=== PATIENT | male | born 1955 | race Caucasian/White ===

== ENCOUNTER 2022-02-08 14:58 | Inpatient (IN) | payer OTHER, SELFPAY ==
--- NOTE | ~2022-02-08 | CT_ITS ---
EXAMINATION: CTA CHEST WITHOUT AND WITH CONTRAST, CT ABDOMEN AND PELVIS WITH CONTRAST CLINICAL INFORMATION: Vomiting, hypoxia COMPARISON: No pertinent prior studies are available for comparison. TECHNIQUE: Multidetector volumetric imaging was performed from the thoracic inlet through the pubic symphysis following administration of oral and 100 mL of Omnipaque 300 intravenous contrast. Sagittal and coronal reformatted images were obtained on the technologist workstation. This CT examination was performed using dose optimization techniques as appropriate, variously including the following: *Automated exposure control *Adjustment of mA and/or kV according to patient size (this includes techniques or standardized protocols for targeted exams where dose is matched to indication/reason for exam; i.e. extremities or head) *Use of iterative reconstruction technique DLP: 1507 mGy-cm FINDINGS: CHEST: LUNGS: There are small multifocal areas of parenchymal abnormality which are irregular but nonmasslike predominantly upper lung zones bilaterally. Minor focal airspace disease left base. Appearance favors postinflammatory scarring on this baseline exam. For example a left apical lesion when analyzed in the sagittal plane is more platelike in the subpleural space favoring scarring. There are discrete tiny nodules within the right lung superior segment right lower lobe measuring up to 4 mm. This is nonspecific but warrants close follow-up. There is evidence of underlying scattered groundglass opacities which may related to small vessel airway disease. There is a mosaic perfusion is also evident. PULMONARY ARTERIES: Relatively small burden acute pulmonary emboli are noted within the right lower lobe pulmonary artery nonocclusive. Minimal involvement of the right upper lobe pulmonary artery. No evidence for any increased right ventricular pressures. MEDIASTINUM: The mediastinum is normal. Central vascular structures are unremarkable. No hilar or mediastinal lymphadenopathy. PERICARDIUM/PLEURA: There is no significant effusion. No pleural mass or thickening. CHEST WALL/AXILLA: Unremarkable. ABDOMEN/PELVIS: LIVER, GALLBLADDER, BILIARY TREE: The liver is normal in size, shape, and attenuation. No focal hepatic lesion or biliary ductal dilatation is present. The gallbladder is unremarkable with no evidence of radiopaque gallstones, gallbladder wall thickening, or pericholecystic inflammatory changes. PANCREAS: Unremarkable. SPLEEN: Unremarkable. ADRENAL GLANDS: Unremarkable. KIDNEYS AND URETERS: Horseshoe kidney without evidence of any mass or hydronephrosis. No stones. BLADDER: Decompressed with Sheldon catheter in place. Relative thick wall noted limiting assessment. No stones. Air noted presumably iatrogenic within the lumen. GASTROINTESTINAL TRACT: Moderately severe diverticulosis throughout the sigmoid colon in particular. No definite acute inflammatory changes or fluid collection. No small bowel obstruction or abnormality. Normal appendix. ABDOMINAL WALL: No hernia is demonstrated. LYMPH NODES: Normal. VASCULAR: Unremarkable. PELVIC VISCERA: Unremarkable. OSSEOUS STRUCTURES: Unremarkable. CT/CT angio chest PE protocol IMPRESSION: 1. Acute pulmonary embolism as above. 2. Pulmonary lesions which are nonspecific. According to the UPDATED 2017 Fleischner Society recommendations, the advised follow-up imaging for solid nodules < 6 mm is: LOW RISK PATIENT: No routine follow-up. HIGH RISK PATIENT: Optional CT at 12 months. Based on overall appearance, consider follow-up in 6-12 months. 3. Diverticulosis only. No obstruction. 4. Incidental horseshoe kidney. This critical result was discussed with Sanchez PA at 5:50 PM on a 3022 and it was ascertained that the content and urgency of the report was understood at the time of direct communication.
--- NOTE | ~2022-02-08 | CT_ITS ---
EXAMINATION: CT HEAD WITHOUT CONTRAST CLINICAL INFORMATION: Confusion COMPARISON: 02/08/2022 TECHNIQUE: Contiguous axial imaging was performed from the skull base to vertex without intravenous administration of contrast. This CT examination was performed using dose optimization techniques as appropriate, variously including the following: *Automated exposure control *Adjustment of mA and/or kV according to patient size (this includes techniques or standardized protocols for targeted exams where dose is matched to indication/reason for exam; i.e. extremities or head) *Use of iterative reconstruction technique DLP: 784 mGy-cm FINDINGS: No acute intracranial abnormality. Symmetrical white matter changes most consistent with terminal supply white matter chronic lacunar ischemic/infarct involving the hollis radiata and centrum semiovale. No acute infarct or hemorrhage. No extra-axial abnormality. Brainstem and cerebellum intact. No calvarial abnormality. Paranasal sinuses and mastoid air cells clear. CT/CT head/brain wo IV con IMPRESSION: No acute intracranial pathology.
--- NOTE | ~2022-02-08 | CT_ITS ---
EXAMINATION: CT HEAD WITHOUT CONTRAST CLINICAL INFORMATION: Confusion COMPARISON: None TECHNIQUE: Contiguous axial imaging was performed from the skull base to vertex without intravenous administration of contrast. This CT examination was performed using dose optimization techniques as appropriate, variously including the following: *Automated exposure control *Adjustment of mA and/or kV according to patient size (this includes techniques or standardized protocols for targeted exams where dose is matched to indication/reason for exam; i.e. extremities or head) *Use of iterative reconstruction technique DLP: 99 mGy-cm FINDINGS: Symmetrical white matter changes most consistent with terminal supply white matter chronic lacunar ischemic/infarct involving the hollis radiata and centrum semiovale. The ventricles and cisterns are normal in size, shape and configuration. There are no extra-axial surface collections or evidence of hemorrhage. Midline structures are central. The thomas/white differentiation is maintained. The orbits appear normal bilaterally. The paranasal sinuses are clear. No fractures are seen. CT/CT head/brain wo IV con IMPRESSION: No acute intracranial pathology.
--- NOTE | ~2022-02-08 | US_ITS ---
EXAMINATION: US VENOUS ULTRASOUND WITH DOPPLER LOWER EXTREMITY, BILATERAL CLINICAL INFORMATION: Positive PE COMPARISON: None TECHNIQUE: Ultrasound of the deep veins is performed from the hip to the calf with compression sonography and color and pulse Doppler assessment. Spectral analysis with color-flow imaging is performed. FINDINGS: RIGHT: There is normal venous compression and respiratory variation and augmented flow. The visualized common femoral vein, superficial femoral vein, profunda femoral vein, popliteal vein, and the trifurcation region shows no evidence of deep venous thrombosis. There is no significant popliteal fossa cyst. LEFT: Post left above-knee amputation. There is occlusive thrombus in the left superficial femoral vein. The left common femoral and profunda femoral veins are patent. US/US venous duplex LE BI IMPRESSION: Left superficial femoral DVT. No right leg DVT. Findings were communicated to IVAN Prescott by telephone on 02/09/2022 at 2:15 PM.
[2022-02-08 15:03] VITALS: BP 104/63; BP 95/55; PULSE 78; RESP 18; TEMP 35.8; O2SAT 94; BMI 27.4
--- NOTE | 2022-02-08 15:03 | ECG_ITS ---
Test Reason : WEAKNESS Blood Pressure : / mmHG Vent. Rate : 079 BPM Atrial Rate : 079 BPM P-R Int : 290 ms QRS Dur : 156 ms QT Int : 440 ms P-R-T Axes : 028 -05 036 degrees QTc Int : 504 ms Sinus rhythm with 1st degree A-V block Right bundle branch block Inferior infarct , age undetermined Abnormal ECG No previous ECGs available Referred By: Lula Acevedo Electronically Signed By:REGLA SEVILLA
--- NOTE | 2022-02-08 15:13 | ED_ITS ---
HPI - General Adult General Chief complaint: Weakness Stated complaint: SOB, 90% 4LPM,H/O DIALYSIS Time Seen by Provider: 02/08/22 15:01 Source: patient and EMS Mode of arrival: EMS History of Present Illness HPI narrative: 67-year-old male with a past medical history of ETOH abuse, HTN, PVD, diabetes s/p L BKA, urinary retention indwelling Sheldon catheter, CKD stage 3 on HD (M/W/F), s/p recent admission to [facility] for possible acute encephalopathy, NAEEM with hyperkalemia and dialysis requirement, found to be hypoxic 82% on RA with nausea and vomiting at [facility]. Patient with poor appetite/decreased p.o. intake. Denies CP, SOB, abdominal pain, diarrhea, cough, fever Onset (ago): hour(s) Related Data Home Medications Medication Instructions Recorded Confirmed acetaminophen 325 mg tablet 650 mg PO Q4H PRN Fever 02/08/22 02/08/22 (Tylenol) amlodipine 10 mg tablet 1 tab PO DAILY 02/08/22 02/08/22 aspirin 81 mg chewable tablet 81 mg PO DAILY 02/08/22 02/08/22 atorvastatin 20 mg tablet 20 mg PO DAILY 02/08/22 02/08/22 carvedilol 25 mg tablet 25 mg PO BID 02/08/22 02/08/22 fluticasone propionate 220 1 puff inhalation BID 02/08/22 02/08/22 mcg/actuation HFA aerosol inhaler glipizide 10 mg tablet 10 mg PO DAILY 02/08/22 02/08/22 hydralazine 25 mg tablet 25 mg PO TID 02/08/22 02/08/22 sennosides 8.6 mg tablet (senna) 17.2 mg PO BEDTIME 02/08/22 02/08/22 sitagliptin 100 mg tablet 100 mg PO DAILY 02/08/22 02/08/22 tamsulosin 0.4 mg capsule 0.8 mg PO DAILY 02/08/22 02/08/22 trazodone 50 mg tablet 50 mg PO BEDTIME 02/08/22 02/08/22 Allergies Allergy/AdvReac Type Severity Reaction Status Date / Time No Known Allergies Allergy Verified 02/08/22 15:03 Review of Systems Review of Systems: Constitutional: No Fever, No Chills, + Fatigue, + Malaise, +decreased PO intake ENT/Mouth: No Ear Pain, No Nasal Congestion, No sore throat, No Rhinorrhea, No Swallowing Difficulty Eyes: No Eye Pain, No Swelling, No Redness, No Vision Changes Cardiovascular: No Chest Pain, No SOB, No Dyspnea on Exertion, No Orthopnea, No Edema, No Palpitations Respiratory: No Cough, No Sputum, No Dyspnea Gastrointestinal: + Nausea, + Vomiting, No Diarrhea, No Constipation, No Abdominal pain Genitourinary: No irregular bleeding, No Dysuria, No Urinary Frequency, No Hematuria, No Urinary Incontinence/retention, No Flank Pain Musculoskeletal: No joint pain, No Myalgias, No Joint Swelling Skin: No Skin Lesions, No rash Neuro: No Weakness, No Numbness, No Dizziness, No Headache Yes all other systems are reviewed and are negative Constitutional: Constitutional: Reports as per [facility] Past Medical History Attestation statement: The following information was validated with the patient. Social History Social History Advance Directives: No Advance Directives Information Provided: Yes Physical Exam ED Vital Signs: Vital Signs - 24 hr 02/08/22 15:03 02/08/22 17:53 Temperature 96.5 F L Pulse Rate 78 78 Respiratory Rate 18 21 H Blood Pressure 95/55 L 137/75 Pulse Oximetry 94 94 Oxygen Delivery Method Nasal Cannula Nasal Cannula Oxygen Flow Rate 3 BMI result Body Mass Index 27.4 Const Other: Diaphoretic General: cooperative and no acute distress Orientation/consciousness: patient oriented x3 Limitations: no limitations HENMT Head: Yes normal to inspection and Yes atraumatic Ears: hearing grossly normal bilaterally General nose exam: Normal external nose present Face and sinus: Yes normal facial exam Mouth: Normal oral and palatal mucosa present Throat: Yes posterior oropharynx normal Eyes General: appearance normal, both eyes and all related structures EOM: EOMs intact bilaterally Neck Neck: Yes normal visual inspection and Yes no meningeal signs Resp Effort & Inspection: normal respiratory effort and no respiratory distress Auscultation: rhonchi lower bilaterally Cardio Rate: regular rate Heart sounds: S1 normal heart sound present and S2 normal heart sound present GI Inspection: Yes normal to inspection Palpation (GI): Soft to palpation, nontender, no guarding and not rigid General: Yes no CVA tenderness Back/Spine/Pelvis Back: no CVA tenderness Skin Rashes: no rashes Wounds: no wounds Neuro General: patient oriented x3, tone normal and no meningeal signs Gait exam (Neuro): Normal gait present Extrem General: Yes normal to inspection Course Course Course Narrative: -1405--noted leukocytosis of 32.6 previously with left shift (12.5 yesterday) > IV vancomycin added. D-dimer 3246 -pH 7.45, lactic acid negative. Troponin 14.6 > will obtain 3 hour repeat. Ammonia WNL -1619--BUN noted to be 48, creatinine of 10.51. Anion gap 25. CRP elevated to 11.68 - + UA infected -1755--CT head/brain wo IV con IMPRESSION: No acute intracranial pathology. CT angio chest PE protocol /CT abdomen pelvis w IV con IMPRESSION: 1. Acute pulmonary embolism as above. 2. Pulmonary lesions which are nonspecific. According to the UPDATED 2017 Fleischner Society recommendations, the advised follow-up imaging for solid nodules < 6 mm is: ?? LOW RISK PATIENT: No routine follow-up. ?? HIGH RISK PATIENT: Optional CT at 12 months. ? Based on overall appearance, consider follow-up in 6-12 months. ? 3. Diverticulosis only. No obstruction. 4. Incidental horseshoe kidney. ? This critical result was discussed with Sanchez PA at 5:50 PM on a 3022 and it was ascertained that the content and urgency of the report was understood at the time of direct communication. >> no evidence of right heart strain initiated IV heparin. Patient admitted to hospitalist for further management -spoke with renal Dr Montero aware patient needs dialysis tomorrow. Recommended blood cultures if positive pull out PermCath Medical Decision Making [facility] Narrative Medical decision making narrative: 67-year-old male with a past medical history of ETOH abuse, HTN, PVD, diabetes s/p L BKA, urinary retention indwelling Sheldon catheter, CKD stage 3 on HD (M/W/F), s/p recent admission to [facility] for possible acute encephalopathy, NAEEM with hyperkalemia and dialysis requirement, found to be hypoxic 82% on RA with nausea and vomiting at [facility]. Patient with poor appetite/decreased p.o. intake. On exam satting 90-93% on RA, bibasilar rhonchi, diaphoretic, abdomen soft/nont sagrario. Active dark green emesis during evaluation. Concern for aspiration pneumonia/pneumonitis vs PE vs viral syndrome/COVID-19 vs HCAP vs SBO vs Permacath infection. -Pre dialysis yesterday patient's BUN of 64, creatinine 11.5. Per [facility] records BUN 32/ creatinine 6.7 on 02/03/22 Plan: EKG, labs, UA, head CT, CTA to rule out PE, CT abdomen/pelvis, empiric IV Zosyn, admission Medical Records Medical records reviewed: Yes I reviewed the patient's medical records. Lab Data Lab results reviewed: Yes I reviewed the patient's lab results. Result diagrams: 02/08/22 15:24 02/08/22 15:24 Labs: Lab Results 02/08/22 02/08/22 02/08/22 Range/Units 15:24 15:24 15:24 WBC 32.6 H* (4.8-10.8) X10*3/uL RBC 4.40 L (4.60-5.80) X10*6/uL Hgb 13.2 L (14.0-18.0) g/dl Hct 39.2 L (42.0-52.0) % MCV 89.1 (80.0-98.0) fL MCH 30.0 (27.0-33.0) pg MCHC 33.7 (31.0-36.0) g/dl RDW 11.8 (11.0-16.0) % Plt Count 330 (160-400) X10*3/uL MPV 11.5 (9.4-12.4) fL Immature Gran % (Auto) 0.9 H (0.0-0.4) % Neut % (Auto) 89.0 H (45-73) % Lymph % (Auto) 3.6 L (20-40) % [place] % (Auto) 6.1 (2-11) % Eos % (Auto) 0.0 (0-4) % Baso % (Auto) 0.4 (0-2) % Lymph # (Auto) 1.2 (1.2-4.9) X10*3/uL [place] # (Auto) 2.0 H (0.1-1.2) X10*3/uL Eos # (Auto) 0.0 (0.0-0.4) X10*3/uL Baso # (Auto) 0.1 (0.0-0.2) X10*3/uL Abs Immat Gran (auto) 0.30 H (0.00-0.03) X10*3/uL Absolute Neuts (auto) 29.0 H (2.0-8.3) x10*3/uL Absolute Nucleated RBC 0.000 (0.0-0.012) X10*3/uL Nucleated RBC % (auto) 0.0 (0.0-0.2) /100WBC Smear Tech's Comments VERIFIED PT (10.0-13.1) SEC INR (0.9-1.1) APTT (26.0-36.4) SEC D-Dimer High Sensitivty NG/ML VBG pH (7.32-7.43) VBG pCO2 mmHg VBG pO2 mmHg VBG HCO3 (22-26) mmol/L VBG O2 Saturation % VBG Base Excess mmol/L Sodium 134 L (135-145) mmol/L Potassium 4.9 (3.3-5.1) mmol/L Chloride 93 L (96-108) mmol/L Carbon Dioxide 21 L (22-29) mmol/L Anion Gap 25 H (12-20) BUN 48 H (9-16) mg/dL Creatinine 10.51 H* (0.5-1.4) mg/dL Estim Creat Clear Calc 8.7 Estimated GFR 5 Random Glucose 272 H (60-115) mg/dL Lactic Acid 1.2 (0.5-2.0) mmol/L Calcium 9.2 (8.4-10.2) mg/dL Magnesium 2.3 (1.6-2.6) mg/dL Ferritin 725 H (20-250) ng/mL Total Bilirubin 0.5 (0.0-1.0) mg/dL Direct Bilirubin 0.3 (0.0-0.5) mg/dL AST 30 (5-37) U/L ALT 18 (0-40) U/L Alkaline Phosphatase 127 H (39-117) U/L Ammonia (13-55) umol/L Troponin I High Sens (<3.5-35.0) ng/L C-Reactive Protein 11.68 H (< or = 0.50) mg/dL B-Natriuretic Peptide (<100) pg/mL Total Protein 7.1 (6.5-8.0) g/dL Albumin 3.2 L (3.5-5.0) g/dL Lipase 32 (8-78) U/L Procalcitonin ng/mL Urine Color Urine Appearance Urine pH (5.0-9.0) Ur Specific [place] (1.005-1.025) Urine Protein (Neg-Trace) mg/dL Urine Glucose (UA) (Negative) mg/dL Urine Ketones (Negative) mg/dL Urine Blood (Negative) Urine Nitrite (Negative) Ur Leukocyte Esterase (Negative) Urine RBC (0-2) /HPF Urine WBC (0-5) /HPF Ur Squamous Epith Cells (0-2) /HPF Urine Bacteria (None Seen) Hyaline Casts (0-2) /LPF COVID-19 (AGUSTIN) (Negative) COVID-19 Clin Com Blood Type Antibody Screen 02/08/22 02/08/22 02/08/22 Range/Units 15:24 15:24 15:24 WBC (4.8-10.8) X10*3/uL RBC (4.60-5.80) X10*6/uL Hgb (14.0-18.0) g/dl Hct (42.0-52.0) % MCV (80.0-98.0) fL MCH (27.0-33.0) pg MCHC (31.0-36.0) g/dl RDW (11.0-16.0) % Plt Count (160-400) X10*3/uL MPV (9.4-12.4) fL Immature Gran % (Auto) (0.0-0.4) % Neut % (Auto) (45-73) % Lymph % (Auto) (20-40) % [place] % (Auto) (2-11) % Eos % (Auto) (0-4) % Baso % (Auto) (0-2) % Lymph # (Auto) (1.2-4.9) X10*3/uL [place] # (Auto) (0.1-1.2) X10*3/uL Eos # (Auto) (0.0-0.4) X10*3/uL Baso # (Auto) (0.0-0.2) X10*3/uL Abs Immat Gran (auto) (0.00-0.03) X10*3/uL Absolute Neuts (auto) (2.0-8.3) x10*3/uL Absolute Nucleated RBC (0.0-0.012) X10*3/uL Nucleated RBC % (auto) (0.0-0.2) /100WBC Smear Tech's Comments PT (10.0-13.1) SEC INR (0.9-1.1) APTT (26.0-36.4) SEC D-Dimer High Sensitivty NG/ML VBG pH (7.32-7.43) VBG pCO2 mmHg VBG pO2 mmHg VBG HCO3 (22-26) mmol/L VBG O2 Saturation % VBG Base Excess mmol/L Sodium (135-145) mmol/L Potassium (3.3-5.1) mmol/L Chloride (96-108) mmol/L Carbon Dioxide (22-29) mmol/L Anion Gap (12-20) BUN (9-16) mg/dL Creatinine (0.5-1.4) mg/dL Estim Creat Clear Calc Estimated GFR Random Glucose (60-115) mg/dL Lactic Acid (0.5-2.0) mmol/L Calcium (8.4-10.2) mg/dL Magnesium (1.6-2.6) mg/dL Ferritin (20-250) ng/mL Total Bilirubin (0.0-1.0) mg/dL Direct Bilirubin (0.0-0.5) mg/dL AST (5-37) U/L ALT (0-40) U/L Alkaline Phosphatase (39-117) U/L Ammonia 17 (13-55) umol/L Troponin I High Sens 14.6 (<3.5-35.0) ng/L C-Reactive Protein (< or = 0.50) mg/dL B-Natriuretic Peptide 76 (<100) pg/mL Total Protein (6.5-8.0) g/dL Albumin (3.5-5.0) g/dL Lipase (8-78) U/L Procalcitonin 0.81 ng/mL Urine Color Urine Appearance Urine pH (5.0-9.0) Ur Specific [place] (1.005-1.025) Urine Protein (Neg-Trace) mg/dL Urine Glucose (UA) (Negative) mg/dL Urine Ketones (Negative) mg/dL Urine Blood (Negative) Urine Nitrite (Negative) Ur Leukocyte Esterase (Negative) Urine RBC (0-2) /HPF Urine WBC (0-5) /HPF Ur Squamous Epith Cells (0-2) /HPF Urine Bacteria (None Seen) Hyaline Casts (0-2) /LPF COVID-19 (AGUSTIN) (Negative) COVID-19 Clin Com Blood Type Antibody Screen 02/08/22 02/08/22 02/08/22 Range/Units 15:24 15:24 15:31 WBC (4.8-10.8) X10*3/uL RBC (4.60-5.80) X10*6/uL Hgb (14.0-18.0) g/dl Hct (42.0-52.0) % MCV (80.0-98.0) fL MCH (27.0-33.0) pg MCHC (31.0-36.0) g/dl RDW (11.0-16.0) % Plt Count (160-400) X10*3/uL MPV (9.4-12.4) fL Immature Gran % (Auto) (0.0-0.4) % Neut % (Auto) (45-73) % Lymph % (Auto) (20-40) % [place] % (Auto) (2-11) % Eos % (Auto) (0-4) % Baso % (Auto) (0-2) % Lymph # (Auto) (1.2-4.9) X10*3/uL [place] # (Auto) (0.1-1.2) X10*3/uL Eos # (Auto) (0.0-0.4) X10*3/uL Baso # (Auto) (0.0-0.2) X10*3/uL Abs Immat Gran (auto) (0.00-0.03) X10*3/uL Absolute Neuts (auto) (2.0-8.3) x10*3/uL Absolute Nucleated RBC (0.0-0.012) X10*3/uL Nucleated RBC % (auto) (0.0-0.2) /100WBC Smear Tech's Comments PT 13.1 (10.0-13.1) SEC INR 1.1 (0.9-1.1) APTT 34.4 (26.0-36.4) SEC D-Dimer High Sensitivty 3246 NG/ML VBG pH 7.45 H (7.32-7.43) VBG pCO2 32 mmHg VBG pO2 122 mmHg VBG HCO3 22 (22-26) mmol/L VBG O2 Saturation 99.0 % VBG Base Excess -0.1 mmol/L Sodium (135-145) mmol/L Potassium (3.3-5.1) mmol/L Chloride (96-108) mmol/L Carbon Dioxide (22-29) mmol/L Anion Gap (12-20) BUN (9-16) mg/dL Creatinine (0.5-1.4) mg/dL Estim Creat Clear Calc Estimated GFR Random Glucose (60-115) mg/dL Lactic Acid (0.5-2.0) mmol/L Calcium (8.4-10.2) mg/dL Magnesium (1.6-2.6) mg/dL Ferritin (20-250) ng/mL Total Bilirubin (0.0-1.0) mg/dL Direct Bilirubin (0.0-0.5) mg/dL AST (5-37) U/L ALT (0-40) U/L Alkaline Phosphatase (39-117) U/L Ammonia (13-55) umol/L Troponin I High Sens (<3.5-35.0) ng/L C-Reactive Protein (< or = 0.50) mg/dL B-Natriuretic Peptide (<100) pg/mL Total Protein (6.5-8.0) g/dL Albumin (3.5-5.0) g/dL Lipase (8-78) U/L Procalcitonin ng/mL Urine Color Urine Appearance Urine pH (5.0-9.0) Ur Specific [place] (1.005-1.025) Urine Protein (Neg-Trace) mg/dL Urine Glucose (UA) (Negative) mg/dL Urine Ketones (Negative) mg/dL Urine Blood (Negative) Urine Nitrite (Negative) Ur Leukocyte Esterase (Negative) Urine RBC (0-2) /HPF Urine WBC (0-5) /HPF Ur Squamous Epith Cells (0-2) /HPF Urine Bacteria (None Seen) Hyaline Casts (0-2) /LPF COVID-19 (AGUSTIN) Negative (Negative) COVID-19 Clin Com See Note Blood Type Antibody Screen 02/08/22 02/08/22 Range/Units 15:40 16:53 WBC (4.8-10.8) X10*3/uL RBC (4.60-5.80) X10*6/uL Hgb (14.0-18.0) g/dl Hct (42.0-52.0) % MCV (80.0-98.0) fL MCH (27.0-33.0) pg MCHC (31.0-36.0) g/dl RDW (11.0-16.0) % Plt Count (160-400) X10*3/uL MPV (9.4-12.4) fL Immature Gran % (Auto) (0.0-0.4) % Neut % (Auto) (45-73) % Lymph % (Auto) (20-40) % [place] % (Auto) (2-11) % Eos % (Auto) (0-4) % Baso % (Auto) (0-2) % Lymph # (Auto) (1.2-4.9) X10*3/uL [place] # (Auto) (0.1-1.2) X10*3/uL Eos # (Auto) (0.0-0.4) X10*3/uL Baso # (Auto) (0.0-0.2) X10*3/uL Abs Immat Gran (auto) (0.00-0.03) X10*3/uL Absolute Neuts (auto) (2.0-8.3) x10*3/uL Absolute Nucleated RBC (0.0-0.012) X10*3/uL Nucleated RBC % (auto) (0.0-0.2) /100WBC Smear Tech's Comments PT (10.0-13.1) SEC INR (0.9-1.1) APTT (26.0-36.4) SEC D-Dimer High Sensitivty NG/ML VBG pH (7.32-7.43) VBG pCO2 mmHg VBG pO2 mmHg VBG HCO3 (22-26) mmol/L VBG O2 Saturation % VBG Base Excess mmol/L Sodium (135-145) mmol/L Potassium (3.3-5.1) mmol/L Chloride (96-108) mmol/L Carbon Dioxide (22-29) mmol/L Anion Gap (12-20) BUN (9-16) mg/dL Creatinine (0.5-1.4) mg/dL Estim Creat Clear Calc Estimated GFR Random Glucose (60-115) mg/dL Lactic Acid (0.5-2.0) mmol/L Calcium (8.4-10.2) mg/dL Magnesium (1.6-2.6) mg/dL Ferritin (20-250) ng/mL Total Bilirubin (0.0-1.0) mg/dL Direct Bilirubin (0.0-0.5) mg/dL AST (5-37) U/L ALT (0-40) U/L Alkaline Phosphatase (39-117) U/L Ammonia (13-55) umol/L Troponin I High Sens (<3.5-35.0) ng/L C-Reactive Protein (< or = 0.50) mg/dL B-Natriuretic Peptide (<100) pg/mL Total Protein (6.5-8.0) g/dL Albumin (3.5-5.0) g/dL Lipase (8-78) U/L Procalcitonin ng/mL Urine Color Dark Yellow Urine Appearance Turbid Urine pH 6.0 (5.0-9.0) Ur Specific [place] 1.025 (1.005-1.025) Urine Protein >=1000 (4+) H (Neg-Trace) mg/dL Urine Glucose (UA) 250 H (Negative) mg/dL Urine Ketones Trace (Negative) mg/dL Urine Blood Moderate (2+) H (Negative) Urine Nitrite Negative (Negative) Ur Leukocyte Esterase Large (3+) H (Negative) Urine RBC 3-5 H (0-2) /HPF Urine WBC >50 H (0-5) /HPF Ur Squamous Epith Cells 3-5 (0-2) /HPF Urine Bacteria 4+ (None Seen) Hyaline Casts 0-2 (0-2) /LPF COVID-19 (AGUSTIN) (Negative) COVID-19 Clin Com Blood Type O Positive Antibody Screen NEGATIVE ECG Data Attestation: I personally reviewed and interpreted this ECG as follows: Prior ECG tracings: not available for review Interpretation: EKG sinus rhythm with first-degree AV block at a rate of 79. Right bundle b ranch block. No STEMI. No previous EKGs to compare Critical Care Time Critical Care Time Critical Care Time: Yes Total Critical Care Time: 45 Attestation: I have personally provided critical care time exclusive of time spent on separately billable procedures. Time includes review of lab data, radiology results, discussion with consultants, and monitoring for potential decompensation. Intervention performed as documented. Discharge Plan Discharge Clinical Impression: Pulmonary embolism, Bacteremia, Acute UTI Patient Disposition: Admitted As Inpatient
[2022-02-08] MEDS: ondansetron HCL 4 MG/2 ML VIAL IVPUSH (15:29)
[2022-02-08] MEDS: 0.9 % Sodium Chloride 500 ML 999 ML IV (15:29)
[2022-02-08 15:39] LABS: Venous Blood Gas Refer to POC result
[2022-02-08 15:39] LABS: VBG Base Excess -0.1 mmol/L; VBG HCO3 22 mmol/L (22-26); VBG pCO2 32 mmHg; VBG pH 7.45 (7.32-7.43); VBG pO2 122 mmHg
[2022-02-08] MEDS: Piperacillin Sodium/Tazobactam 3.375 GM in 0.9 % Sodium Chloride 50 ML IV (15:39)
[2022-02-08 15:41] LABS: D Dimer High Sensitivity 3246 NG/ML
[2022-02-08 15:43] LABS: Basophils Absolute Auto 0.1 X10*3/uL (0.0-0.2); Basophils Percent Auto 0.4 % (0-2); Hematocrit 39.2 % (42.0-52.0); Hemoglobin 13.2 g/dl (14.0-18.0); Imm Gran Pct Auto 0.9 % (0.0-0.4); Lymphocytes Absolute Auto 1.2 X10*3/uL (1.2-4.9); Lymphocytes Percent Auto 3.6 % (20-40); MANUAL DIFF FLAG SCAN; Mean Corpuscular HGB Conc 33.7 g/dl (31.0-36.0); Mean Corpuscular Volume 89.1 fL (80.0-98.0); Mean Platelet Volume 11.5 fL (9.4-12.4); Monocytes Percent Auto 6.1 % (2-11); Platelet Count 330 X10*3/uL (160-400); Red Cell Distribution Width 11.8 % (11.0-16.0); SCAN SMEAR FLAG 1
[2022-02-08 15:46] LABS: INTERNATIONAL NORM RATIO 1.1 (0.9-1.1); Prothrombin Time 13.1 SEC (10.0-13.1)
[2022-02-08 15:46] LABS: Appearance Urine Turbid; Color Urine Dark Yellow; Glucose Urine UA 250 mg/dL (Negative); Leukocyte Esterase Urine Large (3+) (Negative); Nitrite Urine Negative (Negative); Specific Gravity - Urine 1.025 (1.005-1.025); Urine Blood Moderate (2+) (Negative); Urine Ketones Trace mg/dL (Negative); Urine Protein >=1000 (4+) mg/dL (Neg-Trace)
[2022-02-08 15:47] LABS: Lactic Acid 1.2 mmol/L (0.5-2.0)
[2022-02-08 15:48] LABS: Partial Thromboplastin Time 34.4 SEC (26.0-36.4)
[2022-02-08 15:50] LABS: Ammonia 17 umol/L (13-55)
[2022-02-08 15:59] LABS: B Type Natriuretic Peptide 76 pg/mL (<100); Troponin-I High Sensitivity 14.6 ng/L (<3.5-35.0)
[2022-02-08 16:04] LABS: COVID-19 Test Negative (Negative); White Blood Count 32.6 X10*3/uL (4.8-10.8)
[2022-02-08 16:05] LABS: SLIDE REVIEW VERIFIED
[2022-02-08 16:12] LABS: Bacteria Urine 4+ (None Seen); Hyaline Casts Urine 0-2 /LPF (0-2); UACC Culture Trigger YES; WBC Urine >50 /HPF (0-5)
[2022-02-08 16:16] LABS: Alanine Aminotransferase 18 U/L (0-40); Albumin Level 3.2 g/dL (3.5-5.0); Alkaline Phosphatase 127 U/L (39-117); Anion Gap 25 (12-20); Aspartate Amino Transferase 30 U/L (5-37); Bilirubin Direct 0.3 mg/dL (0.0-0.5); Bilirubin Total 0.5 mg/dL (0.0-1.0); Blood Urea Nitrogen 48 mg/dL (9-16); C Reactive Protein 11.68 mg/dL (< or = 0.50); Calcium 9.2 mg/dL (8.4-10.2); Carbon Dioxide 21 mmol/L (22-29); Chloride 93 mmol/L (96-108); Creatinine Clr Calc Pharmacy 8.7; Estimated Glomerular Filt Rate 5; Glucose Random 272 mg/dL (60-115); Lipase 32 U/L (8-78); Magnesium 2.3 mg/dL (1.6-2.6); Potassium 4.9 mmol/L (3.3-5.1); Sodium 134 mmol/L (135-145); Total Protein 7.1 g/dL (6.5-8.0)
[2022-02-08 16:24] LABS: Procalcitonin 0.81 ng/mL
[2022-02-08 16:30] LABS: Ferritin 725 ng/mL (20-250)
[2022-02-08] MEDS: iohexoL 350 MG/ML 100 ML INFUS..BTL IV (16:43)
--- NOTE | 2022-02-08 17:52 | PHA.MEDREC ---
Pharmacy Consult ? Medication Reconciliation Pharmacy has completed the medication reconciliation. Pt had list in chart from SNF
[2022-02-08 17:53] VITALS: BP 137/75; PULSE 78; RESP 21; O2SAT 94
[2022-02-08] MEDS: Heparin Sodium,Porcine/1/2NS 25,000 UNIT/250 ML IV.SOLN 14.71 UNIT IVCONT (18:11)
[2022-02-08] MEDS: Heparin Sodium,Porcine 5,000 UNIT/ML VIAL 8400 UNIT IVPUSH (18:14)
[2022-02-08] MEDS: Famotidine/PF 20 MG/2 ML VIAL IVPUSH (18:33)
--- NOTE | 2022-02-08 18:42 | PM.IMHP ---
History of Present Illness Date of Service: 02/08/22 Attending physician on admission: Daljit Farris Chief Complaint: acute respiratory failure with hypoxia, PE, AG met acidosis, UTI 67 year old male with history of uncontrolled non-insulin dependent diabetes, htn, ESRD on dialysis MWF, BPH, and urinary retention with chronic indwelling zeng catheter with recent admission to [facility] for acute encephalopathy, NAEEM with hyperkalemia requiring HD. Currently patient is residing at SNF and found to be hypoxic at 82% on RA with nausea, vomiting, with poor appetite/decreased PO intake and confused. In ED, significant leukocytosis of 32.6 with left shift. Lactic acid normal 1.2. Anion gap elevated at 25 with bicarb 21 with VBG reflecting overall stable pH of 7.45. Creat elevated 10.51 with BUN 48. CRP elevated 11.68. D-dimer 3246 and subsequent CTA chest showing small burden of acute pulmonary emboli in RLL pulmonary artery non-occlusive with minimal involvement right upper pulmonary artery. There were also several nonspecific pulmonary nodules with recommended follow up in 6-12 months. There are also several areas of underlying airspace disease questionable for pneumonia. Head CT negative. UA significant for 3+ leuks, 2+ blood, 4+ bacteria, 4+ protein, neg nitrites. Urine culture and blood cultures pending. IV vancomycin initiated. Initially Temperature low 96.5, bp 95/55, mildly tachypneic 21, oximetry 94% on 2L supplemental O2. History of heavy etoh use, but none in recent days. Review of Systems Review of Systems: Patient not the best historian due to ams General: No fevers, malaise, unintentional weight loss Cardiovascular: No chest pain, palpitations, or leg edema Respiratory: No shortness of breath, wheezing, cough GI: +nausea/vomiting. No abdominal pain, diarrhea, constipation, melena, hematochezia Neuro: No headaches, weakness, paresthesias Skin: No rashes or lesions [facility] Medical History (Updated 02/08/22 @ 19:17 by IVAN Prescott) Acute respiratory failure with hypoxia Acute UTI ESRD (end stage renal disease) on dialysis Metabolic encephalopathy Pulmonary embolism Family History Mother No problems noted. Father No problems noted. Pertinent family history: Patient poor historian due to mental status Social History Advance Directives: No Advance Directives Information Provided: Yes Meds Allergies Allergy/AdvReac Type Severity Reaction Status Date / Time No Known Allergies Allergy Verified 02/08/22 15:03 Active Medications: Current Medications Heparin Sodium (Porcine) (Heparin Sodium,Porcine 5,000 Unit/Ml Vial) 4,200 unit 40 unit/kg (4200 unit) IVPUSH PROTOCOL BOLUS PRN; Protocol PRN Reason: 40 unit/kg - Heparin Protocol Heparin Sodium (Porcine) (Heparin Sodium,Porcine 5,000 Unit/Ml Vial) 8,400 unit 80 unit/kg (8400 unit) IVPUSH PROTOCOL BOLUS PRN; Protocol PRN Reason: 80 unit/kg - Heparin Protocol Heparin Sodium/Sodium Chloride (Heparin Sodium,Porcine/1/2ns) 25,000 unit in 250 mls @ 0 mls/hr IVCONT .Q0M PANKAJ; Protocol Last Admin: 02/08/22 18:11 Dose: 14 units/kg/hr, 14.71 mls/hr Pharmacy Consult (Consult Rx Perform Med Rec) 1 each MISCELLANE ONCE PRN PRN Reason: Consult order Home Medications Medication Instructions Recorded Confirmed Last Taken Type acetaminophen 325 mg tablet 650 mg PO Q4H PRN Fever 02/08/22 02/08/22 Unknown History (Tylenol) amlodipine 10 mg tablet 1 tab PO DAILY 02/08/22 02/08/22 Unknown History aspirin 81 mg chewable tablet 81 mg PO DAILY 02/08/22 02/08/22 Unknown History atorvastatin 20 mg tablet 20 mg PO DAILY 02/08/22 02/08/22 Unknown History carvedilol 25 mg tablet 25 mg PO BID 02/08/22 02/08/22 Unknown History fluticasone propionate 220 1 puff inhalation BID 02/08/22 02/08/22 Unknown History mcg/actuation HFA aerosol inhaler glipizide 10 mg tablet 10 mg PO DAILY 02/08/22 02/08/22 Unknown History hydralazine 25 mg tablet 25 mg PO TID 02/08/22 02/08/22 Unknown History sennosides 8.6 mg tablet (senna) 17.2 mg PO BEDTIME 02/08/22 02/08/22 Unknown History sitagliptin 100 mg tablet 100 mg PO DAILY 02/08/22 02/08/22 Unknown History tamsulosin 0.4 mg capsule 0.8 mg PO DAILY 02/08/22 02/08/22 Unknown History trazodone 50 mg tablet 50 mg PO BEDTIME 02/08/22 02/08/22 Unknown History Physical Exam Vital Signs and Narrative: Vital Signs: Last Vital Signs Temp 96.5 F L 02/08/22 15:03 Pulse 78 02/08/22 17:53 Resp 21 H 02/08/22 17:53 BP 137/75 02/08/22 17:53 Pulse Ox 94 02/08/22 17:53 O2 Del Method 02/08/22 17:53 O2 Flow Rate 3 02/08/22 17:53 Oxygen Flow Rate 2 02/08/22 15:03 BMI result Body Mass Index 27.4 Constitutional - Awake and Alert, No apparent distress Eyes - PERRLA, EOMI Cardiovascular - S1S2, RRR, No edema Respiratory - Normal lung expansion, Normal respiratory effort, No respiratory distress, CTA bilaterally Gastrointestinal - NT / ND; +BS; No rebound or guarding - Zeng cath in place draining clear yellow urine Extremities - no calf tenderness RLE, s/p left AKA Skin - Warm/Dry Neurological - Alert & oriented to self, able to answer most simple questions, No focal deficit. Psychological - Appropriate affect Results Labs CBC and Chem 7: 02/08/22 15:24 02/08/22 15:24 Labs: Laboratory Results - last 24 hr 02/08/22 02/08/22 02/08/22 15:24 15:24 15:24 MCV 89.1 MCH 30.0 MCHC 33.7 RDW 11.8 Plt Count 330 MPV 11.5 Immature Gran % (Auto) 0.9 H Neut % (Auto) 89.0 H Lymph % (Auto) 3.6 L [place] % (Auto) 6.1 Eos % (Auto) 0.0 Baso % (Auto) 0.4 Lymph # (Auto) 1.2 [place] # (Auto) 2.0 H Eos # (Auto) 0.0 Baso # (Auto) 0.1 Abs Immat Gran (auto) 0.30 H Absolute Neuts (auto) 29.0 H Absolute Nucleated RBC 0.000 Nucleated RBC % (auto) 0.0 Smear Tech's Comments VERIFIED PT INR APTT D-Dimer High Sensitivty VBG pH VBG pCO2 VBG pO2 VBG HCO3 VBG O2 Saturation VBG Base Excess Anion Gap 25 H Estim Creat Clear Calc 8.7 Estimated GFR 5 Random Glucose 272 H Lactic Acid 1.2 Calcium 9.2 Magnesium 2.3 Ferritin 725 H Total Bilirubin 0.5 Direct Bilirubin 0.3 AST 30 ALT 18 Alkaline Phosphatase 127 H Ammonia C-Reactive Protein 11.68 H B-Natriuretic Peptide Total Protein 7.1 Albumin 3.2 L Lipase 32 Procalcitonin Urine Color Urine Appearance Urine pH Ur Specific [place] Urine Protein Urine Glucose (UA) Urine Ketones Urine Blood Urine Nitrite Ur Leukocyte Esterase Urine RBC Urine WBC Ur Squamous Epith Cells Urine Bacteria Hyaline Casts COVID-19 (AGUSTIN) COVID-19 Lipocalyx Com Blood Type Antibody Screen 02/08/22 02/08/22 02/08/22 15:24 15:24 15:24 MCV MCH MCHC RDW Plt Count MPV Immature Gran % (Auto) Neut % (Auto) Lymph % (Auto) [place] % (Auto) Eos % (Auto) Baso % (Auto) Lymph # (Auto) [place] # (Auto) Eos # (Auto) Baso # (Auto) Abs Immat Gran (auto) Absolute Neuts (auto) Absolute Nucleated RBC Nucleated RBC % (auto) Smear Tech's Comments PT INR APTT D-Dimer High Sensitivty VBG pH VBG pCO2 VBG pO2 VBG HCO3 VBG O2 Saturation VBG Base Excess Anion Gap Estim Creat Clear Calc Estimated GFR Random Glucose Lactic Acid Calcium Magnesium Ferritin Total Bilirubin Direct Bilirubin AST ALT Alkaline Phosphatase Ammonia 17 C-Reactive Protein B-Natriuretic Peptide 76 Total Protein Albumin Lipase Procalcitonin 0.81 Urine Color Urine Appearance Urine pH Ur Specific [place] Urine Protein Urine Glucose (UA) Urine Ketones Urine Blood Urine Nitrite Ur Leukocyte Esterase Urine RBC Urine WBC Ur Squamous Epith Cells Urine Bacteria Hyaline Casts COVID-19 (AGUSTIN) COVID-19 Lipocalyx Com Blood Type Antibody Screen 02/08/22 02/08/22 02/08/22 15:24 15:24 15:31 MCV MCH MCHC RDW Plt Count MPV Immature Gran % (Auto) Neut % (Auto) Lymph % (Auto) [place] % (Auto) Eos % (Auto) Baso % (Auto) Lymph # (Auto) [place] # (Auto) Eos # (Auto) Baso # (Auto) Abs Immat Gran (auto) Absolute Neuts (auto) Absolute Nucleated RBC Nucleated RBC % (auto) Smear Tech's Comments PT 13.1 INR 1.1 APTT 34.4 D-Dimer High Sensitivty 3246 VBG pH 7.45 H VBG pCO2 32 VBG pO2 122 VBG HCO3 22 VBG O2 Saturation 99.0 VBG Base Excess -0.1 Anion Gap Estim Creat Clear Calc Estimated GFR Random Glucose Lactic Acid Calcium Magnesium Ferritin Total Bilirubin Direct Bilirubin AST ALT Alkaline Phosphatase Ammonia C-Reactive Protein B-Natriuretic Peptide Total Protein Albumin Lipase Procalcitonin Urine Color Urine Appearance Urine pH Ur Specific [place] Urine Protein Urine Glucose (UA) Urine Ketones Urine Blood Urine Nitrite Ur Leukocyte Esterase Urine RBC Urine WBC Ur Squamous Epith Cells Urine Bacteria Hyaline Casts COVID-19 (AGUSTIN) Negative COVID-19 Clin Com See Note Blood Type Antibody Screen 02/08/22 02/08/22 15:40 16:53 MCV MCH MCHC RDW Plt Count MPV Immature Gran % (Auto) Neut % (Auto) Lymph % (Auto) [place] % (Auto) Eos % (Auto) Baso % (Auto) Lymph # (Auto) [place] # (Auto) Eos # (Auto) Baso # (Auto) Abs Immat Gran (auto) Absolute Neuts (auto) Absolute Nucleated RBC Nucleated RBC % (auto) Smear Tech's Comments PT INR APTT D-Dimer High Sensitivty VBG pH VBG pCO2 VBG pO2 VBG HCO3 VBG O2 Saturation VBG Base Excess Anion Gap Estim Creat Clear Calc Estimated GFR Random Glucose Lactic Acid Calcium Magnesium Ferritin Total Bilirubin Direct Bilirubin AST ALT Alkaline Phosphatase Ammonia C-Reactive Protein B-Natriuretic Peptide Total Protein Albumin Lipase Procalcitonin Urine Color Dark Yellow Urine Appearance Turbid Urine pH 6.0 Ur Specific [place] 1.025 Urine Protein >=1000 (4+) H Urine Glucose (UA) 250 H Urine Ketones Trace Urine Blood Moderate (2+) H Urine Nitrite Negative Ur Leukocyte Esterase Large (3+) H Urine RBC 3-5 H Urine WBC >50 H Ur Squamous Epith Cells 3-5 Urine Bacteria 4+ Hyaline Casts 0-2 COVID-19 (AGUSTIN) COVID-19 Clin Com Blood Type O Positive Antibody Screen NEGATIVE Imaging Radiologist's Impressions: Impressions Abdomen/Pelvis CT 02/08/22 16:40 IMPRESSION: 1. Acute pulmonary embolism as above. 2. Pulmonary lesions which are nonspecific. According to the UPDATED 2017 Fleischner Society recommendations, the advised follow-up imaging for solid nodules < 6 mm is: LOW RISK PATIENT: No routine follow-up. HIGH RISK PATIENT: Optional CT at 12 months. Based on overall appearance, consider follow-up in 6-12 months. 3. Diverticulosis only. No obstruction. 4. Incidental horseshoe kidney. This critical result was discussed with Sanchez PA at 5:50 PM on a 3022 and it was ascertained that the content and urgency of the report was understood at the time of direct communication. Chest CTA 02/08/22 16:40 IMPRESSION: 1. Acute pulmonary embolism as above. 2. Pulmonary lesions which are nonspecific. According to the UPDATED 2017 Fleischner Society recommendations, the advised follow-up imaging for solid nodules < 6 mm is: LOW RISK PATIENT: No routine follow-up. HIGH RISK PATIENT: Optional CT at 12 months. Based on overall appearance, consider follow-up in 6-12 months. 3. Diverticulosis only. No obstruction. 4. Incidental horseshoe kidney. This critical result was discussed with Sanchez PA at 5:50 PM on a 3022 and it was ascertained that the content and urgency of the report was understood at the time of direct communication. Head CT 02/08/22 16:40 IMPRESSION: No acute intracranial pathology. Assessment and Plan (1) Acute respiratory failure with hypoxia: Status: Acute (2) Pulmonary embolism: Status: Acute (3) Acute UTI: Status: Acute (4) Pneumonia: Status: Acute (5) High anion gap metabolic acidosis: Status: Acute (6) ESRD (end stage renal disease) on dialysis: Status: Acute Plan 67 year old male with history of uncontrolled non-insulin dependent diabetes, htn, ESRD on dialysis MWF, BPH, and urinary retention with chronic indwelling zeng catheter with recent admission to [facility] for acute encephalopathy, NAEEM with hyperkalemia requiring HD being admitted to the hospital for acute respiratory failure with hypoxia secondary to PE, sepsis related to UTI, and AG metabolic acidosis with metabolic encephalopathy and ESRD. 1- Acute respiratory failure with hypoxia- secondary to acute PE -found to be hypoxic at 82% at SNF, stable on 2L supplemental O2 via NC, Continue O2 to maintain oximetry >93% 2- Acute pulmonary embolism -D-Dimer >3200 -CTA chest with relatively small burden acute pulmonary emboli within right lower lobe artery non-occulssive. Minimal involvement right upper lobe pulmonary artery. -Heparin drip initiated. No bleeding, melena, hematochezia. Continue heparin drip per protocol. -Venous duplex b/l ordered -Continue O2 as above for hypoxia 3-Sepsis secondary to acute UTI and possible pneumonia -No hypotension. Normal lactic acid 1.2. No severe sepsis. Received IV fluid bolus in ED -Received IV vancomycin and zosyn in ED. Continue IV zosyn, renally dosed, and vanco at risk for MRSA (due to suspected pneunomia as well) -Continue IV fluids -Trend CBC 4-Metabolic encephalopathy- secondary to sepsis -Conitnue plan as above 5-High anion gap metabolic acidosis- AG 25, CO2 21 with stable pH 7.45 on VBG -secondary to sepsis and ESRD -Continue plan as above 6-ESRD- ongoing since at least most recent [facility] hospitalization. Chronicity unclear at this time. -Possibly secondary to sepsis vs uncontrolled type 2 diabetes vs hypoxia -Renal consulted, will need HD- permacath in place -Follow BMP 5-Tbw-Txqfyso dependent type 2 diabetes- uncontrolled -A1c ordered -Humalog on sliding scale -Diabetic diet 8- HTN- borderline low blood pressure improved following IV fluids - Hold home meds at this time 9-HLD -Continue atorvastatin 10-BPH with urinary retention -Continue chronic zeng catheter -Continue tamsulosin DVT prophylaxis- on heparin drip DNR/DNI per [facility]OLST form 02/04/22 Patient requires inpatient stay of at least 2 midnights for management of sepsis secondary to UTI and PE with acute respiratory failure with hypoxia requiring supplemental O2. Quality Stroke Does the patient have a stroke diagnosis?: No VTE Prior VTE?: No VTE Risk Level:: Medical - moderate - high VTE Device Contraindication: Treatment Not Indicated VTE Drug Contraindication: N/A - Med Ordered
[2022-02-08 20:35] LABS: Troponin-I High Sensitivity 14.7 ng/L (<3.5-35.0)
[2022-02-08 20:44] VITALS: BP 150/81; PULSE 80; RESP 19; O2SAT 95
[2022-02-08] MEDS: Sennosides 8.6 MG TABLET 17.2 MG PO (21:46)
[2022-02-08 21:47] LABS: Glucose, Whole Blood 246 mg/dL (60-115)
[2022-02-08] MEDS: Insulin Lispro 100 UNIT/ML 3 ML VIAL SUBCUT (21:47)
[2022-02-08] MEDS: Piperacillin Sodium/Tazobactam 2.25 GM in 0.9 % Sodium Chloride 50 ML IV (21:47)
[2022-02-08] MEDS: 0.9 % Sodium Chloride 1,000 ML 100 ML IVCONT (21:52)
[2022-02-08 21:56] VITALS: BP 146/66; PULSE 82; RESP 20; TEMP 36.7; O2SAT 95
--- NOTE | 2022-02-08 22:34 | PC.NURSE ---
Patient arrived via EMS from [facility]. Patient has right chest permacath for dialysis on [id number]-[id number]. Patient did have dialysis yesterday. Patient has chronic zeng. Patient has left BKA. Patient c/o just doesn't feel good. Patient has 2 iv's one in right forearm 18g, 20g right antecubital. Patient on hospital bed for comfort. Patient denies chest pain, and dizziness. Patient c/o sob on 4l when arrived with EMS. Will continue with plan of care. Heparin drip and iv antibiotics started.
[2022-02-09] VITALS (7 sets, daily range): BP systolic 103–148; BP diastolic 47–83; PULSE 68–83; RESP 14–20; TEMP 36.2–37.2; O2SAT 91–95
--- NOTE | 2022-02-09 04:10 | PC.NURSE ---
RN to bedside for antibiotic administration. Pt sleeping but easily arousable, denies needs/wants at this time. RN observed pt to be slanted in the bed and looking uncomfortable position garcia. RN offered to assist the pt with repositioning needs and/or adjustment of pillows but he declined.
[2022-02-09] MEDS: Piperacillin Sodium/Tazobactam 2.25 GM in 0.9 % Sodium Chloride 50 ML IV ×4 (04:11→21:54)
[2022-02-09 04:52] LABS: Basophils Absolute Auto 0.1 X10*3/uL (0.0-0.2); Basophils Percent Auto 0.4 % (0-2); Eosinophils Absolute Auto 0.2 X10*3/uL (0.0-0.4); Eosinophils Percent Auto 0.6 % (0-4); Hematocrit 35.5 % (42.0-52.0); Imm Gran Pct Auto 0.8 % (0.0-0.4); Lymphocytes Absolute Auto 0.6 X10*3/uL (1.2-4.9); Lymphocytes Percent Auto 2.3 % (20-40); Mean Corpuscular HGB Conc 33.8 g/dl (31.0-36.0); Mean Corpuscular Volume 88.8 fL (80.0-98.0); Mean Platelet Volume 10.9 fL (9.4-12.4); Monocytes Absolute Auto 0.8 X10*3/uL (0.1-1.2); Monocytes Percent Auto 3.1 % (2-11); Neutrophils Absolute Auto 23.8 x10*3/uL (2.0-8.3); Neutrophils Percent Auto 92.8 % (45-73); Platelet Count 277 X10*3/uL (160-400); Red Cell Distribution Width 11.8 % (11.0-16.0); SCAN SMEAR FLAG 1; White Blood Count 25.6 X10*3/uL (4.8-10.8)
[2022-02-09 04:57] LABS: INTERNATIONAL NORM RATIO 1.3 (0.9-1.1); Prothrombin Time 14.5 SEC (10.0-13.1)
[2022-02-09 04:58] LABS: MANUAL DIFF FLAG SCAN
--- NOTE | 2022-02-09 05:00 | PC.NURSE ---
Phleb to bedside for blood draw also observed to identify how uncomfortable the pt's positioning in the bed looked. Phleb offered to assist with positioning and/or get assistance from staff to assist with positioning but the pt declined adding that he was fine.
[2022-02-09 05:11] LABS: SLIDE REVIEW VERIFIED
[2022-02-09 05:25] LABS: Anion Gap 20 (12-20); Blood Urea Nitrogen 54 mg/dL (9-16); Carbon Dioxide 19 mmol/L (22-29); Chloride 100 mmol/L (96-108); Creatinine Clr Calc Pharmacy 8.7; Estimated Glomerular Filt Rate 5; Glucose Random 151 mg/dL (60-115); Potassium 4.3 mmol/L (3.3-5.1); Sodium 135 mmol/L (135-145)
[2022-02-09 05:39] LABS: Estimated Average Glucose 140 mg/dL; Hemoglobin A1c % 6.5 %
--- NOTE | 2022-02-09 06:33 | PC.NURSE ---
This RN received a call from pharmacy reporting that the pt is due for his next PTT now at 0630. This RN was the 2nd signature/cosigner for the Heparin dose adjustment earlier this evening however repeat PTT was never entered. This RN entered the stat PTT Heparin per protocol and EDT will draw as phlebotomy says it will be a while .
[2022-02-09 07:00] LABS: PTT Heparin Drip 51.4 SEC (53-77.9)
[2022-02-09 07:11] LABS: Glucose, Whole Blood 124 mg/dL (60-115)
[2022-02-09] MEDS: Heparin Sodium,Porcine/1/2NS 25,000 UNIT/250 ML IV.SOLN 14.71 UNIT IVCONT (07:59)
[2022-02-09] MEDS: 0.9 % Sodium Chloride 1,000 ML 100 ML IVCONT ×2 (08:05→22:03)
[2022-02-09] MEDS: Tamsulosin HCL 0.4 MG CAPSULE 0.8 MG PO (08:25)
[2022-02-09] MEDS: Atorvastatin Calcium 20 MG TABLET PO (08:26)
[2022-02-09] MEDS: 0.9 % Sodium Chloride Flush 3 ML SYRINGE IVFLUSH ×2 (08:26→15:32)
--- NOTE | 2022-02-09 08:45 | PC.NURSE ---
pt sleeping, but easily arousable, pt denies pain, respirations even and unlabored, ls clear, but sating anywhere from 92-89% on 3l, pt bumped up to 4l and sating at 94%. 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
--- NOTE | 2022-02-09 08:58 | MHC.CM.PN ---
Patient is documented to be oriented to self only; CM spoke with /HCP/Kaylah @ [phone] and addressed IMM with her (original to be mailed certified letter to Kaylah and a copy to be placed on the chart). Patient typically lives in a house with his and uses a w/c but he comes to [facility] from STR @ [facility] (where he gets new HD/M/W/F) and the goal is for him to return there to complete STR. CM has initiated and will follow for dc planning. Patient has received Moderna vax X3.
[2022-02-09] MEDS: Apixaban 5 MG TABLET 10 MG PO ×2 (10:00→21:01)
[2022-02-09] MEDS: Fluticasone Propionate 250 MCG BLST.W.DEV 1 PUFF INHALE (10:08)
--- NOTE | 2022-02-09 11:31 | PM.CNNEP ---
History of Present Illness Reason for Consult Consult date: 02/09/22 Chief Complaint Chief complaint: Sepsis with UTI,acute resp failure with PE History of Present Illness Narrative: 67 year old male who has been initiated on dialysis on MW recently for NAEEM who has been residing at [facility] was found to be hypoxic at 82% on RA with nausea, vomiting, with poor appetite/decreased PO intake and altered mental status. In ED, he had leukocytosis of 32.6 with Creat 10.51 with BUN 48. He underwent CTA chest which showed small burden of acute pulmonary emboli in RLL pulmonary artery non-occlusive with minimal involvement right upper pulmonary artery. There are also several areas of underlying airspace disease questionable for pneumonia. IV vancomycin was initiated and admitted for further management. Nephrology has been consulted to assist in his clinical care during his current hospital stay Review of Systems Review of Systems Yes all other systems are reviewed and are negative PMF Past Medical History Medical History (Updated 02/09/22 @ 11:48 by Gioavny Tesfaye MD) Acute respiratory failure with hypoxia Acute UTI ESRD (end stage renal disease) on dialysis Metabolic encephalopathy Pulmonary embolism Family History Family History (Updated 02/08/22 @ 20:55 by IVAN Prescott) Mother No problems noted. Father No problems noted. Social History Social History Alcohol intake: former Patient Tobacco Use Status: Former Tobacco user Use of substances other than those prescribed or required for medical reasons: No Advance Directives: No Advance Directives Information Provided: Yes service: No Current occupational status: disabled Meds Allergies Allergy/AdvReac Type Severity Reaction Status Date / Time No Known Allergies Allergy Verified 02/08/22 15:03 Active Medications: Current Medications Apixaban (Apixaban 5 Mg Tablet) 10 mg PO BID [facility] Stop: 02/15/22 21:01 Last Admin: 02/09/22 10:00 Dose: 10 mg Atorvastatin Calcium (Atorvastatin Calcium 20 Mg Tablet) 20 mg PO DAILY [facility] Last Admin: 02/09/22 08:26 Dose: 20 mg Fluticasone Propionate (Fluticasone Propionate 250 Mcg Blst.W.Dev) 1 puff INHALE RBID [facility] Last Admin: 02/09/22 10:08 Dose: 1 puff Heparin Sodium (Porcine) (Heparin Sodium,Porcine 5,000 Unit/Ml Vial) 5,000 unit INTRACATH MOWEFR@1645 [facility] Sodium Chloride (Ns) 1,000 mls @ 100 mls/hr IVCONT .Q10H [facility] Last Admin: 02/09/22 08:05 Dose: 100 mls/hr Piperacillin Sod/Tazobactam (Sod 2.25 gm/ Sodium Chloride) 50 mls @ 100 mls/hr IV Q6H [facility] Last Infusion: 02/09/22 09:25 Dose: Infused Vancomycin HCl 500 mg/ Sodium (Chloride) 110 mls @ 110 mls/hr IV MOWEFR@1800 [facility] Insulin Human Lispro (Insulin Lispro 100 Unit/Ml 3 Ml Vial) 0 unit SUBCUT QIDACHS [facility]; Protocol Last Admin: 02/09/22 07:14 Dose: Not Given Pharmacy Consult (Consult Rx Perform Med Rec) 1 each MISCELLANE ONCE PRN PRN Reason: Consult order Pharmacy Consult (Consult Rx Vancomycin Dosing) 1 each MISCELLANE DAILY PRN PRN Reason: Consult order Senna (Sennosides 8.6 Mg Tablet) 17.2 mg PO BEDTIME [facility] Last Admin: 02/08/22 21:46 Dose: 17.2 mg Sodium Chloride (0.9 % Sodium Chloride Flush 3 Ml Syringe) 3 ml IVFLUSH QSHIFT [facility] Last Admin: 02/09/22 08:26 Dose: 3 ml Tamsulosin HCl (Tamsulosin Hcl 0.4 Mg Capsule) 0.8 mg PO DAILY [facility] Last Admin: 02/09/22 08:25 Dose: 0.8 mg Home Medications Medication Instructions Recorded Confirmed Last Taken Type acetaminophen 325 mg tablet 650 mg PO Q4H PRN Fever 02/08/22 02/08/22 Unknown History (Tylenol) amlodipine 10 mg tablet 1 tab PO DAILY 02/08/22 02/08/22 Unknown History aspirin 81 mg chewable tablet 81 mg PO DAILY 02/08/22 02/08/22 Unknown History atorvastatin 20 mg tablet 20 mg PO DAILY 02/08/22 02/08/22 Unknown History carvedilol 25 mg tablet 25 mg PO BID 02/08/22 02/08/22 Unknown History fluticasone propionate 220 1 puff inhalation BID 02/08/22 02/08/22 Unknown History mcg/actuation HFA aerosol inhaler glipizide 10 mg tablet 10 mg PO DAILY 02/08/22 02/08/22 Unknown History hydralazine 25 mg tablet 25 mg PO TID 02/08/22 02/08/22 Unknown History sennosides 8.6 mg tablet (senna) 17.2 mg PO BEDTIME 02/08/22 02/08/22 Unknown History sitagliptin 100 mg tablet 100 mg PO DAILY 02/08/22 02/08/22 Unknown History tamsulosin 0.4 mg capsule 0.8 mg PO DAILY 02/08/22 02/08/22 Unknown History trazodone 50 mg tablet 50 mg PO BEDTIME 02/08/22 02/08/22 Unknown History Physical Exam Vital Signs: Last Vital Signs Temp 98.2 F 02/09/22 00:08 Pulse 77 02/09/22 10:09 Resp 19 02/09/22 10:09 BP 148/61 H 02/09/22 08:34 Pulse Ox 93 02/09/22 08:34 O2 Del Method 02/09/22 08:34 O2 Flow Rate 4 02/09/22 08:34 Oxygen Flow Rate 2 02/08/22 15:03 BMI result Body Mass Index 27.4 Const General: no acute distress Orientation/consciousness: patient oriented x3 Eyes EOM: EOMs intact bilaterally Resp Auscultation: diminished lung sounds Cardio Rate: regular rate GI Palpation (GI): Soft to palpation Neuro General: patient oriented x3 Extrem Other: L AKA Results Lab Results Result Diagrams: 02/09/22 04:47 02/09/22 04:47 Lab results: Chemistry 02/08/22 02/09/22 15:24 04:47 Sodium 134 L 135 Potassium 4.9 4.3 Carbon Dioxide 21 L 19 L BUN 48 H 54 H Creatinine 10.51 H* 10.42 H* Calcium 9.2 8.0 L D Hematology 02/08/22 02/09/22 15:24 04:47 WBC 32.6 H* 25.6 H Hgb 13.2 L 12.0 L Plt Count 330 277 Urinalysis 02/08/22 15:40 Urine Color Dark Yellow Urine Appearance Turbid Urine pH 6.0 Ur Specific [place] 1.025 Urine Protein >=1000 (4+) H Urine Glucose (UA) 250 H Urine Ketones Trace Urine Blood Moderate (2+) H Urine Nitrite Negative Ur Leukocyte Esterase Large (3+) H Urine RBC 3-5 H Urine WBC >50 H Ur Squamous Epith Cells 3-5 Hyaline Casts 0-2 Assessment and Plan (1) NAEEM (acute kidney injury): Status: Acute Plan Recently started on HD for NAEEM- In [facility] Had been getting HD on MWF( Due today-ordered) Has a functioning HD catheter; Renal Diet Volume optimization on HD; Vancomycin after HD Shall continue to closely follow up Procedures Date of Service Date of Service: 02/09/22
--- NOTE | 2022-02-09 13:12 | P.PNIM_ITS ---
Subjective Subjective Date of Service: 02/09/22 Interval History: the patient was seen and evaluated this morning Laying in bed, feels better but he still confused Denies any fever, chills or chest pain Statin oxygen supplement No reported other overnight events. Systemic review: No fever, chills but reports generalized weakness No chest pain, palpitation No shortness of breath or coughing No abdominal pain, nausea or vomiting No urinary symptoms No any rash or wounds Physical Exam Vital Signs: Vital Signs: Last Vital Signs Temp 98.2 F 02/09/22 00:08 Pulse 68 02/09/22 12:15 Resp 14 02/09/22 12:15 BP 112/57 L 02/09/22 12:15 Pulse Ox 95 02/09/22 12:15 O2 Del Method 02/09/22 12:15 O2 Flow Rate 2 02/09/22 12:15 Oxygen Flow Rate 2 02/08/22 15:03 BMI result Body Mass Index 27.4 Const: Other: Constitutional : Alert, oriented, not in distress Neck : Normal inspection, Supple Cardiovascular : RRR, no JVP, no lower extremity edema Respiratory : fair bilateral air entry, no crackles, wheezes or rhonchi Gastrointestinal: soft, lax, Normal bowel sounds, Non tender Skin : Warm, Dry Musculoskeletal, left above-knee amputation Urology: Zeng catheter in place, clear urine Neurological : Alert & oriented to place, No focal deficit Objective Data Active Medications Apixaban (Apixaban 5 Mg Tablet) 10 mg PO BID [facility] Stop: 02/15/22 21:01 Last Admin: 02/09/22 10:00 Dose: 10 mg Documented By: BARRY Atorvastatin Calcium (Atorvastatin Calcium 20 Mg Tablet) 20 mg PO DAILY [facility] Last Admin: 02/09/22 08:26 Dose: 20 mg Documented By: BARRY Fluticasone Propionate (Fluticasone Propionate 250 Mcg Blst.W.Dev) 1 puff INHALE RBID [facility] Last Admin: 02/09/22 10:08 Dose: 1 puff Documented By: RODRIGO Heparin Sodium (Porcine) (Heparin Sodium,Porcine 5,000 Unit/Ml Vial) 5,000 unit INTRACATH MOWEFR@1645 [facility] Sodium Chloride (Ns) 1,000 mls @ 100 mls/hr IVCONT .Q10H [facility] Last Admin: 02/09/22 08:05 Dose: 100 mls/hr Documented By: BARRY Piperacillin Sod/Tazobactam (Sod 2.25 gm/ Sodium Chloride) 50 mls @ 100 mls/hr IV Q6H [facility] Last Infusion: 02/09/22 09:25 Dose: 0 mls/hr Documented By: BARRY Vancomycin HCl 500 mg/ Sodium (Chloride) 110 mls @ 110 mls/hr IV MOWEFR@1800 [facility] Insulin Human Lispro (Insulin Lispro 100 Unit/Ml 3 Ml Vial) 0 unit SUBCUT QIDACHS [facility]; Protocol Last Admin: 02/09/22 07:14 Dose: Not Given Documented By: BARRY Non-Admin Reason: poc 125 Pharmacy Consult (Consult Rx Perform Med Rec) 1 each MISCELLANE ONCE PRN PRN Reason: Consult order Pharmacy Consult (Consult Rx Vancomycin Dosing) 1 each MISCELLANE DAILY PRN PRN Reason: Consult order Senna (Sennosides 8.6 Mg Tablet) 17.2 mg PO BEDTIME [facility] Last Admin: 02/08/22 21:46 Dose: 17.2 mg Documented By: UNA Sodium Chloride (0.9 % Sodium Chloride Flush 3 Ml Syringe) 3 ml IVFLUSH QSHIFT [facility] Last Admin: 02/09/22 08:26 Dose: 3 ml Documented By: BARRY Tamsulosin HCl (Tamsulosin Hcl 0.4 Mg Capsule) 0.8 mg PO DAILY [facility] Last Admin: 02/09/22 08:25 Dose: 0.8 mg Documented By: BARRY Labs CBC & Chem 7: 02/09/22 04:47 02/09/22 04:47 Labs: Laboratory Results - last 24 hr 02/08/22 02/08/22 02/08/22 15:24 15:24 15:24 MCV 89.1 MCH 30.0 MCHC 33.7 RDW 11.8 Plt Count 330 MPV 11.5 Immature Gran % (Auto) 0.9 H Neut % (Auto) 89.0 H Lymph % (Auto) 3.6 L [place] % (Auto) 6.1 Eos % (Auto) 0.0 Baso % (Auto) 0.4 Lymph # (Auto) 1.2 [place] # (Auto) 2.0 H Eos # (Auto) 0.0 Baso # (Auto) 0.1 Abs Immat Gran (auto) 0.30 H Absolute Neuts (auto) 29.0 H Absolute Nucleated RBC 0.000 Nucleated RBC % (auto) 0.0 Smear Tech's Comments VERIFIED PT INR APTT aPTT Heparin Protocol D-Dimer High Sensitivty VBG pH VBG pCO2 VBG pO2 VBG HCO3 VBG O2 Saturation VBG Base Excess Anion Gap 25 H Estim Creat Clear Calc 8.7 Estimated GFR 5 POC Glucose Random Glucose 272 H Estimat Average Glucose Hemoglobin A1c % Lactic Acid 1.2 Calcium 9.2 Magnesium 2.3 Ferritin 725 H Total Bilirubin 0.5 Direct Bilirubin 0.3 AST 30 ALT 18 Alkaline Phosphatase 127 H Ammonia C-Reactive Protein 11.68 H B-Natriuretic Peptide Total Protein 7.1 Albumin 3.2 L Lipase 32 Procalcitonin Urine Color Urine Appearance Urine pH Ur Specific [place] Urine Protein Urine Glucose (UA) Urine Ketones Urine Blood Urine Nitrite Ur Leukocyte Esterase Urine RBC Urine WBC Ur Squamous Epith Cells Urine Bacteria Hyaline Casts COVID-19 (AGUSTIN) COVID-19 Transfercar Blood Type Antibody Screen 02/08/22 02/08/22 02/08/22 15:24 15:24 15:24 MCV MCH MCHC RDW Plt Count MPV Immature Gran % (Auto) Neut % (Auto) Lymph % (Auto) [place] % (Auto) Eos % (Auto) Baso % (Auto) Lymph # (Auto) [place] # (Auto) Eos # (Auto) Baso # (Auto) Abs Immat Gran (auto) Absolute Neuts (auto) Absolute Nucleated RBC Nucleated RBC % (auto) Smear Tech's Comments PT INR APTT aPTT Heparin Protocol D-Dimer High Sensitivty VBG pH VBG pCO2 VBG pO2 VBG HCO3 VBG O2 Saturation VBG Base Excess Anion Gap Estim Creat Clear Calc Estimated GFR POC Glucose Random Glucose Estimat Average Glucose Hemoglobin A1c % Lactic Acid Calcium Magnesium Ferritin Total Bilirubin Direct Bilirubin AST ALT Alkaline Phosphatase Ammonia 17 C-Reactive Protein B-Natriuretic Peptide 76 Total Protein Albumin Lipase Procalcitonin 0.81 Urine Color Urine Appearance Urine pH Ur Specific [place] Urine Protein Urine Glucose (UA) Urine Ketones Urine Blood Urine Nitrite Ur Leukocyte Esterase Urine RBC Urine WBC Ur Squamous Epith Cells Urine Bacteria Hyaline Casts COVID-19 (AGUSTIN) COVID-19 Transfercar Blood Type Antibody Screen 02/08/22 02/08/22 02/08/22 15:24 15:24 15:31 MCV MCH MCHC RDW Plt Count MPV Immature Gran % (Auto) Neut % (Auto) Lymph % (Auto) [place] % (Auto) Eos % (Auto) Baso % (Auto) Lymph # (Auto) [place] # (Auto) Eos # (Auto) Baso # (Auto) Abs Immat Gran (auto) Absolute Neuts (auto) Absolute Nucleated RBC Nucleated RBC % (auto) Smear Tech's Comments PT 13.1 INR 1.1 APTT 34.4 aPTT Heparin Protocol D-Dimer High Sensitivty 3246 VBG pH 7.45 H VBG pCO2 32 VBG pO2 122 VBG HCO3 22 VBG O2 Saturation 99.0 VBG Base Excess -0.1 Anion Gap Estim Creat Clear Calc Estimated GFR POC Glucose Random Glucose Estimat Average Glucose Hemoglobin A1c % Lactic Acid Calcium Magnesium Ferritin Total Bilirubin Direct Bilirubin AST ALT Alkaline Phosphatase Ammonia C-Reactive Protein B-Natriuretic Peptide Total Protein Albumin Lipase Procalcitonin Urine Color Urine Appearance Urine pH Ur Specific [place] Urine Protein Urine Glucose (UA) Urine Ketones Urine Blood Urine Nitrite Ur Leukocyte Esterase Urine RBC Urine WBC Ur Squamous Epith Cells Urine Bacteria Hyaline Casts COVID-19 (AGUSTIN) Negative COVID-19 Clin Com See Note Blood Type Antibody Screen 02/08/22 02/08/22 02/08/22 15:40 16:53 20:13 MCV MCH MCHC RDW Plt Count MPV Immature Gran % (Auto) Neut % (Auto) Lymph % (Auto) [place] % (Auto) Eos % (Auto) Baso % (Auto) Lymph # (Auto) [place] # (Auto) Eos # (Auto) Baso # (Auto) Abs Immat Gran (auto) Absolute Neuts (auto) Absolute Nucleated RBC Nucleated RBC % (auto) Smear Tech's Comments PT INR APTT aPTT Heparin Protocol D-Dimer High Sensitivty VBG pH VBG pCO2 VBG pO2 VBG HCO3 VBG O2 Saturation VBG Base Excess Anion Gap Estim Creat Clear Calc Estimated GFR POC Glucose Random Glucose Estimat Average Glucose 140 Hemoglobin A1c % 6.5 Lactic Acid Calcium Magnesium Ferritin Total Bilirubin Direct Bilirubin AST ALT Alkaline Phosphatase Ammonia C-Reactive Protein B-Natriuretic Peptide Total Protein Albumin Lipase Procalcitonin Urine Color Dark Yellow Urine Appearance Turbid Urine pH 6.0 Ur Specific [place] 1.025 Urine Protein >=1000 (4+) H Urine Glucose (UA) 250 H Urine Ketones Trace Urine Blood Moderate (2+) H Urine Nitrite Negative Ur Leukocyte Esterase Large (3+) H Urine RBC 3-5 H Urine WBC >50 H Ur Squamous Epith Cells 3-5 Urine Bacteria 4+ Hyaline Casts 0-2 COVID-19 (AGUSTIN) COVID-19 Clin Com Blood Type O Positive Antibody Screen NEGATIVE 02/08/22 02/09/22 02/09/22 21:43 00:30 04:47 MCV 88.8 MCH 30.0 MCHC 33.8 RDW 11.8 Plt Count 277 MPV 10.9 Immature Gran % (Auto) 0.8 H Neut % (Auto) 92.8 H Lymph % (Auto) 2.3 L [place] % (Auto) 3.1 Eos % (Auto) 0.6 Baso % (Auto) 0.4 Lymph # (Auto) 0.6 L [place] # (Auto) 0.8 Eos # (Auto) 0.2 Baso # (Auto) 0.1 Abs Immat Gran (auto) 0.20 H Absolute Neuts (auto) 23.8 H Absolute Nucleated RBC 0.000 Nucleated RBC % (auto) 0.0 Smear Tech's Comments VERIFIED PT INR APTT aPTT Heparin Protocol 86.0 H D-Dimer High Sensitivty VBG pH VBG pCO2 VBG pO2 VBG HCO3 VBG O2 Saturation VBG Base Excess Anion Gap Estim Creat Clear Calc Estimated GFR POC Glucose 246 H Random Glucose Estimat Average Glucose Hemoglobin A1c % Lactic Acid Calcium Magnesium Ferritin Total Bilirubin Direct Bilirubin AST ALT Alkaline Phosphatase Ammonia C-Reactive Protein B-Natriuretic Peptide Total Protein Albumin Lipase Procalcitonin Urine Color Urine Appearance Urine pH Ur Specific [place] Urine Protein Urine Glucose (UA) Urine Ketones Urine Blood Urine Nitrite Ur Leukocyte Esterase Urine RBC Urine WBC Ur Squamous Epith Cells Urine Bacteria Hyaline Casts COVID-19 (AGUSTIN) COVID-19 Clin Com Blood Type Antibody Screen 02/09/22 02/09/22 02/09/22 04:47 04:47 06:45 MCV MCH MCHC RDW Plt Count MPV Immature Gran % (Auto) Neut % (Auto) Lymph % (Auto) [place] % (Auto) Eos % (Auto) Baso % (Auto) Lymph # (Auto) [place] # (Auto) Eos # (Auto) Baso # (Auto) Abs Immat Gran (auto) Absolute Neuts (auto) Absolute Nucleated RBC Nucleated RBC % (auto) Smear Tech's Comments PT 14.5 H INR 1.3 H APTT aPTT Heparin Protocol 51.4 L D D-Dimer High Sensitivty VBG pH VBG pCO2 VBG pO2 VBG HCO3 VBG O2 Saturation VBG Base Excess Anion Gap 20 Estim Creat Clear Calc 8.7 Estimated GFR 5 POC Glucose Random Glucose 151 H D Estimat Average Glucose Hemoglobin A1c % Lactic Acid Calcium 8.0 L D Magnesium Ferritin Total Bilirubin Direct Bilirubin AST ALT Alkaline Phosphatase Ammonia C-Reactive Protein B-Natriuretic Peptide Total Protein Albumin Lipase Procalcitonin Urine Color Urine Appearance Urine pH Ur Specific [place] Urine Protein Urine Glucose (UA) Urine Ketones Urine Blood Urine Nitrite Ur Leukocyte Esterase Urine RBC Urine WBC Ur Squamous Epith Cells Urine Bacteria Hyaline Casts COVID-19 (AGUSTIN) COVID-19 Transfercar Blood Type Antibody Screen 02/09/22 07:07 MCV MCH MCHC RDW Plt Count MPV Immature Gran % (Auto) Neut % (Auto) Lymph % (Auto) [place] % (Auto) Eos % (Auto) Baso % (Auto) Lymph # (Auto) [place] # (Auto) Eos # (Auto) Baso # (Auto) Abs Immat Gran (auto) Absolute Neuts (auto) Absolute Nucleated RBC Nucleated RBC % (auto) Smear Tech's Comments PT INR APTT aPTT Heparin Protocol D-Dimer High Sensitivty VBG pH VBG pCO2 VBG pO2 VBG HCO3 VBG O2 Saturation VBG Base Excess Anion Gap Estim Creat Clear Calc Estimated GFR POC Glucose 124 H Random Glucose Estimat Average Glucose Hemoglobin A1c % Lactic Acid Calcium Magnesium Ferritin Total Bilirubin Direct Bilirubin AST ALT Alkaline Phosphatase Ammonia C-Reactive Protein B-Natriuretic Peptide Total Protein Albumin Lipase Procalcitonin Urine Color Urine Appearance Urine pH Ur Specific [place] Urine Protein Urine Glucose (UA) Urine Ketones Urine Blood Urine Nitrite Ur Leukocyte Esterase Urine RBC Urine WBC Ur Squamous Epith Cells Urine Bacteria Hyaline Casts COVID-19 (AGUSTIN) COVID-19 Stackops Com Blood Type Antibody Screen Microbiology Microbiology Results: Microbiology 02/08/22 16:12 Urine Culture - Preliminary Urine clean catch - Urine thomas top Gram negative carin Assessment and Plan (1) ESRD (end stage renal disease) on dialysis: Status: Acute (2) Acute UTI: Status: Acute (3) Pulmonary embolism: Status: Acute (4) Acute respiratory failure with hypoxia: Status: Acute Plan 67 year old male with history of uncontrolled non-insulin dependent diabetes, htn, ESRD on dialysis MWF, BPH, and urinary retention with chronic indwelling zeng catheter with recent admission to [facility] for acute encephalopathy, NAEEM with hyperkalemia requiring HD being admitted to the hospital for acute res piratory failure with hypoxia secondary to PE, sepsis related to UTI, and AG metabolic acidosis with metabolic encephalopathy and ESRD. 1- Acute respiratory failure with hypoxia secondary to acute PE, possible pneumonia stable on 2L supplemental O2 via NC Wean oxygen as tolerated 2- Acute pulmonary embolism CTA chest with relatively small burden acute pulmonary emboli within right lower lobe artery non-occulssive. Minimal involvement right upper lobe pulmonary artery. DC Heparin drip Pending venous Doppler lower extremities Start Eliquis full does 3-Sepsis, resolved secondary to acute UTI and pneumonia Continue IV vancomycin and zosyn Urine culture growing GNR Pending final blood cultures to deescalate antibiotics DC IV fluids 4-toxic Metabolic encephalopathy secondary to sepsis , PE Recurrent reorientation and treat underlying causes 5-High anion gap metabolic acidosis Resolved secondary to sepsis and ESRD Plan to do dialysis 6-ESRD Started recently in [facility] for acute kidney injury with schedule MWF using [facility] Nephrology input appreciated, to do dialysis today Follow BMP 5-Efa-Rhsazfp dependent type 2 diabetes- uncontrolled HbA1c of 6.5 Humalog on sliding scale Diabetic diet 8- HTN Restart carvedilol Continue to hold hydralazine and amlodipine for hypertension admission 9-HLD Continue atorvastatin 10-BPH with urinary retention Continue chronic zeng catheter Continue tamsulosin DVT prophylaxis Eliquis DNR/DNI per [facility] form 02/04/22 Patient requires inpatient stay overnight for management of sepsis secondary to UTI and PE with acute respiratory failure with hypoxia requiring supplemental O2 to prevent possible decompensation to severe sepsis Quality Stroke Does the patient have a stroke diagnosis?: No VTE Prior VTE?: No VTE Risk Level:: Medical - moderate - high VTE Device Contraindication: Treatment Not Indicated VTE Drug Contraindication: N/A - Med Ordered
[2022-02-09 13:22] LABS: Glucose, Whole Blood 120 mg/dL (60-115)
--- NOTE | 2022-02-09 14:39 | PC.NURSE ---
report given to imc rn
[2022-02-09 15:56] LABS: Glucose, Whole Blood 106 mg/dL (60-115)
[2022-02-09 20:42] LABS: Glucose, Whole Blood 101 mg/dL (60-115)
[2022-02-09] MEDS: carvediloL 25 MG TABLET PO (21:01)
[2022-02-09] MEDS: Sennosides 8.6 MG TABLET 17.2 MG PO (21:02)
[2022-02-09 21:40] LABS: Vancomycin Random 33.8 mcg/mL (15-20)
--- NOTE | 2022-02-09 21:46 | HE.PHANOTE ---
Vancomycin Dosing Patient received vancomycin 2000 mg (19 mg/kg) loading dose in the emergency department on 02/08 @ 1600. Patient scheduled for dialysis MWF. Contacted Gillian in dialysis to confirm time of todays session. She reported patient was scheduled for a 3 hour dialysis session around 1600. Random level was scheduled for 2100 (~ 2 hours post dialysis). Random level was 33.8. Will re-evaluate next dose after dialysis scheduled for Monday02/11/2022 as vancomycin will not be cleared until patient receives diaylsis again. Random level scheduled for 02/11/2022 @ 1999. Pharmacy will follow daily if patient gets extra diaylsis. Raegan Clay, KennethD
--- NOTE | 2022-02-09 22:54 | PC.NURSE ---
patient is back from dialysis to his room 487, stated that he feels better at this time. He refused dinner tonight before dialysis. After dialysis he is is a good mood , ate 1/2 of the sandwich and drank 1 cup of gingeralle.This Rn spke with his on the phone tonight ,his has concern that pt became depressed recently. Pt's would like to talk to the medical doctor tomorrow morning regarding her mental state
[2022-02-10] VITALS (7 sets, daily range): BP systolic 109–143; BP diastolic 64–83; PULSE 73–98; RESP 16–22; TEMP 36.4–37.1; O2SAT 93–97; BMI 27.4
[2022-02-10] MEDS: Piperacillin Sodium/Tazobactam 2.25 GM in 0.9 % Sodium Chloride 50 ML IV ×4 (01:58→20:49)
[2022-02-10] MEDS: 0.9 % Sodium Chloride Flush 3 ML SYRINGE IVFLUSH ×2 (01:59→20:48)
[2022-02-10 07:04] LABS: Hematocrit 36.1 % (42.0-52.0); Hemoglobin 11.8 g/dl (14.0-18.0); Mean Corpuscular HGB Conc 32.7 g/dl (31.0-36.0); Mean Corpuscular Hemoglobin 29.5 pg (27.0-33.0); Mean Corpuscular Volume 90.3 fL (80.0-98.0); Mean Platelet Volume 11.7 fL (9.4-12.4); Platelet Count 299 X10*3/uL (160-400); Red Cell Distribution Width 11.9 % (11.0-16.0); White Blood Count 21.6 X10*3/uL (4.8-10.8)
[2022-02-10 07:27] LABS: Anion Gap 19 (12-20); Blood Urea Nitrogen 36 mg/dL (9-16); Calcium 8.2 mg/dL (8.4-10.2); Carbon Dioxide 16 mmol/L (22-29); Chloride 103 mmol/L (96-108); Creatinine Clr Calc Pharmacy 11.2; Estimated Glomerular Filt Rate 7; Glucose Random 78 mg/dL (60-115); Potassium 4.1 mmol/L (3.3-5.1); Sodium 134 mmol/L (135-145)
[2022-02-10 07:27] LABS: Glucose, Whole Blood 99 mg/dL (60-115)
[2022-02-10] MEDS: Atorvastatin Calcium 20 MG TABLET PO ×2 (08:52→08:54)
[2022-02-10] MEDS: Tamsulosin HCL 0.4 MG CAPSULE 0.8 MG PO (08:52)
[2022-02-10] MEDS: Aspirin 81 MG TAB.CHEW PO (08:52)
[2022-02-10] MEDS: carvediloL 25 MG TABLET PO ×2 (08:52→20:49)
--- NOTE | 2022-02-10 10:37 | PC.NURSE ---
Patient resting in NAD, patients right chest port is continuously oozing blood. Awaiting call back from PA regarding eliquis.
--- NOTE | 2022-02-10 10:47 | P.PNNP_ITS ---
Subjective Subjective Date of Service: 02/10/22 Interval history: Has been having some oozing at the [facility] site. D/W HD RN. Had HD yesterday. All recent data reviewed Physical Exam Vital Signs: Vital Signs: Last Vital Signs Temp 97.6 F 02/10/22 07:45 Pulse 73 02/10/22 07:45 Resp 18 02/10/22 07:45 BP 109/64 02/10/22 07:45 Pulse Ox 93 02/10/22 07:45 O2 Del Method 02/10/22 07:45 O2 Flow Rate 2 02/10/22 07:45 Oxygen Flow Rate 2 02/08/22 15:03 BMI result Body Mass Index 27.4 Const: General: no acute distress Orientation/consciousness: patient oriented x3 Eyes: EOM: EOMs intact bilaterally Resp: Auscultation: diminished lung sounds Cardio: Rate: regular rate GI: Palpation (GI): Soft to palpation Neuro: General: patient oriented x3 Objective Data Labs CBC & Chem 7: 02/10/22 06:11 02/10/22 06:11 Labs: Laboratory Results - last 24 hr 02/09/22 02/09/22 02/09/22 13:10 15:52 20:37 WBC RBC Hgb Hct MCV MCH MCHC RDW Plt Count MPV Absolute Nucleated RBC Nucleated RBC % (auto) Sodium Potassium Chloride Carbon Dioxide Anion Gap BUN Creatinine Estim Creat Clear Calc Estimated GFR POC Glucose 120 H 106 101 Random Glucose Calcium Random Vancomycin 02/09/22 02/10/22 02/10/22 20:56 06:11 06:11 WBC 21.6 H RBC 4.00 L Hgb 11.8 L Hct 36.1 L MCV 90.3 MCH 29.5 MCHC 32.7 RDW 11.9 Plt Count 299 MPV 11.7 Absolute Nucleated RBC 0.000 Nucleated RBC % (auto) 0.0 Sodium 134 L Potassium 4.1 Chloride 103 Carbon Dioxide 16 L Anion Gap 19 BUN 36 H Creatinine 8.13 H* Estim Creat Clear Calc 11.2 Estimated GFR 7 POC Glucose Random Glucose 78 D Calcium 8.2 L Random Vancomycin 33.8 H* 02/10/22 07:23 WBC RBC Hgb Hct MCV MCH MCHC RDW Plt Count MPV Absolute Nucleated RBC Nucleated RBC % (auto) Sodium Potassium Chloride Carbon Dioxide Anion Gap BUN Creatinine Estim Creat Clear Calc Estimated GFR POC Glucose 99 Random Glucose Calcium Random Vancomycin Microbiology Microbiology Results: Microbiology 02/08/22 16:12 Urine clean catch - Urine thomas top Urine Culture - Final Pseudomonas aeruginosa 02/08/22 15:24 Blood - Venous Blood Culture - Preliminary No growth after 24 hours. 02/08/22 15:24 Blood - Venous Blood Culture - Preliminary No growth after 24 hours. Procedures Date of Service Date of Service: 02/10/22 Assessment & Plan Assessment and plan (1) NAEEM (acute kidney injury): Status: Acute Assessment and Plan: Recently started on HD for NAEEM- In [facility] Had been getting HD on MWF( Due tomorrow-ordered) Has a functioning HD catheter; Renal Diet Volume optimization on HD; Vancomycin after HD Shall continue to closely follow up Time Spent With Patient Time: Total time spent is greater than 50% in coordination of care (as documented) at patient's floor/unit and/or counseling patient: Progress Note: Quality Stroke Does the patient have a stroke diagnosis?: No
--- NOTE | 2022-02-10 11:39 | MHC.CLN ---
RE: CONSULT PT WITH INCREASED NUTRITION RISK R/T PRESSURE INJURY DIET RX: 2000DM-APPROPRIATE AT THIS TIME MAY NEED RENAL RESTRICTIONS RECOMMEND ADDING GLUCERNA TID TO INCREASE KCALS AND PROMOTE WOUND HEALING SUPP TO PROVIDE 711KCALS, 30G PROTEIN MONITOR PO INTAKE CLOSELY SEE ALSO FULL CLINICAL NUTRITION ASSESSMENT
[2022-02-10 11:55] LABS: Glucose, Whole Blood 157 mg/dL (60-115)
[2022-02-10] MEDS: Apixaban 5 MG TABLET 10 MG PO ×2 (12:07→20:49)
[2022-02-10] MEDS: Insulin Lispro 100 UNIT/ML 3 ML VIAL SUBCUT (12:10)
--- NOTE | 2022-02-10 12:34 | HO.PM.IMPN ---
Subjective Subjective Date of Service: 02/10/22 Interval History: seen and examined this morning follow up for DVT/PT, UTI feeling crappy but no specific complaints, denies sob, chest pain, abdominal pain, nausea or vomiting dialysis catheter has been oozing this morning Review of Systems Review of Systems: Yes all other systems are reviewed and are negative Constitutional Constitutional: Denies chills and Denies fever(s) ENT Ears, Nose, Mouth, and Throat: Denies dizziness Cardiovascular Cardiovascular: Denies chest pain, Denies palpitations and Denies dyspnea Respiratory Respiratory: Denies dyspnea Gastrointestinal Gastrointestinal: Denies abdominal pain, Denies nausea and Denies vomiting Neurologic Neurologic: Denies dizziness Endocrine Endocrine: Denies palpitations Physical Exam Vital Signs: Vital Signs: Last Vital Signs Temp 98.8 F 02/10/22 12:00 Pulse 98 02/10/22 12:00 Resp 22 H 02/10/22 12:00 BP 140/64 H 02/10/22 12:00 Pulse Ox 95 02/10/22 12:00 O2 Del Method 02/10/22 12:00 O2 Flow Rate 2 02/10/22 12:00 Oxygen Flow Rate 2 02/08/22 15:03 BMI result Body Mass Index 27.4 Const: General: comfortable, alert and awake Nutritional Appearance: average body habitus Orientation/consciousness: oriented to person, oriented to place and oriented to time Chest: Other: Right chest wall, dialysis catheter in place, oozing from cather site Resp: Effort & Inspection: normal respiratory effort, able to speak in complete sentences and no use of accessory muscles Auscultation: diminished lung sounds Cardio: Rate: regular rate Heart sounds: S1 normal heart sound present and S2 normal heart sound present GI: Inspection: No distended Palpation (GI): Soft to palpation and nontender : Other: zeng in place Neuro: Other: grossly intact General: oriented to person, oriented to place and oriented to time Extrem: Other: s/p left AKA Objective Data Active Medications Apixaban (Apixaban 5 Mg Tablet) 10 mg PO BID [facility] Stop: 02/15/22 21:01 Last Admin: 02/10/22 12:07 Dose: 10 mg Documented By: LASHAY Aspirin (Aspirin 81 Mg Tab.Chew) 81 mg PO DAILY [facility] Last Admin: 02/10/22 08:52 Dose: 81 mg Documented By: LASHAY Atorvastatin Calcium (Atorvastatin Calcium 20 Mg Tablet) 20 mg PO DAILY [facility] Last Admin: 02/10/22 08:54 Dose: 20 mg Documented By: LASHAY Carvedilol (Carvedilol 25 Mg Tablet) 25 mg PO BID [facility]; Protocol Last Admin: 02/10/22 08:52 Dose: 25 mg Documented By: LASHAY Fluticasone Propionate (Fluticasone Propionate 250 Mcg Blst.W.Dev) 1 puff INHALE RBID [facility] Last Admin: 02/10/22 07:35 Dose: Not Given Documented By: ALEN Non-Admin Reason: Med Not Available Heparin Sodium (Porcine) (Heparin Sodium,Porcine 5,000 Unit/Ml Vial) 5,000 unit INTRACATH MOWEFR@1645 [facility] Last Admin: 02/09/22 20:57 Dose: Not Given Documented By: ANNY Non-Admin Reason: Previously Administered Hydroxyzine HCl (Hydroxyzine Hcl 10 Mg Tablet) 10 mg PO Q8H PRN PRN Reason: Itching Piperacillin Sod/Tazobactam (Sod 2.25 gm/ Sodium Chloride) 50 mls @ 100 mls/hr IV Q6H [facility] Last Infusion: 02/10/22 10:36 Dose: 0 mls/hr Documented By: LASHAY Vancomycin HCl 500 mg/ Sodium (Chloride) 110 mls @ 110 mls/hr IV MOWEFR@1800 PANKAJ Insulin Human Lispro (Insulin Lispro 100 Unit/Ml 3 Ml Vial) 0 unit SUBCUT QIDACHS [facility]; Protocol Last Admin: 02/10/22 12:10 Dose: 2 unit Documented By: LASHAY Pharmacy Consult (Consult Rx Perform Med Rec) 1 each MISCELLANE ONCE PRN PRN Reason: Consult order Pharmacy Consult (Consult Rx Vancomycin Dosing) 1 each MISCELLANE DAILY PRN PRN Reason: Consult order Senna (Sennosides 8.6 Mg Tablet) 17.2 mg PO BEDTIME [facility] Last Admin: 02/09/22 21:02 Dose: 17.2 mg Documented By: ANNY Sodium Chloride (0.9 % Sodium Chloride Flush 3 Ml Syringe) 3 ml IVFLUSH QSHIFT [facility] Last Admin: 02/10/22 09:10 Dose: Not Given Documented By: LASHAY Non-Admin Reason: IV Running Tamsulosin HCl (Tamsulosin Hcl 0.4 Mg Capsule) 0.8 mg PO DAILY PANKAJ Last Admin: 02/10/22 08:52 Dose: 0.8 mg Documented By: LASHAY Labs CBC & Chem 7: 02/10/22 06:11 02/10/22 06:11 Labs: Laboratory Results - last 24 hr 02/09/22 02/09/22 02/09/22 13:10 15:52 20:37 MCV MCH MCHC RDW Plt Count MPV Absolute Nucleated RBC Nucleated RBC % (auto) Anion Gap Estim Creat Clear Calc Estimated GFR POC Glucose 120 H 106 101 Random Glucose Calcium Random Vancomycin 02/09/22 02/10/22 02/10/22 20:56 06:11 06:11 MCV 90.3 MCH 29.5 MCHC 32.7 RDW 11.9 Plt Count 299 MPV 11.7 Absolute Nucleated RBC 0.000 Nucleated RBC % (auto) 0.0 Anion Gap 19 Estim Creat Clear Calc 11.2 Estimated GFR 7 POC Glucose Random Glucose 78 D Calcium 8.2 L Random Vancomycin 33.8 H* 02/10/22 02/10/22 07:23 11:51 MCV MCH MCHC RDW Plt Count MPV Absolute Nucleated RBC Nucleated RBC % (auto) Anion Gap Estim Creat Clear Calc Estimated GFR POC Glucose 99 157 H Random Glucose Calcium Random Vancomycin Microbiology Microbiology Results: Microbiology 02/08/22 16:12 Urine Culture - Final Urine clean catch - Urine thomas top Pseudomonas aeruginosa 02/08/22 15:24 Blood Culture - Preliminary Blood - Venous No growth after 24 hours. 02/08/22 15:24 Blood Culture - Preliminary Blood - Venous No growth after 24 hours. Assessment and Plan (1) Acute UTI: Status: Acute (2) Pulmonary embolism: Status: Acute (3) Acute respiratory failure with hypoxia: Status: Acute Plan 67 year old male with history of uncontrolled non-insulin dependent diabetes, htn, ESRD on dialysis MWF, BPH, and urinary retention with chronic indwelling zeng catheter with recent admission to [facility] for acute encephalopathy, NAEEM with hyperkalemia requiring HD being admitted to the hospital for acute respiratory failure with hypoxia secondary to PE, sepsis related to UTI, and AG metabolic acidosis with metabolic encephalopathy and ESRD. 1- Acute respiratory failure with hypoxia secondary to acute PE, possible pneumonia stable on 2L supplemental O2 via NC Wean oxygen as tolerated 2- Acute pulmonary embolism CTA chest with relatively small burden acute pulmonary emboli within right lower lobe artery non-occulssive. Minimal involvement right upper lobe pulmonary artery. US showing Left superficial femoral DVT, no right leg DVT initially treated with Heparin drip, transitioned to Eliquis yesterday has some oozing from dialysis catheter - will discuss with hematology 3-Sepsis, resolved secondary to acute UTI and pneumonia. leukocytosis trending down, afebrile Continue IV vancomycin and zosyn Urine culture growing Pseudomonas blood cultures negative to date ID consult pending 4-toxic Metabolic encephalopathy secondary to sepsis , PE. seems to be improving Recurrent reorientation and treat underlying causes 5-High anion gap metabolic acidosis Resolved secondary to sepsis and ESRD Plan to do dialysis 6-ESRD Started recently in [facility] for acute kidney injury with schedule MWF using [facility] Nephrology input appreciated, continue MWF schedule Follow BMP 0-Duy-Xlfeheb dependent type 2 diabetes HbA1c of 6.5 po meds on hold Humalog on sliding scale Diabetic diet 8- HTN Restart carvedilol Continue to hold hydralazine and amlodipine for hypertension admission 9-HLD Continue atorvastatin 10-BPH with urinary retention Continue chronic zeng catheter Continue tamsulosin DVT prophylaxis Eliquis DNR/DNI per [facility] form 02/04/22 attending - Dr. Jean Baptiste Patient requires ongoing inpatient stay for management of sepsis secondary to UTI and PE with acute respiratory failure with hypoxia requiring supplemental O2 to prevent possible decompensation to severe sepsis Quality Stroke Does the patient have a stroke diagnosis?: No VTE Prior VTE?: No VTE Risk Level:: Medical - moderate - high VTE Device Contraindication: Treatment Not Indicated VTE Drug Contraindication: N/A - Med Ordered
[2022-02-10] MEDS: hydrOXYzine HCL 10 MG TABLET PO ×2 (14:48→22:26)
[2022-02-10 16:21] LABS: Glucose, Whole Blood 90 mg/dL (60-115)
--- NOTE | 2022-02-10 17:06 | PC.NURSE ---
Patient's right chest dialysis port still oozing after surgicel and pressure dressing. PA aware
[2022-02-10] MEDS: Mineral Oil/Petrolatum,White 106 GM Tube 1 APPL TOPICAL (18:33)
[2022-02-10] MEDS: Fluticasone Propionate 250 MCG BLST.W.DEV 1 PUFF INHALE (19:48)
[2022-02-10 20:25] LABS: Glucose, Whole Blood 80 mg/dL (60-115)
[2022-02-10] MEDS: Sennosides 8.6 MG TABLET 17.2 MG PO (20:49)
--- NOTE | 2022-02-10 21:32 | P.CNID_ITS ---
History of Present Illness Data of Consult Service Date: 02/10/22 Requesting physician: Keysha Lopez Primary Care Provider: Unknown Physician HPI Reason for consult: Pseudomonas urine He presents to hospital with lethargy and encephalopathy. He had recent hospitalization at [facility] for urinary retention. He has a chronic Sheldon catheter. He has ESRD and is on hemodialysis. He has BPH. He has punch colored urine now with Sheldon Review of Systems Review of Systems: Yes all other systems are reviewed and are negative PMFSH Past Medical History Medical History Acute respiratory failure with hypoxia Acute UTI ESRD (end stage renal disease) on dialysis Metabolic encephalopathy Pulmonary embolism Family History Family History Mother No problems noted. Father No problems noted. Family history: reviewed and not pertinent Social History Social History Household Members: None Housing: Jail Alcohol intake: former Patient Tobacco Use Status: Former Tobacco user service: No Current occupational status: disabled Meds Allergies Allergy/AdvReac Type Severity Reaction Status Date / Time No Known Allergies Allergy Verified 02/08/22 15:03 Active Medications: Current Medications Apixaban (Apixaban 5 Mg Tablet) 10 mg PO BID COUNT [facility] Stop: 02/15/22 21:01 Last Admin: 02/10/22 20:49 Dose: 10 mg Aspirin (Aspirin 81 Mg Tab.Chew) 81 mg PO DAILY COUNT [facility] Last Admin: 02/10/22 08:52 Dose: 81 mg Atorvastatin Calcium (Atorvastatin Calcium 20 Mg Tablet) 20 mg PO DAILY COUNT [facility] Last Admin: 02/10/22 08:54 Dose: 20 mg Carvedilol (Carvedilol 25 Mg Tablet) 25 mg PO BID COUNT [facility]; Protocol Last Admin: 02/10/22 20:49 Dose: 25 mg Fluticasone Propionate (Fluticasone Propionate 250 Mcg Blst.W.Dev) 1 puff INHALE RBID COUNT [facility] Last Admin: 02/10/22 19:48 Dose: 1 puff Heparin Sodium (Porcine) (Heparin Sodium,Porcine 5,000 Unit/Ml Vial) 5,000 unit INTRACATH MOWEFR@1645 COUNT [facility] Last Admin: 02/09/22 20:57 Dose: Not Given Hydroxyzine HCl (Hydroxyzine Hcl 10 Mg Tablet) 10 mg PO Q8H PRN PRN Reason: Itching Last Admin: 02/10/22 14:48 Dose: 10 mg Piperacillin Sod/Tazobactam (Sod 2.25 gm/ Sodium Chloride) 50 mls @ 100 mls/hr IV Q6H COUNT [facility] Last Admin: 02/10/22 20:49 Dose: 100 mls/hr Vancomycin HCl 500 mg/ Sodium (Chloride) 110 mls @ 110 mls/hr IV MOWEFR@1800 COUNT [facility] Insulin Human Lispro (Insulin Lispro 100 Unit/Ml 3 Ml Vial) 0 unit SUBCUT QIDACHS COUNT [facility]CLUD[facility]; Protocol Last Admin: 02/10/22 21:06 Dose: Not Given Multi-Ingred Cream/Lotion/Oil/Oint (Mineral Oil/Petrolatum,White 106 Gm Tube) 1 appl TOPICAL BID COUNT [facility]; Protocol Last Admin: 02/10/22 21:08 Dose: Not Given Pharmacy Consult (Consult Rx Perform Med Rec) 1 each MISCELLANE ONCE PRN PRN Reason: Consult order Pharmacy Consult (Consult Rx Vancomycin Dosing) 1 each MISCELLANE DAILY PRN PRN Reason: Consult order Senna (Sennosides 8.6 Mg Tablet) 17.2 mg PO BEDTIME COUNT [facility] Last Admin: 02/10/22 20:49 Dose: 17.2 mg Sodium Chloride (0.9 % Sodium Chloride Flush 3 Ml Syringe) 3 ml IVFLUSH QSHIFT COUNT [facility]CLUD[facility] Last Admin: 02/10/22 20:48 Dose: 3 ml Tamsulosin HCl (Tamsulosin Hcl 0.4 Mg Capsule) 0.8 mg PO DAILY COUNT [facility] Last Admin: 02/10/22 08:52 Dose: 0.8 mg Home Medications Medication Instructions Recorded Confirmed Last Taken Type acetaminophen 325 mg tablet 650 mg PO Q4H PRN Fever 02/08/22 02/08/22 Unknown History (Tylenol) amlodipine 10 mg tablet 1 tab PO DAILY 02/08/22 02/08/22 Unknown History aspirin 81 mg chewable tablet 81 mg PO DAILY 02/08/22 02/08/22 Unknown History atorvastatin 20 mg tablet 20 mg PO DAILY 02/08/22 02/08/22 Unknown History carvedilol 25 mg tablet 25 mg PO BID 02/08/22 02/08/22 Unknown History fluticasone propionate 220 1 puff inhalation BID 02/08/22 02/08/22 Unknown History mcg/actuation HFA aerosol inhaler glipizide 10 mg tablet 10 mg PO DAILY 02/08/22 02/08/22 Unknown History hydralazine 25 mg tablet 25 mg PO TID 02/08/22 02/08/22 Unknown History sennosides 8.6 mg tablet (senna) 17.2 mg PO BEDTIME 02/08/22 02/08/22 Unknown History sitagliptin 100 mg tablet 100 mg PO DAILY 02/08/22 02/08/22 Unknown History tamsulosin 0.4 mg capsule 0.8 mg PO DAILY 02/08/22 02/08/22 Unknown History trazodone 50 mg tablet 50 mg PO BEDTIME 02/08/22 02/08/22 Unknown History Physical Exam Vital Signs: Vital Signs: Last Vital Signs Temp 97.7 F 02/10/22 19:26 Pulse 78 02/10/22 19:49 Resp 16 02/10/22 19:49 BP 122/83 02/10/22 19:26 Pulse Ox 97 02/10/22 19:26 O2 Del Method 02/10/22 19:26 O2 Flow Rate 1 02/10/22 19:26 Oxygen Flow Rate 2 02/08/22 15:03 BMI result Body Mass Index 27.4 Const: General: cooperative HEENT: Head: Yes normal to inspection Face and sinus: Yes normal facial exam Mouth: Normal oral and palatal mucosa present Teeth and gingiva: dentition normal Eyes: General: appearance normal, both eyes and all related structures Pupils: Equal, round and reactive pupils present Resp: Effort & Inspection: normal respiratory effort Cardio: Rate: regular rate Rhythm: regular rhythm GI: Palpation (GI): Soft to palpation and nontender : General: Yes no CVA tenderness Back/Spine/Pelvis: Other: left BKA Sheldon with punch colored urine Back: no CVA tenderness Skin: General skin exam: no rashes or lesions noted Neuro: General: moves all extremities Cranial nerves: Yes Equal, round and reactive pupils present Extrem: General: Yes normal to inspection Psych: Appearance: grossly normal Results Labs CBC & Chem 7: 02/10/22 06:11 02/10/22 06:11 Labs: Short CBC 02/10/22 Range/Units 06:11 WBC 21.6 H (4.8-10.8) X10*3/uL Hgb 11.8 L (14.0-18.0) g/dl Hct 36.1 L (42.0-52.0) % Plt Count 299 (160-400) X10*3/uL BMP 02/10/22 06:11 Sodium 134 L Potassium 4.1 Chloride 103 Carbon Dioxide 16 L BUN 36 H Creatinine 8.13 H* Calcium 8.2 L Microbiology Microbiology Results: Microbiology 02/08/22 15:24 Blood - Venous Blood Culture - Preliminary No growth after 48 hours. 02/08/22 15:24 Blood - Venous Blood Culture - Preliminary No growth after 48 hours. 02/08/22 16:12 Urine clean catch - Urine thomas top Urine Culture - Final Pseudomonas aeruginosa Assessment and Plan (1) NAEEM (acute kidney injury): Status: Acute (2) ESRD (end stage renal disease) on dialysis: Status: Acute (3) Acute UTI: Status: Acute He has Pseudomonas in urine He has pansensitive organism. He has hematuria He has BPH and urinary retention. (4) Pulmonary embolism: Status: Acute Plan Would give po Levaquin 250 mg po daily for 10 days when able to take po well.
[2022-02-10 22:06] LABS: Glucose, Whole Blood 137 mg/dL (60-115)
[2022-02-11] MEDS: Piperacillin Sodium/Tazobactam 2.25 GM in 0.9 % Sodium Chloride 50 ML IV ×3 (03:23→22:24)
[2022-02-11 04:00] VITALS: BP 109/55; PULSE 63; RESP 18; TEMP 36.3; O2SAT 98
[2022-02-11 06:35] LABS: Hematocrit 34.6 % (42.0-52.0); Hemoglobin 11.4 g/dl (14.0-18.0); Mean Corpuscular HGB Conc 32.9 g/dl (31.0-36.0); Mean Corpuscular Hemoglobin 29.7 pg (27.0-33.0); Mean Corpuscular Volume 90.1 fL (80.0-98.0); Mean Platelet Volume 11.8 fL (9.4-12.4); Platelet Count 318 X10*3/uL (160-400); Red Blood Count 3.84 X10*6/uL (4.60-5.80); Red Cell Distribution Width 11.9 % (11.0-16.0); White Blood Count 14.6 X10*3/uL (4.8-10.8)
[2022-02-11 07:10] LABS: Anion Gap 21 (12-20); Blood Urea Nitrogen 50 mg/dL (9-16); Carbon Dioxide 16 mmol/L (22-29); Chloride 102 mmol/L (96-108); Estimated Glomerular Filt Rate 5; Glucose Random 107 mg/dL (60-115); Potassium 4.2 mmol/L (3.3-5.1); Sodium 135 mmol/L (135-145)
[2022-02-11 07:26] VITALS: BP 116/45; PULSE 62; RESP 18; TEMP 36.4; O2SAT 97
[2022-02-11 07:37] LABS: Glucose, Whole Blood 98 mg/dL (60-115)
[2022-02-11] MEDS: Fluticasone Propionate 250 MCG BLST.W.DEV 1 PUFF INHALE (07:56)
[2022-02-11 07:57] VITALS: PULSE 67; RESP 18; O2SAT 91
[2022-02-11] MEDS: Atorvastatin Calcium 20 MG TABLET PO (09:30)
[2022-02-11] MEDS: 0.9 % Sodium Chloride Flush 3 ML SYRINGE IVFLUSH ×2 (09:30→22:29)
[2022-02-11] MEDS: carvediloL 25 MG TABLET PO ×2 (09:30→22:24)
[2022-02-11] MEDS: Tamsulosin HCL 0.4 MG CAPSULE 0.8 MG PO (09:30)
[2022-02-11] MEDS: Apixaban 5 MG TABLET 10 MG PO ×2 (09:30→22:24)
[2022-02-11] MEDS: Mineral Oil/Petrolatum,White 106 GM Tube 1 APPL TOPICAL (09:31)
[2022-02-11 11:03] VITALS: BP 121/75; PULSE 63; RESP 18; TEMP 36.2; O2SAT 98
[2022-02-11 11:15] LABS: Glucose, Whole Blood 107 mg/dL (60-115)
--- NOTE | 2022-02-11 11:39 | MHC.CM.PN ---
Per ROUNDS discussion, Patient is not yet medically cleared for dc (positive blood cultures, IV VANCO, IV Zosyn); STR appears to be the continued goal for dc and CM will continue to follow.
--- NOTE | 2022-02-11 12:52 | MHC.CLN ---
F/U DIET RX: 2000DM LOW K+-APPROPRIATE PT RECEIVING GLUCERNA TID TO INCREASE KCALS AND PROMOTE WOUND HEALING SUPP PROVIDES 711KCALS, 30G PROTEIN MONITOR PO INTAKE CLOSELY
--- NOTE | 2022-02-11 14:19 | HO.PM.IMPN ---
Subjective Subjective Date of Service: 02/11/22 Interval History: seen and examined this morning follow up for pneumonia, PE, Pseudomonas UTI blood cultures growing 1/2 GNR patient awake and alert this morning; not feeling well, but no specific complaints - denies chest pain, shortness of breath, abdominal pain, nausea, vomiting, fever, chills still with oozing from right dialysis catheter Review of Systems Review of Systems: Yes all other systems are reviewed and are negative Constitutional Constitutional: Denies chills and Denies fever(s) Cardiovascular Cardiovascular: Denies chest pain, Denies palpitations and Denies dyspnea Respiratory Respiratory: Denies dyspnea Gastrointestinal Gastrointestinal: Denies abdominal pain, Denies nausea and Denies vomiting Endocrine Endocrine: Denies palpitations Physical Exam Vital Signs: Vital Signs: Last Vital Signs Temp 97.2 F 02/11/22 11:03 Pulse 63 02/11/22 11:03 Resp 18 02/11/22 11:03 BP 121/75 02/11/22 11:03 Pulse Ox 98 02/11/22 11:03 O2 Del Method 02/11/22 11:03 O2 Flow Rate 1 02/11/22 07:26 Oxygen Flow Rate 2 02/08/22 15:03 BMI result Body Mass Index 27.4 Const: General: comfortable, alert and awake Nutritional Appearance: average body habitus Orientation/consciousness: oriented to person, oriented to place and oriented to time Chest: Other: Right chest wall, dialysis catheter in place, oozing from cather site Resp: Effort & Inspection: normal respiratory effort, able to speak in complete sentences and no use of accessory muscles Auscultation: diminished lung sounds Cardio: Rate: regular rate Heart sounds: S1 normal heart sound present and S2 normal heart sound present GI: Inspection: No distended Palpation (GI): Soft to palpation and nontender : Other: zeng in place Neuro: Other: grossly intact General: oriented to person, oriented to place and oriented to time Extrem: Other: s/p left AKA Objective Data Active Medications Apixaban (Apixaban 5 Mg Tablet) 10 mg PO BID [facility] Stop: 02/15/22 21:01 Last Admin: 02/11/22 09:30 Dose: 10 mg Documented By: DENISE Aspirin (Aspirin 81 Mg Tab.Chew) 81 mg PO DAILY [facility] Last Admin: 02/10/22 08:52 Dose: 81 mg Documented By: LASHAY Atorvastatin Calcium (Atorvastatin Calcium 20 Mg Tablet) 20 mg PO DAILY [facility] Last Admin: 02/11/22 09:30 Dose: 20 mg Documented By: DENISE Carvedilol (Carvedilol 25 Mg Tablet) 25 mg PO BID [facility]; Protocol Last Admin: 02/11/22 09:30 Dose: 25 mg Documented By: DENISE Fluticasone Propionate (Fluticasone Propionate 250 Mcg Blst.W.Dev) 1 puff INHALE RBID [facility] Last Admin: 02/11/22 07:56 Dose: 1 puff Documented By: BALDOMERO Heparin Sodium (Porcine) (Heparin Sodium,Porcine 5,000 Unit/Ml Vial) 5,000 unit INTRACATH MOWEFR@1645 [facility] Last Admin: 02/09/22 20:57 Dose: Not Given Documented By: ANNY Non-Admin Reason: Previously Administered Hydroxyzine HCl (Hydroxyzine Hcl 10 Mg Tablet) 10 mg PO Q8H PRN PRN Reason: Itching Last Admin: 02/10/22 22:26 Dose: 10 mg Documented By: VALERIE Piperacillin Sod/Tazobactam (Sod 2.25 gm/ Sodium Chloride) 50 mls @ 100 mls/hr IV Q6H [facility] Last Infusion: 02/11/22 10:24 Dose: 0 mls/hr Documented By: DENISE Insulin Human Lispro (Insulin Lispro 100 Unit/Ml 3 Ml Vial) 0 unit SUBCUT QIDACHS [facility]; Protocol Last Admin: 02/11/22 11:20 Dose: Not Given Documented By: DENISE Non-Admin Reason: No Insulin Coverage Multi-Ingred Cream/Lotion/Oil/Oint (Mineral Oil/Petrolatum,White 106 Gm Tube) 1 appl TOPICAL BID [facility]; Protocol Last Admin: 02/11/22 09:31 Dose: 1 appl Documented By: DENISE Pharmacy Consult (Consult Rx Perform Med Rec) 1 each MISCELLANE ONCE PRN PRN Reason: Consult order Pharmacy Consult (Consult Rx Vancomycin Dosing) 1 each MISCELLANE DAILY PRN PRN Reason: Consult order Senna (Sennosides 8.6 Mg Tablet) 17.2 mg PO BEDTIME [facility] Last Admin: 02/10/22 20:49 Dose: 17.2 mg Documented By: ISRA Sodium Chloride (0.9 % Sodium Chloride Flush 3 Ml Syringe) 3 ml IVFLUSH QSHIFT [facility] Last Admin: 02/11/22 09:30 Dose: 3 ml Documented By: DENISE Tamsulosin HCl (Tamsulosin Hcl 0.4 Mg Capsule) 0.8 mg PO DAILY [facility] Last Admin: 02/11/22 09:30 Dose: 0.8 mg Documented By: DENISE Labs CBC & Chem 7: 02/11/22 06:08 02/11/22 06:08 Labs: Laboratory Results - last 24 hr 02/10/22 02/10/22 02/10/22 16:18 20:20 21:36 MCV MCH MCHC RDW Plt Count MPV Absolute Nucleated RBC Nucleated RBC % (auto) Anion Gap Estim Creat Clear Calc Estimated GFR POC Glucose 90 80 137 H Random Glucose Calcium 02/11/22 02/11/22 02/11/22 06:08 06:08 07:29 MCV 90.1 MCH 29.7 MCHC 32.9 RDW 11.9 Plt Count 318 MPV 11.8 Absolute Nucleated RBC 0.000 Nucleated RBC % (auto) 0.0 Anion Gap 21 H Estim Creat Clear Calc 9.0 Estimated GFR 5 POC Glucose 98 Random Glucose 107 D Calcium 8.0 L 02/11/22 11:06 MCV MCH MCHC RDW Plt Count MPV Absolute Nucleated RBC Nucleated RBC % (auto) Anion Gap Estim Creat Clear Calc Estimated GFR POC Glucose 107 Random Glucose Calcium Microbiology Microbiology Results: Microbiology 02/08/22 15:24 Blood Culture - Preliminary Blood - Venous Prelim: GNR Gram Stain only 02/08/22 15:24 Blood Culture - Preliminary Blood - Venous No growth after 48 hours. Assessment and Plan (1) High anion gap metabolic acidosis: Status: Acute (2) ESRD (end stage renal disease) on dialysis: Status: Acute (3) Pneumonia: Status: Acute (4) Acute UTI: Status: Acute (5) Pulmonary embolism: Status: Acute (6) Acute respiratory failure with hypoxia: Status: Acute Plan 67 year old male with history of uncontrolled non-insulin dependent diabetes, htn, ESRD on dialysis MWF, BPH, and urinary retention with chronic indwelling zeng catheter with recent admission to [facility] for acute encephalopathy, NAEEM with hyperkalemia requiring HD being admitted to the hospital for acute respiratory failure with hypoxia secondary to PE, sepsis related to UTI, and AG metabolic acidosis with metabolic encephalopathy and ESRD. Acute respiratory failure with hypoxia secondary to acute PE, possible pneumonia weaned down to room air Acute pulmonary embolism CTA chest with relatively small burden acute pulmonary emboli within right lower lobe artery non-occulssive. Minimal involvement right upper lobe pulmonary artery. US showing Left superficial femoral DVT, no right leg DVT initially treated with Heparin drip, transitioned to Eliquis bleeding from dialysis catheter persistent oozing, d/w hematology plan to continue Eliquis; discussed with vascular surgery - reinforced with surgicel. will place sling to limit movement of right arm; consider DDAVP if no improvement and follow CBC Sepsis, resolved secondary to acute UTI and pneumonia. leukocytosis trending down, afebrile Urine culture growing Pseudomonas - continue IV zosyn until blood cultures finalize - can transition to po levaquin for total 14 days per ID Seen by ID GNR bacteremia likely urinary source CT abdomen/pelvis done on admission - no additional source 1/2 blood cultures positive- final sensitivities pending echo pending abx for 14 days as above Depression -psych consult pending toxic Metabolic encephalopathy secondary to sepsis , improving Recurrent reorientation and treat underlying causes High anion gap metabolic acidosis Resolved secondary to sepsis and ESRD Plan to do dialysis ESRD Started recently in [facility] for acute kidney injury with schedule MWF using [facility] Nephrology input appreciated, continue MWF schedule - last HD today 02/11 Follow BMP Non-Insulin dependent type 2 diabetes HbA1c of 6.5 po meds on hold Continue SSI, Diabetic diet HTN BP stable Continue carvedilol Continue to hold hydralazine and amlodipine, initially held due to soft BP on admission HLD Continue atorvastatin BPH with urinary retention Continue chronic zeng catheter - per family no voiding trail was attempted at [facility], can consider prior to discharge Continue tamsulosin DVT prophylaxis Eliquis DNR/DNI per [facility] form 02/04/22 attending - Dr. Jean Baptiste Patient requires ongoing inpatient stay for management of sepsis secondary to UTI and PE with acute respiratory failure with hypoxia requiring supplemental O2 to prevent possible decompensation to severe sepsis Quality Stroke Does the patient have a stroke diagnosis?: No VTE Prior VTE?: No VTE Risk Level:: Medical - moderate - high VTE Device Contraindication: Treatment Not Indicated VTE Drug Contraindication: N/A - Med Ordered
--- NOTE | 2022-02-11 15:26 | P.PNNP_ITS ---
Subjective Subjective Date of Service: 02/11/22 Interval history: Seen on HD; Has been having some oozing at the [facility] site. D/W HD RN. All recent data reviewed Physical Exam Vital Signs: Vital Signs: Last Vital Signs Temp 97.2 F 02/11/22 11:03 Pulse 63 02/11/22 11:03 Resp 18 02/11/22 11:03 BP 121/75 02/11/22 11:03 Pulse Ox 98 02/11/22 11:03 O2 Del Method 02/11/22 11:03 O2 Flow Rate 1 02/11/22 07:26 Oxygen Flow Rate 2 02/08/22 15:03 BMI result Body Mass Index 27.4 Const: General: no acute distress Orientation/consciousness: patient oriented x3 Eyes: EOM: EOMs intact bilaterally Resp: Auscultation: diminished lung sounds Cardio: Rate: regular rate GI: Palpation (GI): Soft to palpation Neuro: General: patient oriented x3 Objective Data Labs CBC & Chem 7: 02/11/22 06:08 02/11/22 06:08 Labs: Laboratory Results - last 24 hr 02/10/22 02/10/22 02/10/22 16:18 20:20 21:36 WBC RBC Hgb Hct MCV MCH MCHC RDW Plt Count MPV Absolute Nucleated RBC Nucleated RBC % (auto) Sodium Potassium Chloride Carbon Dioxide Anion Gap BUN Creatinine Estim Creat Clear Calc Estimated GFR POC Glucose 90 80 137 H Random Glucose Calcium 02/11/22 02/11/22 02/11/22 06:08 06:08 07:29 WBC 14.6 H RBC 3.84 L Hgb 11.4 L Hct 34.6 L MCV 90.1 MCH 29.7 MCHC 32.9 RDW 11.9 Plt Count 318 MPV 11.8 Absolute Nucleated RBC 0.000 Nucleated RBC % (auto) 0.0 Sodium 135 Potassium 4.2 Chloride 102 Carbon Dioxide 16 L Anion Gap 21 H BUN 50 H Creatinine 10.15 H* Estim Creat Clear Calc 9.0 Estimated GFR 5 POC Glucose 98 Random Glucose 107 D Calcium 8.0 L 02/11/22 11:06 WBC RBC Hgb Hct MCV MCH MCHC RDW Plt Count MPV Absolute Nucleated RBC Nucleated RBC % (auto) Sodium Potassium Chloride Carbon Dioxide Anion Gap BUN Creatinine Estim Creat Clear Calc Estimated GFR POC Glucose 107 Random Glucose Calcium Microbiology Microbiology Results: Microbiology 02/08/22 15:24 Blood - Venous Blood Culture - Preliminary Prelim: GNR Gram Stain only 02/08/22 15:24 Blood - Venous Blood Culture - Preliminary No growth after 48 hours. 02/08/22 16:12 Urine clean catch - Urine thomas top Urine Culture - Final Pseudomonas aeruginosa Procedures Date of Service Date of Service: 02/11/22 Assessment & Plan Assessment and plan (1) NAEEM (acute kidney injury): Status: Acute Assessment and Plan: Recently started on HD for NAEEM- In [facility] Had been getting HD on MWF; Seen on HD Has a functioning HD catheter; Renal Diet IR seen for bleeding from permcath site Volume optimization on HD; HOC3 adjusted to 40 in dialysate Shall continue to closely follow up Time Spent With Patient Time: Total time spent is greater than 50% in coordination of care (as documented) at patient's floor/unit and/or counseling patient: Progress Note: Quality Stroke Does the patient have a stroke diagnosis?: No
--- NOTE | 2022-02-11 16:04 | PM.IDPN ---
Subjective Subjective Date of Service: 02/11/22 Critical Care Time (minutes): 15 Comment: he has no complaints Objective Data Labs CBC & Chem 7: 02/11/22 06:08 02/11/22 06:08 Labs: Laboratory Results - last 24 hr 02/10/22 02/10/22 02/10/22 16:18 20:20 21:36 WBC RBC Hgb Hct MCV MCH MCHC RDW Plt Count MPV Absolute Nucleated RBC Nucleated RBC % (auto) Sodium Potassium Chloride Carbon Dioxide Anion Gap BUN Creatinine Estim Creat Clear Calc Estimated GFR POC Glucose 90 80 137 H Random Glucose Calcium 02/11/22 02/11/22 02/11/22 06:08 06:08 07:29 WBC 14.6 H RBC 3.84 L Hgb 11.4 L Hct 34.6 L MCV 90.1 MCH 29.7 MCHC 32.9 RDW 11.9 Plt Count 318 MPV 11.8 Absolute Nucleated RBC 0.000 Nucleated RBC % (auto) 0.0 Sodium 135 Potassium 4.2 Chloride 102 Carbon Dioxide 16 L Anion Gap 21 H BUN 50 H Creatinine 10.15 H* Estim Creat Clear Calc 9.0 Estimated GFR 5 POC Glucose 98 Random Glucose 107 D Calcium 8.0 L 02/11/22 11:06 WBC RBC Hgb Hct MCV MCH MCHC RDW Plt Count MPV Absolute Nucleated RBC Nucleated RBC % (auto) Sodium Potassium Chloride Carbon Dioxide Anion Gap BUN Creatinine Estim Creat Clear Calc Estimated GFR POC Glucose 107 Random Glucose Calcium Microbiology Microbiology Results: Microbiology 02/08/22 15:24 Blood - Venous Blood Culture - Preliminary Prelim: GNR Gram Stain only 02/08/22 15:24 Blood - Venous Blood Culture - Preliminary No growth after 48 hours. 02/08/22 16:12 Urine clean catch - Urine thomas top Urine Culture - Final Pseudomonas aeruginosa Physical Exam Vital Signs: Vital Signs: Last Vital Signs Temp 97.2 F 02/11/22 11:03 Pulse 63 02/11/22 11:03 Resp 18 02/11/22 11:03 BP 121/75 02/11/22 11:03 Pulse Ox 98 02/11/22 11:03 O2 Del Method 02/11/22 11:03 O2 Flow Rate 1 02/11/22 07:26 Oxygen Flow Rate 2 02/08/22 15:03 BMI result Body Mass Index 27.4 Const: General: cooperative Eyes: General: appearance normal, both eyes and all related structures Pupils: Equal, round and reactive pupils present Resp: Effort & Inspection: normal respiratory effort Cardio: Rate: regular rate Rhythm: regular rhythm GI: Palpation (GI): Soft to palpation and nontender Neuro: Cranial nerves: Yes Equal, round and reactive pupils present Assessment and Plan Assessment and plan (1) Bacteremia due to Pseudomonas: Problem details: There is urine source There is probably no endocarditis Status: Acute Assessment and Plan: Would give 14 days po Levaquin if no endocarditis. Would check echo. Time Spent With Patient Time: Total time spent is greater than 50% in coordination of care (as documented) at patient's floor/unit and/or counseling patient:
[2022-02-11 20:00] VITALS: BP 138/77; PULSE 71; RESP 18; TEMP 36.2; O2SAT 97
[2022-02-11 20:29] LABS: Glucose, Whole Blood 104 mg/dL (60-115)
--- NOTE | 2022-02-11 20:57 | PM.PSYCN ---
History of Present Illness Date of Service: 02/11/2022 Chief Complaint: Sepsis with UTI,acute resp failure with PE Reason for Consult: medication Requesting physician: Keysha Lopez Sources of Information: patient interviewed and chart reviewed HPI Narrative: Trevor is a 67 year old male with history of uncontrolled non-insulin dependent diabetes, alcohol use disorder in remission, HTN, ESRD on dialysis MWF, BPH, and urinary retention with chronic indwelling zeng catheter. Pt recently admitted to [facility] for acute encephalopathy, NAEEM with hyperkalemia requiring hemodialysis. Currently patient is residing at [facility]. He was admitted to [facility] on 02/08/22 due to management of sepsis secondary to UTI, PE, and acute respiratory failure with hypoxia requiring supplemental O2. Given IV zosyn, eliquis,? Psych consult placed due to depression. I evaluated pt this evening and upon interview he acknowledges that he is depressed and says ?I have to accept im gonna .? He is having difficulty accepting his medical attn and dialysis but he is currently accepting treatment. Says he will go days without eating. Denies hx of depression prior to his medical decline, no hx of OP psych services or IPLOC. Pt believes he is going to because ?this whole thing killed my father,? as he says his father was on dialysis and ?told me dont do it, he at age 65. Reports sleep is poor, ?Usually when I fall asleep somebody wakes me up,? feels tired all the time. He is anxious all the time, feels hopeless and helpless, agitated, says ?I have zero patience.?? Past Psychiatric History: Denies Medical Evaluation Reviewed: Yes [facility] Medical History (Updated 02/12/22 @ 08:27 by Tiffani Kelley NP) Acute respiratory failure with hypoxia Acute UTI Bacteremia due to Pseudomonas ESRD (end stage renal disease) on dialysis Metabolic encephalopathy Pulmonary embolism Diagnostics Vital Signs (24Hr): Vital Signs - 24 hr 02/11/22 04:00 02/11/22 07:26 02/11/22 07:57 Temperature 97.4 F 97.6 F Pulse Rate 63 62 67 Respiratory Rate 18 18 18 Blood Pressure 109/55 L 116/45 L Pulse Oximetry 98 97 Oxygen Delivery Method Nasal Cannula Nasal Cannula Oxygen Flow Rate 1 1 02/11/22 11:02/11/22 20:00 Temperature 97.2 F 97.1 F Pulse Rate 63 71 Respiratory Rate 18 18 Blood Pressure 121/75 138/77 Pulse Oximetry 98 97 Oxygen Delivery Method Room Air Room Air Oxygen Flow Rate BMI result Body Mass Index 27.4 Labs Results: 02/12/22 06:10 02/12/22 06:10 Labs: Laboratory Results - last 48 hr 02/09/22 02/10/22 02/10/22 20:56 06:11 06:11 WBC 21.6 H RBC 4.00 L Hgb 11.8 L Hct 36.1 L MCV 90.3 MCH 29.5 MCHC 32.7 RDW 11.9 Plt Count 299 MPV 11.7 Absolute Nucleated RBC 0.000 Nucleated RBC % (auto) 0.0 Sodium 134 L Potassium 4.1 Chloride 103 Carbon Dioxide 16 L Anion Gap 19 BUN 36 H Creatinine 8.13 H* Estim Creat Clear Calc 11.2 Estimated GFR 7 POC Glucose Random Glucose 78 D Calcium 8.2 L Random Vancomycin 33.8 H* 02/10/22 02/10/22 02/10/22 07:23 11:51 16:18 WBC RBC Hgb Hct MCV MCH MCHC RDW Plt Count MPV Absolute Nucleated RBC Nucleated RBC % (auto) Sodium Potassium Chloride Carbon Dioxide Anion Gap BUN Creatinine Estim Creat Clear Calc Estimated GFR POC Glucose 99 157 H 90 Random Glucose Calcium Random Vancomycin 02/10/22 02/10/22 02/11/22 20:20 21:36 06:08 WBC 14.6 H RBC 3.84 L Hgb 11.4 L Hct 34.6 L MCV 90.1 MCH 29.7 MCHC 32.9 RDW 11.9 Plt Count 318 MPV 11.8 Absolute Nucleated RBC 0.000 Nucleated RBC % (auto) 0.0 Sodium Potassium Chloride Carbon Dioxide Anion Gap BUN Creatinine Estim Creat Clear Calc Estimated GFR POC Glucose 80 137 H Random Glucose Calcium Random Vancomycin 02/11/22 02/11/22 02/11/22 06:08 07:29 11:06 WBC RBC Hgb Hct MCV MCH MCHC RDW Plt Count MPV Absolute Nucleated RBC Nucleated RBC % (auto) Sodium 135 Potassium 4.2 Chloride 102 Carbon Dioxide 16 L Anion Gap 21 H BUN 50 H Creatinine 10.15 H* Estim Creat Clear Calc 9.0 Estimated GFR 5 POC Glucose 98 107 Random Glucose 107 D Calcium 8.0 L Random Vancomycin 02/11/22 19:53 WBC RBC Hgb Hct MCV MCH MCHC RDW Plt Count MPV Absolute Nucleated RBC Nucleated RBC % (auto) Sodium Potassium Chloride Carbon Dioxide Anion Gap BUN Creatinine Estim Creat Clear Calc Estimated GFR POC Glucose 104 Random Glucose Calcium Random Vancomycin Imaging Radiology Impressions: ITS Impressions Abdomen/Pelvis CT 02/08/22 16:40 IMPRESSION: 1. Acute pulmonary embolism as above. 2. Pulmonary lesions which are nonspecific. According to the UPDATED 2017 Fleischner Society recommendations, the advised follow-up imaging for solid nodules < 6 mm is: LOW RISK PATIENT: No routine follow-up. HIGH RISK PATIENT: Optional CT at 12 months. Based on overall appearance, consider follow-up in 6-12 months. 3. Diverticulosis only. No obstruction. 4. Incidental horseshoe kidney. This critical result was discussed with Sanchez PA at 5:50 PM on a 3022 and it was ascertained that the content and urgency of the report was understood at the time of direct communication. Chest CTA 02/08/22 16:40 IMPRESSION: 1. Acute pulmonary embolism as above. 2. Pulmonary lesions which are nonspecific. According to the UPDATED 2017 Fleischner Society recommendations, the advised follow-up imaging for solid nodules < 6 mm is: LOW RISK PATIENT: No routine follow-up. HIGH RISK PATIENT: Optional CT at 12 months. Based on overall appearance, consider follow-up in 6-12 months. 3. Diverticulosis only. No obstruction. 4. Incidental horseshoe kidney. This critical result was discussed with Sanchez PA at 5:50 PM on a 3022 and it was ascertained that the content and urgency of the report was understood at the time of direct communication. Head CT 02/08/22 16:40 IMPRESSION: No acute intracranial pathology. Venous Duplex 02/08/22 21:13 IMPRESSION: Left superficial femoral DVT. No right leg DVT. Findings were communicated to IVAN Prescott by telephone on 02/09/2022 at 2:15 PM. Mental Status Exam Mental Status Exam Narrative: A&O, although does ask which hospital he is at. Overweight, ill appearing, unkempt. Poor eye contact, attentive. No Tics or Tremors. No abnormal involuntary movements. Agitated but ultimately cooperative, engaged. Non-pressured speech, spontaneous with regular rate and rhythm, normal volume and prosody. Some speech latency, no dysarthria. Mood is ?depressed,? affect is congruent. Denies SI/SIB/HI upon inquiry. Denies A/VH or delusional thought content. Thoughts are ruminative. No known cognitive or memory impairment. Insight/ Judgment fair and adequate. Medications Medications Current Medications Apixaban (Apixaban 5 Mg Tablet) 10 mg PO BID COUNTS INCLUDE 234 BEDS AT THE [facility] Stop: 02/15/22 21:01 Last Admin: 02/11/22 09:30 Dose: 10 mg Aspirin (Aspirin 81 Mg Tab.Chew) 81 mg PO DAILY COUNTS INCLUDE 234 BEDS AT THE [facility] Last Admin: 02/10/22 08:52 Dose: 81 mg Atorvastatin Calcium (Atorvastatin Calcium 20 Mg Tablet) 20 mg PO DAILY COUNTS INCLUDE 234 BEDS AT THE [facility] Last Admin: 02/11/22 09:30 Dose: 20 mg Carvedilol (Carvedilol 25 Mg Tablet) 25 mg PO BID COUNTS INCLUDE 234 BEDS AT THE [facility]; Protocol Last Admin: 02/11/22 09:30 Dose: 25 mg Fluticasone Propionate (Fluticasone Propionate 250 Mcg Blst.W.Dev) 1 puff INHALE RBID COUNTS INCLUDE 234 BEDS AT THE [facility] Last Admin: 02/11/22 07:56 Dose: 1 puff Heparin Sodium (Porcine) (Heparin Sodium,Porcine 5,000 Unit/Ml Vial) 5,000 unit INTRACATH MOWEFR@1645 COUNTS INCLUDE 234 BEDS AT THE [facility] Last Admin: 02/11/22 18:26 Dose: Not Given Hydroxyzine HCl (Hydroxyzine Hcl 10 Mg Tablet) 10 mg PO Q8H PRN PRN Reason: Itching Last Admin: 02/10/22 22:26 Dose: 10 mg Piperacillin Sod/Tazobactam (Sod 2.25 gm/ Sodium Chloride) 50 mls @ 100 mls/hr IV Q6H COUNTS INCLUDE 234 BEDS AT THE [facility] Last Admin: 02/11/22 18:26 Dose: Not Given Insulin Human Lispro (Insulin Lispro 100 Unit/Ml 3 Ml Vial) 0 unit SUBCUT QIDACHS COUNTS INCLUDE 234 BEDS AT THE [facility]; Protocol Last Admin: 02/11/22 18:26 Dose: Not Given Multi-Ingred Cream/Lotion/Oil/Oint (Mineral Oil/Petrolatum,White 106 Gm Tube) 1 appl TOPICAL BID COUNTS INCLUDE 234 BEDS AT THE [facility]; Protocol Last Admin: 02/11/22 09:31 Dose: 1 appl Pharmacy Consult (Consult Rx Perform Med Rec) 1 each MISCELLANE ONCE PRN PRN Reason: Consult order Pharmacy Consult (Consult Rx Vancomycin Dosing) 1 each MISCELLANE DAILY PRN PRN Reason: Consult order Senna (Sennosides 8.6 Mg Tablet) 17.2 mg PO BEDTIME COUNTS INCLUDE 234 BEDS AT THE [facility] Last Admin: 02/10/22 20:49 Dose: 17.2 mg Sodium Chloride (0.9 % Sodium Chloride Flush 3 Ml Syringe) 3 ml IVFLUSH QSHIFT COUNTS INCLUDE 234 BEDS AT THE [facility] Last Admin: 02/11/22 18:26 Dose: Not Given Tamsulosin HCl (Tamsulosin Hcl 0.4 Mg Capsule) 0.8 mg PO DAILY COUNTS INCLUDE 234 BEDS AT THE [facility] Last Admin: 02/11/22 09:30 Dose: 0.8 mg Allergies Allergies Allergy/AdvReac Type Severity Reaction Status Date / Time No Known Allergies Allergy Verified 02/08/22 15:03 Assessment & Plan Assessment & Plan (1) NAEEM (acute kidney injury): Status: Acute Code(s): N17.9 - Acute kidney failure, unspecified (2) ESRD (end stage renal disease) on dialysis: Status: Acute Code(s): N18.6 - End stage renal disease; Z99.2 - Dependence on renal dialysis (3) Pulmonary embolism: Status: Acute Code(s): I26.99 - Other pulmonary embolism without acute cor pulmonale (4) Acute respiratory failure with hypoxia: Status: Acute Code(s): J96.01 - Acute respiratory failure with hypoxia (5) MDD (major depressive disorder), single episode: Status: Acute Code(s): F32.9 - Major depressive disorder, single episode, unspecified Plan Plan: Initially pt is reluctant to trial antidepressant, no hx of psychotropic medication, says he does not think it will work and he does not believe in psych treatment. However, after spending time gaining rapport, pt is willing to trial prozac 20 mg daily for obvious sx of depression in context of medical decompensation. Will continue to follow up by psych. Thank you for this consultation. If you have any questions or concerns, please do not hesitate to contact psychiatry service. I spent minutes with the patient and/or on the patient floor today, greater than?50% of which was spent counseling/coordinating care. Patient educated on: diagnosis, medication risk/benefits and therapeutic strategies
[2022-02-11 20:59] LABS: Vancomycin Random 23.9 mcg/mL (15-20)
[2022-02-11] MEDS: Sennosides 8.6 MG TABLET 17.2 MG PO (22:24)
[2022-02-12] VITALS (9 sets, daily range): BP systolic 82–137; BP diastolic 53–75; PULSE 57–88; RESP 18–20; TEMP 36.1–37.2; O2SAT 92–97
[2022-02-12] MEDS: Piperacillin Sodium/Tazobactam 2.25 GM in 0.9 % Sodium Chloride 50 ML IV ×4 (03:46→22:18)
[2022-02-12 07:08] LABS: Hematocrit 32.6 % (42.0-52.0); Hemoglobin 10.9 g/dl (14.0-18.0); Mean Corpuscular HGB Conc 33.4 g/dl (31.0-36.0); Mean Corpuscular Hemoglobin 29.9 pg (27.0-33.0); Mean Corpuscular Volume 89.3 fL (80.0-98.0); Mean Platelet Volume 11.6 fL (9.4-12.4); Platelet Count 330 X10*3/uL (160-400); Red Blood Count 3.65 X10*6/uL (4.60-5.80); Red Cell Distribution Width 11.9 % (11.0-16.0); White Blood Count 12.8 X10*3/uL (4.8-10.8)
[2022-02-12 07:31] LABS: Anion Gap 21 (12-20); Blood Urea Nitrogen 29 mg/dL (9-16); Calcium 7.9 mg/dL (8.4-10.2); Carbon Dioxide 20 mmol/L (22-29); Chloride 99 mmol/L (96-108); Creatinine Clr Calc Pharmacy 12.1; Estimated Glomerular Filt Rate 7; Glucose Random 105 mg/dL (60-115); Potassium 4.2 mmol/L (3.3-5.1); Sodium 136 mmol/L (135-145)
[2022-02-12 07:52] LABS: Glucose, Whole Blood 112 mg/dL (60-115)
[2022-02-12 09:45] LABS: Partial Thromboplastin Time 40.8 SEC (26.0-36.4)
[2022-02-12] MEDS: FLUoxetine HCl Oral Solution 20 MG/5 ML SOLUTION PO (10:02)
[2022-02-12] MEDS: Tamsulosin HCL 0.4 MG CAPSULE 0.8 MG PO (10:03)
[2022-02-12] MEDS: carvediloL 25 MG TABLET PO ×2 (10:03→22:16)
[2022-02-12] MEDS: Mineral Oil/Petrolatum,White 106 GM Tube 1 APPL TOPICAL (10:04)
[2022-02-12] MEDS: 0.9 % Sodium Chloride Flush 3 ML SYRINGE IVFLUSH ×3 (10:04→22:19)
--- NOTE | 2022-02-12 10:20 | HO.PM.IMPN ---
Subjective Subjective Date of Service: 02/12/22 <Tiffanie Foster NP - Last Filed: 02/12/22 14:53> 02/19/22 <Bridger Haro MD - Last Filed: 02/19/22 09:30> Review of Systems Follow up ESRD, PNA, UTI Still bleeding from Dialysis cath no pain <Tiffanie Foster NP - Last Filed: 02/12/22 14:53> Physical Exam Vital Signs: Vital Signs: Last Vital Signs Temp 98.9 F 02/12/22 07:09 Pulse 70 02/12/22 07:09 Resp 19 02/12/22 07:09 BP 97/64 02/12/22 07:09 Pulse Ox 97 02/12/22 07:09 O2 Del Method 02/12/22 07:09 O2 Flow Rate 1 02/11/22 07:26 Oxygen Flow Rate 2 02/08/22 15:03 BMI result Body Mass Index 27.4 <Tiffanie Foster NP - Last Filed: 02/12/22 14:53> Appearing in no acute distress lung sounds are clear to auscultation heart regular rate rhythm, clear S1, S2 positive bowel sounds, abdomen is soft, nontender neuro patient is alert x3, no focal deficits <Tiffanie Foster NP - Last Filed: 02/12/22 14:53> Objective Data Active Medications Apixaban (Apixaban 5 Mg Tablet) 10 mg PO BID [facility] Last Admin: 02/11/22 22:24 Dose: 10 mg Documented By: EMERY Aspirin (Aspirin 81 Mg Tab.Chew) 81 mg PO DAILY [facility] Last Admin: 02/10/22 08:52 Dose: 81 mg Documented By: LASHAY Atorvastatin Calcium (Atorvastatin Calcium 20 Mg Tablet) 20 mg PO DAILY [facility] Last Admin: 02/11/22 09:30 Dose: 20 mg Documented By: DENISE Carvedilol (Carvedilol 25 Mg Tablet) 25 mg PO BID [facility]; Protocol Last Admin: 02/12/22 10:03 Dose: 25 mg Documented By: PRASANNA Fluoxetine HCl (Fluoxetine Hcl Oral Solution 20 Mg/5 Ml Solution) 20 mg PO DAILY [facility] Last Admin: 02/12/22 10:02 Dose: 20 mg Documented By: PRASANNA Fluticasone Propionate (Fluticasone Propionate 250 Mcg Blst.W.Dev) 1 puff INHALE RBID [facility] Last Admin: 02/12/22 07:35 Dose: Not Given Documented By: ALEN Non-Admin Reason: Patient Refused Heparin Sodium (Porcine) (Heparin Sodium,Porcine 5,000 Unit/Ml Vial) 5,000 unit INTRACATH MOWEFR@1645 [facility] Last Admin: 02/11/22 18:26 Dose: Not Given Documented By: DENISE Non-Admin Reason: Off unit: Dialysis Hydroxyzine HCl (Hydroxyzine Hcl 10 Mg Tablet) 10 mg PO Q8H PRN PRN Reason: Itching Last Admin: 02/10/22 22:26 Dose: 10 mg Documented By: VALERIE Piperacillin Sod/Tazobactam (Sod 2.25 gm/ Sodium Chloride) 50 mls @ 100 mls/hr IV Q6H [facility] Last Admin: 02/12/22 10:02 Dose: 100 mls/hr Documented By: PRASANNA Desmopressin Acetate 20 mcg/ (Sodium Chloride) 55 mls @ 100 mls/hr IV ONCE ONE Stop: 02/12/22 10:47 Insulin Human Lispro (Insulin Lispro 100 Unit/Ml 3 Ml Vial) 0 unit SUBCUT QIDACHS [facility]; Protocol Last Admin: 02/12/22 09:00 Dose: Not Given Documented By: ANGELO Non-Admin Reason: No Insulin Coverage Multi-Ingred Cream/Lotion/Oil/Oint (Mineral Oil/Petrolatum,White 106 Gm Tube) 1 appl TOPICAL BID [facility]; Protocol Last Admin: 02/12/22 10:04 Dose: 1 appl Documented By: PRASANNA Pharmacy Consult (Consult Rx Perform Med Rec) 1 each MISCELLANE ONCE PRN PRN Reason: Consult order Pharmacy Consult (Consult Rx Vancomycin Dosing) 1 each MISCELLANE DAILY PRN PRN Reason: Consult order Senna (Sennosides 8.6 Mg Tablet) 17.2 mg PO BEDTIME [facility] Last Admin: 02/11/22 22:24 Dose: 17.2 mg Documented By: EMERY Sodium Chloride (0.9 % Sodium Chloride Flush 3 Ml Syringe) 3 ml IVFLUSH QSHIFT [facility] Last Admin: 02/12/22 10:04 Dose: 3 ml Documented By: PRASANNA Tamsulosin HCl (Tamsulosin Hcl 0.4 Mg Capsule) 0.8 mg PO DAILY [facility] Last Admin: 02/12/22 10:03 Dose: 0.8 mg Documented By: PRASANNA <Tiffanie Foster NP - Last Filed: 02/12/22 14:53> Labs CBC & Chem 7: : 02/18/22 04:21 02/15/22 06:42 <Tiffanie Foster NP - Last Filed: 02/12/22 14:53> Labs: Laboratory Results - last 24 hr 02/11/22 02/11/22 02/11/22 11:06 19:53 19:57 MCV MCH MCHC RDW Plt Count MPV Absolute Nucleated RBC Nucleated RBC % (auto) PT INR APTT Anion Gap Estim Creat Clear Calc Estimated GFR POC Glucose 107 104 Random Glucose Calcium Random Vancomycin 23.9 H 02/12/22 02/12/22 02/12/22 06:10 06:10 07:14 MCV 89.3 MCH 29.9 MCHC 33.4 RDW 11.9 Plt Count 330 MPV 11.6 Absolute Nucleated RBC 0.000 Nucleated RBC % (auto) 0.0 PT INR APTT Anion Gap 21 H Estim Creat Clear Calc 12.1 Estimated GFR 7 POC Glucose 112 Random Glucose 105 Calcium 7.9 L Random Vancomycin 02/12/22 09:25 MCV MCH MCHC RDW Plt Count MPV Absolute Nucleated RBC Nucleated RBC % (auto) PT 24.0 H INR 2.0 H APTT 40.8 H Anion Gap Estim Creat Clear Calc Estimated GFR POC Glucose Random Glucose Calcium Random Vancomycin <Tiffanie Foster NP - Last Filed: 02/12/22 14:53> Microbiology Microbiology Results: Microbiology 02/08/22 15:24 Blood Culture - Preliminary Blood - Venous Pseudomonas species <Tiffanie Foster NP - Last Filed: 02/12/22 14:53> Assessment and Plan (1) High anion gap metabolic acidosis: Status: Acute <Tiffanie Foster NP - Last Filed: 02/12/22 14:53> (2) ESRD (end stage renal disease) on dialysis: Status: Acute <Tiffanie Foster NP - Last Filed: 02/12/22 14:53> (3) Pneumonia: Status: Acute <Tiffanie Foster NP - Last Filed: 02/12/22 14:53> (4) Acute UTI: Status: Acute <Tiffanie Foster NP - Last Filed: 02/12/22 14:53> (5) Pulmonary embolism: Status: Acute <Tiffanie Foster NP - Last Filed: 02/12/22 14:53> (6) Acute respiratory failure with hypoxia: Status: Acute <Tiffanie Foster NP - Last Filed: 02/12/22 14:53> Assessment and Plan: 67 year old male with history of uncontrolled non-insulin dependent diabetes, htn, ESRD on dialysis MWF, BPH, and urinary retention with chronic indwelling zeng catheter with recent admission to [facility] for acute encephalopathy, NAEEM with hyperkalemia requiring HD being admitted to the hospital for acute respiratory failure with hypoxia secondary to PE, sepsis related to UTI, and AG metabolic acidosis with metabolic encephalopathy and ESRD. Bleeding dialysis catheter persistent bleeding soaking through 2 dressings Discussed case with vascular surgery who suggested DDAVP Also discussed with physician ophthalmologist who suggested checking coag factors, PTT 24.0, INR 2.0, PTT 40.8 Reinforce Surgicel dressing, pressure dressing Better after DDAVP continue to monitor HH Acute respiratory failure with hypoxia. Resolved secondary to acute PE, possible pneumonia weaned down to room air Acute pulmonary embolism CTA chest with relatively small burden acute pulmonary emboli within right lower lobe artery non-occulssive. Minimal involvement right upper lobe pulmonary artery. US showing Left superficial femoral DVT, no right leg DVT initially treated with Heparin drip, transitioned to Eliquis Eliquis stopped due to continuous dialysis catheter bleeding Sepsis, resolved secondary to acute UTI and pneumonia. Urine culture growing Pseudomonas - continue IV zosyn until blood cultures finalize - can transition to po levaquin for total 14 days per ID Seen by ID GNR bacteremia likely urinary source CT abdomen/pelvis done on admission - no additional source 1/2 blood cultures positive- final sensitivities pending echo pending abx for 14 days as above Depression -psych consult pending toxic Metabolic encephalopathy secondary to sepsis , improving Recurrent reorientation and treat underlying causes High anion gap metabolic acidosis Resolved secondary to sepsis and ESRD Plan to do dialysis ESRD Started recently in [facility] for acute kidney injury with schedule MWF using [facility] input appreciated, continue MWF schedule - last HD today 02/11 Follow BMP Non-Insulin dependent type 2 diabetes HbA1c of 6.5 po meds on hold Continue SSI, Diabetic diet HTN BP stable Continue carvedilol Continue to hold hydralazine and amlodipine, initially held due to soft BP on admission HLD Continue atorvastatin BPH with urinary retention Continue chronic zeng catheter - per family no voiding trail was attempted at [facility], can consider prior to discharge Continue tamsulosin DVT prophylaxis Eliquis held due to catheter bleeding DNR/DNI per [facility] form 02/04/22 attending - Dr. Haro Patient requires ongoing inpatient stay for management of sepsis secondary to UTI and PE with acute respiratory failure with hypoxia requiring supplemental O2 to prevent possible decompensation to severe sepsis <Tiffanie Foster NP - Last Filed: 02/12/22 14:53> Quality Stroke Does the patient have a stroke diagnosis?: No <Tiffanie Foster NP - Last Filed: 02/12/22 14:53> VTE Prior VTE?: No <Tiffanie Foster NP - Last Filed: 02/12/22 14:53> VTE Risk Level:: Medical - moderate - high <Tiffanie Foster NP - Last Filed: 02/12/22 14:53> VTE Device Contraindication: Treatment Not Indicated <Tiffanie Foster NP - Last Filed: 02/12/22 14:53> VTE Drug Contraindication: N/A - Med Ordered <Tiffanie Foster NP - Last Filed: 02/12/22 14:53>
[2022-02-12] MEDS: Desmopressin Acetate 20 MCG in 0.9 % Sodium Chloride 50 ML 100 MCG IV (10:49)
[2022-02-12 11:46] LABS: Glucose, Whole Blood 154 mg/dL (60-115)
[2022-02-12] MEDS: Insulin Lispro 100 UNIT/ML 3 ML VIAL SUBCUT (12:05)
[2022-02-12 15:15] LABS: Hematocrit 29.7 % (42.0-52.0)
[2022-02-12] MEDS: 0.9 % Sodium Chloride 1,000 ML 500 ML IVCONT (15:24)
--- NOTE | 2022-02-12 15:28 | P.PNNP_ITS ---
Subjective Subjective Date of Service: 02/12/22 Interval history: Events noted. Has been having some oozing at the [facility] site. All recent data reviewed Physical Exam Vital Signs: Vital Signs: Last Vital Signs Temp 97.4 F 02/12/22 15:15 Pulse 66 02/12/22 15:15 Resp 18 02/12/22 15:15 BP 105/55 L 02/12/22 15:15 Pulse Ox 96 02/12/22 15:15 O2 Del Method 02/12/22 15:15 O2 Flow Rate 1 02/11/22 07:26 Oxygen Flow Rate 2 02/08/22 15:03 BMI result Body Mass Index 27.4 Const: General: no acute distress Orientation/consciousness: patient oriented x3 Eyes: EOM: EOMs intact bilaterally Resp: Auscultation: diminished lung sounds Cardio: Rate: regular rate GI: Palpation (GI): Soft to palpation Neuro: General: patient oriented x3 Objective Data Labs CBC & Chem 7: 02/12/22 15:06 02/12/22 06:10 Labs: Laboratory Results - last 24 hr 02/11/22 02/11/22 02/12/22 19:53 19:57 06:10 WBC 12.8 H RBC 3.65 L Hgb 10.9 L Hct 32.6 L MCV 89.3 MCH 29.9 MCHC 33.4 RDW 11.9 Plt Count 330 MPV 11.6 Absolute Nucleated RBC 0.000 Nucleated RBC % (auto) 0.0 PT INR APTT Sodium Potassium Chloride Carbon Dioxide Anion Gap BUN Creatinine Estim Creat Clear Calc Estimated GFR POC Glucose 104 Random Glucose Calcium Random Vancomycin 23.9 H 02/12/22 02/12/22 02/12/22 06:10 07:14 09:25 WBC RBC Hgb Hct MCV MCH MCHC RDW Plt Count MPV Absolute Nucleated RBC Nucleated RBC % (auto) PT 24.0 H INR 2.0 H APTT 40.8 H Sodium 136 Potassium 4.2 Chloride 99 Carbon Dioxide 20 L Anion Gap 21 H BUN 29 H Creatinine 7.56 H* Estim Creat Clear Calc 12.1 Estimated GFR 7 POC Glucose 112 Random Glucose 105 Calcium 7.9 L Random Vancomycin 02/12/22 02/12/22 11:41 15:06 WBC RBC Hgb 10.0 L Hct 29.7 L MCV MCH MCHC RDW Plt Count MPV Absolute Nucleated RBC Nucleated RBC % (auto) PT INR APTT Sodium Potassium Chloride Carbon Dioxide Anion Gap BUN Creatinine Estim Creat Clear Calc Estimated GFR POC Glucose 154 H Random Glucose Calcium Random Vancomycin Microbiology Microbiology Results: Microbiology 02/11/22 11:17 Blood - Venous Blood Culture - Preliminary No growth after 24 hours. 02/11/22 11:17 Blood - Venous Blood Culture - Preliminary No growth after 24 hours. 02/08/22 15:24 Blood - Venous Blood Culture - Preliminary Pseudomonas species 02/08/22 15:24 Blood - Venous Blood Culture - Preliminary No growth after 48 hours. 02/08/22 16:12 Urine clean catch - Urine thomas top Urine Culture - Final Pseudomonas aeruginosa Procedures Date of Service Date of Service: 02/12/22 Assessment & Plan Assessment and plan (1) NAEEM (acute kidney injury): Status: Acute Assessment and Plan: Recently started on HD for NAEEM- In [facility] Had been getting HD on MWF; Last HD yesterday Has a functioning HD catheter; Renal Diet IR seeing for bleeding from permcath site Volume optimization on HD; Shall F/U Time Spent With Patient Time: Total time spent is greater than 50% in coordination of care (as documented) at patient's floor/unit and/or counseling patient: Progress Note: Quality Stroke Does the patient have a stroke diagnosis?: No
[2022-02-12 16:18] LABS: Glucose, Whole Blood 139 mg/dL (60-115)
[2022-02-12 16:28] LABS: Fibrinogen > 700 MG/DL (259-690)
--- NOTE | 2022-02-12 19:00 | PM.EVENT ---
Event Note Date of Service: 02/12/22 Event Note: I personally saw and examined the aptient and discussed finding with midlevel provider. pt with ongoing oozing from catheter placement site despite pressure, DDAVP. Discussed with Vascular next step maybe removing line if bleeding persists tomorrow. Dressing has been just redone and reinforced and sand bad applied.
[2022-02-12] MEDS: Fluticasone Propionate 250 MCG BLST.W.DEV 1 PUFF INHALE (19:01)
[2022-02-12 19:50] LABS: Glucose, Whole Blood 140 mg/dL (60-115)
[2022-02-12] MEDS: Mirtazapine 15 MG TABLET PO (22:16)
[2022-02-13] VITALS (7 sets, daily range): BP systolic 118–149; BP diastolic 50–82; PULSE 68–80; RESP 16–20; TEMP 36.3–36.8; O2SAT 95–98
[2022-02-13] MEDS: Piperacillin Sodium/Tazobactam 2.25 GM in 0.9 % Sodium Chloride 50 ML IV ×4 (02:42→21:01)
[2022-02-13 07:03] LABS: Hematocrit 29.7 % (42.0-52.0); Hemoglobin 9.9 g/dl (14.0-18.0); Mean Corpuscular HGB Conc 33.3 g/dl (31.0-36.0); Mean Corpuscular Hemoglobin 30.2 pg (27.0-33.0); Mean Corpuscular Volume 90.5 fL (80.0-98.0); Mean Platelet Volume 11.5 fL (9.4-12.4); Platelet Count 293 X10*3/uL (160-400); Red Blood Count 3.28 X10*6/uL (4.60-5.80); Red Cell Distribution Width 12.1 % (11.0-16.0); White Blood Count 12.6 X10*3/uL (4.8-10.8)
[2022-02-13 07:29] LABS: Anion Gap 21 (12-20); Calcium 7.9 mg/dL (8.4-10.2); Carbon Dioxide 17 mmol/L (22-29); Chloride 101 mmol/L (96-108); Creatinine Clr Calc Pharmacy 8.8; Estimated Glomerular Filt Rate 5; Glucose Random 122 mg/dL (60-115); Potassium 4.2 mmol/L (3.3-5.1); Sodium 135 mmol/L (135-145)
[2022-02-13 07:43] LABS: Blood Urea Nitrogen 46 mg/dL (9-16)
[2022-02-13 07:57] LABS: Glucose, Whole Blood 116 mg/dL (60-115)
[2022-02-13] MEDS: Fluticasone Propionate 250 MCG BLST.W.DEV 1 PUFF INHALE ×2 (08:06→18:57)
[2022-02-13] MEDS: Tamsulosin HCL 0.4 MG CAPSULE 0.8 MG PO (08:38)
[2022-02-13] MEDS: carvediloL 25 MG TABLET PO ×2 (08:38→21:01)
[2022-02-13] MEDS: Atorvastatin Calcium 20 MG TABLET PO (08:38)
[2022-02-13] MEDS: 0.9 % Sodium Chloride Flush 3 ML SYRINGE IVFLUSH ×2 (08:39→16:56)
[2022-02-13] MEDS: FLUoxetine HCl Oral Solution 20 MG/5 ML SOLUTION PO (08:42)
[2022-02-13] MEDS: Mineral Oil/Petrolatum,White 106 GM Tube 1 APPL TOPICAL ×2 (09:07→21:03)
--- NOTE | 2022-02-13 11:05 | P.PNIM_ITS ---
Subjective Subjective Date of Service: 02/13/22 <Tiffanie Foster NP - Last Filed: 02/13/22 11:26> 02/19/22 <Bridger Haro MD - Last Filed: 02/19/22 09:30> Review of Systems Follow up ESRD, PNA, UTI bleeding from Dialysis cath has slowed down no pain? <Tiffanie Foster NP - Last Filed: 02/13/22 11:26> Physical Exam Vital Signs: Vital Signs: Last Vital Signs Temp 97.6 F 02/13/22 07:44 Pulse 71 02/13/22 08:07 Resp 18 02/13/22 08:07 BP 149/82 H 02/13/22 07:44 Pulse Ox 97 02/13/22 07:44 O2 Del Method 02/13/22 07:44 O2 Flow Rate 1 02/11/22 07:26 Oxygen Flow Rate 2 02/08/22 15:03 BMI result Body Mass Index 27.4 <Tiffanie Foster NP - Last Filed: 02/13/22 11:26> Appearing in no acute distress lung sounds are clear to auscultation heart regular rate rhythm, clear S1, S2 positive bowel sounds, abdomen is soft, nontender neuro patient is alert x3, no focal deficits <Tiffanie Foster NP - Last Filed: 02/13/22 11:26> Objective Data Active Medications Apixaban (Apixaban 5 Mg Tablet) 10 mg PO BID [facility] Last Admin: 02/11/22 22:24 Dose: 10 mg Documented By: EMERY Aspirin (Aspirin 81 Mg Tab.Chew) 81 mg PO DAILY [facility] Last Admin: 02/10/22 08:52 Dose: 81 mg Documented By: LASHAY Atorvastatin Calcium (Atorvastatin Calcium 20 Mg Tablet) 20 mg PO DAILY [facility] Last Admin: 02/13/22 08:38 Dose: 20 mg Documented By: BYRON Carvedilol (Carvedilol 25 Mg Tablet) 25 mg PO BID [facility]; Protocol Last Admin: 02/13/22 08:38 Dose: 25 mg Documented By: BYRON Fluoxetine HCl (Fluoxetine Hcl Oral Solution 20 Mg/5 Ml Solution) 20 mg PO DAILY [facility] Last Admin: 02/13/22 08:42 Dose: 20 mg Documented By: BYRON Fluticasone Propionate (Fluticasone Propionate 250 Mcg Blst.W.Dev) 1 puff INHALE RBID [facility] Last Admin: 02/13/22 08:06 Dose: 1 puff Documented By: AMBER Heparin Sodium (Porcine) (Heparin Sodium,Porcine 5,000 Unit/Ml Vial) 5,000 unit INTRACATH MOWEFR@1645 [facility] Last Admin: 02/11/22 18:26 Dose: Not Given Documented By: DENISE Non-Admin Reason: Off unit: Dialysis Hydroxyzine HCl (Hydroxyzine Hcl 10 Mg Tablet) 10 mg PO Q8H PRN PRN Reason: Itching Last Admin: 02/10/22 22:26 Dose: 10 mg Documented By: VALERIE Piperacillin Sod/Tazobactam (Sod 2.25 gm/ Sodium Chloride) 50 mls @ 100 mls/hr IV Q6H [facility] Last Admin: 02/13/22 08:38 Dose: 100 mls/hr Documented By: BYRON Insulin Human Lispro (Insulin Lispro 100 Unit/Ml 3 Ml Vial) 0 unit SUBCUT QIDACHS [facility]; Protocol Last Admin: 02/13/22 08:36 Dose: Not Given Documented By: BYRON Non-Admin Reason: No Insulin Coverage Mirtazapine (Mirtazapine 15 Mg Tablet) 15 mg PO BEDTIME [facility] Last Admin: 02/12/22 22:16 Dose: 15 mg Documented By: DELFINO Multi-Ingred Cream/Lotion/Oil/Oint (Mineral Oil/Petrolatum,White 106 Gm Tube) 1 appl TOPICAL BID [facility]; Protocol Last Admin: 02/13/22 09:07 Dose: 1 appl Documented By: BYRON Pharmacy Consult (Consult Rx Perform Med Rec) 1 each MISCELLANE ONCE PRN PRN Reason: Consult order Pharmacy Consult (Consult Rx Vancomycin Dosing) 1 each MISCELLANE DAILY PRN PRN Reason: Consult order Senna (Sennosides 8.6 Mg Tablet) 17.2 mg PO BEDTIME [facility] Last Admin: 02/12/22 22:19 Dose: Not Given Documented By: DELFINO Non-Admin Reason: pt having loose stools Sodium Chloride (0.9 % Sodium Chloride Flush 3 Ml Syringe) 3 ml IVFLUSH QSHIFT [facility] Last Admin: 02/13/22 08:39 Dose: 3 ml Documented By: BYRON Tamsulosin HCl (Tamsulosin Hcl 0.4 Mg Capsule) 0.8 mg PO DAILY [facility] Last Admin: 02/13/22 08:38 Dose: 0.8 mg Documented By: BYRON <Tiffanie Foster NP - Last Filed: 02/13/22 11:26> Labs CBC & Chem 7: : 02/18/22 04:21 02/15/22 06:42 <Tiffanie Foster NP - Last Filed: 02/13/22 11:26> Labs: Laboratory Results - last 24 hr 02/12/22 02/12/22 02/12/22 11:41 15:41 16:15 MCV MCH MCHC RDW Plt Count MPV Absolute Nucleated RBC Nucleated RBC % (auto) Fibrinogen > 700 H Anion Gap Estim Creat Clear Calc Estimated GFR POC Glucose 154 H 139 H Random Glucose Calcium 02/12/22 02/13/22 02/13/22 19:45 06:20 06:20 MCV 90.5 MCH 30.2 MCHC 33.3 RDW 12.1 Plt Count 293 MPV 11.5 Absolute Nucleated RBC 0.000 Nucleated RBC % (auto) 0.0 Fibrinogen Anion Gap 21 H Estim Creat Clear Calc 8.8 Estimated GFR 5 POC Glucose 140 H Random Glucose 122 H Calcium 7.9 L 02/13/22 07:47 MCV MCH MCHC RDW Plt Count MPV Absolute Nucleated RBC Nucleated RBC % (auto) Fibrinogen Anion Gap Estim Creat Clear Calc Estimated GFR POC Glucose 116 H Random Glucose Calcium <Tiffanie Foster NP - Last Filed: 02/13/22 11:26> Microbiology Microbiology Results: Microbiology 02/08/22 15:24 Blood Culture - Final Blood - Venous Pseudomonas aeruginosa 02/11/22 11:17 Blood Culture - Preliminary Blood - Venous No growth after 24 hours. 02/11/22 11:17 Blood Culture - Preliminary Blood - Venous No growth after 24 hours. <Tiffanie Foster NP - Last Filed: 02/13/22 11:26> Assessment and Plan (1) High anion gap metabolic acidosis: Status: Acute <Tiffanie Foster NP - Last Filed: 02/13/22 11:26> (2) ESRD (end stage renal disease) on dialysis: Status: Acute <Tiffanie Foster NP - Last Filed: 02/13/22 11:26> (3) Pneumonia: Status: Acute <Tiffanie Foster NP - Last Filed: 02/13/22 11:26> (4) Acute UTI: Status: Acute <Tiffanie Foster NP - Last Filed: 02/13/22 11:26> (5) Pulmonary embolism: Status: Acute <Tiffanie Foster BIOMEDICAL MANAGER - Last Filed: 02/13/22 11:26> (6) Acute respiratory failure with hypoxia: Status: Acute <Tiffanieomar Foster NP - Last Filed: 02/13/22 11:26> Assessment and Plan: 67 year old male with history of uncontrolled non-insulin dependent diabetes, htn, ESRD on dialysis MWF, BPH, and urinary retention with chronic indwelling zeng catheter with recent admission to [facility] for acute encephalopathy, NAEEM with hyperkalemia requiring HD being admitted to the hospital for acute respiratory failure with hypoxia secondary to PE, sepsis related to UTI, and AG metabolic acidosis with metabolic encephalopathy and ESRD. Bleeding dialysis catheter persistent bleeding soaking through multiple dressings overnight, better controlled with surgicel and sand bag Discussed case with vascular surgery who suggested DDAVP which did help for a few hours Also discussed with spa therapist who suggested checking coag factors, PTT 24.0, INR 2.0, PTT 40.8, all others pending Reinforce Surgicel dressing, pressure dressing continue to monitor HH Acute respiratory failure with hypoxia. Resolved secondary to acute PE, possible pneumonia weaned down to room air Acute pulmonary embolism CTA chest with relatively small burden acute pulmonary emboli within right lower lobe artery non-occulssive. Minimal involvement right upper lobe pulmonary artery. US showing Left superficial femoral DVT, no right leg DVT initially treated with Heparin drip, transitioned to Eliquis Eliquis stopped due to continuous dialysis catheter bleeding Sepsis, resolved secondary to acute UTI and pneumonia. Urine culture growing Pseudomonas - continue IV zosyn until blood cultures finalize - can transition to po levaquin for total 14 days per ID Seen by ID GNR bacteremia likely urinary source CT abdomen/pelvis done on admission - no additional source 1/2 blood cultures positive- final sensitivities pending echo pending abx for 14 days as above poor appetite/nutrition not wanting to eat started on remeron to see if that will increase appetite Depression psych consult pending toxic Metabolic encephalopathy. Resolved secondary to sepsis , improving High anion gap metabolic acidosis Resolved secondary to sepsis and ESRD Plan to do dialysis ESRD Started recently in [facility] for acute kidney injury with schedule MWF using [facility] Nephrology input appreciated, continue MWF schedule - last HD today 02/11 Follow BMP Non-Insulin dependent type 2 diabetes HbA1c of 6.5 po meds on hold Continue SSI, Diabetic diet HTN BP stable Continue carvedilol Continue to hold hydralazine and amlodipine, initially held due to soft BP on admission HLD Continue atorvastatin BPH with urinary retention Continue chronic zeng catheter - per family no voiding trail was attempted at [facility], can consider prior to discharge Continue tamsulosin DVT prophylaxis Eliquis held due to catheter bleeding DNR/DNI per [facility] form 02/04/22 attending - Dr. Haro Patient requires ongoing inpatient stay for management of sepsis secondary to UTI and PE with acute respiratory failure with hypoxia requiring supplemental O2 to prevent possible decompensation to severe sepsis <Tiffanie Foster NP - Last Filed: 02/13/22 11:26> Quality Stroke Does the patient have a stroke diagnosis?: No <Tiffanie Foster NP - Last Filed: 02/13/22 11:26> VTE Prior VTE?: No <Tiffanie Foster NP - Last Filed: 02/13/22 11:26> VTE Risk Level:: Medical - moderate - high <Tiffanie Foster NP - Last Filed: 02/13/22 11:26> VTE Device Contraindication: Treatment Not Indicated <Tiffanie Foster NP - Last Filed: 02/13/22 11:26> VTE Drug Contraindication: N/A - Med Ordered <Tiffanie Foster NP - Last Filed: 02/13/22 11:26>
[2022-02-13 11:55] LABS: Glucose, Whole Blood 123 mg/dL (60-115)
--- NOTE | 2022-02-13 14:39 | PM.PNNEP ---
Subjective Subjective Date of Service: 02/13/22 Interval history: Events noted. All recent data reviewed; Due HD tomorrow Physical Exam Vital Signs: Vital Signs: Last Vital Signs Temp 98.3 F 02/13/22 11:41 Pulse 68 02/13/22 11:41 Resp 20 02/13/22 11:41 BP 142/72 H 02/13/22 11:41 Pulse Ox 96 02/13/22 11:41 O2 Del Method 02/13/22 11:41 O2 Flow Rate 1 02/11/22 07:26 Oxygen Flow Rate 2 02/08/22 15:03 BMI result Body Mass Index 27.4 Const: General: no acute distress Orientation/consciousness: patient oriented x3 Eyes: EOM: EOMs intact bilaterally Resp: Auscultation: diminished lung sounds Cardio: Rate: regular rate GI: Palpation (GI): Soft to palpation Neuro: General: patient oriented x3 Objective Data Labs CBC & Chem 7: 02/13/22 06:20 02/13/22 06:20 Labs: Laboratory Results - last 24 hr 02/12/22 02/12/22 02/12/22 15:06 15:41 16:15 WBC RBC Hgb 10.0 L Hct 29.7 L MCV MCH MCHC RDW Plt Count MPV Absolute Nucleated RBC Nucleated RBC % (auto) Fibrinogen > 700 H Sodium Potassium Chloride Carbon Dioxide Anion Gap BUN Creatinine Estim Creat Clear Calc Estimated GFR POC Glucose 139 H Random Glucose Calcium 02/12/22 02/13/22 02/13/22 19:45 06:20 06:20 WBC 12.6 H RBC 3.28 L Hgb 9.9 L Hct 29.7 L MCV 90.5 MCH 30.2 MCHC 33.3 RDW 12.1 Plt Count 293 MPV 11.5 Absolute Nucleated RBC 0.000 Nucleated RBC % (auto) 0.0 Fibrinogen Sodium 135 Potassium 4.2 Chloride 101 Carbon Dioxide 17 L Anion Gap 21 H BUN 46 H D Creatinine 10.38 H* Estim Creat Clear Calc 8.8 Estimated GFR 5 POC Glucose 140 H Random Glucose 122 H Calcium 7.9 L 02/13/22 02/13/22 07:47 11:43 WBC RBC Hgb Hct MCV MCH MCHC RDW Plt Count MPV Absolute Nucleated RBC Nucleated RBC % (auto) Fibrinogen Sodium Potassium Chloride Carbon Dioxide Anion Gap BUN Creatinine Estim Creat Clear Calc Estimated GFR POC Glucose 116 H 123 H Random Glucose Calcium Microbiology Microbiology Results: Microbiology 02/11/22 11:17 Blood - Venous Blood Culture - Preliminary No growth after 48 hours. 02/11/22 11:17 Blood - Venous Blood Culture - Preliminary No growth after 48 hours. 02/08/22 15:24 Blood - Venous Blood Culture - Final Pseudomonas aeruginosa 02/08/22 15:24 Blood - Venous Blood Culture - Preliminary No growth after 48 hours. 02/08/22 16:12 Urine clean catch - Urine thomas top Urine Culture - Final Pseudomonas aeruginosa Procedures Date of Service Date of Service: 02/13/22 Assessment & Plan Assessment and plan (1) NAEEM (acute kidney injury): Status: Acute Assessment and Plan: Recently started on HD for NAEEM- In [facility] Had been getting HD on MWF; Due tomorrow Has a functioning HD catheter; Renal Diet Volume optimization on HD; Shall F/U Time Spent With Patient Time: Total time spent is greater than 50% in coordination of care (as documented) at patient's floor/unit and/or counseling patient: Progress Note: Quality Stroke Does the patient have a stroke diagnosis?: No
[2022-02-13 15:45] LABS: Glucose, Whole Blood 111 mg/dL (60-115)
[2022-02-13 20:02] LABS: Glucose, Whole Blood 166 mg/dL (60-115)
[2022-02-13] MEDS: Mirtazapine 15 MG TABLET PO (21:01)
[2022-02-13] MEDS: Sennosides 8.6 MG TABLET 17.2 MG PO (21:01)
[2022-02-13] MEDS: Insulin Lispro 100 UNIT/ML 3 ML VIAL SUBCUT (21:02)
[2022-02-14] VITALS: BP 139/66; PULSE 76; RESP 18; TEMP 36.3; O2SAT 95
[2022-02-14] MEDS: 0.9 % Sodium Chloride Flush 3 ML SYRINGE IVFLUSH ×3 (00:23→20:51)
[2022-02-14] MEDS: Piperacillin Sodium/Tazobactam 2.25 GM in 0.9 % Sodium Chloride 50 ML IV ×3 (03:13→20:51)
[2022-02-14 04:00] VITALS: BP 121/61; RESP 14; TEMP 36.6; O2SAT 95
[2022-02-14 06:44] LABS: Anion Gap 22 (12-20); Blood Urea Nitrogen 57 mg/dL (9-16); Calcium 7.9 mg/dL (8.4-10.2); Carbon Dioxide 18 mmol/L (22-29); Chloride 101 mmol/L (96-108); Creatinine Clr Calc Pharmacy 7.2; Estimated Glomerular Filt Rate 4; Glucose Random 113 mg/dL (60-115); Potassium 4.1 mmol/L (3.3-5.1); Sodium 137 mmol/L (135-145)
--- NOTE | 2022-02-14 07:00 | CA_ITS ---
Transthoracic Echocardiogram Amended Patient (Last, First, Middle): Trevor Avila, Gender: Male Date of : 1955 Age: 67 Procedure Date: 02/14/2022 Procedure Type: Transthoracic Echocardiogram Location: [facility] Height: 195.58 cm Weight: 104.78 kg BSA: 2.38 m2 Heart Rate: bpm BP: 121 / 75 mmHg Enforcement Officer: Referring MD: Keysha LOVE Grab Jack Man: Seven Aldrich MD Symptoms: bacteremia, eval for vegetation Study Quality: Technically Difficult ECG Rhythm: Sinus Conclusions: - 1. Technically limited study 2. Vegetations cannot be ruled out on this study and if clinically indicated consider HELIO 3. Preserved LVEF of greater than 50% with normal diastolic filling 4. Normal cardiac valvular Dopplers 5. Normal RV systolic pressure Findings Left Ventricle The left ventricle was not well visualized. Regional wall motion abnormalities can not be excluded due to suboptimal endocardial definition. Spectral Doppler is indicative of a normal filling pattern. LV systolic function on multiple views appears to be preserved with LVEF of greater than 50% Right Ventricle The right ventricle was not well visualized. Atria The left atrium was not well visualized. Interatrial shunt cannot be excluded. The right atrium was not well visualized. Aortic Valve The aortic valve was not well visualized. There is mild thickening of the aortic valve. There is no aortic valve stenosis. There is no aortic valve regurgitation. Mitral Valve The mitral valve was not well visualized. There is mild mitral annular calcification. There is trace mitral valve regurgitation. There is no mitral valve stenosis. Pulmonic Valve The pulmonic valve was not well visualized. Tricuspid Valve The tricuspid valve was not well visualized. The right ventricular systolic pressure is normal. Great Vessels All visible segments of the aorta are normal in size. The pulmonary artery was not well visualized. Venous The inferior vena cava is normal in size and collapses greater than 50% with inspiration. Pericardium/Pleural There is no evidence of pericardial effusion. Recommendations, Care & Conclusions Consider a HELIO if clinically appropriate. Measurements 2D Linear Measurements IVSd: 1.38 0.6-0.9/0.6-1.0 cm LVIDd: 4.79 3.9-5.3/4.2-5.9 cm LVIDd Index: 2.01 2.4-3.2/2.2-3.1 cm/m2 LVIDs: 3.33 2.0-3.6 cm LVPWd: 1.29 0.7-1.1 cm Ao Root: 3.60 2.1-3.5 cm LA Diam: 3.80 2.7-3.8/3.0-4.0 cm LAIDs Index: 1.60 1.5-2.3 cm/m2 LV Mass: 317.47 67-162/88-224 g LV Mass Index: 133.39 43-95/49-115 g/m2 LVOT Diam: 2.50 3.0+(-)1.3 cm 2D Volumes LA Vol: 30.80 Mitral Valve MV Pk E: 0.88 MV PK A: 0.85 MV Decel Time: 188.00 E/A: 1.00 E'Lateral: 12.20 E'Medial: 11.50 E/E' Med: 7.60 E/E' Lat: 7.20 PHT: 55.00 MVA PHT: 4.00 Decel [place]: 4.68 Aortic Valve AoV Pk Cheng: 1.29 AoV Mn Cheng: 0.85 AoV VTI: 0.31 AoV Pk Grad: 7.00 Aov Mn Grad: 3.00 LEN Cont.VTI: 2.69 LVOT LVOT Pk Cheng: 0.92 LVOT Mn Cheng: 0.54 LVOT VTI: 0.17 LVOT Pk Grad: 3.00 LVOT Mn Grad: 1.00 LVOT Diam: 2.50 LVOT Area: 4.91 Diastolic Function MV Pk E: 0.88 MV Pk A: 0.85 E/A: 1.00 E'Medial: 11.50 E/E' Med: 7.60 E' Laterial: 12.20 E/E' Lat: 7.20 Right Ventricle TAPSE (mm): 25.00 Tricuspid Valve TR Pk Cheng: 1.81 TR Pk Grad: 13.00 RA Press: 3.00 RVSP: 16.00 Great Vessels Aorta Ao Root-2D: 3.60 2.0-3.7 cm Pulmonary Valve PV Pk Cheng: 1.29 Peak PV Grad: 7.00 Updated in Other Vendor System with Status of Final Seven Aldrich MD electronically signed on 02/14/2022 11:10:52 AM with status of Final
[2022-02-14 07:02] VITALS: BP 112/62; PULSE 66; RESP 18; TEMP 36.7; O2SAT 96
[2022-02-14 07:38] LABS: Glucose, Whole Blood 109 mg/dL (60-115)
--- NOTE | 2022-02-14 08:00 | PC.NURSE ---
Assumed care of patient at this time until 1900.
[2022-02-14] MEDS: Atorvastatin Calcium 20 MG TABLET PO (09:08)
[2022-02-14] MEDS: carvediloL 25 MG TABLET PO ×2 (09:08→20:49)
--- NOTE | 2022-02-14 10:27 | P.PNIM_ITS ---
Subjective Subjective Date of Service: 02/14/22 <Tiffanie Foster NP - Last Filed: 02/14/22 10:39> 02/19/22 <Bridger Haro MD - Last Filed: 02/19/22 09:30> Review of Systems Follow up ESRD, PNA, UTI bleeding from Dialysis cath has stopped no pain? <Tiffanie Foster NP - Last Filed: 02/14/22 10:39> Physical Exam Vital Signs: Vital Signs: Last Vital Signs Temp 98.0 F 02/14/22 07:02 Pulse 66 02/14/22 07:02 Resp 18 02/14/22 07:02 BP 112/62 02/14/22 07:02 Pulse Ox 96 02/14/22 07:02 O2 Del Method 02/14/22 07:02 O2 Flow Rate 1 02/11/22 07:26 Oxygen Flow Rate 2 02/08/22 15:03 BMI result Body Mass Index 27.4 <Tiffanie Foster NP - Last Filed: 02/14/22 10:39> Appearing in no acute distress heart regular rate rhythm, clear S1, S2 positive bowel sounds, abdomen is soft, nontender neuro patient is alert x3, no focal deficits Right chest dialysis catheter, old blood on dressing <Tiffanie Foster NP - Last Filed: 02/14/22 10:39> Objective Data Active Medications Apixaban (Apixaban 5 Mg Tablet) 10 mg PO BID [facility] Last Admin: 02/11/22 22:24 Dose: 10 mg Documented By: EMERY Aspirin (Aspirin 81 Mg Tab.Chew) 81 mg PO DAILY [facility] Last Admin: 02/10/22 08:52 Dose: 81 mg Documented By: LASHAY Atorvastatin Calcium (Atorvastatin Calcium 20 Mg Tablet) 20 mg PO DAILY [facility] Last Admin: 02/14/22 09:08 Dose: 20 mg Documented By: TINY Carvedilol (Carvedilol 25 Mg Tablet) 25 mg PO BID [facility]; Protocol Last Admin: 02/14/22 09:08 Dose: 25 mg Documented By: TINY Comments: bp-112/62, hr-66 Fluoxetine HCl (Fluoxetine Hcl Oral Solution 20 Mg/5 Ml Solution) 20 mg PO DAILY [facility] Last Admin: 02/14/22 09:15 Dose: Not Given Documented By: TINY Non-Admin Reason: Patient Refused Fluticasone Propionate (Fluticasone Propionate 250 Mcg Blst.W.Dev) 1 puff INHALE RBID [facility] Last Admin: 02/14/22 07:53 Dose: Not Given Documented By: ALEN Non-Admin Reason: Patient Asleep Heparin Sodium (Porcine) (Heparin Sodium,Porcine 5,000 Unit/Ml Vial) 5,000 unit INTRACATH MOWEFR@1645 [facility] Last Admin: 02/11/22 18:26 Dose: Not Given Documented By: DENISE Non-Admin Reason: Off unit: Dialysis Hydroxyzine HCl (Hydroxyzine Hcl 10 Mg Tablet) 10 mg PO Q8H PRN PRN Reason: Itching Last Admin: 02/10/22 22:26 Dose: 10 mg Documented By: VALERIE Piperacillin Sod/Tazobactam (Sod 2.25 gm/ Sodium Chloride) 50 mls @ 100 mls/hr IV Q6H [facility] Last Admin: 02/14/22 09:09 Dose: 100 mls/hr Documented By: TINY Insulin Human Lispro (Insulin Lispro 100 Unit/Ml 3 Ml Vial) 0 unit SUBCUT QIDACHS [facility]; Protocol Last Admin: 02/14/22 08:21 Dose: Not Given Documented By: TINY Non-Admin Reason: No Insulin Coverage Mirtazapine (Mirtazapine 15 Mg Tablet) 15 mg PO BEDTIME [facility] Last Admin: 02/13/22 21:01 Dose: 15 mg Documented By: DAINA Multi-Ingred Cream/Lotion/Oil/Oint (Mineral Oil/Petrolatum,White 106 Gm Tube) 1 appl TOPICAL BID [facility]; Protocol Last Admin: 02/14/22 09:15 Dose: Not Given Documented By: TINY Non-Admin Reason: Patient Refused Pharmacy Consult (Consult Rx Perform Med Rec) 1 each MISCELLANE ONCE PRN PRN Reason: Consult order Pharmacy Consult (Consult Rx Vancomycin Dosing) 1 each MISCELLANE DAILY PRN PRN Reason: Consult order Senna (Sennosides 8.6 Mg Tablet) 17.2 mg PO BEDTIME [facility] Last Admin: 02/13/22 21:01 Dose: 17.2 mg Documented By: DAINA Sodium Chloride (0.9 % Sodium Chloride Flush 3 Ml Syringe) 3 ml IVFLUSH QSHIFT [facility] Last Admin: 02/14/22 09:07 Dose: 3 ml Documented By: TINY Tamsulosin HCl (Tamsulosin Hcl 0.4 Mg Capsule) 0.8 mg PO DAILY [facility] Last Admin: 02/14/22 09:16 Dose: Not Given Documented By: TINY Non-Admin Reason: Patient Refused <Tiffanie Foster NP - Last Filed: 02/14/22 10:39> Labs CBC & Chem 7: : 02/18/22 04:21 02/15/22 06:42 <Tiffanie Foster NP - Last Filed: 02/14/22 10:39> Labs: Laboratory Results - last 24 hr 02/13/22 02/13/22 02/13/22 11:43 15:42 19:56 Anion Gap Estim Creat Clear Calc Estimated GFR POC Glucose 123 H 111 166 H Random Glucose Calcium 02/14/22 02/14/22 05:52 07:08 Anion Gap 22 H Estim Creat Clear Calc 7.2 Estimated GFR 4 POC Glucose 109 Random Glucose 113 Calcium 7.9 L <Tiffanie Foster NP - Last Filed: 02/14/22 10:39> Microbiology Microbiology Results: Microbiology 02/08/22 15:24 Blood Culture - Final Blood - Venous No growth after 5 days. 02/11/22 11:17 Blood Culture - Preliminary Blood - Venous No growth after 48 hours. 02/11/22 11:17 Blood Culture - Preliminary Blood - Venous No growth after 48 hours. 02/08/22 15:24 Blood Culture - Final Blood - Venous Pseudomonas aeruginosa <Tiffanie Foster NP - Last Filed: 02/14/22 10:39> Assessment and Plan (1) High anion gap metabolic acidosis: Status: Acute <Tiffanie Foster NP - Last Filed: 02/14/22 10:39> (2) ESRD (end stage renal disease) on dialysis: Status: Acute <Tiffanie Foster NP - Last Filed: 02/14/22 10:39> (3) Pneumonia: Status: Acute <Tiffanie Foster NP - Last Filed: 02/14/22 10:39> (4) Acute UTI: Status: Acute <Tiffanie Foster NP - Last Filed: 02/14/22 10:39> (5) Pulmonary embolism: Status: Acute <Tiffanie Foster NP - Last Filed: 02/14/22 10:39> (6) Acute respiratory failure with hypoxia: Status: Acute <Tiffanie Foster NP - Last Filed: 02/14/22 10:39> Assessment and Plan: 67 year old male with history of uncontrolled non-insulin dependent diabetes, htn, ESRD on dialysis MWF, BPH, and urinary retention with chronic indwelling zeng catheter with recent admission to [facility] for acute encephalopathy, NAEEM with hyperkalemia requiring HD being admitted to the hospital for acute resp iratory failure with hypoxia secondary to PE, sepsis related to UTI, and AG metabolic acidosis with metabolic encephalopathy and ESRD. Acute pulmonary embolism CTA chest with relatively small burden acute pulmonary emboli within right lower lobe artery non-occulssive. Minimal involvement right upper lobe pulmonary artery. US showing Left superficial femoral DVT, no right leg DVT initially treated with Heparin drip, transitioned to Eliquis Eliquis stopped due to continuous dialysis catheter bleeding Bleeding has not stopped, will start on Lovenox b.i.d. Bleeding dialysis catheter. Resolved persistent bleeding soaking through multiple dressings overnight, better controlled with surgicel and sand bag Discussed case with vascular surgery who suggested DDAVP which did help for a few hours Also discussed with strainer mill operator who suggested checking coag factors, PTT 24.0, INR 2.0, PTT 40.8, all others pending Reinforce Surgicel dressing, pressure dressing continue to monitor HH Acute respiratory failure with hypoxia. Resolved secondary to acute PE, possible pneumonia weaned down to room air Sepsis secondary to Gram-negative carin bacteremia secondary to acute UTI and pneumonia. Urine culture growing Pseudomonas - continue IV zosyn until blood cultures finalize - can transition to po levaquin for total [address] abdomen/pelvis done on admission - no additional source poor appetite/nutrition not wanting to eat started on remeron to see if that will increase appetite Depression psych consult pending toxic Metabolic encephalopathy. Resolved secondary to sepsis , improving High anion gap metabolic acidosis Resolved secondary to sepsis and ESRD Plan to do dialysis ESRD Started recently in [facility] for acute kidney injury with schedule MWF using [facility] Nephrology input appreciated, continue MWF schedule - last HD today 02/11 Follow BMP Non-Insulin dependent type 2 diabetes HbA1c of 6.5 po meds on hold Continue SSI, Diabetic diet HTN BP stable Continue carvedilol Continue to hold hydralazine and amlodipine, initially held due to soft BP on admission HLD Continue atorvastatin BPH with urinary retention Continue chronic zeng catheter - per family no voiding trail was attempted at [facility] [place], can consider prior to discharge Continue tamsulosin DVT prophylaxis, Eliquis held due to catheter bleeding, will start on Lovenox b.i.d. DNR/DNI per [facility] form 02/04/22 attending - Dr. aHro Patient requires ongoing inpatient stay for management of sepsis secondary to UTI and PE with acute respiratory failure with hypoxia requiring supplemental O2 to prevent possible decompensation to severe sepsis <Tiffanie Foster NP - Last Filed: 02/14/22 10:39> Quality Stroke Does the patient have a stroke diagnosis?: No <Tiffanie Foster NP - Last Filed: 02/14/22 10:39> VTE Prior VTE?: No <Tiffanie Foster NP - Last Filed: 02/14/22 10:39> VTE Risk Level:: Medical - moderate - high <Tiffanie Foster NP - Last Filed: 02/14/22 10:39> VTE Device Contraindication: Treatment Not Indicated <Tiffanie Foster NP - Last Filed: 02/14/22 10:39> VTE Drug Contraindication: N/A - Med Ordered <Tiffanie Foster NP - Last Filed: 02/14/22 10:39>
[2022-02-14 11:06] VITALS: BP 107/60; PULSE 68; RESP 19; TEMP 36.6; O2SAT 97
[2022-02-14 11:42] LABS: Glucose, Whole Blood 122 mg/dL (60-115)
--- NOTE | 2022-02-14 13:11 | MHC.CM.PN ---
Male 67 DX UTI/Sepsis PE /acute respiratory failure. DP return to [facility] for STR with HD Mon/Mon/Monday. Patient will transport via BLS. A Clinical update has been sent today.
--- NOTE | 2022-02-14 13:48 | PC.NURSE ---
Patient brought to dialysis in bed with 2 PLANT PACKER's at this time.
--- NOTE | 2022-02-14 17:49 | PC.NURSE ---
Patient continues at dialysis, medications per MAR late.
--- NOTE | 2022-02-14 18:28 | PM.PNNEP ---
Subjective Subjective Date of Service: 02/14/22 Interval history: Events noted. All recent data reviewed; On HD this afternoon Physical Exam Vital Signs: Vital Signs: Last Vital Signs Temp 97.8 F 02/14/22 11:06 Pulse 68 02/14/22 11:06 Resp 19 02/14/22 11:06 BP 107/60 02/14/22 11:06 Pulse Ox 97 02/14/22 11:06 O2 Del Method 02/14/22 11:06 O2 Flow Rate 1 02/11/22 07:26 Oxygen Flow Rate 2 02/08/22 15:03 BMI result Body Mass Index 27.4 Const: General: no acute distress Orientation/consciousness: patient oriented x3 Eyes: EOM: EOMs intact bilaterally Resp: Auscultation: diminished lung sounds Cardio: Rate: regular rate GI: Palpation (GI): Soft to palpation Neuro: General: patient oriented x3 Objective Data Labs CBC & Chem 7: 02/13/22 06:20 02/14/22 05:52 Labs: Laboratory Results - last 24 hr 02/13/22 02/14/22 02/14/22 19:56 05:52 07:08 Sodium 137 Potassium 4.1 Chloride 101 Carbon Dioxide 18 L Anion Gap 22 H BUN 57 H Creatinine 12.60 H* Estim Creat Clear Calc 7.2 Estimated GFR 4 POC Glucose 166 H 109 Random Glucose 113 Calcium 7.9 L 02/14/22 11:08 Sodium Potassium Chloride Carbon Dioxide Anion Gap BUN Creatinine Estim Creat Clear Calc Estimated GFR POC Glucose 122 H Random Glucose Calcium Microbiology Microbiology Results: Microbiology 02/08/22 15:24 Blood - Venous Blood Culture - Final No growth after 5 days. 02/11/22 11:17 Blood - Venous Blood Culture - Preliminary No growth after 48 hours. 02/11/22 11:17 Blood - Venous Blood Culture - Preliminary No growth after 48 hours. 02/08/22 15:24 Blood - Venous Blood Culture - Final Pseudomonas aeruginosa 02/08/22 16:12 Urine clean catch - Urine thomas top Urine Culture - Final Pseudomonas aeruginosa Procedures Date of Service Date of Service: 02/14/22 Assessment & Plan Assessment and plan (1) ESRD (end stage renal disease) on dialysis: Status: Acute Assessment and Plan: Recently started on HD for NAEEM- In [facility] Had been getting HD on MWF; On HD this afternoon Has a functioning HD catheter; Renal Diet Volume optimization on HD; Shall F/U Time Spent With Patient Time: Total time spent is greater than 50% in coordination of care (as documented) at patient's floor/unit and/or counseling patient: Progress Note: Quality Stroke Does the patient have a stroke diagnosis?: No
--- NOTE | 2022-02-14 18:45 | PC.NURSE ---
Addendum entered by Vero Goldsmith RN 02/14/22 19:54: Oncoming RN aware that medications were not given due to the patient being out of room in dialysis during report. Original Note: Patient returned from dialysis at this time via bed with immigration inspector.
[2022-02-14 20:00] VITALS: BP 119/68; RESP 20; TEMP 36.6; O2SAT 95
[2022-02-14] MEDS: Fluticasone Propionate 250 MCG BLST.W.DEV 1 PUFF INHALE (20:03)
[2022-02-14 20:04] VITALS: PULSE 68; RESP 16; O2SAT 97
[2022-02-14 20:07] LABS: Glucose, Whole Blood 112 mg/dL (60-115)
[2022-02-14] MEDS: Mirtazapine 15 MG TABLET PO (21:01)
[2022-02-15] VITALS: PULSE 71
[2022-02-15] MEDS: Piperacillin Sodium/Tazobactam 2.25 GM in 0.9 % Sodium Chloride 50 ML IV ×2 (02:03→08:50)
[2022-02-15 04:00] VITALS: BP 103/56; PULSE 69; RESP 18; TEMP 37.1; O2SAT 96
[2022-02-15 07:05] LABS: Hemoglobin 9.3 g/dl (14.0-18.0); Mean Corpuscular HGB Conc 33.2 g/dl (31.0-36.0); Mean Corpuscular Hemoglobin 29.7 pg (27.0-33.0); Mean Corpuscular Volume 89.5 fL (80.0-98.0); Mean Platelet Volume 10.9 fL (9.4-12.4); Platelet Count 289 X10*3/uL (160-400); Red Blood Count 3.13 X10*6/uL (4.60-5.80); White Blood Count 14.7 X10*3/uL (4.8-10.8)
[2022-02-15 07:18] LABS: Anion Gap 18 (12-20); Blood Urea Nitrogen 24 mg/dL (9-16); Calcium 7.9 mg/dL (8.4-10.2); Carbon Dioxide 19 mmol/L (22-29); Chloride 100 mmol/L (96-108); Creatinine Clr Calc Pharmacy 12.5; Estimated Glomerular Filt Rate 8; Glucose Random 90 mg/dL (60-115); Potassium 3.7 mmol/L (3.3-5.1); Sodium 133 mmol/L (135-145)
[2022-02-15 07:24] LABS: HBS Num1 0.85 mIU/mL (0-7.99); HBsAGNum1 0.17 S/CO (0.00-0.99); Hepatitis B Core Antibody Nonreactive (Nonreactive); Hepatitis B Surface Antigen Negative (Negative); ~Hepatitis B Surface Antibody NONREACTIVE (Nonreactive)
[2022-02-15 07:37] VITALS: BP 134/66; PULSE 67; RESP 20; TEMP 36.7; O2SAT 95
[2022-02-15 07:38] LABS: Glucose, Whole Blood 93 mg/dL (60-115)
[2022-02-15] MEDS: 0.9 % Sodium Chloride Flush 3 ML SYRINGE IVFLUSH ×2 (08:54→19:00)
--- NOTE | 2022-02-15 08:56 | PC.NURSE ---
Assumed care at 0730. Patient alert and oriented x3. Patient refused all morning meds except antibiotic stating, Im not taking those . When encouraged to at least take cardiac medications, patient refused again stating, I know what they are for and I dont care , Im not taking then . Patient given encouraged multiple times, reinforcing education on medication regime and adherence, to not avail. Patient guarded, irritable, and agitated upon interaction this morning at this time.
--- NOTE | 2022-02-15 10:05 | P.PNIM_ITS ---
Subjective Subjective Date of Service: 02/15/22 Review of Systems Follow up ESRD, PNA, UTI bleeding from Dialysis cath has stopped no pain? Physical Exam Vital Signs: Vital Signs: Last Vital Signs Temp 98.1 F 02/15/22 07:37 Pulse 67 02/15/22 07:37 Resp 20 02/15/22 07:37 BP 134/66 02/15/22 07:37 Pulse Ox 95 02/15/22 07:37 O2 Del Method 02/15/22 07:37 O2 Flow Rate 1 02/11/22 07:26 Oxygen Flow Rate 2 02/08/22 15:03 BMI result Body Mass Index 27.4 Appearing in no acute distress lung sounds are clear to auscultation heart regular rate rhythm, clear S1, S2 positive bowel sounds, abdomen is soft, nontender neuro patient is alert x3, no focal deficits Objective Data Active Medications Apixaban (Apixaban 5 Mg Tablet) 5 mg PO BID [facility] Last Admin: 02/15/22 09:01 Dose: Not Given Documented By: TINY Non-Admin Reason: Patient Refused Aspirin (Aspirin 81 Mg Tab.Chew) 81 mg PO DAILY [facility] Last Admin: 02/10/22 08:52 Dose: 81 mg Documented By: LASHAY Atorvastatin Calcium (Atorvastatin Calcium 20 Mg Tablet) 20 mg PO DAILY [facility] Last Admin: 02/15/22 08:55 Dose: Not Given Documented By: TINY Non-Admin Reason: Patient Refused Carvedilol (Carvedilol 25 Mg Tablet) 25 mg PO BID [facility]; Protocol Last Admin: 02/15/22 08:56 Dose: Not Given Documented By: TINY Non-Admin Reason: Patient Refused Fluoxetine HCl (Fluoxetine Hcl Oral Solution 20 Mg/5 Ml Solution) 20 mg PO DAILY [facility] Last Admin: 02/15/22 08:56 Dose: Not Given Documented By: TINY Non-Admin Reason: Patient Refused Fluticasone Propionate (Fluticasone Propionate 250 Mcg Blst.W.Dev) 1 puff INHALE RBID [facility] Last Admin: 02/15/22 07:49 Dose: Not Given Documented By: ALEN Non-Admin Reason: Patient Refused Heparin Sodium (Porcine) (Heparin Sodium,Porcine 5,000 Unit/Ml Vial) 5,000 unit INTRACATH MOWEFR@1645 [facility] Last Admin: 02/14/22 19:54 Dose: Not Given Documented By: TINY Non-Admin Reason: Not In Room Hydroxyzine HCl (Hydroxyzine Hcl 10 Mg Tablet) 10 mg PO Q8H PRN PRN Reason: Itching Last Admin: 02/10/22 22:26 Dose: 10 mg Documented By: VALERIE Insulin Human Lispro (Insulin Lispro 100 Unit/Ml 3 Ml Vial) 0 unit SUBCUT QIDACHS [facility]; Protocol Last Admin: 02/15/22 07:48 Dose: Not Given Documented By: TINY Non-Admin Reason: No Insulin Coverage Levofloxacin (Levofloxacin 500 Mg Tablet) 500 mg PO MOWEFR@1800 [facility] Mirtazapine (Mirtazapine 15 Mg Tablet) 15 mg PO BEDTIME [facility] Last Admin: 02/14/22 21:01 Dose: 15 mg Documented By: LYDIA Multi-Ingred Cream/Lotion/Oil/Oint (Mineral Oil/Petrolatum,White 106 Gm Tube) 1 appl TOPICAL BID [facility]; Protocol Last Admin: 02/15/22 08:56 Dose: Not Given Documented By: TINY Non-Admin Reason: Patient Refused Pharmacy Consult (Consult Rx Perform Med Rec) 1 each MISCELLANE ONCE PRN PRN Reason: Consult order Pharmacy Consult (Consult Rx Vancomycin Dosing) 1 each MISCELLANE DAILY PRN PRN Reason: Consult order Senna (Sennosides 8.6 Mg Tablet) 17.2 mg PO BEDTIME [facility] Last Admin: 02/14/22 20:56 Dose: Not Given Documented By: LYDIA Non-Admin Reason: loose stools Sodium Chloride (0.9 % Sodium Chloride Flush 3 Ml Syringe) 3 ml IVFLUSH QSHIFT [facility] Last Admin: 02/15/22 08:54 Dose: 3 ml Documented By: TINY Tamsulosin HCl (Tamsulosin Hcl 0.4 Mg Capsule) 0.8 mg PO DAILY [facility] Last Admin: 02/15/22 08:55 Dose: Not Given Documented By: TINY Non-Admin Reason: Patient Refused Labs CBC & Chem 7: 02/15/22 06:42 02/15/22 06:42 Labs: Laboratory Results - last 24 hr 02/14/22 02/14/22 02/14/22 05:55 11:08 19:58 MCV MCH MCHC RDW Plt Count MPV Absolute Nucleated RBC Nucleated RBC % (auto) Anion Gap Estim Creat Clear Calc Estimated GFR POC Glucose 122 H 112 Random Glucose Calcium Hep Bs Antigen Negative Hep Bs Antibody NONREACTIVE Hep B Core Total Ab Nonreactive 02/15/22 02/15/22 02/15/22 06:42 06:42 07:26 MCV 89.5 MCH 29.7 MCHC 33.2 RDW 12.0 Plt Count 289 MPV 10.9 Absolute Nucleated RBC 0.000 Nucleated RBC % (auto) 0.0 Anion Gap 18 Estim Creat Clear Calc 12.5 Estimated GFR 8 POC Glucose 93 Random Glucose 90 Calcium 7.9 L Hep Bs Antigen Hep Bs Antibody Hep B Core Total Ab Assessment and Plan (1) High anion gap metabolic acidosis: Status: Acute (2) ESRD (end stage renal disease) on dialysis: Status: Acute (3) Pneumonia: Status: Acute (4) Acute UTI: Status: Acute (5) Pulmonary embolism: Status: Acute (6) Acute respiratory failure with hypoxia: Status: Acute Plan 67 year old male with history of uncontrolled non-insulin dependent diabetes, htn, ESRD on dialysis MWF, BPH, and urinary retention with chronic indwelling zeng catheter with recent admission to [facility] for acute encephalopathy, NAEEM with hyperkalemia requiring HD being admitted to the hospital for acute respiratory failure with hypoxia secondary to PE, sepsis related to UTI, and AG metabolic acidosis with metabolic encephalopathy and ESRD. Acute pulmonary embolism CTA chest with relatively small burden acute pulmonary emboli within right lower lobe artery non-occulssive. Minimal involvement right upper lobe pulmonary artery. US showing Left superficial femoral DVT, no right leg DVT initially treated with Heparin drip, transitioned to Eliquis Eliquis stopped due to continuous dialysis catheter bleeding Bleeding has not stopped plan to restart Eliquis at 5mg BID and watch close for bleeding Bleeding dialysis catheter. Resolved persistent bleeding soaking through multiple dressings overnight, better con trolled with surgicel and sand bag Discussed case with vascular surgery who suggested DDAVP which did help for a few hours Also discussed with lab analyst who suggested checking coag factors, PTT 24.0, INR 2.0, PTT 40.8, all others pending Reinforce Surgicel dressing, pressure dressing continue to monitor HH Acute respiratory failure with hypoxia. Resolved secondary to acute PE, possible pneumonia weaned down to room air Sepsis secondary to Gram-negative carin bacteremia secondary to acute UTI and pneumonia. Urine culture growing Pseudomonas - stop zosyn, transition to po levaquin for total [address] abdomen/pelvis done on admission - no additional source poor appetite/nutrition not wanting to eat started on remeron to see if that will increase appetite Depression psych consult pending toxic Metabolic encephalopathy. Resolved secondary to sepsis , improving High anion gap metabolic acidosis Resolved secondary to sepsis and ESRD Plan to do dialysis ESRD Started recently in [facility] for acute kidney injury with schedule MWF using [facility] Nephrology input appreciated, continue MWF schedule - last HD today 02/11 Follow BMP Non-Insulin dependent type 2 diabetes HbA1c of 6.5 po meds on hold Continue SSI, Diabetic diet HTN BP stable Continue carvedilol Continue to hold hydralazine and amlodipine, initially held due to soft BP on admission HLD Continue atorvastatin BPH with urinary retention Continue chronic zeng catheter - per family no voiding trail [place] [facility] [place] can consider prior to discharge Continue tamsulosin DVT prophylaxis, Eliquis held due to catheter bleeding, will start on Lovenox b.i.d. DNR/DNI per [facility] form 02/04/22 attending - Dr. Elizalde Patient requires ongoing inpatient stay for management of sepsis secondary to UTI and PE with acute respiratory failure with hypoxia requiring supplemental O2 to prevent possible decompensation to severe sepsis Quality Stroke Does the patient have a stroke diagnosis?: No VTE Prior VTE?: No VTE Risk Level:: Medical - moderate - high VTE Device Contraindication: Treatment Not Indicated VTE Drug Contraindication: N/A - Med Ordered
--- NOTE | 2022-02-15 10:08 | PM.PNNEP ---
Subjective Subjective Date of Service: 02/15/22 Interval history: Events noted. All recent data reviewed; D/W Med team; Restarted on Elquis Physical Exam Vital Signs: Vital Signs: Last Vital Signs Temp 98.1 F 02/15/22 07:37 Pulse 67 02/15/22 07:37 Resp 20 02/15/22 07:37 BP 134/66 02/15/22 07:37 Pulse Ox 95 02/15/22 07:37 O2 Del Method 02/15/22 07:37 O2 Flow Rate 1 02/11/22 07:26 Oxygen Flow Rate 2 02/08/22 15:03 BMI result Body Mass Index 27.4 Const: General: comfortable Orientation/consciousness: patient oriented x3 Eyes: EOM: EOMs intact bilaterally Neck: Neck: Yes supple Resp: Auscultation: diminished lung sounds Cardio: Rate: regular rate GI: Palpation (GI): Soft to palpation Neuro: General: patient oriented x3 Objective Data Labs CBC & Chem 7: 02/15/22 06:42 02/15/22 06:42 Labs: Laboratory Results - last 24 hr 02/14/22 02/14/22 02/14/22 05:55 11:08 19:58 WBC RBC Hgb Hct MCV MCH MCHC RDW Plt Count MPV Absolute Nucleated RBC Nucleated RBC % (auto) Sodium Potassium Chloride Carbon Dioxide Anion Gap BUN Creatinine Estim Creat Clear Calc Estimated GFR POC Glucose 122 H 112 Random Glucose Calcium Hep Bs Antigen Negative Hep Bs Antibody NONREACTIVE Hep B Core Total Ab Nonreactive 02/15/22 02/15/22 02/15/22 06:42 06:42 07:26 WBC 14.7 H RBC 3.13 L Hgb 9.3 L Hct 28.0 L MCV 89.5 MCH 29.7 MCHC 33.2 RDW 12.0 Plt Count 289 MPV 10.9 Absolute Nucleated RBC 0.000 Nucleated RBC % (auto) 0.0 Sodium 133 L Potassium 3.7 Chloride 100 Carbon Dioxide 19 L Anion Gap 18 BUN 24 H D Creatinine 7.32 H* Estim Creat Clear Calc 12.5 Estimated GFR 8 POC Glucose 93 Random Glucose 90 Calcium 7.9 L Hep Bs Antigen Hep Bs Antibody Hep B Core Total Ab Microbiology Microbiology Results: Microbiology 02/08/22 15:24 Blood - Venous Blood Culture - Final No growth after 5 days. 02/11/22 11:17 Blood - Venous Blood Culture - Preliminary No growth after 48 hours. 02/11/22 11:17 Blood - Venous Blood Culture - Preliminary No growth after 48 hours. 02/08/22 15:24 Blood - Venous Blood Culture - Final Pseudomonas aeruginosa 02/08/22 16:12 Urine clean catch - Urine thomas top Urine Culture - Final Pseudomonas aeruginosa Procedures Date of Service Date of Service: 02/15/22 Assessment & Plan Assessment and plan (1) NAEEM (acute kidney injury): Status: Acute Assessment and Plan: Recently started on HD for NAEEM- In [facility] Had been getting HD on MWF Has a functioning HD catheter; Renal Diet Procrit 45930 Units once a week Volume optimization on HD; Shall F/U Time Spent With Patient Time: Total time spent is greater than 50% in coordination of care (as documented) at patient's floor/unit and/or counseling patient: Progress Note: Quality Stroke Does the patient have a stroke diagnosis?: No
--- NOTE | 2022-02-15 10:17 | HO.PM.IMPN ---
Subjective Subjective Date of Service: 02/15/22 <Tiffanie Foster NP - Last Filed: 02/15/22 14:52> 02/15/22 <Ev Elizalde MD - Last Filed: 02/15/22 14:45> Review of Systems Follow up ESRD, PNA, UTI bleeding from Dialysis cath has stopped no pain? <Tiffanie Foster NP - Last Filed: 02/15/22 14:52> Physical Exam Vital Signs: Vital Signs: Last Vital Signs Temp 98.1 F 02/15/22 07:37 Pulse 67 02/15/22 07:37 Resp 20 02/15/22 07:37 BP 134/66 02/15/22 07:37 Pulse Ox 95 02/15/22 07:37 O2 Del Method 02/15/22 07:37 O2 Flow Rate 1 02/11/22 07:26 Oxygen Flow Rate 2 02/08/22 15:03 BMI result Body Mass Index 27.4 <Tiffanie Foster NP - Last Filed: 02/15/22 14:52> Appearing in no acute distress lung sounds are clear to auscultation heart regular rate rhythm, clear S1, S2 positive bowel sounds, abdomen is soft, nontender neuro patient is alert x3, no focal deficits Right chest dialysis cath Left leg amputation <Tiffanie Foster NP - Last Filed: 02/15/22 14:52> Objective Data Active Medications Apixaban (Apixaban 5 Mg Tablet) 5 mg PO BID [facility] Last Admin: 02/15/22 09:01 Dose: Not Given Documented By: TINY Non-Admin Reason: Patient Refused Aspirin (Aspirin 81 Mg Tab.Chew) 81 mg PO DAILY [facility] Last Admin: 02/10/22 08:52 Dose: 81 mg Documented By: LASHAY Atorvastatin Calcium (Atorvastatin Calcium 20 Mg Tablet) 20 mg PO DAILY [facility] Last Admin: 02/15/22 08:55 Dose: Not Given Documented By: TINY Non-Admin Reason: Patient Refused Carvedilol (Carvedilol 25 Mg Tablet) 25 mg PO BID [facility]; Protocol Last Admin: 02/15/22 08:56 Dose: Not Given Documented By: TINY Non-Admin Reason: Patient Refused Epoetin Shyam 2,000 unit/ (Epoetin Shyam 3,000 unit) 5,000 unit SUBCUT ONCE ONE Stop: 02/15/22 10:17 Fluoxetine HCl (Fluoxetine Hcl Oral Solution 20 Mg/5 Ml Solution) 20 mg PO DAILY [facility] Last Admin: 02/15/22 08:56 Dose: Not Given Documented By: TINY Non-Admin Reason: Patient Refused Fluticasone Propionate (Fluticasone Propionate 250 Mcg Blst.W.Dev) 1 puff INHALE RBID [facility] Last Admin: 02/15/22 07:49 Dose: Not Given Documented By: ALEN Non-Admin Reason: Patient Refused Heparin Sodium (Porcine) (Heparin Sodium,Porcine 5,000 Unit/Ml Vial) 5,000 unit INTRACATH MOWEFR@1645 [facility] Last Admin: 02/14/22 19:54 Dose: Not Given Documented By: TINY Non-Admin Reason: Not In Room Hydroxyzine HCl (Hydroxyzine Hcl 10 Mg Tablet) 10 mg PO Q8H PRN PRN Reason: Itching Last Admin: 02/10/22 22:26 Dose: 10 mg Documented By: VALERIE Insulin Human Lispro (Insulin Lispro 100 Unit/Ml 3 Ml Vial) 0 unit SUBCUT QIDACHS [facility]; Protocol Last Admin: 02/15/22 07:48 Dose: Not Given Documented By: TINY Non-Admin Reason: No Insulin Coverage Levofloxacin (Levofloxacin 500 Mg Tablet) 500 mg PO MOWEFR@1800 PANKAJ Mirtazapine (Mirtazapine 15 Mg Tablet) 15 mg PO BEDTIME [facility] Last Admin: 02/14/22 21:01 Dose: 15 mg Documented By: LYDIA Multi-Ingred Cream/Lotion/Oil/Oint (Mineral Oil/Petrolatum,White 106 Gm Tube) 1 appl TOPICAL BID [facility]; Protocol Last Admin: 02/15/22 08:56 Dose: Not Given Documented By: TINY Non-Admin Reason: Patient Refused Pharmacy Consult (Consult Rx Perform Med Rec) 1 each MISCELLANE ONCE PRN PRN Reason: Consult order Pharmacy Consult (Consult Rx Vancomycin Dosing) 1 each MISCELLANE DAILY PRN PRN Reason: Consult order Senna (Sennosides 8.6 Mg Tablet) 17.2 mg PO BEDTIME [facility] Last Admin: 02/14/22 20:56 Dose: Not Given Documented By: LYDIA Non-Admin Reason: loose stools Sodium Chloride (0.9 % Sodium Chloride Flush 3 Ml Syringe) 3 ml IVFLUSH QSHIFT [facility] Last Admin: 02/15/22 08:54 Dose: 3 ml Documented By: TINY Tamsulosin HCl (Tamsulosin Hcl 0.4 Mg Capsule) 0.8 mg PO DAILY [facility] Last Admin: 02/15/22 08:55 Dose: Not Given Documented By: TINY Non-Admin Reason: Patient Refused <Tiffanie Foster NP - Last Filed: 02/15/22 14:52> Labs CBC & Chem 7: : 02/15/22 06:42 02/15/22 06:42 <Tiffanie Foster NP - Last Filed: 02/15/22 14:52> Labs: Laboratory Results - last 24 hr 02/14/22 02/14/22 02/14/22 05:55 11:08 19:58 MCV MCH MCHC RDW Plt Count MPV Absolute Nucleated RBC Nucleated RBC % (auto) Anion Gap Estim Creat Clear Calc Estimated GFR POC Glucose 122 H 112 Random Glucose Calcium Hep Bs Antigen Negative Hep Bs Antibody NONREACTIVE Hep B Core Total Ab Nonreactive 02/15/22 02/15/22 02/15/22 06:42 06:42 07:26 MCV 89.5 MCH 29.7 MCHC 33.2 RDW 12.0 Plt Count 289 MPV 10.9 Absolute Nucleated RBC 0.000 Nucleated RBC % (auto) 0.0 Anion Gap 18 Estim Creat Clear Calc 12.5 Estimated GFR 8 POC Glucose 93 Random Glucose 90 Calcium 7.9 L Hep Bs Antigen Hep Bs Antibody Hep B Core Total Ab <Tiffanie Foster NP - Last Filed: 02/15/22 14:52> Assessment and Plan (1) High anion gap metabolic acidosis: Status: Acute <Tiffanie Foster NP - Last Filed: 02/15/22 14:52> (2) ESRD (end stage renal disease) on dialysis: Status: Acute <Tiffanie Foster NP - Last Filed: 02/15/22 14:52> (3) Pneumonia: Status: Acute <Tiffanie Foster NP - Last Filed: 02/15/22 14:52> (4) Acute UTI: Status: Acute <Tiffanie Foster NP - Last Filed: 02/15/22 14:52> (5) Pulmonary embolism: Status: Acute <Tiffanie Foster NP - Last Filed: 02/15/22 14:52> (6) Acute respiratory failure with hypoxia: Status: Acute <Tiffanie Foster NP - Last Filed: 02/15/22 14:52> Assessment and Plan: 67 year old male with history of uncontrolled non-insulin dependent diabetes, htn, ESRD on dialysis MWF, BPH, and urinary retention with chronic indwelling zeng catheter with recent admission to [facility] for acute encephalopathy, NAEEM with hyperkalemia requiring HD being admitted to the hospital for acute respiratory failure with hypoxia secondary to PE, sepsis related to UTI, and AG metabolic acidosis with metabolic encephalopathy and ESRD. Acute pulmonary embolism CTA chest with relatively small burden acute pulmonary emboli within right lower lobe artery non-occulssive. Minimal involvement right upper lobe pulmonary artery. US showing Left superficial femoral DVT initially treated with Heparin drip, transitioned to Eliquis Eliquis stopped due to continuous dialysis catheter bleeding Bleeding has now stopped plan to restart Eliquis at 5mg BID and watch close for bleeding Bleeding dialysis catheter. Resolved s/p significant bleed soaking through multiple dressings treated with surgicel and sand bag , seen by vascular surgery treated with DDAVP transient response, coag factors, PTT 24.0, INR 2.0, PTT 40.8, fibrin no gym greater than 700, hypercoagulable workup pending continue to monitor HH Acute respiratory failure with hypoxia. Resolved secondary to acute PE, possible pneumonia weaned down to room air Sepsis secondary to Gram-negative carin bacteremia secondary to acute UTI and pneumonia. Urine culture growing Pseudomonas - stop zosyn, transition to po levaquin for total [address] abdomen/pelvis done on admission - no additional source poor appetite/nutrition not wanting to eat started on remeron to see if that will increase appetite Depression psych consult pending toxic Metabolic encephalopathy. Resolved secondary to sepsis , improving High anion gap metabolic acidosis Resolved secondary to sepsis and ESRD Plan to do dialysis ESRD Started recently in [facility] for acute kidney injury with schedule MWF using [facility] Nephrology input appreciated, continue MWF schedule - last HD today 02/11 Follow [facility] Non-Insulin dependent type 2 diabetes HbA1c of 6.5 po meds on hold Continue SSI, Diabetic diet HTN BP stable Continue carvedilol Continue to hold hydralazine and amlodipine, initially held due to soft BP on admission HLD Continue atorvastatin BPH with urinary retention Continue chronic zeng catheter - per family no voiding trail was attempted at [facility], can consider prior to discharge Continue tamsulosin DVT prophylaxis, Eliquis held due to catheter bleeding, restart Eliquis at lower dose 5 mg b.i.d. DNR/DNI per [facility] form 02/04/22 attending - Dr. Elizalde Patient requires ongoing inpatient stay for management of sepsis secondary to UTI and PE with acute respiratory failure with hypoxia requiring supplemental O2 to prevent possible decompensation to severe sepsis <Tiffanie Foster NP - Last Filed: 02/15/22 14:52> 67 year old male with history of uncontrolled non-insulin dependent diabetes, htn, ESRD on dialysis MWF, BPH, and urinary retention with chronic indwelling zeng catheter with recent admission to [facility] for acute encephalopathy, NAEEM with hyperkalemia requiring HD being admitted to the hospital for acute respiratory failure with hypoxia secondary to PE, sepsis related to UTI, and AG metabolic acidosis with metabolic encephalopathy and ESRD. Acute pulmonary embolism CTA chest with relatively small burden acute pulmonary emboli within right lower lobe artery non-occulssive. Minimal involvement right upper lobe pulmonary artery. US showing Left superficial femoral DVT initially treated with Heparin drip, transitioned to Eliquis Eliquis stopped due to continuous dialysis catheter bleeding Bleeding has now stopped plan to restart Eliquis at 5mg BID and watch close for bleeding Bleeding dialysis catheter. Resolved s/p significant bleed soaking through multiple dressings treated with surgicel and sand bag , seen by vascular surgery treated with DDAVP transient response, coag factors, PTT 24.0, INR 2.0, PTT 40.8, fibrin no gym greater than 700, hypercoagulable workup pending continue to monitor HH Acute respiratory failure with hypoxia. Resolved secondary to acute PE, possible pneumonia weaned down to room air Sepsis secondary to Gram-negative carin bacteremia secondary to acute UTI and pneumonia. Urine culture growing Pseudomonas - stop zosyn, transition to po levaquin for total [address] abdomen/pelvis done on admission - no additional source poor appetite/nutrition not wanting to eat started on remeron to see if that will increase appetite Depression psych consult pending toxic Metabolic encephalopathy. Resolved secondary to sepsis , improving High anion gap metabolic acidosis Resolved secondary to sepsis and ESRD Plan to do dialysis ESRD Started recently in [facility] for acute kidney injury with schedule MWF using [facility] Nephrology input appreciated, continue MWF schedule - last HD today 02/11 Follow [facility] Non-Insulin dependent type 2 diabetes HbA1c of 6.5 po meds on hold Continue SSI, Diabetic diet HTN BP stable Continue carvedilol Continue to hold hydralazine and amlodipine, initially held due to soft BP on admission HLD Continue atorvastatin BPH with urinary retention Continue chronic zeng catheter - per family no voiding trail was attempted at [facility], can consider prior to discharge Continue tamsulosin DVT prophylaxis, Eliquis held due to catheter bleeding, will start on Lovenox b.i.d. DNR/DNI per [facility] form 02/04/22 attending - Dr. Elizalde Patient requires ongoing inpatient stay for management of sepsis secondary to UTI and PE with acute respiratory failure with hypoxia requiring supplemental O2 to prevent possible decompensation to severe sepsis <Ev Elizalde MD - Last Filed: 02/15/22 14:45> Quality Stroke Does the patient have a stroke diagnosis?: No <Tiffanie Foster NP - Last Filed: 02/15/22 14:52> VTE Prior VTE?: No <Tiffanie Foster NP - Last Filed: 02/15/22 14:52> VTE Risk Level:: Medical - moderate - high <Tiffanie Foster NP - Last Filed: 02/15/22 14:52> VTE Device Contraindication: Treatment Not Indicated <Tiffanie Foster NP - Last Filed: 02/15/22 14:52> VTE Drug Contraindication: N/A - Med Ordered <Tiffanie Foster NP - Last Filed: 02/15/22 14:52>
--- NOTE | 2022-02-15 11:16 | MHC.CM.PN ---
Per ROUNDS discussion, Patient wants to go home; he is documented as a 2 assist and may benefit from a PT eval. CM will follow.
[2022-02-15 11:26] LABS: Glucose, Whole Blood 105 mg/dL (60-115)
[2022-02-15 12:00] VITALS: BP 113/62; PULSE 77; RESP 20; TEMP 36.4; O2SAT 96
--- NOTE | 2022-02-15 13:13 | MHC.CM.PN ---
CM was called to room to Witness Patient completing a new HCP. CM checked with Patient who is in agreement with the changes made (Daughter is now first agent and is Alternate). Patient is also agreeable to a referral being made to [facility]. CM will follow.
--- NOTE | 2022-02-15 13:35 | MHC.CM.PN ---
A copy of the Patient's NEW HCP [facility] being [facility] and a copy will be placed on the chart.
[2022-02-15 13:36] LABS: Factor VIII Activity 440 % normal (50-180)
--- NOTE | 2022-02-15 13:55 | MHC.CLN ---
Addendum entered by Sanujana Garcia, RD 02/15/22 13:57: NOTED REMERON STARTED PER MD FOR APPETITE HOWEVER CAN TAKE UP TO 14 DAYS TO SEE RESULTS Original Note: F/U PT WITH POOR PO INTAKE 50% X 1 MEAL OF 10 MEALS PO RECORDED DIET RX: 2000DM LOW K+-PT MAY BENFIT FROM LIBERALIZED DIET TO INCREASE VARIETY PT RECEIVING GLUCERNA TID TO INCREASE KCALS AND PROMOTE WOUND HEALING PROVIDES 711KCALS, 30G PROTEIN RECOMMEND SWITCHING SUPPLEMENT TO ENSURE BID TRIAL TO PROVIDE 700KCALS, 40G PROTEIN MONITOR PO INTAKE CLOSELY
[2022-02-15 15:09] VITALS: BP 120/59; PULSE 70; RESP 18; TEMP 36.7; O2SAT 97
[2022-02-15 16:03] LABS: Glucose, Whole Blood 137 mg/dL (60-115)
[2022-02-15 19:54] LABS: Glucose, Whole Blood 147 mg/dL (60-115)
[2022-02-15] MEDS: Sennosides 8.6 MG TABLET 17.2 MG PO (22:16)
[2022-02-15] MEDS: carvediloL 25 MG TABLET PO (22:16)
[2022-02-15] MEDS: Mirtazapine 15 MG TABLET PO (22:16)
[2022-02-15 23:57] VITALS: BP 157/74; PULSE 72; RESP 16; TEMP 36.8; O2SAT 96
[2022-02-16] MEDS: 0.9 % Sodium Chloride Flush 3 ML SYRINGE IVFLUSH ×3 (01:48→18:40)
[2022-02-16 03:46] VITALS: BP 167/80; PULSE 76; RESP 20; TEMP 37.1; O2SAT 98
[2022-02-16 06:37] LABS: DRVVT Confirmation Negative (Negative); Hexagonal Phase Neutralization Weak Positive (Negative)
[2022-02-16 07:12] LABS: DRVVT 1:1 Mix Interpretation Not Indicated; PTT (LAC) Screen 61 sec (<=40); Thrombin Clotting Time 18 sec (13-19)
[2022-02-16 07:22] LABS: Glucose, Whole Blood 121 mg/dL (60-115)
[2022-02-16 07:34] VITALS: BP 145/77; PULSE 71; RESP 20; TEMP 36.3; O2SAT 97
[2022-02-16] MEDS: Fluticasone Propionate 250 MCG BLST.W.DEV 1 PUFF INHALE ×2 (07:49→18:56)
[2022-02-16 07:50] VITALS: PULSE 73; RESP 16; O2SAT 98
[2022-02-16] MEDS: carvediloL 25 MG TABLET PO ×2 (10:32→21:36)
[2022-02-16] MEDS: Tamsulosin HCL 0.4 MG CAPSULE 0.8 MG PO (10:32)
[2022-02-16] MEDS: Atorvastatin Calcium 20 MG TABLET PO (10:32)
--- NOTE | 2022-02-16 10:48 | P.PNNP_ITS ---
Subjective Subjective Date of Service: 02/16/22 Interval history: Events noted. All recent data reviewed; Due HD today Physical Exam Vital Signs: Vital Signs: Last Vital Signs Temp 97.4 F 02/16/22 07:34 Pulse 73 02/16/22 07:50 Resp 16 02/16/22 07:50 BP 145/77 H 02/16/22 07:34 Pulse Ox 97 02/16/22 07:34 O2 Del Method 02/16/22 07:34 O2 Flow Rate 1 02/11/22 07:26 Oxygen Flow Rate 2 02/08/22 15:03 BMI result Body Mass Index 27.4 Const: General: no acute distress Orientation/consciousness: patient or iented x3 Eyes: EOM: EOMs intact bilaterally Neck: Neck: Yes supple Resp: Auscultation: diminished lung sounds Cardio: Rate: regular rate GI: Palpation (GI): Soft to palpation Neuro: General: patient oriented x3 Objective Data Labs CBC & Chem 7: 02/15/22 06:42 02/15/22 06:42 Labs: Laboratory Results - last 24 hr 02/12/22 02/12/22 02/15/22 15:40 16:29 11:19 LA PTT Screen 61 H LA Thrombin Time 18 dRVV Screen 73 H dRVVT Confirm Interp Negative dRVVT Mix Interpret Not Indicated Lupus Anticoag Interp see note A Factor II 118 Factor VII 117 vWF VIII Activity 440 H POC Glucose 105 02/15/22 02/15/22 02/16/22 15:56 19:48 07:03 LA PTT Screen LA Thrombin Time dRVV Screen dRVVT Confirm Interp dRVVT Mix Interpret Lupus Anticoag Interp Factor II Factor VII vWF VIII Activity POC Glucose 137 H 147 H 121 H Microbiology Microbiology Results: Microbiology 02/08/22 15:24 Blood - Venous Blood Culture - Final No growth after 5 days. 02/11/22 11:17 Blood - Venous Blood Culture - Preliminary No growth after 48 hours. 02/11/22 11:17 Blood - Venous Blood Culture - Preliminary No growth after 48 hours. 02/08/22 15:24 Blood - Venous Blood Culture - Final Pseudomonas aeruginosa 02/08/22 16:12 Urine clean catch - Urine thomas top Urine Culture - Final Pseudomonas aeruginosa Procedures Date of Service Date of Service: 02/16/22 Assessment & Plan Assessment and plan (1) NAEEM (acute kidney injury): Status: Acute Assessment and Plan: Recently started on HD for NAEEM- In [facility] Had been getting HD on MWF- Due today Has a functioning HD catheter; Renal Diet Procrit 47574 Units once a week All medications should be dosed for GFR Volume optimization on HD; Shall F/U Time Spent With Patient Time: Total time spent is greater than 50% in coordination of care (as documented) at patient's floor/unit and/or counseling patient: Progress Note: Quality Stroke Does the patient have a stroke diagnosis?: No
[2022-02-16] MEDS: Mineral Oil/Petrolatum,White 106 GM Tube 1 APPL TOPICAL (10:53)
[2022-02-16] MEDS: Apixaban 5 MG TABLET PO ×2 (10:55→21:36)
[2022-02-16 11:09] VITALS: BP 175/79; PULSE 87; RESP 20; TEMP 36.4; O2SAT 96
[2022-02-16 12:12] LABS: Glucose, Whole Blood 126 mg/dL (60-115)
--- NOTE | 2022-02-16 12:27 | HO.PM.IMPN ---
Subjective Subjective Date of Service: 02/16/22 Interval History: patient seen laying in bed in no distress. no episodes of bleeding from catheter site overnight. No significant nursing events overnight, Physical Exam Vital Signs: Vital Signs: Last Vital Signs Temp 97.5 F 02/16/22 11:09 Pulse 87 02/16/22 11:09 Resp 20 02/16/22 11:09 BP 175/79 H 02/16/22 11:09 Pulse Ox 96 02/16/22 11:09 O2 Del Method 02/16/22 11:09 O2 Flow Rate 1 02/11/22 07:26 Oxygen Flow Rate 2 02/08/22 15:03 BMI result Body Mass Index 27.4 patient seen laying in bed in no acute distress breath sounds equal bilaterally with no wheezing or crackles appreciated heart rate regular rhythm, S1-S2 heard positive bowel sounds the abdomen soft and nontender patient is awake and alert, oriented to self and place, no focal motor deficits skin: Right dialysis catheter without bleeding musculoskeletal: Left below-knee amputation Objective Data Active Medications Apixaban (Apixaban 5 Mg Tablet) 5 mg PO BID [facility] Last Admin: 02/16/22 10:55 Dose: 5 mg Documented By: BYRON Aspirin (Aspirin 81 Mg Tab.Chew) 81 mg PO DAILY [facility] Last Admin: 02/10/22 08:52 Dose: 81 mg Documented By: LASHAY Atorvastatin Calcium (Atorvastatin Calcium 20 Mg Tablet) 20 mg PO DAILY [facility] Last Admin: 02/16/22 10:32 Dose: 20 mg Documented By: BYRON Carvedilol (Carvedilol 25 Mg Tablet) 25 mg PO BID [facility]; Protocol Last Admin: 02/16/22 10:32 Dose: 25 mg Documented By: BYRON Fluoxetine HCl (Fluoxetine Hcl Oral Solution 20 Mg/5 Ml Solution) 20 mg PO DAILY [facility] Last Admin: 02/16/22 10:35 Dose: Not Given Documented By: BYRON Non-Admin Reason: Patient Refused Fluticasone Propionate (Fluticasone Propionate 250 Mcg Blst.W.Dev) 1 puff INHALE RBID [facility] Last Admin: 02/16/22 07:49 Dose: 1 puff Documented By: RODRIGO Heparin Sodium (Porcine) (Heparin Sodium,Porcine 5,000 Unit/Ml Vial) 5,000 unit INTRACATH MOWEFR@1645 [facility] Last Admin: 02/14/22 19:54 Dose: Not Given Documented By: TINY Non-Admin Reason: Not In Room Hydroxyzine HCl (Hydroxyzine Hcl 10 Mg Tablet) 10 mg PO Q8H PRN PRN Reason: Itching Last Admin: 02/10/22 22:26 Dose: 10 mg Documented By: VALERIE Insulin Human Lispro (Insulin Lispro 100 Unit/Ml 3 Ml Vial) 0 unit SUBCUT QIDACHS [facility]; Protocol Last Admin: 02/16/22 12:11 Dose: Not Given Documented By: BYRON Non-Admin Reason: No Insulin Coverage Levofloxacin (Levofloxacin 500 Mg Tablet) 500 mg PO MOWEFR@1800 [facility] Mirtazapine (Mirtazapine 15 Mg Tablet) 15 mg PO BEDTIME [facility] Last Admin: 02/15/22 22:16 Dose: 15 mg Documented By: AMANDA Multi-Ingred Cream/Lotion/Oil/Oint (Mineral Oil/Petrolatum,White 106 Gm Tube) 1 appl TOPICAL BID [facility]; Protocol Last Admin: 02/16/22 10:53 Dose: 1 appl Documented By: BYRON Pharmacy Consult (Consult Rx Perform Med Rec) 1 each MISCELLANE ONCE PRN PRN Reason: Consult order Pharmacy Consult (Consult Rx Vancomycin Dosing) 1 each MISCELLANE DAILY PRN PRN Reason: Consult order Senna (Sennosides 8.6 Mg Tablet) 17.2 mg PO BEDTIME [facility] Last Admin: 02/15/22 22:16 Dose: 17.2 mg Documented By: AMANDA Sodium Chloride (0.9 % Sodium Chloride Flush 3 Ml Syringe) 3 ml IVFLUSH QSHIFT [facility] Last Admin: 02/16/22 10:33 Dose: 3 ml Documented By: BYRON Tamsulosin HCl (Tamsulosin Hcl 0.4 Mg Capsule) 0.8 mg PO DAILY [facility] Last Admin: 02/16/22 10:32 Dose: 0.8 mg Documented By: BYRON Labs CBC & Chem 7: 02/15/22 06:42 02/15/22 06:42 Labs: Laboratory Results - last 24 hr 02/12/22 02/12/22 02/15/22 15:40 16:29 15:56 LA PTT Screen 61 H LA Thrombin Time 18 dRVV Screen 73 H dRVVT Confirm Interp Negative dRVVT Mix Interpret Not Indicated Lupus Anticoag Interp see note A Factor II 118 Factor VII 117 vWF VIII Activity 440 H POC Glucose 137 H 02/15/22 02/16/22 02/16/22 19:48 07:03 11:06 LA PTT Screen LA Thrombin Time dRVV Screen dRVVT Confirm Interp dRVVT Mix Interpret Lupus Anticoag Interp Factor II Factor VII vWF VIII Activity POC Glucose 147 H 121 H 126 H Assessment and Plan (1) Pulmonary embolism: Status: Acute (2) ESRD (end stage renal disease) on dialysis: Status: Acute (3) Hemorrhage from dialysis catheter: Status: Acute (4) Hypertension: Status: Acute (5) BPH (benign prostatic hyperplasia): Status: Acute Plan 67 year old male with history of uncontrolled non-insulin dependent diabetes, htn, ESRD on dialysis MWF, BPH, and urinary retention with chronic indwelling zeng catheter with recent admission to [facility] for acute encephalopathy, NAEEM with hyperkalemia requiring HD being admitted to the hospital for acute respiratory failure with hypoxia secondary to PE, sepsis related to UTI, and AG metabolic acidosis with metabolic encephalopathy and ESRD. Acute pulmonary embolism CTA chest with relatively small burden acute pulmonary emboli within right lower lobe artery non-occulssive. Minimal involvement right upper lobe pulmonary artery. US showing Left superficial femoral DVT initially treated with Heparin drip, transitioned to Eliquis Eliquis stopped due to continuous dialysis catheter bleeding Bleeding has now stopped ; restarted Eliquis at 5mg BID and watch closely for bleeding Bleeding dialysis catheter. Resolved s/p significant bleed soaking through multiple dressings treated with surgicel and sand bag , seen by vascular surgery treated with DDAVP transient response, coag factors, PTT 24.0, INR 2.0, PTT 40.8, fibrin no gym greater than 700, hypercoagulable workup pending continue to monitor HH Acute respiratory failure with hypoxia. Resolved secondary to acute PE, possible pneumonia weaned down to room air Sepsis secondary to Gram-negative carin bacteremia secondary to acute UTI and pneumonia. Urine culture growing Pseudomonas - stop zosyn, transition to po levaquin (renally dosed) for total 14 days per ID ; stop date : 02/23/2022 CT abdomen/pelvis done on admission - no additional source poor appetite/nutrition not wanting to eat started on remeron to see if that will increase appetite Depression Was started on prozac 20mg daily ESRD Started recently in [facility] for acute kidney injury with schedule MWF using [facility] Nephrology input appreciated, continue MWF schedule Follow BMP Non-Insulin dependent type 2 diabetes HbA1c of 6.5 po meds on hold Continue SSI, Diabetic diet HTN BP stable Continue carvedilol and hydralazine. Hold amlodipine and restart as appropraite HLD Continue atorvastatin BPH with urinary retention Continue chronic zeng catheter - per family no voiding trail was attempted at [facility] [place] Continue tamsulosin DVT prophylaxis: On eliquis DNR/DNI per [facility] form 02/04/22 Dispo: PT to eval and treat. Quality Stroke Does the patient have a stroke diagnosis?: No VTE Prior VTE?: No VTE Risk Level:: Medical - moderate - high VTE Device Contraindication: Treatment Not Indicated VTE Drug Contraindication: N/A - Med Ordered
[2022-02-16 13:12] LABS: Von Willebrand Factor Antigen 408 % (50-217)
--- NOTE | 2022-02-16 13:20 | MHC.CLN ---
F/U PT WITH POOR PO INTAKE; ATE 100% SNACK DIET RX: 2000DM -DIET LIBERALIZED TO INCREASE VARIETY REMERON IN PLACE PT RECEIVING ENSURE BID TRIAL TO PROMOTE WOUND HEALING PROVIDES 700KCALS, 40G PROTEIN CONITNUE TO MONITOR PO INTAKE CLOSELY
--- NOTE | 2022-02-16 13:26 | MHC.CM.PN ---
Per ROUNDS discussion, Patient appears to be approaching readiness for dc; home is the Patient's preference but he appears willing to consider SNF for STR. Patient is from [facility], where he was receiving his new HD. Patient's preference now appears to be STR at [facility], closer to his Daughter. CM has updated referrals to both SNFs, awaits recommendations from PT odin, and will need CCA authorization for SNF LOC. CM will follow.CM was in communication today with Patient's Daughter/HCP/Kristi, and will continue to update Patient and Kristi on dc planning.
[2022-02-16 18:22] VITALS: BP 124/76; PULSE 70; RESP 19; TEMP 36.6; O2SAT 99
[2022-02-16 18:31] LABS: Glucose, Whole Blood 128 mg/dL (60-115)
[2022-02-16] MEDS: Heparin Sodium,Porcine 5,000 UNIT/ML VIAL 5000 UNIT INTRACATH (18:36)
[2022-02-16] MEDS: levoFLOXacin 250 MG TABLET PO (18:43)
[2022-02-16 18:57] VITALS: PULSE 70; RESP 19; O2SAT 97
[2022-02-16 20:26] LABS: Glucose, Whole Blood 155 mg/dL (60-115)
[2022-02-16] MEDS: Insulin Lispro 100 UNIT/ML 3 ML VIAL SUBCUT (21:36)
[2022-02-16] MEDS: hydrALAZINE HCl 25 MG TABLET PO (21:36)
[2022-02-16] MEDS: Sennosides 8.6 MG TABLET 17.2 MG PO (21:36)
[2022-02-16] MEDS: Mirtazapine 15 MG TABLET PO (21:36)
[2022-02-17] VITALS (7 sets, daily range): BP systolic 97–161; BP diastolic 59–77; PULSE 67–76; RESP 14–20; TEMP 36.2–37; O2SAT 96–98
[2022-02-17] MEDS: 0.9 % Sodium Chloride Flush 3 ML SYRINGE IVFLUSH ×3 (01:18→16:29)
[2022-02-17] MEDS: traZODone HCL 50 MG TABLET PO (01:18)
[2022-02-17 07:05] LABS: Glucose, Whole Blood 126 mg/dL (60-115)
[2022-02-17] MEDS: Fluticasone Propionate 250 MCG BLST.W.DEV 1 PUFF INHALE ×2 (07:11→20:54)
[2022-02-17] MEDS: Tamsulosin HCL 0.4 MG CAPSULE 0.8 MG PO (10:21)
[2022-02-17] MEDS: carvediloL 25 MG TABLET PO ×2 (10:21→20:46)
[2022-02-17] MEDS: hydrALAZINE HCl 25 MG TABLET PO ×3 (10:21→20:46)
[2022-02-17] MEDS: Apixaban 5 MG TABLET PO ×2 (10:21→20:46)
[2022-02-17] MEDS: Atorvastatin Calcium 20 MG TABLET PO (10:22)
--- NOTE | 2022-02-17 10:27 | P.PNIM_ITS ---
Subjective Subjective Date of Service: 02/17/22 Interval History: patient seen laying in bed in no distress. no episodes of bleeding from catheter site overnight. No significant nursing events overnight. Patient ate 100% dinner last night Review of Systems All 13 ROS reviewed Constitutional Constitutional: Reports as per HPI, Denies chills and Denies fever(s) ENT Ears, Nose, Mouth, and Throat: Denies dizziness Cardiovascular Cardiovascular: Denies chest pain, Denies palpitations and Denies dyspnea Respiratory Respiratory: Denies dyspnea Gastrointestinal Gastrointestinal: Denies abdominal pain, Denies nausea and Denies vomiting Neurologic Neurologic: Denies dizziness Endocrine Endocrine: Denies palpitations Physical Exam Vital Signs: Vital Signs: Last Vital Signs Temp 97.2 F 02/17/22 07:40 Pulse 70 02/17/22 07:40 Resp 20 02/17/22 07:40 BP 103/62 02/17/22 07:40 Pulse Ox 96 02/17/22 07:40 O2 Del Method 02/17/22 07:40 O2 Flow Rate 1 02/11/22 07:26 Oxygen Flow Rate 2 02/08/22 15:03 BMI result Body Mass Index 27.4 patient seen laying in bed in no acute distress ?breath sounds equal bilaterally with no wheezing or crackles appreciated ?heart rate regular rhythm, S1-S2 heard ?positive bowel sounds the abdomen soft and nontender ?patient is awake and alert, oriented to self and place, no focal motor deficits ?skin: Right dialysis catheter without bleeding ?musculoskeletal: Left below-knee amputation Objective Data Active Medications Apixaban (Apixaban 5 Mg Tablet) 5 mg PO BID REPLACED BY [facility] Last Admin: 02/17/22 10:21 Dose: 5 mg Documented By: BYRON Aspirin (Aspirin 81 Mg Tab.Chew) 81 mg PO DAILY REPLACED BY [facility] Last Admin: 02/10/22 08:52 Dose: 81 mg Documented By: LASHAY Atorvastatin Calcium (Atorvastatin Calcium 20 Mg Tablet) 20 mg PO DAILY REPLACED BY [facility] Last Admin: 02/17/22 10:22 Dose: 20 mg Documented By: BYRON Carvedilol (Carvedilol 25 Mg Tablet) 25 mg PO BID REPLACED BY [facility]; Protocol Last Admin: 02/17/22 10:21 Dose: 25 mg Documented By: BYRON Fluoxetine HCl (Fluoxetine Hcl Oral Solution 20 Mg/5 Ml Solution) 20 mg PO DAILY REPLACED BY [facility] Last Admin: 02/17/22 10:22 Dose: Not Given Documented By: BYRON Non-Admin Reason: Patient Refused Fluticasone Propionate (Fluticasone Propionate 250 Mcg Blst.W.Dev) 1 puff INHALE RBID REPLACED BY [facility] Last Admin: 02/17/22 07:11 Dose: 1 puff Documented By: SADIE Heparin Sodium (Porcine) (Heparin Sodium,Porcine 5,000 Unit/Ml Vial) 5,000 unit INTRACATH MOWEFR@1645 REPLACED BY [facility] Last Admin: 02/16/22 18:36 Dose: 5,000 unit Documented By: BYRON Hydralazine HCl (Hydralazine Hcl 25 Mg Tablet) 25 mg PO TID REPLACED BY [facility]; Protocol Last Admin: 02/17/22 10:21 Dose: 25 mg Documented By: BYRON Hydroxyzine HCl (Hydroxyzine Hcl 10 Mg Tablet) 10 mg PO Q8H PRN PRN Reason: Itching Last Admin: 02/10/22 22:26 Dose: 10 mg Documented By: VALERIE Insulin Human Lispro (Insulin Lispro 100 Unit/Ml 3 Ml Vial) 0 unit SUBCUT QIDACHS REPLACED BY [facility]; Protocol Last Admin: 02/17/22 08:50 Dose: Not Given Documented By: BYRON Non-Admin Reason: No Insulin Coverage Levofloxacin (Levofloxacin 250 Mg Tablet) 250 mg PO Q24H REPLACED BY [facility] Last Admin: 02/16/22 18:43 Dose: 250 mg Documented By: BYRON Mirtazapine (Mirtazapine 15 Mg Tablet) 15 mg PO BEDTIME REPLACED BY [facility] Last Admin: 02/16/22 21:36 Dose: 15 mg Documented By: SHUKRI Multi-Ingred Cream/Lotion/Oil/Oint (Mineral Oil/Petrolatum,White 106 Gm Tube) 1 appl TOPICAL BID REPLACED BY [facility]; Protocol Last Admin: 02/16/22 21:41 Dose: Not Given Documented By: SHUKRI Non-Admin Reason: Patient Refused Pharmacy Consult (Consult Rx Perform Med Rec) 1 each MISCELLANE ONCE PRN PRN Reason: Consult order Pharmacy Consult (Consult Rx Vancomycin Dosing) 1 each MISCELLANE DAILY PRN PRN Reason: Consult order Senna (Sennosides 8.6 Mg Tablet) 17.2 mg PO BEDTIME REPLACED BY [facility] Last Admin: 02/16/22 21:36 Dose: 17.2 mg Documented By: SHUKRI Sodium Chloride (0.9 % Sodium Chloride Flush 3 Ml Syringe) 3 ml IVFLUSH QSHIFT REPLACED BY [facility] Last Admin: 02/17/22 10:22 Dose: 3 ml Documented By: BYRON Tamsulosin HCl (Tamsulosin Hcl 0.4 Mg Capsule) 0.8 mg PO DAILY REPLACED BY [facility] Last Admin: 02/17/22 10:21 Dose: 0.8 mg Documented By: BYRON Labs CBC & Chem 7: 02/15/22 06:42 02/15/22 06:42 Labs: Laboratory Results - last 24 hr 02/12/22 02/16/22 02/16/22 15:40 11:06 18:25 von Willebrand Antigen 408 H POC Glucose 126 H 128 H 02/16/22 02/17/22 20:18 06:57 von Willebrand Antigen POC Glucose 155 H 126 H Microbiology Microbiology Results: Microbiology 02/11/22 11:17 Blood Culture - Final Blood - Venous No growth after 5 days. 02/11/22 11:17 Blood Culture - Final Blood - Venous No growth after 5 days. Assessment and Plan (1) Hemorrhage from dialysis catheter: Status: Acute (2) Pulmonary embolism: Status: Acute (3) ESRD (end stage renal disease) on dialysis: Status: Acute (4) MDD (major depressive disorder), single episode: Status: Acute (5) Poor appetite: Status: Acute Plan 67 year old male with history of uncontrolled non-insulin dependent diabetes, htn, ESRD on dialysis MWF, BPH, and urinary retention with chronic indwelling zeng catheter with recent admission to [facility] for acute encephalopathy, NAEEM with hyperkalemia requiring HD being admitted to the hospital for acute respiratory failure with hypoxia secondary to PE, sepsis related to UTI, and AG metabolic acidosis with metabolic encephalopathy and ESRD. Acute pulmonary embolism CTA chest with relatively small burden acute pulmonary emboli within right lower lobe artery non-occulssive. Minimal involvement right upper lobe pulmonary artery. US showing Left superficial femoral DVT initially treated with Heparin drip, transitioned to Eliquis Eliquis stopped due to continuous dialysis catheter bleeding Bleeding has now stopped ; restarted Eliquis at 5mg BID and watch closely for bleeding Bleeding dialysis catheter. Resolved s/p significant bleed soaking through multiple dressings treated with surgicel and sand bag , seen by vascular surgery treated with DDAVP transient response, coag factors, PTT 24.0, INR 2.0, PTT 40.8, fibrin no gym greater than 700, hyp ercoagulable workup pending continue to monitor HH Acute respiratory failure with hypoxia. Resolved secondary to acute PE weaned down to room air Sepsis secondary to Gram-negative carin bacteremia secondary due to acute UTI. Urine culture growing Pseudomonas - stop zosyn, transition to po levaquin (renally dosed) for total 14 days per ID ; stop date : 02/23/2022 CT abdomen/pelvis done on admission - no additional source Poor appetite started on remeron and appetite significantly improved Depression Was started on prozac 20mg daily ESRD Started recently in [facility] for acute kidney injury with schedule MWF using [facility] Nephrology input appreciated, continue MWF schedule Non-Insulin dependent type 2 diabetes HbA1c of 6.5 po meds on hold Continue SSI, Diabetic diet HTN BP stable Continue carvedilol and hydralazine. Hold amlodipine and restart as appropraite HLD Continue atorvastatin BPH with urinary retention Continue chronic zeng catheter - per family no voiding trail [place] [facility] Continue tamsulosin DVT prophylaxis: On eliquis DNR/DNI per [facility] form 02/04/22 Dispo: PT to eval and treat. stucco worker consulted for placement. Quality Stroke Does the patient have a stroke diagnosis?: No VTE Prior VTE?: No VTE Risk Level:: Medical - moderate - high VTE Device Contraindication: Treatment Not Indicated VTE Drug Contraindication: N/A - Med Ordered
[2022-02-17] MEDS: Mineral Oil/Petrolatum,White 106 GM Tube 1 APPL TOPICAL ×2 (10:31→20:54)
--- NOTE | 2022-02-17 10:32 | P.CDIC_ITS ---
CDI Concurrent Query Documentation Clarification: PHYSICIAN'S DOCUMENTATION REQUEST Date of Query: 02/17/22 1036 Patient Name: Trevor Avila Admit Date: 02/08/22 Dear Doctor, A review of the medical record indicates additional documentation may be needed. Please review below and update the documentation accordingly. Clinical Indicators: Documentation on progress note dated 02/16/22 included the diagnosis of sepsis. Is there a further diagnosis that correlates with the findings below: Risk Factors/Clinical Indicators/Treatments Per provider notes patient with acute organ dysfunction. -ESRD -Acute respiratory failure with hypoxia -Metabolic encephalopathy Other indicators: -reduction of BP >40 from baseline 02/17 - Recognized standard criteria for this condition and other infectious definitions includes: Bacteremia Abnormal laboratory test - does not indicate a clinically ill patient Sepsis Systemic manifestations of infection, with 2 or more SIRS criteria which include: * Fever > 100.4?F or hypothermia < 96.8?F * Leukocytosis ? WBC > 12,000 or leukopenia, WBC < 4,000, or > 10% bands * Tachycardia- > 90 beats/minute * Tachypnea- RR > 20 breaths/minute or PaCO2 < 32mmHg Source: Merck Manual 2013 Documentation should include the known or suspected organism, and the underlying infection, such as UTI or pneumonia Severe Sepsis Sepsis with associated acute organ dysfunction, such as renal or respiratory failure Documentation should indicate the association between the sepsis and the organ dysfunction Septic Shock Severe sepsis with associated with circulatory failure, evidenced by hypotension and hypoperfusion Based on the above information and the recognized standard for sepsis, could you please clarify in the Progress Notes if this diagnoses is still accurate and reflective of the patient's condition to ensure quality of the medical record. * Severe sepsis without shock is/was present and is a clinical diagnosis based on (please include this additional support in the medical record) * Severe sepsis with shock is/was present and is a clinical diagnosis based on (please include this additional support in the medical record) * Sepsis is/was present and is a clinical diagnosis based on (please include this additional support in the medical record) * Other (please specify) * Unable to determine Use of terms such as suspected, likely, concern for, or probable (associated with a specific diagnosis that is being evaluated, monitored, or treated as if it exists) are acceptable and can be coded in the inpatient setting, when documented at the time of discharge. Thank you, Ro Chapman MS, RN, CCRN Extension: [phone] Please use your independent medical judgment in providing your response. THIS QUERY IS PART OF THE PERMANENT MEDICAL RECORD
[2022-02-17 11:18] LABS: Glucose, Whole Blood 230 mg/dL (60-115)
[2022-02-17] MEDS: levoFLOXacin 250 MG TABLET PO (11:36)
[2022-02-17] MEDS: Insulin Lispro 100 UNIT/ML 3 ML VIAL SUBCUT ×3 (11:36→20:46)
--- NOTE | 2022-02-17 11:46 | P.PNNP_ITS ---
Subjective Subjective Date of Service: 02/17/22 Interval history: Seen AM. Denied any new complaints; Had HD yesterday Physical Exam Vital Signs: Vital Signs: Last Vital Signs Temp 97.2 F 02/17/22 07:40 Pulse 70 02/17/22 07:40 Resp 20 02/17/22 07:40 BP 103/62 02/17/22 07:40 Pulse Ox 96 02/17/22 07:40 O2 Del Method 02/17/22 07:40 O2 Flow Rate 1 02/11/22 07:26 Oxygen Flow Rate 2 02/08/22 15:03 BMI result Body Mass Index 27.4 Const: General: no acute distress Orientation/consciousness: patient orien kareen x3 Eyes: EOM: EOMs intact bilaterally Neck: Neck: Yes supple Resp: Auscultation: diminished lung sounds Cardio: Rate: regular rate GI: Palpation (GI): Soft to palpation Neuro: General: patient oriented x3 Objective Data Labs CBC & Chem 7: 02/15/22 06:42 02/15/22 06:42 Labs: Laboratory Results - last 24 hr 02/12/22 02/16/22 02/16/22 15:40 11:06 18:25 von Willebrand Antigen 408 H POC Glucose 126 H 128 H 02/16/22 02/17/22 02/17/22 20:18 06:57 11:13 von Willebrand Antigen POC Glucose 155 H 126 H 230 H Microbiology Microbiology Results: Microbiology 02/11/22 11:17 Blood - Venous Blood Culture - Final No growth after 5 days. 02/11/22 11:17 Blood - Venous Blood Culture - Final No growth after 5 days. 02/08/22 15:24 Blood - Venous Blood Culture - Final No growth after 5 days. 02/08/22 15:24 Blood - Venous Blood Culture - Final Pseudomonas aeruginosa 02/08/22 16:12 Urine clean catch - Urine thomas top Urine Culture - Final Pseudomonas aeruginosa Procedures Date of Service Date of Service: 02/17/22 Assessment & Plan Assessment and plan (1) NAEEM (acute kidney injury): Status: Acute Assessment and Plan: Recently started on HD for NAEEM- In [facility] Had been getting HD on MWF- Due tomorrow Has a functioning HD catheter; Renal Diet Procrit 09512 Units once a week All medications should be dosed for GFR Volume optimization on HD; Shall F/U Time Spent With Patient Time: Total time spent is greater than 50% in coordination of care (as documented) at patient's floor/unit and/or counseling patient: Progress Note: Quality Stroke Does the patient have a stroke diagnosis?: No
--- NOTE | 2022-02-17 13:21 | MHC.CM.PN ---
PT is recommending STR; Patient and his Daughter/HCP/Kristi are in agreement with this plan and [facility] is first choice. has reached out to the Nephrology to see if Patient can get a HD slot in [place], rather than Mary @ [facility] and closer to [facility] in [facility]. CM has updated Patient and Kristi and will continue to follow.
--- NOTE | 2022-02-17 13:49 | MHC.CM.PN ---
Nephrology is trying to secure a HD slot for Patient in [place], to be close to Patient's first choice SNF/[facility] in [facility]. Per Liaison for [facility], the exact HD location and schedule (days & times) are needed before [facility] can be approached for Auth. CM awaits word from MD/Nephrology as to whether or not a [place] HD slot has been secured. CM will follow.CM spoke with [facility] CM/Haley and updated her on this situation.
[2022-02-17 16:27] LABS: Glucose, Whole Blood 151 mg/dL (60-115)
[2022-02-17 20:13] LABS: Glucose, Whole Blood 167 mg/dL (60-115)
[2022-02-17] MEDS: Mirtazapine 15 MG TABLET PO (20:46)
[2022-02-17] MEDS: Sennosides 8.6 MG TABLET 17.2 MG PO (20:46)
[2022-02-18] VITALS: BP 117/72; PULSE 64; RESP 15; TEMP 36.4; O2SAT 98
[2022-02-18 04:00] VITALS: BP 111/61; PULSE 71; RESP 18; TEMP 36.3; O2SAT 96
--- NOTE | 2022-02-18 04:00 | PM.EVENT ---
Event Note Date of Service: 02/18/22 Event Note: pt bleeding from zeng cath. was able to stop bleeding w pressure/ will stop eliquis and monitor
[2022-02-18 04:27] LABS: Basophils Absolute Auto 0.2 X10*3/uL (0.0-0.2); Basophils Percent Auto 1.3 % (0-2); Eosinophils Absolute Auto 1.1 X10*3/uL (0.0-0.4); Hematocrit 28.3 % (42.0-52.0); Hemoglobin 9.4 g/dl (14.0-18.0); Imm Gran Abs Auto 0.27 X10*3/uL (0.00-0.03); Imm Gran Pct Auto 2.2 % (0.0-0.4); Lymphocytes Absolute Auto 3.2 X10*3/uL (1.2-4.9); Lymphocytes Percent Auto 25.9 % (20-40); MANUAL DIFF FLAG SCAN; Mean Corpuscular HGB Conc 33.2 g/dl (31.0-36.0); Mean Corpuscular Hemoglobin 29.7 pg (27.0-33.0); Mean Corpuscular Volume 89.3 fL (80.0-98.0); Mean Platelet Volume 10.4 fL (9.4-12.4); Monocytes Absolute Auto 1.1 X10*3/uL (0.1-1.2); Monocytes Percent Auto 8.6 % (2-11); Neutrophils Absolute Auto 6.6 x10*3/uL (2.0-8.3); Platelet Count 268 X10*3/uL (160-400); Red Blood Count 3.17 X10*6/uL (4.60-5.80); Red Cell Distribution Width 12.4 % (11.0-16.0); SCAN SMEAR FLAG 1; White Blood Count 12.5 X10*3/uL (4.8-10.8)
[2022-02-18 04:44] LABS: SLIDE REVIEW VERIFIED
[2022-02-18] MEDS: 0.9 % Sodium Chloride Flush 3 ML SYRINGE IVFLUSH ×4 (05:34→21:51)
[2022-02-18 07:13] VITALS: PULSE 77; RESP 16; O2SAT 98
[2022-02-18] MEDS: Fluticasone Propionate 250 MCG BLST.W.DEV 1 PUFF INHALE (07:13)
[2022-02-18 07:21] LABS: Glucose, Whole Blood 160 mg/dL (60-115)
[2022-02-18 07:47] VITALS: BP 114/67; PULSE 75; RESP 17; TEMP 36.6; O2SAT 97
[2022-02-18] MEDS: Insulin Lispro 100 UNIT/ML 3 ML VIAL SUBCUT ×2 (09:15→21:50)
[2022-02-18] MEDS: Atorvastatin Calcium 20 MG TABLET PO (09:16)
[2022-02-18] MEDS: hydrALAZINE HCl 25 MG TABLET PO ×2 (09:16→21:51)
[2022-02-18] MEDS: Tamsulosin HCL 0.4 MG CAPSULE 0.8 MG PO (09:16)
[2022-02-18] MEDS: carvediloL 25 MG TABLET PO ×2 (09:16→21:50)
--- NOTE | 2022-02-18 12:07 | MHC.CLN ---
F/U PO INTAKE IMPROVED 100% X 4 MEALS DIET RX: 2000DM -DIET LIBERALIZED TO INCREASE VARIETY REMERON IN PLACE FOR APPETITE PER MD PT RECEIVING ENSURE BID TO PROMOTE WOUND HEALING PROVIDES 700KCALS, 40G PROTEIN CONTINUE TO MONITOR PO INTAKE CLOSELY
--- NOTE | 2022-02-18 13:26 | MHC.CM.PN ---
Addendum entered by Kim Rodas 02/18/22 16:15: HCP, MICHI [phone] INFORMED AND IN AGREEMENT WITH DC PLAN Addendum entered by Kmi Rodas 02/18/22 14:02: KADY RECEIVED A RETURN CALL FROM AMITA WHO REPORTS SHE DOES HAVE A SPACE IN THE [place] LOCATION FOR PT ON AT 1240 HOURS HOWEVER HE WILL BE UNABLE TO START PRIOR TO Monday02/23/22. SNF INFORMED, PLAN IS FOR PT TO DC MONDAY FOLLOWING HD Original Note: CURRENT PLAN IS FOR PT TO DC T [facility] FOR STR HOWEVER PT WILL REQUIRE AN OUTPATIENT HD SPOT PRIOR TO AUTH REQUEST CM RECEIVED A CALL FROM AMITA AT [facility] WHO REPORTS THERE ARE NO SPOTS AVAILABLE IN [facility] HOWEVER SHE WILL TRY TO PLACE HIM IN THEIR [place] LOCATION, SHE INDICATED SHE WOULD CALL KADY BACK ONCE CONFIRMED. ABOVE INFORMATION FORWARDED TO [facility]E [facility] LIAHEATH
--- NOTE | 2022-02-18 14:06 | P.PNIM_ITS ---
Subjective Subjective Date of Service: 02/18/22 Interval History: Seen this AM. Denied any new complaints; States slept well overnight. Due for HD today Review of Systems All 13 ROS reviewed Constitutional Constitutional: Reports as per HPI, Denies chills and Denies fever(s) ENT Ears, Nose, Mouth, and Throat: Denies dizziness Cardiovascular Cardiovascular: Denies chest pain, Denies palpitations and Denies dyspnea Respiratory Respiratory: Denies dyspnea Gastrointestinal Gastrointestinal: Denies abdominal pain, Denies nausea and Denies vomiting Neurologic Neurologic: Denies dizziness Endocrine Endocrine: Denies palpitations Physical Exam Vital Signs: Vital Signs: Last Vital Signs Temp 97.8 F 02/18/22 07:47 Pulse 75 02/18/22 07:47 Resp 17 02/18/22 07:47 BP 114/67 02/18/22 07:47 Pulse Ox 97 02/18/22 07:47 O2 Del Method 02/18/22 07:47 O2 Flow Rate 1 02/11/22 07:26 Oxygen Flow Rate 2 02/08/22 15:03 BMI result Body Mass Index 27.4 patient seen laying in bed in no acute distress ?breath sounds equal bilaterally with no wheezing or crackles appreciated ?heart rate regular rhythm, S1-S2 heard ?positive bowel sounds the abdomen soft and nontender ?patient is awake and alert, oriented to self and place, no focal motor deficits ?skin: Right dialysis catheter without bleeding ?musculoskeletal: Left below-knee amputation Objective Data Active Medications Aspirin (Aspirin 81 Mg Tab.Chew) 81 mg PO DAILY [facility] Last Admin: 02/10/22 08:52 Dose: 81 mg Documented By: LASHAY Atorvastatin Calcium (Atorvastatin Calcium 20 Mg Tablet) 20 mg PO DAILY [facility] Last Admin: 02/18/22 09:16 Dose: 20 mg Documented By: VANDANA Carvedilol (Carvedilol 25 Mg Tablet) 25 mg PO BID [facility]; Protocol Last Admin: 02/18/22 09:16 Dose: 25 mg Documented By: VANDANA Fluoxetine HCl (Fluoxetine Hcl Oral Solution 20 Mg/5 Ml Solution) 20 mg PO DAILY [facility] Last Admin: 02/18/22 09:17 Dose: Not Given Documented By: VANDANA Non-Admin Reason: Patient Refused Fluticasone Propionate (Fluticasone Propionate 250 Mcg Blst.W.Dev) 1 puff INHALE RBID [facility] Last Admin: 02/18/22 07:13 Dose: 1 puff Documented By: SADIE Heparin Sodium (Porcine) (Heparin Sodium,Porcine 5,000 Unit/Ml Vial) 5,000 unit INTRACATH MOWEFR@1645 [facility] Last Admin: 02/16/22 18:36 Dose: 5,000 unit Documented By: BYRON Hydralazine HCl (Hydralazine Hcl 25 Mg Tablet) 25 mg PO TID [facility]; Protocol Last Admin: 02/18/22 09:16 Dose: 25 mg Documented By: VANDANA Hydroxyzine HCl (Hydroxyzine Hcl 10 Mg Tablet) 10 mg PO Q8H PRN PRN Reason: Itching Last Admin: 02/10/22 22:26 Dose: 10 mg Documented By: VALERIE Insulin Human Lispro (Insulin Lispro 100 Unit/Ml 3 Ml Vial) 0 unit SUBCUT QIDACHS [facility]; Protocol Last Admin: 02/18/22 09:15 Dose: 2 unit Documented By: VANDANA Levofloxacin (Levofloxacin 250 Mg Tablet) 250 mg PO Q24H [facility] Last Admin: 02/17/22 11:36 Dose: 250 mg Documented By: BYRON Mirtazapine (Mirtazapine 15 Mg Tablet) 15 mg PO BEDTIME [facility] Last Admin: 02/17/22 20:46 Dose: 15 mg Documented By: AMANDA Multi-Ingred Cream/Lotion/Oil/Oint (Mineral Oil/Petrolatum,White 106 Gm Tube) 1 appl TOPICAL BID [facility]; Protocol Last Admin: 02/17/22 20:54 Dose: 1 appl Documented By: AMANDA Pharmacy Consult (Consult Rx Perform Med Rec) 1 each MISCELLANE ONCE PRN PRN Reason: Consult order Pharmacy Consult (Consult Rx Vancomycin Dosing) 1 each MISCELLANE DAILY PRN PRN Reason: Consult order Senna (Sennosides 8.6 Mg Tablet) 17.2 mg PO BEDTIME [facility] Last Admin: 02/17/22 20:46 Dose: 17.2 mg Documented By: AMANDA Sodium Chloride (0.9 % Sodium Chloride Flush 3 Ml Syringe) 3 ml IVFLUSH QSHIFT [facility] Last Admin: 02/18/22 09:15 Dose: 3 ml Documented By: VANDANA Tamsulosin HCl (Tamsulosin Hcl 0.4 Mg Capsule) 0.8 mg PO DAILY [facility] Last Admin: 02/18/22 09:16 Dose: 0.8 mg Documented By: VANDANA Labs CBC & Chem 7: 02/18/22 04:21 02/15/22 06:42 Labs: Laboratory Results - last 24 hr 02/17/22 02/17/22 02/18/22 16:23 20:09 04:21 MCV 89.3 MCH 29.7 MCHC 33.2 RDW 12.4 Plt Count 268 MPV 10.4 Immature Gran % (Auto) 2.2 H Neut % (Auto) 53.0 Lymph % (Auto) 25.9 Kaufman % (Auto) 8.6 Eos % (Auto) 9.0 H Baso % (Auto) 1.3 Lymph # (Auto) 3.2 Kaufman # (Auto) 1.1 Eos # (Auto) 1.1 H Baso # (Auto) 0.2 Abs Immat Gran (auto) 0.27 H Absolute Neuts (auto) 6.6 Absolute Nucleated RBC 0.000 Nucleated RBC % (auto) 0.0 Smear Tech's Comments VERIFIED POC Glucose 151 H 167 H 02/18/22 07:13 MCV MCH MCHC RDW Plt Count MPV Immature Gran % (Auto) Neut % (Auto) Lymph % (Auto) Kaufman % (Auto) Eos % (Auto) Baso % (Auto) Lymph # (Auto) Kaufman # (Auto) Eos # (Auto) Baso # (Auto) Abs Immat Gran (auto) Absolute Neuts (auto) Absolute Nucleated RBC Nucleated RBC % (auto) Smear Tech's Comments POC Glucose 160 H Assessment and Plan (1) Hemorrhage from dialysis catheter: Status: Acute (2) Bacteremia due to Pseudomonas: Status: Acute (3) ESRD (end stage renal disease) on dialysis: Status: Acute (4) Pulmonary embolism: Status: Acute (5) Poor appetite: Status: Acute Plan 67 year old male with history of uncontrolled non-insulin dependent diabetes, htn, ESRD on dialysis MWF, BPH, and urinary retention with chronic indwelling zeng catheter with recent admission to [facility] for acute encephalopathy, NAEEM with hyperkalemia requiring HD being admitted to the hospital for acute respiratory failure with hypoxia secondary to PE, sepsis related to UTI, and AG metabolic acidosis with metabolic encephalopathy and ESRD. Acute pulmonary embolism CTA chest with relatively small burden acute pulmonary emboli within right lower lobe artery non-occulssive. Minimal involvement right upper lobe pulmonary artery. US showing Left superficial femoral DVT initially treated with Heparin drip, transitioned to Eliquis Eliquis stopped due to continuous dialysis catheter bleeding Bleeding has now stopped ; restarted Eliquis at 5mg BID and watch closely for bleeding Bleeding dialysis catheter. Resolved s/p significant bleed soaking through multiple dressings treated with surgicel and sand bag , seen by vascular surgery treated with DDAVP transient response Bleeding for zeng catheter site Likely due to trauma. Resolved, will resume eliquis Acute respiratory failure with hypoxia. Resolved secondary to acute PE weaned down to room air Sepsis secondary to Gram-negative carin bacteremia secondary due to acute UTI. Urine culture growing Pseudomonas - stop zosyn, transition to po levaquin (renally dosed) for total 14 days per ID ; stop date : 02/23/2022 CT abdomen/pelvis done on admission - no additional source Poor appetite started on remeron and appetite significantly improved Depression Was started on prozac 20mg daily. Also on remeron as above ESRD Started recently in [facility] for acute kidney injury with schedule MWF using [facility] Nephrology input appreciated, continue MWF schedule Non-Insulin dependent type 2 diabetes HbA1c of 6.5 po meds on hold Continue SSI, Diabetic diet HTN BP stable Continue carvedilol and hydralazine. Hold amlodipine and restart as appropraite HLD Continue atorvastatin BPH with urinary retention Continue chronic zeng catheter - per family no voiding trail was attempted at [facility] [place] Continue tamsulosin Debility Has been accepted at [facility] in [place], [place] (as family does not want him to return to [facility]). Spoke to Dr Adair for outpatient dialyisis spot at [place]. He has been accepted but wont start HD until monday. Plan to keep him until Monday, 02/21 and can send him after HD so he can continue his regular MWF HD schedule. DVT prophylaxis: On eliquis DNR/DNI per [facility] form 02/04/22 Dispo: As above. Likely discharge 02/21 Quality Stroke Does the patient have a stroke diagnosis?: No VTE Prior VTE?: No VTE Risk Level:: Medical - moderate - high VTE Device Contraindication: Treatment Not Indicated VTE Drug Contraindication: N/A - Med Ordered
[2022-02-18 15:27] VITALS: BP 117/64; PULSE 73; RESP 18; TEMP 36.3; O2SAT 98
[2022-02-18] MEDS: Mineral Oil/Petrolatum,White 106 GM Tube 1 APPL TOPICAL ×2 (15:30→21:54)
--- NOTE | 2022-02-18 15:31 | P.PNNP_ITS ---
Subjective Subjective Date of Service: 02/18/22 Interval history: Seen this AM. Denied any new complaints;fearful about having to stay on dialysis. Physical Exam Vital Signs: Vital Signs: Last Vital Signs Temp 97.4 F 02/18/22 15:27 Pulse 73 02/18/22 15:27 Resp 18 02/18/22 15:27 BP 117/64 02/18/22 15:27 Pulse Ox 98 02/18/22 15:27 O2 Del Method 02/18/22 15:27 O2 Flow Rate 1 02/11/22 07:26 Oxygen Flow Rate 2 02/08/22 15:03 BMI result Body Mass Index 27.4 Const: Other: Constitutional : Alert, oriented, not in distress Neck : Normal inspection, Supple Cardiovascular : RRR, no JVP, no lower extremity edema Respiratory : fair bilateral air entry, no crackles, wheezes or rhonchi Gastrointestinal: soft, lax, Normal bowel sounds, Non tender Skin : Warm, Dry Musculoskeletal, left above-knee amputation Urology: Zeng catheter in place, clear urine Neurological : Alert & oriented to place, No focal deficit General: cooperative, comfortable, no acute distress, alert and awake Nutritional Appearance: average body habitus Orientation/consciousness: oriented to person, oriented to place, oriented to time and patient oriented x3 Limitations: no limitations HEENT: Head: Yes normal to inspection and Yes atraumatic Ears: hearing grossly normal bilaterally General nose exam: Normal external nose present Face and sinus: Yes normal facial exam Mouth: Normal oral and palatal mucosa present Teeth and gingiva: dentition normal Throat: Yes posterior oropharynx normal Eyes: General: appearance normal, both eyes and all related structures Pupils: Equal, round and reactive pupils present EOM: EOMs intact bilaterally Neck: Neck: Yes normal visual inspection, Yes no meningeal signs and Yes supple Chest: Other: Right chest wall, dialysis catheter in place, dressing clean and dry Resp: Effort & Inspection: normal respiratory effort, able to speak in complete sentences, no respiratory distress and no use of accessory muscles Auscultation: clear to auscultation bilaterally, no rhonchi and lung sounds not diminished Cardio: Rate: regular rate Rhythm: regular rhythm Heart sounds: S1 normal heart sound present and S2 normal heart sound present GI: Inspection: Yes normal to inspection and No distended Palpation (GI): Soft to palpation, nontender, no guarding and not rigid : Other: zeng in place General: Yes no CVA tenderness Back/Spine/Pelvis: Other: left BKA Zeng with punch colored urine Back: no CVA tenderness Skin: General skin exam: no rashes or lesions noted Rashes: no rashes Wounds: no wounds Neuro: Other: grossly intact General: oriented to person, oriented to place, oriented to time, patient oriented x3, tone normal, moves all extremities and no meningeal signs Cranial nerves: Yes Equal, round and reactive pupils present Gait exam (Neuro): Normal gait present Extrem: Other: s/p left AKA General: Yes normal to inspection Psych: Appearance: grossly normal Objective Data Labs CBC & Chem 7: 02/18/22 04:21 02/15/22 06:42 Labs: Laboratory Results - last 24 hr 02/17/22 02/17/22 02/18/22 16:23 20:09 04:21 WBC 12.5 H RBC 3.17 L Hgb 9.4 L Hct 28.3 L MCV 89.3 MCH 29.7 MCHC 33.2 RDW 12.4 Plt Count 268 MPV 10.4 Immature Gran % (Auto) 2.2 H Neut % (Auto) 53.0 Lymph % (Auto) 25.9 Harris % (Auto) 8.6 Eos % (Auto) 9.0 H Baso % (Auto) 1.3 Lymph # (Auto) 3.2 Harris # (Auto) 1.1 Eos # (Auto) 1.1 H Baso # (Auto) 0.2 Abs Immat Gran (auto) 0.27 H Absolute Neuts (auto) 6.6 Absolute Nucleated RBC 0.000 Nucleated RBC % (auto) 0.0 Smear Tech's Comments VERIFIED POC Glucose 151 H 167 H 02/18/22 07:13 WBC RBC Hgb Hct MCV MCH MCHC RDW Plt Count MPV Immature Gran % (Auto) Neut % (Auto) Lymph % (Auto) Harris % (Auto) Eos % (Auto) Baso % (Auto) Lymph # (Auto) Harris # (Auto) Eos # (Auto) Baso # (Auto) Abs Immat Gran (auto) Absolute Neuts (auto) Absolute Nucleated RBC Nucleated RBC % (auto) Smear Tech's Comments POC Glucose 160 H Microbiology Microbiology Results: Microbiology 02/11/22 11:17 Blood - Venous Blood Culture - Final No growth after 5 days. 02/11/22 11:17 Blood - Venous Blood Culture - Final No growth after 5 days. 02/08/22 15:24 Blood - Venous Blood Culture - Final No growth after 5 days. 02/08/22 15:24 Blood - Venous Blood Culture - Final Pseudomonas aeruginosa 02/08/22 16:12 Urine clean catch - Urine tohmas top Urine Culture - Final Pseudomonas aeruginosa Procedures Date of Service Date of Service: 02/18/22 Assessment & Plan Assessment and plan (1) Bacteremia due to Pseudomonas: Status: Acute Assessment and Plan: Source : urine (2) Pulmonary embolism: Status: Acute Assessment and Plan: Now back on eliquis (3) Hypertension: Status: Acute Assessment and Plan: Controlled (4) NAEEM (acute kidney injury): Status: Acute Assessment and Plan: Making some urine but still requiring dialysis (5) High anion gap metabolic acidosis: Status: Acute Assessment and Plan: Improving with dialysis Plan 67 year old male with history of uncontrolled non-insulin dependent diabetes, htn,CKD, BPH, and urinary retention with chronic indwelling zeng catheter with recent admission to [facility] for acute encephalopathy, NAEEM with hyperkalemia requiring HD. Admitted here now from [facility] for hypoxia related to PE, pseudomonas uro sepsis, and AG metabolic acidosis with metabolic encephalopathy. Had bleeding from dialysis catheter with anticoagulation now stopped. Acute pulmonary embolism CTA chest with relatively small burden acute pulmonary emboli -now on eliquis Bleeding dialysis catheter. Resolve Sepsis secondary to Gram-negative carin bacteremia secondary due to acute UTI. Urine culture growing Pseudomonas - stop zosyn, transition to po levaquin (renally dosed) for total 14 days per ID ; stop date : 02/23/2022 CT abdomen/pelvis done on admission - no additional source Poor appetite started on remeron and appetite significantly improved Depression Was started on prozac 20mg daily. Also on remeron as above NAEEM on advanced CKD: recent initiation of dialysis; unclear whether will recover but would review [facility] records and make determination HTN BP stable Continue carvedilol : recommend stop hydralazine Hold amlodipine and restart as appropraite BPH with urinary retention Continue chronic zeng catheter - per family no voiding trail [place] [facility] Continue tamsulosin Debility Has been accepted at [facility] in [place], [place] (as family does not want him to return to [facility]). [place] [facility]. Plan to keep him until Monday, 02/21 and can send him after HD so he can continue his regular MWF HD schedule. Pt was seen at [facility] by Dr. Garcia. Will discuss with patient and Dr. Tesfaye who will be providing outpatient Time Spent With Patient Time: Total time spent is greater than 50% in coordination of care (as documented) at patient's floor/unit and/or counseling patient: Progress Note: Quality Stroke Does the patient have a stroke diagnosis?: No
[2022-02-18 15:34] LABS: Glucose, Whole Blood 118 mg/dL (60-115)
[2022-02-18] MEDS: levoFLOXacin 250 MG TABLET PO (15:39)
[2022-02-18] MEDS: Heparin Sodium,Porcine 5,000 UNIT/ML VIAL 5000 UNIT INTRACATH (15:42)
[2022-02-18 19:57] LABS: Glucose, Whole Blood 187 mg/dL (60-115)
[2022-02-18 20:00] VITALS: BP 95/68; PULSE 81; RESP 20; TEMP 36.1; O2SAT 97
[2022-02-18] MEDS: Mirtazapine 15 MG TABLET PO (21:51)
[2022-02-18] MEDS: Apixaban 5 MG TABLET PO (21:51)
[2022-02-18] MEDS: Sennosides 8.6 MG TABLET 17.2 MG PO (21:51)
[2022-02-19] VITALS (8 sets, daily range): BP systolic 97–117; BP diastolic 45–72; PULSE 70–80; RESP 17–20; TEMP 36.6–37.3; O2SAT 92–97
[2022-02-19 07:41] LABS: Glucose, Whole Blood 165 mg/dL (60-115)
[2022-02-19] MEDS: Insulin Lispro 100 UNIT/ML 3 ML VIAL SUBCUT (08:03)
[2022-02-19] MEDS: Atorvastatin Calcium 20 MG TABLET PO (08:04)
[2022-02-19] MEDS: Tamsulosin HCL 0.4 MG CAPSULE 0.8 MG PO (08:04)
[2022-02-19] MEDS: carvediloL 25 MG TABLET PO (08:04)
[2022-02-19] MEDS: 0.9 % Sodium Chloride Flush 3 ML SYRINGE IVFLUSH ×2 (08:05→15:03)
[2022-02-19] MEDS: Apixaban 5 MG TABLET PO (08:06)
[2022-02-19] MEDS: Mineral Oil/Petrolatum,White 106 GM Tube 1 APPL TOPICAL (08:06)
[2022-02-19] MEDS: hydrALAZINE HCl 25 MG TABLET PO ×2 (08:06→15:03)
[2022-02-19] MEDS: Fluticasone Propionate 250 MCG BLST.W.DEV 1 PUFF INHALE (08:19)
--- NOTE | 2022-02-19 09:31 | HO.PM.IMPN ---
Subjective Subjective Date of Service: 02/19/22 Interval History: Seen this AM. Denied any new complaints; States slept well overnight. Due for HD today Review of Systems All 13 ROS reviewed Physical Exam Vital Signs: Vital Signs: Last Vital Signs Temp 98.7 F 02/19/22 07:55 Pulse 78 02/19/22 08:19 Resp 17 02/19/22 08:19 BP 117/63 02/19/22 07:55 Pulse Ox 97 02/19/22 07:55 O2 Del Method 02/19/22 07:55 O2 Flow Rate 1 02/11/22 07:26 Oxygen Flow Rate 2 02/08/22 15:03 BMI result Body Mass Index 27.4 Objective Data Active Medications Apixaban (Apixaban 5 Mg Tablet) 5 mg PO BID [facility] Last Admin: 02/19/22 08:06 Dose: 5 mg Documented By: SHAMAR Aspirin (Aspirin 81 Mg Tab.Chew) 81 mg PO DAILY [facility] Last Admin: 02/10/22 08:52 Dose: 81 mg Documented By: LASHAY Atorvastatin Calcium (Atorvastatin Calcium 20 Mg Tablet) 20 mg PO DAILY [facility] Last Admin: 02/19/22 08:04 Dose: 20 mg Documented By: SHAMAR Carvedilol (Carvedilol 25 Mg Tablet) 25 mg PO BID [facility]; Protocol Last Admin: 02/19/22 08:04 Dose: 25 mg Documented By: SHAMAR Fluoxetine HCl (Fluoxetine Hcl Oral Solution 20 Mg/5 Ml Solution) 20 mg PO DAILY [facility] Last Admin: 02/19/22 08:05 Dose: Not Given Documented By: SHAMAR Non-Admin Reason: Patient Refused Fluticasone Propionate (Fluticasone Propionate 250 Mcg Blst.W.Dev) 1 puff INHALE RBID [facility] Last Admin: 02/19/22 08:19 Dose: 1 puff Documented By: JULIAN Heparin Sodium (Porcine) (Heparin Sodium,Porcine 5,000 Unit/Ml Vial) 5,000 unit INTRACATH MOWEFR@1645 [facility] Last Admin: 02/18/22 15:42 Dose: 5,000 unit Documented By: VANDANA Hydralazine HCl (Hydralazine Hcl 25 Mg Tablet) 25 mg PO TID [facility]; Protocol Last Admin: 02/19/22 08:06 Dose: 25 mg Documented By: SHAMAR Hydroxyzine HCl (Hydroxyzine Hcl 10 Mg Tablet) 10 mg PO Q8H PRN PRN Reason: Itching Last Admin: 02/10/22 22:26 Dose: 10 mg Documented By: VALERIE Insulin Human Lispro (Insulin Lispro 100 Unit/Ml 3 Ml Vial) 0 unit SUBCUT QIDACHS [facility]; Protocol Last Admin: 02/19/22 08:03 Dose: 2 unit Documented By: SHAMAR Levofloxacin (Levofloxacin 250 Mg Tablet) 250 mg PO Q24H [facility] Last Admin: 02/18/22 15:39 Dose: 250 mg Documented By: SOLISPE Mirtazapine (Mirtazapine 15 Mg Tablet) 15 mg PO BEDTIME [facility] Last Admin: 02/18/22 21:51 Dose: 15 mg Documented By: ISRA Multi-Ingred Cream/Lotion/Oil/Oint (Mineral Oil/Petrolatum,White 106 Gm Tube) 1 appl TOPICAL BID [facility]; Protocol Last Admin: 02/19/22 08:06 Dose: 1 appl Documented By: SHAMAR Pharmacy Consult (Consult Rx Perform Med Rec) 1 each MISCELLANE ONCE PRN PRN Reason: Consult order Senna (Sennosides 8.6 Mg Tablet) 17.2 mg PO BEDTIME [facility] Last Admin: 02/18/22 21:51 Dose: 17.2 mg Documented By: ISRA Sodium Chloride (0.9 % Sodium Chloride Flush 3 Ml Syringe) 3 ml IVFLUSH QSHIFT [facility] Last Admin: 02/19/22 08:05 Dose: 3 ml Documented By: SHAMAR Tamsulosin HCl (Tamsulosin Hcl 0.4 Mg Capsule) 0.8 mg PO DAILY [facility] Last Admin: 02/19/22 08:04 Dose: 0.8 mg Documented By: SHAMAR Labs CBC & Chem 7: 02/18/22 04:21 02/15/22 06:42 Labs: Laboratory Results - last 24 hr 02/12/22 02/18/22 02/18/22 15:40 15:27 19:49 dRVVT Mixing Study TNP Hexagon Phase Neutraliz Weak Positive A POC Glucose 118 H 187 H 02/19/22 07:32 dRVVT Mixing Study Hexagon Phase Neutraliz POC Glucose 165 H Assessment and Plan (1) Hemorrhage from dialysis catheter: Status: Acute (2) Bacteremia due to Pseudomonas: Status: Acute (3) ESRD (end stage renal disease) on dialysis: Status: Acute (4) Pulmonary embolism: Status: Acute (5) Poor appetite: Status: Acute Plan 67 year old male with history of uncontrolled non-insulin dependent diabetes, htn, ESRD on dialysis MWF, BPH, and urinary retention with chronic indwelling zeng catheter with recent admission to [facility] for acute encephalopathy, NAEEM with hyperkalemia requiring HD being admitted to the hospital for acute respiratory failure with hypoxia secondary to PE, sepsis related to UTI, and AG metabolic acidosis with metabolic encephalopathy and ESRD. Acute pulmonary embolism CTA chest with relatively small burden acute pulmonary emboli within right lower lobe artery non-occulssive. Minimal involvement right upper lobe pulmonary artery. US showing Left superficial femoral DVT initially treated with Heparin drip, transitioned to Eliquis Eliquis stopped due to continuous dialysis catheter bleeding Bleeding has now stopped ; restarted Eliquis at 5mg BID without bleeding complications Bleeding dialysis catheter. Resolved s/p significant bleed soaking through multiple dressings treated with surgicel and sand bag , seen by vascular surgery treated with DDAVP and sand bag with good effect Bleeding for zeng catheter site Likely due to trauma. Resolved, Acute respiratory failure with hypoxia. Resolved secondary to acute PE weaned down to room air Sepsis secondary to Gram-negative carin bacteremia secondary due to acute UTI. Urine culture growing Pseudomonas - stop zosyn, transition to po levaquin (renally dosed) for total 14 days per ID ; stop date : 02/23/2022 CT abdomen/pelvis done on admission - no additional source Poor appetite started on remeron and appetite significantly improved Depression Was started on prozac 20mg daily. Also on remeron as above ESRD Started recently in [facility] for acute kidney injury with schedule MWF using [facility] Nephrology input appreciated, continue MWF schedule Non-Insulin dependent type 2 diabetes HbA1c of 6.5 po meds on hold Continue SSI, Diabetic diet HTN BP stable Continue carvedilol and hydralazine. Hold amlodipine and restart as appropraite HLD Continue atorvastatin BPH with urinary retention Continue chronic zeng catheter - per family no voiding trail was attempted at [facility] Continue tamsulosin Debility Has been accepted at [facility] in [place], [place] (as family does not want him to return to [facility]). Spoke to Dr Adair for outpatient dialyisis spot at [facility]. He has been accepted but wont start HD until monday. Plan to keep him until Monday, 02/21 and can send him after HD so he can continue his regular MWF HD schedule. DVT prophylaxis: On eliquis DNR/DNI per [facility] form 02/04/22 Dispo: As above. Likely discharge 02/21 need for inpatient: awaiting rehab Quality Stroke Does the patient have a stroke diagnosis?: No VTE Prior VTE?: No VTE Risk Level:: Medical - moderate - high VTE Device Contraindication: Treatment Not Indicated VTE Drug Contraindication: N/A - Med Ordered
[2022-02-19 11:17] LABS: Glucose, Whole Blood 147 mg/dL (60-115)
[2022-02-19] MEDS: levoFLOXacin 250 MG TABLET PO (12:43)
[2022-02-19 14:26] LABS: Glucose, Whole Blood 201 mg/dL (60-115)
[2022-02-19 16:02] LABS: Glucose, Whole Blood 207 mg/dL (60-115)
--- NOTE | 2022-02-19 17:02 | PC.NURSE ---
Daughter came in and informed me of the pts increased confusion. MD aware and came up to do neuro asesmment. Head CT ordered. Pt now refusing head ct and getting extremely agitated with transport. and daughter were called and informed about the pts refusal for imaging.
[2022-02-19 20:05] LABS: Glucose, Whole Blood 161 mg/dL (60-115)
[2022-02-20 07:26] VITALS: BP 131/77; PULSE 81; RESP 20; TEMP 36.8; O2SAT 95
[2022-02-20] MEDS: carvediloL 25 MG TABLET PO ×2 (07:29→20:05)
[2022-02-20] MEDS: 0.9 % Sodium Chloride Flush 3 ML SYRINGE IVFLUSH ×3 (07:29→20:05)
[2022-02-20] MEDS: Tamsulosin HCL 0.4 MG CAPSULE 0.8 MG PO (07:29)
[2022-02-20] MEDS: Apixaban 5 MG TABLET PO ×2 (07:29→20:05)
[2022-02-20] MEDS: hydrALAZINE HCl 25 MG TABLET PO ×3 (07:29→20:05)
[2022-02-20] MEDS: Atorvastatin Calcium 20 MG TABLET PO (07:29)
[2022-02-20] MEDS: Insulin Lispro 100 UNIT/ML 3 ML VIAL SUBCUT ×3 (07:35→16:42)
[2022-02-20 07:38] LABS: Glucose, Whole Blood 173 mg/dL (60-115)
[2022-02-20] MEDS: Mineral Oil/Petrolatum,White 106 GM Tube 1 APPL TOPICAL (07:38)
[2022-02-20 08:05] VITALS: PULSE 67; RESP 18; O2SAT 97
[2022-02-20] MEDS: Fluticasone Propionate 250 MCG BLST.W.DEV 1 PUFF INHALE (08:05)
--- NOTE | 2022-02-20 10:18 | HO.PM.IMPN ---
Subjective Subjective Date of Service: 02/20/22 Interval History: Seen this AM. Denied any new complaints; didn't sleep well and just wanted to sleep this morning he is oriented to self, place and year of on date. Head CT was unremarkable Review of Systems All 13 ROS reviewed Physical Exam Vital Signs: Vital Signs: Last Vital Signs Temp 98.3 F 02/20/22 07:26 Pulse 67 02/20/22 08:05 Resp 18 02/20/22 08:05 BP 131/77 02/20/22 07:26 Pulse Ox 95 02/20/22 07:26 O2 Del Method 02/20/22 07:26 O2 Flow Rate 1 02/11/22 07:26 Oxygen Flow Rate 2 02/08/22 15:03 BMI result Body Mass Index 27.4 Const: Other: General: AO X , no acute distress Resp: CTA bilateral CVS: S1,S2,RRR GI: +BS, NT, no distention Skin: catheter site without bleed Neuro: motor grossly intact Psych: appropriate affect Objective Data Active Medications Apixaban (Apixaban 5 Mg Tablet) 5 mg PO BID [facility] Last Admin: 02/20/22 07:29 Dose: 5 mg Documented By: SHAMAR Aspirin (Aspirin 81 Mg Tab.Chew) 81 mg PO DAILY [facility] Last Admin: 02/10/22 08:52 Dose: 81 mg Documented By: LASHAY Atorvastatin Calcium (Atorvastatin Calcium 20 Mg Tablet) 20 mg PO DAILY [facility] Last Admin: 02/20/22 07:29 Dose: 20 mg Documented By: SHAMAR Carvedilol (Carvedilol 25 Mg Tablet) 25 mg PO BID [facility]; Protocol Last Admin: 02/20/22 07:29 Dose: 25 mg Documented By: SHAMAR Fluoxetine HCl (Fluoxetine Hcl Oral Solution 20 Mg/5 Ml Solution) 20 mg PO DAILY [facility] Last Admin: 02/20/22 07:29 Dose: Not Given Documented By: SHAMAR Non-Admin Reason: Patient Refused Fluticasone Propionate (Fluticasone Propionate 250 Mcg Blst.W.Dev) 1 puff INHALE RBID [facility] Last Admin: 02/20/22 08:05 Dose: 1 puff Documented By: ALEN Heparin Sodium (Porcine) (Heparin Sodium,Porcine 5,000 Unit/Ml Vial) 5,000 unit INTRACATH MOWEFR@1645 [facility] Last Admin: 02/18/22 15:42 Dose: 5,000 unit Documented By: VANDANA Hydralazine HCl (Hydralazine Hcl 25 Mg Tablet) 25 mg PO TID [facility]; Protocol Last Admin: 02/20/22 07:29 Dose: 25 mg Documented By: SHAMAR Hydroxyzine HCl (Hydroxyzine Hcl 10 Mg Tablet) 10 mg PO Q8H PRN PRN Reason: Itching Last Admin: 02/10/22 22:26 Dose: 10 mg Documented By: VALERIE Insulin Human Lispro (Insulin Lispro 100 Unit/Ml 3 Ml Vial) 0 unit SUBCUT QIDACHS [facility]; Protocol Last Admin: 02/20/22 07:35 Dose: 2 unit Documented By: SHAMAR Levofloxacin (Levofloxacin 250 Mg Tablet) 250 mg PO Q24H [facility] Last Admin: 02/19/22 12:43 Dose: 250 mg Documented By: SHAMAR Mirtazapine (Mirtazapine 15 Mg Tablet) 15 mg PO BEDTIME [facility] Last Admin: 02/19/22 21:13 Dose: Not Given Documented By: ISRA Non-Admin Reason: Patient Refused Multi-Ingred Cream/Lotion/Oil/Oint (Mineral Oil/Petrolatum,White 106 Gm Tube) 1 appl TOPICAL BID [facility]; Protocol Last Admin: 02/20/22 07:38 Dose: 1 appl Documented By: SHAMAR Pharmacy Consult (Consult Rx Perform Med Rec) 1 each MISCELLANE ONCE PRN PRN Reason: Consult order Senna (Sennosides 8.6 Mg Tablet) 17.2 mg PO BEDTIME [facility] Last Admin: 02/19/22 21:13 Dose: Not Given Documented By: ISRA Non-Admin Reason: Patient Refused Sodium Chloride (0.9 % Sodium Chloride Flush 3 Ml Syringe) 3 ml IVFLUSH QSHIFT [facility] Last Admin: 02/20/22 07:29 Dose: 3 ml Documented By: SHAMAR Tamsulosin HCl (Tamsulosin Hcl 0.4 Mg Capsule) 0.8 mg PO DAILY [facility] Last Admin: 02/20/22 07:29 Dose: 0.8 mg Documented By: SHAMAR Labs CBC & Chem 7: 02/18/22 04:21 02/15/22 06:42 Labs: Laboratory Results - last 24 hr 02/19/22 02/19/22 02/19/22 11:05 14:22 15:52 POC Glucose 147 H 201 H 207 H 02/19/22 02/20/22 20:00 07:28 POC Glucose 161 H 173 H Assessment and Plan (1) Hemorrhage from dialysis catheter: Status: Acute (2) Bacteremia due to Pseudomonas: Status: Acute (3) ESRD (end stage renal disease) on dialysis: Status: Acute (4) Pulmonary embolism: Status: Acute (5) Poor appetite: Status: Acute Plan 67 year old male with history of uncontrolled non-insulin dependent diabetes, htn, ESRD on dialysis MWF, BPH, and urinary retention with chronic indwelling zeng catheter with recent admission to [facility] for acute encephalopathy, NAEEM with hyperkalemia requiring HD being admitted to the hospital for acute respiratory failure with hypoxia secondary to PE, sepsis related to UTI, and AG metabolic acidosis with metabolic encephalopathy and ESRD. Acute pulmonary embolism CTA chest with relatively small burden acute pulmonary emboli within right lower lobe artery non-occulssive. Minimal involvement right upper lobe pulmonary artery. US showing Left superficial femoral DVT initially treated with Heparin drip and then transitioned to Eliquis Eliquis was stopped due to continuous dialysis catheter site bleeding, bleeding ultimately stopped and has been restarted on eliquis without issues Bleeding dialysis catheter likely from trauma. Resolved s/p significant bleed soaking through multiple dressings treated with surgicel and sand bag , seen by vascular surgery treated with DDAVP and sand bag with good effect Acute respiratory failure with hypoxia. Resolved secondary to acute PE weaned down to room air Sepsis secondary to Gram-negative carin bacteremia secondary due to acute UTI. Urine culture growing Pseudomonas - stop zosyn, transition to po levaquin (renally dosed) for total 14 days per ID ; stop date : 02/23/2022 CT abdomen/pelvis done on admission - no additional source Poor appetite started on remeron and appetite significantly improved Depression Was started on prozac 20mg daily. Also on remeron as above ESRD Started recently in [facility] for acute kidney injury with schedule MWF using [facility] Nephrology input appreciated, continue MWF schedule Non-Insulin dependent type 2 diabetes HbA1c of 6.5 po meds on hold Continue SSI, Diabetic diet HTN BP stable Continue carvedilol and hydralazine. Hold amlodipine and restart as appropraite HLD Continue atorvastatin BPH with urinary retention Continue chronic zeng catheter - per family no voiding trail was attempted at [facility] [place] Continue tamsulosin Debility Has been accepted at [facility] in [place], [place] (as family does not want him to return to [facility]). Spoke to Dr Adair for outpatient dialyisis spot at [facility]. He has been accepted but wont start HD until monday. Plan to keep him until Monday, 02/21 and can send him after HD so he can continue his regular MWF HD schedule. ? confusion reported by family on 02/19.. he seems unchanged to me since my interaction with him last week and definately better today. a head CT 02/19 was negative for storke or acute changes. Discussed with daughter Kristi DVT prophylaxis: On eliquis DNR/DNI per [facility] form 02/04/22 Dispo: As above. Likely discharge 02/21 need for inpatient: awaiting rehab Quality Stroke Does the patient have a stroke diagnosis?: No VTE Prior VTE?: No VTE Risk Level:: Medical - moderate - high VTE Device Contraindication: Treatment Not Indicated VTE Drug Contraindication: N/A - Med Ordered
[2022-02-20 11:27] VITALS: BP 115/69; PULSE 65; RESP 20; TEMP 36.7; O2SAT 95
[2022-02-20 11:34] LABS: Glucose, Whole Blood 155 mg/dL (60-115)
[2022-02-20] MEDS: levoFLOXacin 250 MG TABLET PO (11:36)
--- NOTE | 2022-02-20 12:34 | PM.PNNEP ---
Subjective Subjective Date of Service: 02/20/22 Interval history: Seen this AM. Denied any new complaints; Very grumpy and refused to talk Physical Exam Vital Signs: Vital Signs: Last Vital Signs Temp 98.0 F 02/20/22 11:27 Pulse 65 02/20/22 11:27 Resp 20 02/20/22 11:27 BP 115/69 02/20/22 11:27 Pulse Ox 95 02/20/22 11:27 O2 Del Method 02/20/22 11:27 O2 Flow Rate 1 02/11/22 07:26 Oxygen Flow Rate 2 02/08/22 15:03 BMI result Body Mass Index 27.4 Const: Other: General: AO X , no acute distress Resp: CTA bilateral CVS: S1,S2,RRR GI: +BS, NT, no distention Skin: catheter site without bleed Neuro: motor grossly intact Psych: appropriate affect General: cooperative, comfortable, no acute distress, alert and awake Nutritional Appearance: average body habitus Orientation/consciousness: oriented to person, oriented to place, oriented to time and patient oriented x3 Limitations: no limitations HEENT: Head: Yes normal to inspection and Yes atraumatic Ears: hearing grossly normal bilaterally General nose exam: Normal external nose present Face and sinus: Yes normal facial exam Mouth: Normal oral and palatal mucosa present Teeth and gingiva: dentition normal Throat: Yes posterior oropharynx normal Eyes: General: appearance normal, both eyes and all related structures Pupils: Equal, round and reactive pupils present EOM: EOMs intact bilaterally Neck: Neck: Yes normal visual inspection, Yes no meningeal signs and Yes supple Chest: Other: Right chest wall, dialysis catheter in place, dressing clean and dry Resp: Effort & Inspection: normal respiratory effort, able to speak in complete sentences, no respiratory distress and no use of accessory muscles Auscultation: clear to auscultation bilaterally, no rhonchi and lung sounds not diminished Cardio: Rate: regular rate Rhythm: regular rhythm Heart sounds: S1 normal heart sound present and S2 normal heart sound present GI: Inspection: Yes normal to inspection and No distended Palpation (GI): Soft to palpation, nontender, no guarding and not rigid : Other: zeng in place General: Yes no CVA tenderness Back/Spine/Pelvis: Other: left BKA Zeng with punch colored urine Back: no CVA tenderness Skin: General skin exam: no rashes or lesions noted Rashes: no rashes Wounds: no wounds Neuro: Other: grossly intact General: oriented to person, oriented to place, oriented to time, patient oriented x3, tone normal, moves all extremities and no meningeal signs Cranial nerves: Yes Equal, round and reactive pupils present Gait exam (Neuro): Normal gait present Extrem: Other: s/p left AKA General: Yes normal to inspection Psych: Appearance: grossly normal Objective Data Labs CBC & Chem 7: 02/18/22 04:21 02/15/22 06:42 Labs: Laboratory Results - last 24 hr 02/19/22 02/19/22 02/19/22 14:22 15:52 20:00 POC Glucose 201 H 207 H 161 H 02/20/22 02/20/22 07:28 11:29 POC Glucose 173 H 155 H Microbiology Microbiology Results: Microbiology 02/11/22 11:17 Blood - Venous Blood Culture - Final No growth after 5 days. 02/11/22 11:17 Blood - Venous Blood Culture - Final No growth after 5 days. 02/08/22 15:24 Blood - Venous Blood Culture - Final No growth after 5 days. 02/08/22 15:24 Blood - Venous Blood Culture - Final Pseudomonas aeruginosa 02/08/22 16:12 Urine clean catch - Urine thomas top Urine Culture - Final Pseudomonas aeruginosa Procedures Date of Service Date of Service: 02/20/22 Assessment & Plan Assessment and plan (1) Bacteremia due to Pseudomonas: Status: Acute (2) NAEEM (acute kidney injury): Status: Acute (3) Hypertension: Status: Acute Plan 67 year old male with history of uncontrolled non-insulin dependent diabetes, htn, ESRD on dialysis MWF, BPH, and urinary retention with chronic indwelling zeng catheter with recent admission to [facility] for acute encephalopathy, NAEEM with hyperkalemia requiring HD being admitted to the hospital for acute respiratory failure with hypoxia secondary to PE, sepsis related to UTI, and AG metabolic acidosis with metabolic encephalopathy and NAEEM on CKD 1. NAEEM on CKD: started dialysis at [facility]; monitor UO, check bladder scan to determine if any recovery; creat 7; plan for dialysis tomorrow; septic ATN 2. CKD stage 3 underlying 3. PE clinically improved Plan: Dialysis M WF Watch for renal recovery Keep zeng in given retention hx. Needs outpt dialysis spot; awaiting [facility] response Time Spent With Patient Time: Total time spent is greater than 50% in coordination of care (as documented) at patient's floor/unit and/or counseling patient: Progress Note: Quality Stroke Does the patient have a stroke diagnosis?: No
[2022-02-20 15:13] VITALS: BP 99/43; PULSE 63; RESP 18; TEMP 36.1; O2SAT 96
[2022-02-20 16:29] LABS: Glucose, Whole Blood 155 mg/dL (60-115)
[2022-02-20 19:37] VITALS: BP 150/56; PULSE 66; RESP 19; TEMP 36.6; O2SAT 94
[2022-02-20 19:59] LABS: Glucose, Whole Blood 148 mg/dL (60-115)
[2022-02-20] MEDS: Sennosides 8.6 MG TABLET 17.2 MG PO (20:05)
[2022-02-20] MEDS: Mirtazapine 15 MG TABLET PO (20:05)
[2022-02-20 23:50] VITALS: BP 136/78; PULSE 67; RESP 14; TEMP 36.8; O2SAT 97
[2022-02-21] VITALS (8 sets, daily range): BP systolic 93–130; BP diastolic 50–69; PULSE 68–74; RESP 16–20; TEMP 36.5–36.8; O2SAT 96–99
[2022-02-21 07:46] LABS: Glucose, Whole Blood 134 mg/dL (60-115)
[2022-02-21] MEDS: Fluticasone Propionate 250 MCG BLST.W.DEV 1 PUFF INHALE ×2 (07:47→19:52)
[2022-02-21 11:25] LABS: Glucose, Whole Blood 156 mg/dL (60-115)
--- NOTE | 2022-02-21 12:14 | HO.PM.IMPN ---
Subjective Subjective Date of Service: 02/22/22 Interval History: complaining of persistent decreased appetite and lack of sleep, denies pain no fevers, no chills is scheduled for hemodialysis today Review of Systems [employer] no headache no dizziness CVS no chest pain, no palpatations GI no nausea, no vomiting Review of Systems: Yes all other systems are reviewed and are negative Physical Exam Vital Signs: Vital Signs: Last Vital Signs Temp 98.3 F 02/21/22 07:34 Pulse 68 02/21/22 09:39 Resp 20 02/21/22 07:48 BP 112/64 02/21/22 07:34 Pulse Ox 96 02/21/22 07:34 O2 Del Method 02/21/22 07:34 O2 Flow Rate 1 02/11/22 07:26 Oxygen Flow Rate 2 02/08/22 15:03 BMI result Body Mass Index 27.4 Const: Other: General: awake alert x3, no acute distress neck no JVD right anterior chest wall catheter in place with bruising, no bleeding noted Resp:? CTA bilateral CVS: S1,S2,RRR GI: abdomen soft nontender bowel sounds audible Neuro:? motor grossly intact Psych: appropriate affect ? Objective Data Active Medications Apixaban (Apixaban 5 Mg Tablet) 5 mg PO BID [facility] Last Admin: 02/20/22 20:05 Dose: 5 mg Documented By: CHERIE Aspirin (Aspirin 81 Mg Tab.Chew) 81 mg PO DAILY [facility] Last Admin: 02/10/22 08:52 Dose: 81 mg Documented By: LASHAY Atorvastatin Calcium (Atorvastatin Calcium 20 Mg Tablet) 20 mg PO DAILY [facility] Last Admin: 02/20/22 07:29 Dose: 20 mg Documented By: SHAMAR Carvedilol (Carvedilol 25 Mg Tablet) 25 mg PO BID [facility]; Protocol Last Admin: 02/20/22 20:05 Dose: 25 mg Documented By: CHERIE Fluoxetine HCl (Fluoxetine Hcl Oral Solution 20 Mg/5 Ml Solution) 20 mg PO DAILY [facility] Last Admin: 02/20/22 07:29 Dose: Not Given Documented By: SHAMAR Non-Admin Reason: Patient Refused Fluticasone Propionate (Fluticasone Propionate 250 Mcg Blst.W.Dev) 1 puff INHALE RBID [facility] Last Admin: 02/21/22 07:47 Dose: 1 puff Documented By: LEILANI Heparin Sodium (Porcine) (Heparin Sodium,Porcine 5,000 Unit/Ml Vial) 5,000 unit INTRACATH MOWEFR@1645 [facility] Last Admin: 02/18/22 15:42 Dose: 5,000 unit Documented By: VANDANA Hydralazine HCl (Hydralazine Hcl 25 Mg Tablet) 25 mg PO TID [facility]; Protocol Last Admin: 02/20/22 20:05 Dose: 25 mg Documented By: CHERIE Hydroxyzine HCl (Hydroxyzine Hcl 10 Mg Tablet) 10 mg PO Q8H PRN PRN Reason: Itching Last Admin: 02/10/22 22:26 Dose: 10 mg Documented By: JACEROShena Insulin Human Lispro (Insulin Lispro 100 Unit/Ml 3 Ml Vial) 0 unit SUBCUT QIDACHS [facility]; Protocol Last Admin: 02/21/22 12:00 Dose: Not Given Documented By: RICHARDSON Non-Admin Reason: in dialysis, hasnt eaten Levofloxacin (Levofloxacin 250 Mg Tablet) 250 mg PO Q24H [facility] Last Admin: 02/20/22 11:36 Dose: 250 mg Documented By: SHAMAR Mirtazapine (Mirtazapine 15 Mg Tablet) 15 mg PO BEDTIME [facility] Last Admin: 02/20/22 20:05 Dose: 15 mg Documented By: CHERIE Multi-Ingred Cream/Lotion/Oil/Oint (Mineral Oil/Petrolatum,White 106 Gm Tube) 1 appl TOPICAL BID [facility]; Protocol Last Admin: 02/20/22 20:25 Dose: Not Given Documented By: CHERIE Non-Admin Reason: Patient Refused Pharmacy Consult (Consult Rx Perform Med Rec) 1 each MISCELLANE ONCE PRN PRN Reason: Consult order Senna (Sennosides 8.6 Mg Tablet) 17.2 mg PO BEDTIME [facility] Last Admin: 02/20/22 20:05 Dose: 17.2 mg Documented By: CHERIE Sodium Chloride (0.9 % Sodium Chloride Flush 3 Ml Syringe) 3 ml IVFLUSH QSHIFT [facility] Last Admin: 02/20/22 20:05 Dose: 3 ml Documented By: CHERIE Tamsulosin HCl (Tamsulosin Hcl 0.4 Mg Capsule) 0.8 mg PO DAILY [facility] Last Admin: 02/20/22 07:29 Dose: 0.8 mg Documented By: SHAMAR Labs CBC & Chem 7: 02/18/22 04:21 02/15/22 06:42 Labs: Laboratory Results - last 24 hr 02/20/22 02/20/22 02/21/22 16:22 19:55 07:36 POC Glucose 155 H 148 H 134 H 02/21/22 11:18 POC Glucose 156 H Assessment and Plan (1) Hemorrhage from dialysis catheter: Status: Acute (2) Bacteremia due to Pseudomonas: Status: Acute (3) ESRD (end stage renal disease) on dialysis: Status: Acute (4) Pulmonary embolism: Status: Acute (5) Poor appetite: Status: Acute Plan 67 year old male with history of uncontrolled non-insulin dependent diabetes, htn, ESRD on dialysis MWF, BPH, and urinary retention with chronic indwelling zeng catheter with recent admission to [facility] for acute encephalopathy, NAEEM with hyperkalemia requiring HD being admitted to the hospital for acute respiratory failure with hypoxia secondary to PE, sepsis related to UTI, and AG metabolic acidosis with metabolic encephalopathy and ESRD. Acute pulmonary embolism no chest pain, no shortness of breath, stable oxygenation on room air CTA chest with relatively small burden acute pulmonary emboli within right lower lobe artery non-occulssive. Minimal involvement right upper lobe pulmonary artery. US showing Left superficial femoral DVT initially treated with Heparin drip and then transitioned to Eliquis Eliquis was stopped due to continuous dialysis catheter site bleeding, bleeding ultimately stopped and has been restarted on eliquis without issues Bleeding dialysis catheter likely from trauma. Resolved s/p significant bleed soaking through multiple dressings treated with surgicel and sand bag , seen by vascular surgery treated with DDAVP and sand bag with good effect Acute respiratory failure with hypoxia. Resolved secondary to acute PE,weaned down to room air Sepsis secondary to Gram-negative carin bacteremia Sepsis resolved secondary due to acute UTI. urine and blood culture grew Pseudomonas status post IV Zosyn now transitioned to Levaquin renally dose end date 02/23 CT abdomen/pelvis done on admission - no additional source Poor appetite started on remeron and appetite significantly improved Depression started on prozac 20mg daily. Also on remeron as above, previously was on trazodone with no significant help with sleep or depression ESRD Started recently in [facility] for acute kidney injury , patient now has end-stage renal disease no acute kidney injury this admission, continue schedule MWF using [facility] Nephrology input appreciated, continue MWF schedule Non-Insulin dependent type 2 diabetes HbA1c of 6.5, resume glipizide 5 mg and Januvia Continue SSI, Diabetic diet HTN BP stable /soft, Continue carvedilol and hydralazine, amlodipine discontinued, low BP not due to sepsis HLD Continue atorvastatin BPH with urinary retention Continue chronic zeng catheter - per family no voiding trail was attempted at [facility] Continue tamsulosin, can give voiding trial at rehab facility Debility CM arranging for rehab bed/ nephrology to arrange for outpatient dialysis spot, next hemodialysis due on Monday confusion reported by family on 02/19.. head CT 02/19 was negative for storke or acute changes. no confusion noted today DVT prophylaxis: On eliquis DNR/DNI per [facility] form 02/04/22 need for inpatient: awaiting rehab bed a Quality Stroke Does the patient have a stroke diagnosis?: No VTE Prior VTE?: No VTE Risk Level:: Medical - moderate - high VTE Device Contraindication: Treatment Not Indicated VTE Drug Contraindication: N/A - Med Ordered
--- NOTE | 2022-02-21 13:34 | MHC.CLN ---
F/U PO INTAKE NOTED PT REFUSED BREAKFAST AND LUNCH DIET RX: 2000DM -DIET LIBERALIZED TO INCREASE VARIETY REMERON IN PLACE FOR APPETITE PER MD PT RECEIVING ENSURE BID TO PROMOTE WOUND HEALING PROVIDES 700KCALS, 40G PROTEIN CONTINUE TO MONITOR PO INTAKE CLOSELY
[2022-02-21] MEDS: Apixaban 5 MG TABLET PO ×2 (14:16→21:03)
[2022-02-21] MEDS: FLUoxetine HCl Oral Solution 20 MG/5 ML SOLUTION PO (14:16)
[2022-02-21] MEDS: Tamsulosin HCL 0.4 MG CAPSULE 0.8 MG PO (14:16)
[2022-02-21] MEDS: levoFLOXacin 250 MG TABLET PO (14:16)
[2022-02-21] MEDS: hydrALAZINE HCl 25 MG TABLET PO ×3 (14:16→21:02)
[2022-02-21] MEDS: Atorvastatin Calcium 20 MG TABLET PO (14:16)
[2022-02-21] MEDS: Mineral Oil/Petrolatum,White 106 GM Tube 1 APPL TOPICAL (14:17)
[2022-02-21] MEDS: 0.9 % Sodium Chloride Flush 3 ML SYRINGE IVFLUSH ×3 (14:17→21:05)
--- NOTE | 2022-02-21 15:28 | MHC.CM.PN ---
[facility]charge was anticipated today, [facility]. The referral was sent out and [facility] and [facility] offered beds. The [facility]st choice [facility]. [facility] via BLS. Spoke with Dtleon[facility] Fuentes and patient for discharge planning.
--- NOTE | 2022-02-21 16:48 | P.PNNP_ITS ---
Subjective Subjective Date of Service: 02/21/22 Interval history: Seen and examiend, events noted, Physical Exam Vital Signs: Vital Signs: Last Vital Signs Temp 97.7 F 02/21/22 15:25 Pulse 74 02/21/22 15:25 Resp 16 02/21/22 15:25 BP 112/64 02/21/22 07:34 Pulse Ox 99 02/21/22 15:25 O2 Del Method 02/21/22 15:25 O2 Flow Rate 1 02/11/22 07:26 Oxygen Flow Rate 2 02/08/22 15:03 BMI result Body Mass Index 27.4 Const: Other: General: AO X , no acute distress Resp: CTA bilateral CVS: S1,S2,RRR GI: +BS, NT, no distention Skin: catheter site without bleed Neuro: motor grossly intact Psych: appropriate affect General: cooperative, comfortable, no acute distress, alert and awake Nutritional Appearance: average body habitus Orientation/consciousness: oriented to person, oriented to place, oriented to time and patient oriented x3 Limitations: no limitations HEENT: Head: Yes normal to inspection and Yes atraumatic Ears: hearing grossly normal bilaterally General nose exam: Normal external nose present Face and sinus: Yes normal facial exam Mouth: Normal oral and palatal mucosa present Teeth and gingiva: dentition normal Throat: Yes posterior oropharynx normal Eyes: General: appearance normal, both eyes and all related structures Pupils: Equal, round and reactive pupils present EOM: EOMs intact bilaterally Neck: Neck: Yes normal visual inspection, Yes no meningeal signs and Yes supple Chest: Other: Right chest wall, dialysis catheter in place, dressing clean and dry Resp: Effort & Inspection: normal respiratory effort, able to speak in complete sentences, no respiratory distress and no use of accessory muscles Auscultation: clear to auscultation bilaterally, no rhonchi and lung sounds not diminished Cardio: Rate: regular rate Rhythm: regular rhythm Heart sounds: S1 normal heart sound present and S2 normal heart sound present GI: Inspection: Yes normal to inspection and No distended Palpation (GI): Soft to palpation, nontender, no guarding and not rigid : Other: zeng in place General: Yes no CVA tenderness Back/Spine/Pelvis: Other: left BKA Zeng with punch colored urine Back: no CVA tenderness Skin: General skin exam: no rashes or lesions noted Rashes: no rashes Wounds: no wounds Neuro: Other: grossly intact General: oriented to person, oriented to place, oriented to time, patient oriented x3, tone normal, moves all extremities and no meningeal signs Cranial nerves: Yes Equal, round and reactive pupils present Gait exam (Neuro): Normal gait present Extrem: Other: s/p left AKA General: Yes normal to inspection Psych: Appearance: grossly normal Objective Data Labs CBC & Chem 7: 02/18/22 04:21 02/15/22 06:42 Labs: Laboratory Results - last 24 hr 02/20/22 02/21/22 02/21/22 19:55 07:36 11:18 POC Glucose 148 H 134 H 156 H Microbiology Microbiology Results: Microbiology 02/11/22 11:17 Blood - Venous Blood Culture - Final No growth after 5 days. 02/11/22 11:17 Blood - Venous Blood Culture - Final No growth after 5 days. 02/08/22 15:24 Blood - Venous Blood Culture - Final No growth after 5 days. 02/08/22 15:24 Blood - Venous Blood Culture - Final Pseudomonas aeruginosa 02/08/22 16:12 Urine clean catch - Urine thomas top Urine Culture - Final Pseudomonas aeruginosa Procedures Date of Service Date of Service: 02/21/22 Assessment & Plan Assessment and plan (1) Bacteremia due to Pseudomonas: Status: Acute (2) NAEEM (acute kidney injury): Status: Acute (3) Hypertension: Status: Acute Plan 67 year old male with history of uncontrolled non-insulin dependent diabetes, htn, ESRD on dialysis MWF, BPH, and urinary retention with chronic indwelling zeng catheter with recent admission to [facility] for acute encephalopathy, NAEEM with hyperkalemia requiring HD being admitted to the hospital for acute respiratory failure with hypoxia secondary to PE, sepsis related to UTI, and AG metabolic acidosis with metabolic encephalopathy and NAEEM on CKD 1. NAEEM on CKD: started dialysis at [facility]; monitor UO, check bladder scan to determine if any recovery; creat 7 2. CKD stage 3 underlying 3. PE clinically improved Plan: Cont Dialysis M WF Watch for renal recovery Keep zeng in given retention hx. Needs outpt dialysis spot; has a spot at [facility] unit Time Spent With Patient Time: Total time spent is greater than 50% in coordination of care (as documented) at patient's floor/unit and/or counseling patient: Progress Note: Quality Stroke Does the patient have a stroke diagnosis?: No
[2022-02-21 16:52] LABS: Glucose, Whole Blood 165 mg/dL (60-115)
[2022-02-21] MEDS: Insulin Lispro 100 UNIT/ML 3 ML VIAL SUBCUT (17:28)
[2022-02-21] MEDS: Heparin Sodium,Porcine 5,000 UNIT/ML VIAL 5000 UNIT INTRACATH (17:29)
[2022-02-21] MEDS: carvediloL 25 MG TABLET PO (21:02)
[2022-02-21] MEDS: Sennosides 8.6 MG TABLET 17.2 MG PO (21:02)
[2022-02-21] MEDS: Mirtazapine 15 MG TABLET PO (21:02)
[2022-02-21 21:04] LABS: Glucose, Whole Blood 114 mg/dL (60-115)
[2022-02-21 21:11] LABS: Factor V Leiden NEGATIVE
[2022-02-22] VITALS (8 sets, daily range): BP systolic 90–143; BP diastolic 50–80; PULSE 66–93; RESP 15–20; TEMP 36.1–36.6; O2SAT 95–98
[2022-02-22 07:16] LABS: Glucose, Whole Blood 186 mg/dL (60-115)
[2022-02-22] MEDS: Atorvastatin Calcium 20 MG TABLET PO (07:55)
[2022-02-22] MEDS: Apixaban 5 MG TABLET PO (07:55)
[2022-02-22] MEDS: Fluticasone Propionate 250 MCG BLST.W.DEV 1 PUFF INHALE (07:56)
[2022-02-22] MEDS: Insulin Lispro 100 UNIT/ML 3 ML VIAL SUBCUT ×4 (07:56→21:12)
[2022-02-22] MEDS: hydrALAZINE HCl 25 MG TABLET PO ×2 (07:56→14:42)
[2022-02-22] MEDS: carvediloL 25 MG TABLET PO (07:56)
[2022-02-22] MEDS: 0.9 % Sodium Chloride Flush 3 ML SYRINGE IVFLUSH ×2 (07:56→17:57)
[2022-02-22] MEDS: Tamsulosin HCL 0.4 MG CAPSULE 0.8 MG PO (07:56)
[2022-02-22] MEDS: Mineral Oil/Petrolatum,White 106 GM Tube 1 APPL TOPICAL (07:58)
--- NOTE | 2022-02-22 11:03 | P.CDIC_ITS ---
CDI Concurrent Query Documentation Clarification: PHYSICIAN'S DOCUMENTATION REQUEST Date of Query: 02/22/22 1104 Patient Name: Trevor Avila Admit Date: 02/08/22 Dear Doctor, A review of the medical record indicates additional documentation may be needed. Please review below and update the documentation accordingly. Clinical Indicators: Documentation on progress note dated 02/21/22 included the diagnosis of sepsis. Is there a further diagnosis that correlates with the findings below: Risk Factors/Clinical Indicators/Treatments Per provider notes patient with acute organ dysfunction. -ESRD -Acute respiratory failure with hypoxia -Metabolic encephalopathy Other indicators: -reduction of BP >40 from baseline 02/20 - 02/21 - Recognized standard criteria for this condition and other infectious definitions includes: Bacteremia Abnormal laboratory test - does not indicate a clinically ill patient Sepsis Systemic manifestations of infection, with 2 or more SIRS criteria which include: * Fever > 100.4?F or hypothermia < 96.8?F * Leukocytosis ? WBC > 12,000 or leukopenia, WBC < 4,000, or > 10% bands * Tachycardia- > 90 beats/minute * Tachypnea- RR > 20 breaths/minute or PaCO2 < 32mmHg Source: [employer] Manual 2013 Documentation should include the known or suspected organism, and the underlying infection, such as UTI or pneumonia Severe Sepsis Sepsis with associated acute organ dysfunction, such as renal or respiratory failure Documentation should indicate the association between the sepsis and the organ dysfunction Septic Shock Severe sepsis with associated with circulatory failure, evidenced by hypotension and hypoperfusion Based on the above information and the recognized standard for sepsis, could you please clarify in the Progress Notes if this diagnoses is still accurate and reflective of the patient's condition to ensure quality of the medical record. * Severe sepsis without shock is/was present and is a clinical diagnosis based on (please include this additional support in the medical record)? * Severe sepsis with shock is/was present and is a clinical diagnosis based on (please include this additional support in the medical record) * Sepsis is/was present and is a clinical diagnosis based on (please include this additional support in the medical record) * Other?(please specify) * Unable to determine Use of terms such as suspected, likely, concern for, or probable (associated with a specific diagnosis that is being evaluated, monitored, or treated as if it exists) are acceptable and can be coded in the inpatient setting, when documented at the time of discharge. Thank you, Ro Chapman MS, RN, CCRN Extension: [phone] Please use your independent medical judgment in providing your response. THIS QUERY IS PART OF THE PERMANENT MEDICAL RECORD Provider Response: Other Other Diagnosis: Please review progress note/sepsis resolved receiving antibiotic no new indication for sepsis/severe sepsis, acute respiratory failure has been resolved, confusion resolved,
[2022-02-22 11:35] LABS: Glucose, Whole Blood 220 mg/dL (60-115)
[2022-02-22] MEDS: levoFLOXacin 250 MG TABLET PO (12:02)
--- NOTE | 2022-02-22 12:03 | P.DS_ITS ---
DS: Providers Provider Date of Service: 02/22/22 Date of admission: 02/08/22 20:38 Primary care physician: Unknown Physician Consults: 02/08/22 20:41 Consult to Nephrology Routine Consulting Provider: Giovany Tesfaye Reason for consultation: esrd, needs hd Has provider been notified: No 02/10/22 11:10 Consult to Hematology / Oncology Routine Consulting Provider: Katie Chung Reason for consultation: acute PE, bleeding from catheter site; ?change AC Has provider been notified: No 02/10/22 11:14 Consult to Infectious Diseases Routine Consulting Provider: Kandice Mcfarlane Reason for consultation: pseudomonas UTI; possible pneumonia Has provider been notified: No 02/11/22 09:15 Consult to Psychiatry Routine Consulting Provider: Psych Covering Reason for consultation: depression, decreased appetitie Has provider been notified: No 02/11/22 10:05 Consult to Vascular Surgery Routine Consulting Provider: Andrew Prince Reason for consultation: bleeding dialysis catheter Has provider been notified: No DS: Diagnosis Discharge Diagnosis (1) Hemorrhage from dialysis catheter: Status: Acute (2) Bacteremia due to Pseudomonas: Status: Acute (3) ESRD (end stage renal disease) on dialysis: Status: Acute (4) Pulmonary embolism: Status: Acute (5) Poor appetite: Status: Acute DS: Summary Hospital Course Hospital Course: History of presenting illness Chief Complaint: acute respiratory failure with hypoxia, PE, AG met acidosis, UTI 67 year old male with history of uncontrolled non-insulin dependent diabetes, htn, ESRD on dialysis MWF, BPH, and urinary retention with chronic indwelling zeng catheter with recent admission to [facility] for acute encephalopathy, NAEEM with hyperkalemia requiring HD. Currently patient is residing at SNF and found to be hypoxic at 82% on RA with nausea, vomiting, with poor appetite/decreased PO intake and confused. In ED, significant leukocytosis of 32.6 with left shift. Lactic acid normal 1.2. Anion gap elevated at 25 with bicarb 21 with VBG reflecting overall stable pH of 7.45. Creat elevated 10.51 with BUN 48. CRP elevated 11.68. D-dimer 3246 and subsequent CTA chest showing small burden of acute pulmonary emboli in RLL pulmonary artery non-occlusive with minimal involvement right upper pulmonary artery. There were also several nonspecific pulmonary nodules with recommended follow up in 6-12 months. There are also several areas of underlying airspace disease questionable for pneumonia. Head CT negative. UA significant for 3+ leuks, 2+ blood, 4+ bacteria, 4+ protein, neg nitrites. Urine culture and blood cultures pending. IV vancomycin initiated. Initially Temperature low 96.5, bp 95/55, mildly tachypneic 21, oximetry 94% on 2L supplemental O2. History of heavy etoh use, but none in recent days. Hospital course 67 year old male with history of uncontrolled non-insulin dependent diabetes, htn, ESRD on dialysis MWF, BPH, and urinary retention with chronic indwelling zeng catheter with recent admission to [facility] for acute encephalopathy, NAEEM with hyperkalemia requiring HD being admitted to the hospital for acute respiratory failure with hypoxia secondary to PE, sepsis related to UTI, and AG metabolic acidosis with metabolic encephalopathy and ESRD. Acute pulmonary embolism patient feeling better has no chest pain no shortness of breath oxygenation stable on room air CTA chest on admission showed relatively small burden acute pulmonary emboli within right lower lobe artery non-occulssive. Minimal involvement right upper lobe pulmonary artery,US showing Left superficial femoral DVT,initially treated with Heparin drip and then? transitioned to Eliquis,Eliquis was stopped due to continuous dialysis catheter site bleeding, bleeding ultimately stopped and has been restarted on eliquis without issues. Bleeding dialysis catheter likely from trauma. Resolved,s/p significant bleed soaking through multiple dressings? treated with surgicel and sand bag , seen by vascular surgery treated with DDAVP and sand bag with good effect Acute respiratory failure with hypoxia. Resolved was secondary to acute PE, now on room air with stable oxygenation Sepsis secondary to Pseudomonas UTI,Sepsis resolved, urine and blood culture grew Pseudomonas status post IV Zosyn now transitioned to Levaquin renally dose end date 02/23 CT abdomen/pelvis done on admission - no additional source Poor appetite noted started on remeron and appetite significantly improved. Depression started on prozac 20mg daily. Also on remeron as above, previously was on trazodone with no significant help with sleep or depression ESRD Started on hemodialysis recently in [facility] for acute kidney injury , patient now has end-stage renal disease,continue schedule MWF using [facility], was followed closely by Nephrology Non-Insulin dependent type 2 diabetes HbA1c of 6.5, resume glipizide 5 mg and Januvia and recommend diabetic diet, follow blood sugar closely HTN BP stable /soft, Continue carvedilol and hydralazine, amlodipine discontinued HLD Continue atorvastatin BPH with urinary retention Continue chronic zeng catheter - Continue tamsulosin, can give voiding trial at rehab facility Debility being discharged to rehab facility Toxic metabolic encephalopathy resolved was likely related to sepsis,confusion reported by family on 02/19.. head CT 02/19 was negative for storke or acute changes. Time Spent with Patient Time attestation: Total time spent providing and/or coordinating discharge services: Discharge coordination time: Greater than 30 minutes Quality: Safe Use of Opioids Does Pt have an Active Cancer Diagnosis on the Problem List?: No Quality: Stroke Does the patient have a stroke diagnosis?: No Physical Exam Vital Signs: Vital Signs: Last Vital Signs Temp 97.8 F 02/22/22 11:18 Pulse 82 02/22/22 11:18 Resp 18 02/22/22 11:18 BP 113/75 02/22/22 11:18 Pulse Ox 96 02/22/22 11:18 O2 Del Method 02/22/22 11:18 O2 Flow Rate 1 02/11/22 07:26 Oxygen Flow Rate 2 02/08/22 15:03 BMI result Body Mass Index 27.4 Const: Other: General: awake alert x3, no acute distress neck no JVD right anterior chest wall catheter in place with bruising, no bleeding noted Resp:? CTA bilateral CVS: S1,S2,RRR GI:? abdomen soft nontender bowel sounds audible Neuro:? motor grossly intact Extremities left above-knee amputation Psych: appropriate affect DS: Data Data Completed and Pending Labs on day of discharge: Laboratory Results - last 24 hr 02/12/22 02/21/22 02/21/22 15:40 16:48 21:00 Factor V Leiden NEGATIVE Factor V Leiden Interp See Below POC Glucose 165 H 114 02/22/22 02/22/22 07:13 11:32 Factor V Leiden Factor V Leiden Interp POC Glucose 186 H 220 H Discharge Plan Discharge Patient Disposition: Xfer SNF Discharge Diagnosis: acute hypoxic respiratory failure due to PE Pseudomonas UTI sepsis depression end-stage renal disease Referrals: [facility] [Outside] - 1 Week Physician,Unknown J [Primary Care Provider] - 1 Week Discharge Medications: New fluoxetine 20 mg/5 mL (4 mg/mL) Solution 20 mg PO DAILY Qty: 30 0RF mirtazapine 15 mg Tablet 15 mg PO BEDTIME Qty: 30 0RF Eliquis 5 mg Tablet 5 mg PO BID Qty: 60 0RF levofloxacin 250 mg Tablet 250 mg PO Q24H Qty: 2 0RF glipizide 5 mg tablet 5 mg PO DAILY Qty: 30 0RF Continued carvedilol 25 mg Tablet 25 mg PO BID Rx Instructions: must administer with a meal/food sennosides [senna] 8.6 mg Tablet 17.2 mg PO BEDTIME acetaminophen [Tylenol] 325 mg Tablet 650 mg PO Q4H PRN (Reason: Fever) atorvastatin 20 mg Tablet 20 mg PO DAILY hydralazine 25 mg Tablet 25 mg PO TID tamsulosin 0.4 mg Capsule 0.8 mg PO DAILY aspirin 81 mg Tablet,Chewable 81 mg PO DAILY fluticasone propionate 220 mcg/actuation Hfa Aerosol Inhaler 1 puff INHALATION BID sitagliptin 100 mg Tablet 100 mg PO DAILY Discontinued trazodone 50 mg Tablet 50 mg PO BEDTIME glipizide 10 mg Tablet 10 mg PO DAILY amlodipine 10 mg tablet 1 tab PO DAILY Discharge Orders: Discharge Order (Routine); Ordered 02/22/22 Ordered By: Ev Elizalde Diet: Diabetic diet Activity on Discharge: As tolerated Stand Alone Forms: Patient Portal Discharge page Care Plan Goals: hypoxia resolved, take Levaquin end date 02/23, continue Eliquis 5 mg twice daily, follow diabetic diet hemoglobin A1c 6.5, started on new medication for depression hematocrit stable Health Concerns: take all medications as prescribed Plan of Treatment: continue hemodialysis as planned on Monday, outpatient follow- up with primary care physician and Nephrology Assessment: as per discharge summary
[2022-02-22 13:14] LABS: COVID-19 Test Negative (Negative)
[2022-02-22] MEDS: ondansetron HCL 4 MG/2 ML VIAL IVPUSH (13:19)
--- NOTE | 2022-02-22 13:25 | PM.EVENT ---
Event Note Date of Service: 02/22/22 Event Note: Patient had 2 small episodes of brown colored vomitus 1 after breakfast 20 mL followed by another episode of 50 mL patient offers no symptoms of epigastric pain, having regular bowel movements daily, no fevers no chills offers no other acute symptoms patient started on Prilosec, since patient is asymptomatic will discharge to rehab facility, inform daughter about 1 episode of vomiting she notified the patient has history of gastritis.
[2022-02-22] MEDS: Omeprazole 20 MG CAPSULE.DR PO (14:42)
--- NOTE | 2022-02-22 16:25 | HO.PM.IMPN ---
Subjective Subjective Date of Service: 02/23/22 Interval History: Patient noted to have multiple episodes of small amount of vomitus brown-colored for with no fresh blood noted, patient was given Zofran with no significant relief, therefore discharge to rehab canceled, patient denies associated abdominal pain has regular bowel movement, no fevers no chills, head brown-colored stool with no blood this morning, tolerating diet patient has had no fever no chills blood pressure stable Review of Systems [employer] no headache no dizziness CVS no chest pain, no palpitation General no pain, no fevers, chills Review of Systems: Yes all other systems are reviewed and are negative Physical Exam Vital Signs: Vital Signs: Last Vital Signs Temp 96.9 F 02/22/22 16:00 Pulse 93 02/22/22 16:00 Resp 15 02/22/22 16:00 BP 103/80 02/22/22 16:00 Pulse Ox 96 02/22/22 16:00 O2 Del Method 02/22/22 16:00 O2 Flow Rate 1 02/11/22 07:26 Oxygen Flow Rate 2 02/08/22 15:03 BMI result Body Mass Index 27.4 Const: Other: General: awake alert x3, no acute distress neck no JVD right anterior chest wall catheter in place with bruising, no bleeding noted Resp:? CTA bilateral CVS: S1,S2,RRR GI:? abdomen soft nontender bowel sounds audible Neuro:? motor grossly intact Extremities left AKA right lower extremity no edema Psych: appropriate affect Objective Data Active Medications Apixaban (Apixaban 5 Mg Tablet) 5 mg PO BID [facility] Last Admin: 02/22/22 07:55 Dose: 5 mg Documented By: BYRON Aspirin (Aspirin 81 Mg Tab.Chew) 81 mg PO DAILY [facility] Last Admin: 02/10/22 08:52 Dose: 81 mg Documented By: LASHAY Atorvastatin Calcium (Atorvastatin Calcium 20 Mg Tablet) 20 mg PO DAILY [facility] Last Admin: 02/22/22 07:55 Dose: 20 mg Documented By: BYRON Carvedilol (Carvedilol 25 Mg Tablet) 25 mg PO BID [facility]; Protocol Last Admin: 02/22/22 07:56 Dose: 25 mg Documented By: BYRON Famotidine (Famotidine/Pf 20 Mg/2 Ml Vial) 20 mg IVPUSH ONCE ONE Stop: 02/22/22 16:24 Fluoxetine HCl (Fluoxetine Hcl Oral Solution 20 Mg/5 Ml Solution) 20 mg PO DAILY [facility] Last Admin: 02/22/22 07:58 Dose: Not Given Documented By: BYRON Non-Admin Reason: Patient Refused Fluticasone Propionate (Fluticasone Propionate 250 Mcg Blst.W.Dev) 1 puff INHALE RBID [facility] Last Admin: 02/22/22 07:56 Dose: 1 puff Documented By: ALEN Heparin Sodium (Porcine) (Heparin Sodium,Porcine 5,000 Unit/Ml Vial) 5,000 unit INTRACATH MOWEFR@1645 [facility] Last Admin: 02/21/22 17:29 Dose: 5,000 unit Documented By: BYRON Hydralazine HCl (Hydralazine Hcl 25 Mg Tablet) 25 mg PO TID [facility]; Protocol Last Admin: 02/22/22 14:42 Dose: 25 mg Documented By: BYRON Hydroxyzine HCl (Hydroxyzine Hcl 10 Mg Tablet) 10 mg PO Q8H PRN PRN Reason: Itching Last Admin: 02/10/22 22:26 Dose: 10 mg Documented By: VALERIE Insulin Human Lispro (Insulin Lispro 100 Unit/Ml 3 Ml Vial) 0 unit SUBCUT QIDACHS [facility]; Protocol Last Admin: 02/22/22 12:01 Dose: 4 unit Documented By: BYRON Levofloxacin (Levofloxacin 250 Mg Tablet) 250 mg PO Q24H [facility] Last Admin: 02/22/22 12:02 Dose: 250 mg Documented By: BYRON Metoclopramide HCl (Metoclopramide Hcl 10 Mg/2 Ml Vial) 5 mg IVPUSH ONCE ONE Stop: 02/22/22 16:24 Mirtazapine (Mirtazapine 15 Mg Tablet) 15 mg PO BEDTIME [facility] Last Admin: 02/21/22 21:02 Dose: 15 mg Documented By: ARIELA Multi-Ingred Cream/Lotion/Oil/Oint (Mineral Oil/Petrolatum,White 106 Gm Tube) 1 appl TOPICAL BID [facility]; Protocol Last Admin: 02/22/22 07:58 Dose: 1 appl Documented By: BYRON Ondansetron HCl (Ondansetron Hcl 4 Mg/2 Ml Vial) 4 mg IVPUSH Q8H PRN PRN Reason: Nausea Last Admin: 02/22/22 13:19 Dose: 4 mg Documented By: BYRON Pharmacy Consult (Consult Rx Perform Med Rec) 1 each MISCELLANE ONCE PRN PRN Reason: Consult order Senna (Sennosides 8.6 Mg Tablet) 17.2 mg PO BEDTIME [facility] Last Admin: 02/21/22 21:02 Dose: 17.2 mg Documented By: ARIELA Sodium Chloride (0.9 % Sodium Chloride Flush 3 Ml Syringe) 3 ml IVFLUSH QSHIFT [facility] Last Admin: 02/22/22 07:56 Dose: 3 ml Documented By: BYRON Tamsulosin HCl (Tamsulosin Hcl 0.4 Mg Capsule) 0.8 mg PO DAILY [facility] Last Admin: 02/22/22 07:56 Dose: 0.8 mg Documented By: BYRON Labs CBC & Chem 7: 02/23/22 08:55 02/23/22 08:55 Labs: Laboratory Results - last 24 hr 02/12/22 02/21/22 02/21/22 15:40 16:48 21:00 Factor V Leiden NEGATIVE Factor V Leiden Interp See Below POC Glucose 165 H 114 COVID-19 (AGUSTIN) COVID-19 Clin Com 02/22/22 02/22/22 02/22/22 07:13 11:32 12:49 Factor V Leiden Factor V Leiden Interp POC Glucose 186 H 220 H COVID-19 (AGUSTIN) Negative COVID-19 Clin Com See Note Assessment and Plan (1) Hypertension: Status: Acute (2) Bacteremia due to Pseudomonas: Status: Acute Plan 67 year old male with history of uncontrolled non-insulin dependent diabetes, htn, ESRD on dialysis MWF, BPH, and urinary retention with chronic indwelling zeng catheter with recent admission to [facility] for acute encephalopathy, NAEEM with hyperkalemia requiring HD being admitted to the hospital for acute respiratory failure with hypoxia secondary to PE, sepsis related to UTI, and AG metabolic acidosis with metabolic encephalopathy and ESRD. Nausea and vomiting Patient noted to have multiple episodes of vomitus without associated abdominal pain, no diarrhea, due to above symptoms will cancel discharge to rehab Will place patient on by mouth Prilosec and give 1 dose of IV Pepcid, DC aspirin monitor cbc and clinical course, recent abdominal CT was negative Since patient with normal abdominal examination will hold off on further imaging study and follow clinical course closely., will repeat labs at a.m. Acute pulmonary embolism no chest pain, no shortness of breath, stable oxygenation on room air CTA chest with relatively small burden acute pulmonary emboli within right lower lobe artery non-occulssive. Minimal involvement right upper lobe pulmonary artery. US showing Left superficial femoral DVT initially treated with Heparin drip and then? transitioned to Eliquis Eliquis was stopped due to continuous dialysis catheter site bleeding, bleeding ultimately stopped and has been restarted on eliquis without issues Bleeding dialysis catheter likely from trauma. Resolved s/p significant bleed soaking through multiple dressings? treated with surgicel and sand bag , seen by vascular surgery treated with DDAVP and sand bag with good effect Acute respiratory failure with hypoxia. Resolved secondary to acute PE,weaned down to room air Sepsis secondary to Gram-negative carin bacteremia Sepsis resolved secondary due to acute UTI.? urine and blood culture grew Pseudomonas status post IV Zosyn now transitioned to Levaquin renally dose end date 02/23 CT abdomen/pelvis done on admission - no additional source Poor appetite started on remeron and appetite significantly improved Depression started on prozac 20mg daily. Also on remeron as above, previously was on trazodone with no significant help with sleep or depression ESRD Started recently in [facility] for acute kidney injury , patient now has end-stage renal disease no acute kidney injury this admission, continue schedule MWF using [facility] Nephrology input appreciated, continue MWF schedule Non-Insulin dependent type 2 diabetes HbA1c of 6.5, resume glipizide 5 mg and Januvia Continue SSI, Diabetic diet HTN BP stable /soft, Continue carvedilol and hydralazine, amlodipine discontinued, low BP not due to sepsis HLD Continue atorvastatin BPH with urinary retention Continue chronic zeng catheter - per family no voiding trail was attempted at [facility] Continue tamsulosin, can give voiding trial at rehab facility Debility CM arranging for rehab bed/ nephrology to arrange for outpatient dialysis spot, next hemodialysis due on Monday confusion reported by family on 02/19.. head CT 02/19 was negative for storke or acute changes. no confusion noted today DVT prophylaxis: On eliquis DNR/DNI per [facility] form 02/04/22 need for inpatient: Multiple episodes of coffee-ground emesis need monitoring of CBC and clinical status. Quality Stroke Does the patient have a stroke diagnosis?: No VTE Prior VTE?: No VTE Risk Level:: Medical - moderate - high VTE Device Contraindication: Treatment Not Indicated VTE Drug Contraindication: N/A - Med Ordered
[2022-02-22 16:57] LABS: Glucose, Whole Blood 192 mg/dL (60-115)
[2022-02-22] MEDS: Famotidine/PF 20 MG/2 ML VIAL IVPUSH (17:54)
[2022-02-22] MEDS: Metoclopramide HCl 10 MG/2 ML VIAL 5 MG IVPUSH (17:54)
[2022-02-22 18:21] LABS: Hematocrit 32.4 % (42.0-52.0); Hemoglobin 10.9 g/dl (14.0-18.0); Mean Corpuscular HGB Conc 33.6 g/dl (31.0-36.0); Mean Corpuscular Hemoglobin 30.1 pg (27.0-33.0); Mean Corpuscular Volume 89.5 fL (80.0-98.0); Platelet Count 236 X10*3/uL (160-400); Red Blood Count 3.62 X10*6/uL (4.60-5.80); Red Cell Distribution Width 13.3 % (11.0-16.0); White Blood Count 16.9 X10*3/uL (4.8-10.8)
[2022-02-22 20:55] LABS: Glucose, Whole Blood 167 mg/dL (60-115)
--- NOTE | 2022-02-22 21:07 | PM.PNNEP ---
Subjective Subjective Date of Service: 02/22/22 Interval history: Sen and examined, events noted Physical Exam Vital Signs: Vital Signs: Last Vital Signs Temp 97.2 F 02/22/22 20:00 Pulse 80 02/22/22 20:00 Resp 20 02/22/22 20:00 BP 114/50 L 02/22/22 20:00 Pulse Ox 98 02/22/22 20:00 O2 Del Method 02/22/22 20:00 O2 Flow Rate 1 02/11/22 07:26 Oxygen Flow Rate 2 02/08/22 15:03 BMI result Body Mass Index 27.4 Const: Other: General: AO X , no acute distress Resp: CTA bilateral CVS: S1,S2,RRR GI: +BS, NT, no distention Skin: catheter site without bleed Neuro: motor grossly intact Psych: appropriate affect General: cooperative, comfortable, no acute distress, alert and awake Nutritional Appearance: average body habitus Orientation/consciousness: oriented to person, oriented to place, oriented to time and patient oriented x3 Limitations: no limitations HEENT: Head: Yes normal to inspection and Yes atraumatic Ears: hearing grossly normal bilaterally General nose exam: Normal external nose present Face and sinus: Yes normal facial exam Mouth: Normal oral and palatal mucosa present Teeth and gingiva: dentition normal Throat: Yes posterior oropharynx normal Eyes: General: appearance normal, both eyes and all related structures Pupils: Equal, round and reactive pupils present EOM: EOMs intact bilaterally Neck: Neck: Yes normal visual inspection, Yes no meningeal signs and Yes supple Chest: Other: Right chest wall, dialysis catheter in place, dressing clean and dry Resp: Effort & Inspection: normal respiratory effort, able to speak in complete sentences, no respiratory distress and no use of accessory muscles Auscultation: clear to auscultation bilaterally, no rhonchi and lung sounds not diminished Cardio: Rate: regular rate Rhythm: regular rhythm Heart sounds: S1 normal heart sound present and S2 normal heart sound present GI: Inspection: Yes normal to inspection and No distended Palpation (GI): Soft to palpation, nontender, no guarding and not rigid : Other: zeng in place General: Yes no CVA tenderness Back/Spine/Pelvis: Other: left BKA Zeng with punch colored urine Back: no CVA tenderness Skin: General skin exam: no rashes or lesions noted Rashes: no rashes Wounds: no wounds Neuro: Other: grossly intact General: oriented to person, oriented to place, oriented to time, patient oriented x3, tone normal, moves all extremities and no meningeal signs Cranial nerves: Yes Equal, round and reactive pupils present Gait exam (Neuro): Normal gait present Extrem: Other: s/p left AKA General: Yes normal to inspection Psych: Appearance: grossly normal Objective Data Labs CBC & Chem 7: 02/22/22 18:16 02/15/22 06:42 Labs: Laboratory Results - last 24 hr 02/12/22 02/22/22 02/22/22 15:40 07:13 11:32 WBC RBC Hgb Hct MCV MCH MCHC RDW Plt Count MPV Absolute Nucleated RBC Nucleated RBC % (auto) Factor V Leiden NEGATIVE Factor V Leiden Interp See Below POC Glucose 186 H 220 H COVID-19 (AGUSTIN) COVID-19 Clin Com 02/22/22 02/22/22 02/22/22 12:49 16:08 18:16 WBC 16.9 H RBC 3.62 L Hgb 10.9 L Hct 32.4 L MCV 89.5 MCH 30.1 MCHC 33.6 RDW 13.3 Plt Count 236 MPV 11.0 Absolute Nucleated RBC 0.000 Nucleated RBC % (auto) 0.0 Factor V Leiden Factor V Leiden Interp POC Glucose 192 H COVID-19 (AGUSTIN) Negative COVID-19 Clin Com See Note 02/22/22 20:47 WBC RBC Hgb Hct MCV MCH MCHC RDW Plt Count MPV Absolute Nucleated RBC Nucleated RBC % (auto) Factor V Leiden Factor V Leiden Interp POC Glucose 167 H COVID-19 (AGUSTIN) COVID-19 Clin Com Microbiology Microbiology Results: Microbiology 02/11/22 11:17 Blood - Venous Blood Culture - Final No growth after 5 days. 02/11/22 11:17 Blood - Venous Blood Culture - Final No growth after 5 days. 02/08/22 15:24 Blood - Venous Blood Culture - Final No growth after 5 days. 02/08/22 15:24 Blood - Venous Blood Culture - Final Pseudomonas aeruginosa 02/08/22 16:12 Urine clean catch - Urine thomas top Urine Culture - Final Pseudomonas aeruginosa Procedures Date of Service Date of Service: 02/22/22 Assessment & Plan Assessment and plan (1) Bacteremia due to Pseudomonas: Status: Acute (2) NAEEM (acute kidney injury): Status: Acute (3) Hypertension: Status: Acute Plan 67 year old male with history of uncontrolled non-insulin dependent diabetes, htn, ESRD on dialysis MWF, BPH, and urinary retention with chronic indwelling zeng catheter with recent admission to [facility] for acute encephalopathy, NAEEM with hyperkalemia requiring HD being admitted to the hospital for acute respiratory failure with hypoxia secondary to PE, sepsis related to UTI, and AG metabolic acidosis with metabolic encephalopathy and NAEEM on CKD 1. NAEEM on CKD: started dialysis at [facility]; monitor UO, check bladder scan to determine if any recovery; creat 7 2. CKD stage 3 underlying Plan: Cont Dialysis M WF Watch for renal recovery Keep zeng in given retention hx. Needs outpt dialysis spot; has a spot at [facility]; d/c planning Time Spent With Patient Time: Total time spent is greater than 50% in coordination of care (as documented) at patient's floor/unit and/or counseling patient: Progress Note: Quality Stroke Does the patient have a stroke diagnosis?: No
[2022-02-23 03:26] VITALS: BP 169/69; PULSE 85; RESP 20; TEMP 36.9; O2SAT 95
[2022-02-23] MEDS: Omeprazole 20 MG CAPSULE.DR PO (06:15)
[2022-02-23 07:26] VITALS: BP 100/67; PULSE 80; RESP 18; TEMP 36.4; O2SAT 96
[2022-02-23 07:32] LABS: Glucose, Whole Blood 162 mg/dL (60-115)
[2022-02-23 07:55] VITALS: PULSE 74; RESP 16; O2SAT 96
[2022-02-23] MEDS: Fluticasone Propionate 250 MCG BLST.W.DEV 1 PUFF INHALE (07:55)
[2022-02-23] MEDS: Insulin Lispro 100 UNIT/ML 3 ML VIAL SUBCUT (08:41)
[2022-02-23] MEDS: Apixaban 5 MG TABLET PO (08:42)
[2022-02-23] MEDS: hydrALAZINE HCl 25 MG TABLET PO (08:42)
[2022-02-23] MEDS: Atorvastatin Calcium 20 MG TABLET PO (08:42)
[2022-02-23] MEDS: carvediloL 25 MG TABLET PO (08:43)
[2022-02-23] MEDS: Tamsulosin HCL 0.4 MG CAPSULE 0.8 MG PO (08:43)
[2022-02-23] MEDS: Mineral Oil/Petrolatum,White 106 GM Tube 1 APPL TOPICAL (08:43)
[2022-02-23] MEDS: 0.9 % Sodium Chloride Flush 3 ML SYRINGE IVFLUSH (08:47)
[2022-02-23 09:20] LABS: Hematocrit 31.7 % (42.0-52.0); Hemoglobin 10.7 g/dl (14.0-18.0); Mean Corpuscular HGB Conc 33.8 g/dl (31.0-36.0); Mean Corpuscular Hemoglobin 30.1 pg (27.0-33.0); Mean Corpuscular Volume 89.3 fL (80.0-98.0); Mean Platelet Volume 11.3 fL (9.4-12.4); Platelet Count 229 X10*3/uL (160-400); Red Blood Count 3.55 X10*6/uL (4.60-5.80); Red Cell Distribution Width 13.2 % (11.0-16.0); White Blood Count 17.4 X10*3/uL (4.8-10.8)
[2022-02-23 09:45] LABS: Anion Gap 24 (12-20); Blood Urea Nitrogen 49 mg/dL (9-16); Calcium 9.2 mg/dL (8.4-10.2); Carbon Dioxide 18 mmol/L (22-29); Chloride 96 mmol/L (96-108); Creatinine Clr Calc Pharmacy 8.9; Estimated Glomerular Filt Rate 5; Glucose Random 158 mg/dL (60-115); Potassium 4.2 mmol/L (3.3-5.1); Sodium 134 mmol/L (135-145)
--- NOTE | 2022-02-23 11:33 | P.DS_ITS ---
DS: Providers Provider Date of Service: 02/23/22 Date of admission: 02/08/22 20:38 Primary care physician: Unknown Physician Consults: 02/08/22 20:41 Consult to Nephrology Routine Consulting Provider: Giovany Tesfaye Reason for consultation: esrd, needs hd Has provider been notified: No 02/10/22 11:10 Consult to Hematology / Oncology Routine Consulting Provider: Katie Chung Reason for consultation: acute PE, bleeding from catheter site; ?change AC Has provider been notified: No 02/10/22 11:14 Consult to Infectious Diseases Routine Consulting Provider: Kandice Mcfarlane Reason for consultation: pseudomonas UTI; possible pneumonia Has provider been notified: No 02/11/22 09:15 Consult to Psychiatry Routine Consulting Provider: Psych Covering Reason for consultation: depression, decreased appetitie Has provider been notified: No 02/11/22 10:05 Consult to Vascular Surgery Routine Consulting Provider: Andrew Prince Reason for consultation: bleeding dialysis catheter Has provider been notified: No DS: Diagnosis Discharge Diagnosis (1) Hypertension: Status: Acute (2) Bacteremia due to Pseudomonas: Status: Acute DS: Summary Hospital Course Hospital Course: History of presenting illness Chief Complaint: acute respiratory failure with hypoxia, PE, AG met acidosis, UTI 67 year old male with history of uncontrolled non-insulin dependent diabetes, htn, ESRD on dialysis MWF, BPH, and urinary retention with chronic indwelling zeng catheter with recent admission to [facility] for acute encephalopathy, NAEEM with hyperkalemia requiring HD. Currently patient is residing at SNF and found to be hypoxic at 82% on RA with nausea, vomiting, with poor appetite/decreased PO intake and confused. In ED, significant leukocytosis of 32.6 with left shift. Lactic acid normal 1.2. Anion gap elevated at 25 with bicarb 21 with VBG reflecting overall stable pH of 7.45. Creat elevated 10.51 with BUN 48. CRP elevated 11.68. D-dimer 3246 and subsequent CTA chest showing small burden of acute pulmonary emboli in RLL pulmonary artery non-occlusive with minimal involvement right upper pulmonary artery. There were also several nonspecific pu lmonary nodules with recommended follow up in 6-12 months. There are also several areas of underlying airspace disease questionable for pneumonia. Head CT negative. UA significant for 3+ leuks, 2+ blood, 4+ bacteria, 4+ protein, neg nitrites. Urine culture and blood cultures pending. IV vancomycin initiated. Initially Temperature low 96.5, bp 95/55, mildly tachypneic 21, oximetry 94% on 2L supplemental O2. History of heavy etoh use, but none in recent days. Hospital course 67 year old male with history of uncontrolled non-insulin dependent diabetes, htn, ESRD on dialysis MWF, BPH, and urinary retention with chronic indwelling zeng catheter with recent admission to [facility] for acute encephalopathy, NAEEM with hyperkalemia requiring HD being admitted to the hospital for acute respiratory failure with hypoxia secondary to PE, sepsis related to UTI, and AG metabolic acidosis with metabolic encephalopathy and ESRD. Transient nausea and vomiting resolved hematocrit remained stable likely due to gastritis, antibiotics, patient has been started on Prilosec [address] abdomen and pelvis showed no acute abnormality Leukocytosis likely reactive with no fevers, normal physical exam, WBC chronically elevated no further intervention recommended at this time follow CBC periodically Acute pulmonary embolism patient feeling better has no chest pain no shortness of breath oxygenation stable on room air CTA chest on admission showed relatively small burden acute pulmonary emboli within right lower lobe artery non-occulssive. Minimal involvement right upper lobe pulmonary artery,US showing Left superficial femoral DVT,initially treated with Heparin drip and then? transitioned to Eliquis,Eliquis was stopped due to continuous dialysis catheter site bleeding, bleeding ultimately stopped and has been restarted on eliquis without issues. Bleeding dialysis catheter likely from trauma. Resolved,s/p significant bleed soaking through multiple dressings? treated with surgicel and sand bag , seen by vascular surgery treated with DDAVP and sand bag with good effect Acute respiratory failure with hypoxia. Resolved was secondary to acute PE, now on room air with stable oxygenation Sepsis secondary to Pseudomonas UTI,Sepsis resolved, urine and blood culture grew Pseudomonas status post IV Zosyn subsequently transitioned to Levaquin renally dose and finished a course 02/23 CT abdomen/pelvis done on admission - no additional source Poor appetite noted started on remeron and appetite significantly improved. Depression started on prozac 20mg daily, however patient refused to take the medication therefore Prozac has been discontinued, on remeron as above, previously was on trazodone with no significant help with sleep or depression ESRD Started on hemodialysis recently in [facility] for acute kidney injury , patient now has end-stage renal disease,continue schedule MWF using [facility], was followed closely by Nephrology Non-Insulin dependent type 2 diabetes HbA1c of 6.5, resume glipizide 5 mg and Januvia and recommend diabetic diet, follow blood sugar closely HTN BP stable /soft, Continue carvedilol and hydralazine, amlodipine discontinued HLD Continue atorvastatin BPH with urinary retention Continue chronic zeng catheter - Continue tamsulosin, can give voiding trial at rehab facility Debility being discharged to rehab facility Toxic metabolic encephalopathy resolved was likely related to sepsis,confusion reported by family on 02/19.. head CT 02/19 was negative for storke or acute changes. Time Spent with Patient Time attestation: Total time spent providing and/or coordinating discharge services: Discharge coordination time: Greater than 30 minutes Quality: Safe Use of Opioids Does Pt have an Active Cancer Diagnosis on the Problem List?: No Quality: Stroke Does the patient have a stroke diagnosis?: No Physical Exam Vital Signs: Vital Signs: Last Vital Signs Temp 97.6 F 02/23/22 07:26 Pulse 74 02/23/22 07:55 Resp 16 02/23/22 07:55 BP 100/67 02/23/22 07:26 Pulse Ox 96 02/23/22 07:26 O2 Del Method 02/23/22 07:26 O2 Flow Rate 1 02/11/22 07:26 Oxygen Flow Rate 2 02/08/22 15:03 BMI result Body Mass Index 27.4 Const: Other: General: awake alert x3, no acute distress neck no JVD right anterior chest wall catheter in place with bruising, no bleeding noted Resp:? CTA bilateral CVS: S1,S2,RRR GI:? abdomen soft nontender bowel sounds audible, no guarding, no rigidity Neuro:? motor grossly intact Extremities left above-knee amputation Psych: appropriate affect DS: Data Data Completed and Pending Labs on day of discharge: Laboratory Results - last 24 hr 02/22/22 02/22/22 02/22/22 11:32 12:49 16:08 WBC RBC Hgb Hct MCV MCH MCHC RDW Plt Count MPV Absolute Nucleated RBC Nucleated RBC % (auto) Sodium Potassium Chloride Carbon Dioxide Anion Gap BUN Creatinine Estim Creat Clear Calc Estimated GFR POC Glucose 220 H 192 H Random Glucose Calcium COVID-19 (AGUSTIN) Negative COVID-19 Clin Com See Note 02/22/22 02/22/22 02/23/22 18:16 20:47 07:25 WBC 16.9 H RBC 3.62 L Hgb 10.9 L Hct 32.4 L MCV 89.5 MCH 30.1 MCHC 33.6 RDW 13.3 Plt Count 236 MPV 11.0 Absolute Nucleated RBC 0.000 Nucleated RBC % (auto) 0.0 Sodium Potassium Chloride Carbon Dioxide Anion Gap BUN Creatinine Estim Creat Clear Calc Estimated GFR POC Glucose 167 H 162 H Random Glucose Calcium COVID-19 (AGUSTIN) COVID-19 Clin Com 02/23/22 02/23/22 08:55 08:55 WBC 17.4 H RBC 3.55 L Hgb 10.7 L Hct 31.7 L MCV 89.3 MCH 30.1 MCHC 33.8 RDW 13.2 Plt Count 229 MPV 11.3 Absolute Nucleated RBC 0.000 Nucleated RBC % (auto) 0.0 Sodium 134 L Potassium 4.2 Chloride 96 Carbon Dioxide 18 L Anion Gap 24 H BUN 49 H D Creatinine 10.25 H* Estim Creat Clear Calc 8.9 Estimated GFR 5 POC Glucose Random Glucose 158 H D Calcium 9.2 D COVID-19 (AGUSTIN) COVID-19 Clin Com Discharge Plan Discharge Patient Disposition: [facility] ([facility] Discharge Diagnosis: acute hypoxic respiratory failure due to PE Pseudomonas UTI sepsis depression end-stage renal disease Referrals: Tanja [facility] [Outside] - 1 Week Physician,Unknown J [Primary Care Provider] - 1 Week Discharge Medications: New mirtazapine 15 mg Tablet 15 mg PO BEDTIME Qty: 30 0RF Eliquis 5 mg Tablet 5 mg PO BID Qty: 60 0RF glipizide 5 mg tablet 5 mg PO DAILY Qty: 30 0RF omeprazole 20 mg capsule,delayed release(DR/EC) 20 mg PO DAILY Qty: 30 0RF Continued carvedilol 25 mg Tablet 25 mg PO BID Rx Instructions: must administer with a meal/food sennosides [senna] 8.6 mg Tablet 17.2 mg PO BEDTIME acetaminophen [Tylenol] 325 mg Tablet 650 mg PO Q4H PRN (Reason: Fever) atorvastatin 20 mg Tablet 20 mg PO DAILY hydralazine 25 mg Tablet 25 mg PO TID tamsulosin 0.4 mg Capsule 0.8 mg PO DAILY fluticasone propionate 220 mcg/actuation Hfa Aerosol Inhaler 1 puff INHALATION BID sitagliptin 100 mg Tablet 100 mg PO DAILY Discontinued trazodone 50 mg Tablet 50 mg PO BEDTIME glipizide 10 mg Tablet 10 mg PO DAILY amlodipine 10 mg tablet 1 tab PO DAILY aspirin 81 mg Tablet,Chewable 81 mg PO DAILY Discharge Orders: Discharge Order (Routine); Ordered 02/23/22 Ordered By: Ev Elizalde Diet: Diabetic diet Activity on Discharge: As tolerated Stand Alone Forms: Patient Portal Discharge page Care Plan Goals: hypoxia resolved, take Levaquin end date 02/23, continue Eliquis 5 mg twice daily, follow diabetic diet hemoglobin A1c 6.5, started on new medication for depression hematocrit stable Health Concerns: take all medications as prescribed Plan of Treatment: continue hemodialysis as planned on Monday, outpatient follow- up with primary care physician and Nephrology Assessment: as per discharge summary
--- NOTE | 2022-02-23 12:03 | PM.PNNEP ---
Subjective Subjective Date of Service: 02/23/22 Interval history: Sen and examined, events noted Physical Exam Vital Signs: Vital Signs: Last Vital Signs Temp 98.1 F 02/23/22 15:50 Pulse 76 02/23/22 15:50 Resp 20 02/23/22 15:50 BP 109/62 02/23/22 15:50 Pulse Ox 98 02/23/22 15:50 O2 Del Method 02/23/22 15:50 O2 Flow Rate 1 02/11/22 07:26 Oxygen Flow Rate 2 02/08/22 15:03 BMI result Body Mass Index 27.4 Const: Other: General: AO X , no acute distress Resp: CTA bilateral CVS: S1,S2,RRR GI: +BS, NT, no distention Skin: catheter site without bleed Neuro: motor grossly intact Psych: appropriate affect General: cooperative, comfortable, no acute distress, alert and awake Nutritional Appearance: average body habitus Orientation/consciousness: oriented to person, oriented to place, oriented to time and patient oriented x3 Limitations: no limitations HEENT: Head: Yes normal to inspection and Yes atraumatic Ears: hearing grossly normal bilaterally General nose exam: Normal external nose present Face and sinus: Yes normal facial exam Mouth: Normal oral and palatal mucosa present Teeth and gingiva: dentition normal Throat: Yes posterior oropharynx normal Eyes: General: appearance normal, both eyes and all related structures Pupils: Equal, round and reactive pupils present EOM: EOMs intact bilaterally Neck: Neck: Yes normal visual inspection, Yes no meningeal signs and Yes supple Chest: Other: Right chest wall, dialysis catheter in place, dressing clean and dry Resp: Effort & Inspection: normal respiratory effort, able to speak in complete sentences, no respiratory distress and no use of accessory muscles Auscultation: clear to auscultation bilaterally, no rhonchi and lung sounds not diminished Cardio: Rate: regular rate Rhythm: regular rhythm Heart sounds: S1 normal heart sound present and S2 normal heart sound present GI: Inspection: Yes normal to inspection and No distended Palpation (GI): Soft to palpation, nontender, no guarding and not rigid : Other: zeng in place General: Yes no CVA tenderness Back/Spine/Pelvis: Other: left BKA Zeng with punch colored urine Back: no CVA tenderness Skin: General skin exam: no rashes or lesions noted Rashes: no rashes Wounds: no wounds Neuro: Other: grossly intact General: oriented to person, oriented to place, oriented to time, patient oriented x3, tone normal, moves all extremities and no meningeal signs Cranial nerves: Yes Equal, round and reactive pupils present Gait exam (Neuro): Normal gait present Extrem: Other: s/p left AKA General: Yes normal to inspection Psych: Appearance: grossly normal Objective Data Labs CBC & Chem 7: 02/23/22 08:55 02/23/22 08:55 Labs: Laboratory Results - last 24 hr 02/23/22 16:03 POC Glucose 163 H Microbiology Microbiology Results: Microbiology 02/11/22 11:17 Blood - Venous Blood Culture - Final No growth after 5 days. 02/11/22 11:17 Blood - Venous Blood Culture - Final No growth after 5 days. 02/08/22 15:24 Blood - Venous Blood Culture - Final No growth after 5 days. 02/08/22 15:24 Blood - Venous Blood Culture - Final Pseudomonas aeruginosa 02/08/22 16:12 Urine clean catch - Urine thomas top Urine Culture - Final Pseudomonas aeruginosa Procedures Date of Service Date of Service: 02/23/22 Assessment & Plan Assessment and plan (1) Bacteremia due to Pseudomonas: Status: Acute (2) NAEEM (acute kidney injury): Status: Acute (3) Hypertension: Status: Acute Plan 67 year old male with history of uncontrolled non-insulin dependent diabetes, htn, ESRD on dialysis MWF, BPH, and urinary retention with chronic indwelling zeng catheter with recent admission to [facility] for acute encephalopathy, NAEME with hyperkalemia requiring HD being admitted to the hospital for acute respiratory failure with hypoxia secondary to PE, sepsis related to UTI, and AG metabolic acidosis with metabolic encephalopathy and NAEEM on CKD 1. NAEEM on CKD: started dialysis at [facility]; monitor UO, check bladder scan to determine if any recovery; creat 7 2. CKD stage 3 underlying Plan: Cont Dialysis M WF Watch for renal recovery Keep zeng in given retention hx. Needs outpt dialysis spot; has a spot at [facility] unit; d/c planning Time Spent With Patient Time: Total time spent is greater than 50% in coordination of care (as documented) at patient's floor/unit and/or counseling patient: Progress Note: Quality Stroke Does the patient have a stroke diagnosis?: No
--- NOTE | 2022-02-23 14:21 | MHC.CLN ---
F/U PO INTAKE 25% DIET RX: 2000DM -LIBERALIZED TO INCREASE VARIETY REMERON IN PLACE FOR APPETITE PER MD PT RECEIVING ENSURE BID TO PROMOTE WOUND HEALING PROVIDES 700KCALS, 40G PROTEIN CONTINUE TO MONITOR PO INTAKE CLOSELY
--- NOTE | 2022-02-23 14:48 | PC.NURSE ---
1435-pt returned to room from dialysis.
[2022-02-23 15:50] VITALS: BP 109/62; PULSE 76; RESP 20; TEMP 36.7; O2SAT 98
[2022-02-23 16:09] LABS: Glucose, Whole Blood 163 mg/dL (60-115)
--- NOTE | 2022-02-23 16:21 | MHC.CM.PN ---
IMM 02/22/22 Male 67 discharged to [facility] via BLS today. He received HD today. All dc info sent to facility.
--- NOTE | 2022-02-23 18:19 | PC.NURSE ---
Tried calling report to [facility] with no success 2x.
== END 2022-02-23 18:20 | disposition skilled nursing facility (03) | DRG 871 ==
LOC: HO.ED 20:51 → HO.EDOVER 22:09 → HO.IMC 02-09 13:58
PROVIDERS: Internal Medicine; Internal Medicine Nephrology; Nurse Practitioner Acute Care; Physician Assistant; Physician Assistant Medical; Student in an Organized Health Care Education/Training Program; Admitting Provider Physician Assistant; Emergency Provider Internal Medicine; Visit Provider Hospitalist
DX: A41.52 Sepsis due to Pseudomonas (principal); G92.8 Other toxic encephalopathy; I26.99 Other pulmonary embolism without acute cor pulmonale; N18.6 End stage renal disease; J18.9 Pneumonia, unspecified organism; N17.0 Acute kidney failure with tubular necrosis; I12.0 Hypertensive chronic kidney disease with stage 5 chronic kidney disease or end stage renal disease; N39.0 Urinary tract infection, site not specified; E87.2 Acidosis; T82.838A Hemorrhage due to vascular prosthetic devices, implants and grafts, initial encounter; Z66 Do not resuscitate; E11.51 Type 2 diabetes mellitus with diabetic peripheral angiopathy without gangrene; E11.22 Type 2 diabetes mellitus with diabetic chronic kidney disease; N40.1 Benign prostatic hyperplasia with lower urinary tract symptoms; E78.5 Hyperlipidemia, unspecified; R31.0 Gross hematuria; F32.9 Major depressive disorder, single episode, unspecified; B96.5 Pseudomonas (aeruginosa) (mallei) (pseudomallei) as the cause of diseases classified elsewhere; Z99.2 Dependence on renal dialysis; Y82.8 Other medical devices associated with adverse incidents; R33.8 Other retention of urine; F10.11 Alcohol abuse, in remission; Z20.822 Contact with and (suspected) exposure to COVID-19; Z89.512 Acquired absence of left leg below knee; Z79.899 Other long term (current) drug therapy
CPT/HCPCS: 36415; 70450; 71275; 74177; 80048; 80076; 80202; 81001; 81241; 82140; 82728; 82803; 82947; 83036; 83605; 83690; 83735; 83880; 84145; 84484; 85014; 85018; 85025; 85027; 85210; 85230; 85240; 85246; 85379; 85384; 85597; 85610; 85613; 85730; 86140; 86704; 86706; 86850; 86900; 86901; 87040; 87077; 87086; 87088; 87186; 87205; 87340; 87635; 90935; 93005; 93306; 93970; 97162; 99285; C1758; J0885; J2405; J2543; J2597; J2765; J3370; Q9967

== ENCOUNTER 2022-11-04 13:42 | Outpatient (REF) | payer OTHER, SELFPAY ==
--- NOTE | ~2022-11-04 | MR_ITS ---
EXAMINATION: MR SHOULDER WITHOUT CONTRAST, RIGHT CLINICAL INFORMATION: Right shoulder pain. Decreased range of motion. COMPARISON: None available. TECHNIQUE: MRI of the shoulder without contrast was performed on a high-field scanner. FINDINGS: ROTATOR CUFF: Supraspinatus tendinosis with an irregular full-thickness partial tear measuring 1.5 x 1.0 cm anteriorly. Mild infraspinatus tendinosis. Moderate subscapularis tendinosis with articular surface fraying/partial tearing. No muscle atrophy or fatty infiltration. BICEPS: Flattening and medial subluxation of the proximal long head biceps tendon as it drapes over the lesser tuberosity, consistent with longitudinal partial tearing. Fluid within the tendon sheath which could indicate mild tenosynovitis. CORACOACROMIAL ARCH: The undersurface of the acromion is curved with subacromial spurring. Moderate acromioclavicular osteoarthritis. LABRUM/CAPSULE: Attenuation of the posterosuperior labrum which could represent mild degeneration. No displaced labral tear. Intact inferior joint capsule. GLENOHUMERAL JOINT/MARROW: Mild glenohumeral articular cartilage signal heterogeneity with tiny marginal osteophytes. Trace joint effusion. MR/MR shoulder RT wo con IMPRESSION: 1. Supraspinatus tendinosis with irregular full-thickness partial tearing measuring 1.5 x 1.0 cm. Mild infraspinatus tendinosis. Moderate subscapularis tendinosis with articular surface fraying/partial tearing. 2. Flattening and medial subluxation of the proximal long head biceps tendon as it drapes over the lesser tuberosity, consistent with longitudinal partial tearing. Mild tenosynovitis. 3. Moderate acromioclavicular osteoarthritis with acromial spurring. 4. Mild degeneration of the posterosuperior labrum. No displaced labral tear. 5. Mild glenohumeral osteoarthritis and trace joint effusion.
== END 2022-11-04 13:43 | disposition home or self-care (01) ==
LOC: HO.MRI 13:42
PROVIDERS: PCP Internal Medicine; Visit Provider Nurse Practitioner Family
DX: M25.511 Pain in right shoulder (principal)
CPT/HCPCS: 73221

== ENCOUNTER 2022-11-05 11:05 | Emergency (ER) | payer OTHER, SELFPAY ==
[2022-11-05 11:41] VITALS: BP 133/70; BP 149/80; PULSE 72; RESP 16; TEMP 36.6; O2SAT 97; BMI 26.3
--- NOTE | 2022-11-05 11:50 | ED.MALEGU ---
HPI - Male Genitourinary General Chief complaint: Urogenital-Male Stated complaint: Catheter problem, pain in penis per EMS Time Seen by Provider: 11/05/22 11:08 Source: patient Mode of arrival: EMS Limitations: no limitations History of Present Illness HPI Narrative: Patient is 67 years old with history of diabetes hypertension end-stage renal disease and dialysis, left AKA, BPH urinary retention with chronic indwelling Sheldon catheter with history of Pseudomonas bacteremia in 03/03 just discharged from [facility] yesterday while at home on wheelchair catheter got pulled and noticed small amount of blood at the tip of the penis but still draining no hematuria otherwise patient feels normal Related Data Home Medications Medication Instructions Recorded Confirmed acetaminophen 325 mg tablet 650 mg PO Q4H PRN Fever 02/08/22 02/08/22 (Tylenol) atorvastatin 20 mg tablet 20 mg PO DAILY 02/08/22 02/08/22 carvedilol 25 mg tablet 25 mg PO BID 02/08/22 02/08/22 fluticasone propionate 220 1 puff inhalation BID 02/08/22 02/08/22 mcg/actuation HFA aerosol inhaler hydralazine 25 mg tablet 25 mg PO TID 02/08/22 02/08/22 sennosides 8.6 mg tablet (senna) 17.2 mg PO BEDTIME 02/08/22 02/08/22 sitagliptin phosphate 100 mg tablet 100 mg PO DAILY 02/08/22 02/08/22 tamsulosin 0.4 mg capsule 0.8 mg PO DAILY 02/08/22 02/08/22 Previous Rx's Medication Instructions Recorded apixaban 5 mg tablet (Eliquis) 5 mg PO BID #60 tabs 02/21/22 glipizide 5 mg tablet 5 mg PO DAILY #30 tabs 02/21/22 mirtazapine 15 mg tablet 15 mg PO BEDTIME #30 tabs 02/21/22 omeprazole 20 mg capsule,delayed 20 mg PO DAILY #30 caps 02/22/22 release Allergies Allergy/AdvReac Type Severity Reaction Status Date / Time No Known Allergies Allergy Verified 02/08/22 15:03 Review of Systems Review of Systems: Yes all other systems are reviewed and are negative PMFSH Past Medical History Medical History Acute respiratory failure with hypoxia Acute UTI Bacteremia due to Pseudomonas BPH (benign prostatic hyperplasia) ESRD (end stage renal disease) on dialysis Hypertension Metabolic encephalopathy Pulmonary embolism Family History Family History Mother No problems noted. Father No problems noted. Social History Social History Household Members: None Housing: Jail Alcohol intake: former Patient Tobacco Use Status: Former Tobacco user Smoked in Last 30 Days: No Use of substances other than those prescribed or required for medical reasons: Yes Substance Use Type: Marijuana Advance Directives: Yes Advance Directives on File: Yes Advance Directives Date on File: 02/24/22 service: No Current occupational status: disabled Physical Exam Vital Signs: Vital Signs: Last Vital Signs Temp 97.7 F 11/05/22 16:03 Pulse 61 11/05/22 16:03 Resp 12 11/05/22 16:03 BP 120/63 11/05/22 16:03 Pulse Ox 99 11/05/22 16:03 O2 Del Method Room Air 11/05/22 16:03 BMI result Body Mass Index 26.3 Appearance: Alert. Oriented X3. No acute distress. Eyes: PERRLA, No Nystagmus ENT: Pharynx normal. Oral Mucosa moist Neck: Normal inspection. Neck supple. CVS: Normal heart rate and rhythm. Pulses normal. Respiratory: No respiratory distress. Equal air entry bilateral, no wheezing/rales/rhonchi Abdomen: Soft and nontender. Bowel sounds are present, no mass palpable, no CVA tenderness Skin: Skin warm and dry. Normal skin color. Normal skin turgor. Extremities: No lower extremity edema. No calf tenderness left AKA Neuro: Oriented X 3. Left-sided residual weakness. No sensory deficit.No cerebellar signs , cranial nerves II-XII intact Medications Administered Discontinued Medications Generic Name Dose Route Start Last Admin Trade Name Freq PRN Reason Stop Dose Admin Bacitracin 1 appl 11/05/22 12:02 11/05/22 12:41 Bacitracin Oint 0.9 Gm Packet TOPICAL 11/05/22 12:03 1 appl ONCE ONE Administration Protocol Medical Decision Making Medical Decision Making MDM Narrative: Patient with chronic contaminated UTI with indwelling Sheldon catheter with left AKA came for slight bleeding from the tip of the pain is after Sheldon catheter was pulled by mistake everything looks normal at this time Sheldon catheter is working patient said that he cannot take care of himself at home and would like to go back to rehab again will get a case management for placement Lab Data MDM Lab Attestation statement: I reviewed the patient's lab results. 11/05/22 15:56 11/05/22 15:56 Labs: Lab Results 11/05/22 11/05/22 Range/Units 12:47 15:56 WBC 11.2 H (4.8-10.8) X10*3/uL RBC 4.15 L (4.60-5.80) X10*6/uL Hgb 12.2 L (14.0-18.0) g/dl Hct 36.1 L (42.0-52.0) % MCV 87.0 (80.0-98.0) fL MCH 29.4 (27.0-33.0) pg MCHC 33.8 (31.0-36.0) g/dl RDW 12.9 (11.0-16.0) % Plt Count 227 (160-400) X10*3/uL MPV 10.5 (9.4-12.4) fL Immature Gran % (Auto) 0.4 (0.0-0.4) % Neut % (Auto) 71.7 (45-73) % Lymph % (Auto) 19.0 L (20-40) % [place] % (Auto) 7.0 (2-11) % Eos % (Auto) 1.3 (0-4) % Baso % (Auto) 0.6 (0-2) % Lymph # (Auto) 2.1 (1.2-4.9) X10*3/uL [place] # (Auto) 0.8 (0.1-1.2) X10*3/uL Eos # (Auto) 0.2 (0.0-0.4) X10*3/uL Baso # (Auto) 0.1 (0.0-0.2) X10*3/uL Abs Immat Gran (auto) 0.04 H (0.00-0.03) X10*3/uL Absolute Neuts (auto) 8.0 (2.0-8.3) x10*3/uL Absolute Nucleated RBC 0.000 (0.0-0.012) X10*3/uL Nucleated RBC % (auto) 0.0 (0.0-0.2) /100WBC Urine Color Yellow Urine Appearance Turbid Urine pH 7.0 (5.0-9.0) Ur Specific [place] 1.010 (1.005-1.025) Urine Protein 100 (2+) H (Neg-Trace) mg/dL Urine Glucose (UA) 100 H (Negative) mg/dL Urine Ketones Negative (Negative) mg/dL Urine Blood Moderate (2+) H (Negative) Urine Nitrite Negative (Negative) Ur Leukocyte Esterase Large (3+) H (Negative) Urine RBC 3-5 H (0-2) /HPF Urine WBC >50 H (0-5) /HPF Ur Squamous Epith Cells 0-2 (0-2) /HPF Urine Bacteria 1+ (None Seen) Hyaline Casts 0-2 (0-2) /LPF Discharge Plan Discharge Clinical Impression: Chronic indwelling Sheldon catheter, Weakness Patient Disposition: Still a Patient Prescriptions: No Action carvedilol 25 mg Tablet 25 mg PO BID Rx Instructions: must administer with a meal/food sennosides [senna] 8.6 mg Tablet 17.2 mg PO BEDTIME acetaminophen [Tylenol] 325 mg Tablet 650 mg PO Q4H PRN (Reason: Fever) atorvastatin 20 mg Tablet 20 mg PO DAILY hydralazine 25 mg Tablet 25 mg PO TID tamsulosin 0.4 mg Capsule 0.8 mg PO DAILY fluticasone propionate 220 mcg/actuation Hfa Aerosol Inhaler 1 puff INHALATION BID sitagliptin phosphate 100 mg Tablet 100 mg PO DAILY mirtazapine 15 mg Tablet 15 mg PO BEDTIME Qty: 30 0RF Eliquis 5 mg Tablet 5 mg PO BID Qty: 60 0RF glipizide 5 mg tablet 5 mg PO DAILY Qty: 30 0RF omeprazole 20 mg capsule,delayed release(DR/EC) 20 mg PO DAILY Qty: 30 0RF
--- NOTE | 2022-11-05 12:22 | PC.NURSE ---
Patient presenting with penile pain after catheter insertion. A small tear is noted to the opening of the urethra, bleeding controlled at this time. Patient bladder scanned to ensure full drainage of the bladder, scan showed no urine in the bladder. Drainage bag changed without issue. Patient is alert and oriented at this time, no s/s of distress noted.
[2022-11-05 12:32] VITALS: BP 134/73; PULSE 73; RESP 14; TEMP 36.8; O2SAT 97
[2022-11-05] MEDS: Bacitracin Oint 0.9 GM PACKET 1 APPL TOPICAL (12:41)
[2022-11-05 12:56] LABS: Appearance Urine Turbid; Color Urine Yellow; Glucose Urine UA 100 mg/dL (Negative); Leukocyte Esterase Urine Large (3+) (Negative); Nitrite Urine Negative (Negative); UMIC TRIGGER UA YES; Urine Blood Moderate (2+) (Negative); Urine Ketones Negative (Negative); Urine Protein 100 (2+) mg/dL (Neg-Trace)
[2022-11-05 13:09] LABS: Bacteria Urine 1+ (None Seen); Hyaline Casts Urine 0-2 /LPF (0-2); Squamous Epithelial Cell Urine 0-2 /HPF (0-2); WBC Urine >50 /HPF (0-5)
[2022-11-05 14:12] VITALS: BP 154/77; PULSE 71; RESP 16; O2SAT 97
--- NOTE | 2022-11-05 14:42 | MHC.CM.ED ---
Addendum entered by Carmen Gaviria 11/05/22 15:51: Patient's at bedside requesting to speak to . Patient's daughter, Kristi updated via telephone about discharge plan. Original Note: Received case management consult from Dr Gerber. Patient was discharged from [facility] on 11/04 with his . VNA was arranged and supposed to start today. Patient was having an issues with his catheter and came to the ER. Met with patient in regards to discharge planning. Patient thought he was ready to discharge home but realized he isn't and is agreeable to referral back to [facility]. Referral made via [facility]. However, patient's insurance, [facility], will most likely not be able to auth [facility] until Monday. Patient aware and agreeable. Patient's daughter, Kristi, is HCP. T/W spoke with Kristi about plan to try to get pateint back to [facility]. Kristi verbalized understanding at this time. Continue to monitor for d/c needs.
--- NOTE | 2022-11-05 15:17 | MHC.EDTECH ---
pt refused lab draws @15:15, stated: I don't need to do blood test . Pt is willing to do covid swab.
[2022-11-05 16:00] LABS: MANUAL DIFF FLAG NO
[2022-11-05 16:03] VITALS: BP 120/63; PULSE 61; RESP 12; TEMP 36.5; O2SAT 99
[2022-11-05 16:03] LABS: Basophils Absolute Auto 0.1 X10*3/uL (0.0-0.2); Basophils Percent Auto 0.6 % (0-2); Eosinophils Absolute Auto 0.2 X10*3/uL (0.0-0.4); Eosinophils Percent Auto 1.3 % (0-4); Hematocrit 36.1 % (42.0-52.0); Hemoglobin 12.2 g/dl (14.0-18.0); Imm Gran Abs Auto 0.04 X10*3/uL (0.00-0.03); Imm Gran Pct Auto 0.4 % (0.0-0.4); Lymphocytes Absolute Auto 2.1 X10*3/uL (1.2-4.9); Mean Corpuscular HGB Conc 33.8 g/dl (31.0-36.0); Mean Corpuscular Hemoglobin 29.4 pg (27.0-33.0); Mean Platelet Volume 10.5 fL (9.4-12.4); Monocytes Absolute Auto 0.8 X10*3/uL (0.1-1.2); Neutrophils Percent Auto 71.7 % (45-73); Platelet Count 227 X10*3/uL (160-400); Red Blood Count 4.15 X10*6/uL (4.60-5.80); Red Cell Distribution Width 12.9 % (11.0-16.0); White Blood Count 11.2 X10*3/uL (4.8-10.8)
[2022-11-05 16:13] LABS: COVID-19 Test Negative (Negative); IDNOW Serial# 08D9AD1C
[2022-11-05 16:34] LABS: Alanine Aminotransferase 21 U/L (0-40); Albumin Level 3.5 g/dL (3.5-5.0); Alkaline Phosphatase 141 U/L (39-117); Anion Gap 17 (12-20); Aspartate Amino Transferase 16 U/L (5-37); Bilirubin Total 0.6 mg/dL (0.0-1.0); Blood Urea Nitrogen 51 mg/dL (9-16); Calcium 9.1 mg/dL (8.4-10.2); Carbon Dioxide 25 mmol/L (22-29); Chloride 99 mmol/L (96-108); Creatinine Clr Calc Pharmacy 10.8; Estimated Glomerular Filt Rate 6; Glucose Random 159 mg/dL (60-115); Potassium 4.4 mmol/L (3.3-5.1); Sodium 137 mmol/L (135-145); Total Protein 7.2 g/dL (6.5-8.0)
--- NOTE | 2022-11-05 17:06 | PHA.MEDREC ---
Pharmacy Consult ? Medication Reconciliation Pharmacy has completed the medication reconciliation. used discharge medication list from [facility]. His bag of items says that he was given his AM medications today and the patient confirmed this as well.
[2022-11-05] MEDS: carvediloL 12.5 MG TABLET PO (20:01)
[2022-11-05] MEDS: Mirtazapine 15 MG TABLET PO (20:01)
[2022-11-05] MEDS: hydrALAZINE HCl 50 MG TABLET PO (20:01)
[2022-11-05] MEDS: diphenhydrAMINE HCL 25 MG CAPSULE PO (20:02)
[2022-11-05] MEDS: Apixaban 5 MG TABLET PO (20:02)
[2022-11-05] MEDS: Atorvastatin Calcium 20 MG TABLET PO (20:02)
--- NOTE | 2022-11-05 21:53 | PC.NURSE ---
Pt report difficulty falling asleep. notified and new orders placed in AUG.
[2022-11-05] MEDS: LORazepam 1 MG TABLET PO (21:58)
[2022-11-05 22:00] VITALS: BP 126/65; PULSE 69; RESP 12; TEMP 36.4; O2SAT 96
--- NOTE | 2022-11-06 02:59 | PC.NURSE ---
Pt sleeping at the bedside in no apparent distress. Breaths are even regular and unlabored with equal chest rises. Will continue to monitor.
[2022-11-06] MEDS: Omeprazole 20 MG CAPSULE.DR PO (06:26)
[2022-11-06 06:27] VITALS: BP 105/48; PULSE 68; RESP 12; TEMP 36.9; O2SAT 97
[2022-11-06] MEDS: carvediloL 12.5 MG TABLET PO ×2 (08:29→22:18)
[2022-11-06] MEDS: diphenhydrAMINE HCL 25 MG CAPSULE PO ×2 (08:29→22:17)
[2022-11-06] MEDS: hydrALAZINE HCl 50 MG TABLET PO ×2 (08:29→22:18)
[2022-11-06] MEDS: Apixaban 5 MG TABLET PO ×2 (08:29→22:18)
--- NOTE | 2022-11-06 08:41 | PC.NURSE ---
PT USES HYDROCORTISONE CREAM FOR ITCHING ON BACK DUE TO DIALYSIS SPOKE WITH PROVIDER EDIE WHO REFUSED TO ORDER IT ALSO REFUSES TO SPEAK WITH PATIENT
[2022-11-06] MEDS: hydrOXYzine HCL 50 MG TABLET PO (08:59)
[2022-11-06] MEDS: Fluticasone Propionate 250 MCG BLST.W.DEV 1 PUFF INHALE ×2 (08:59→19:16)
[2022-11-06 14:05] VITALS: BP 94/62; PULSE 64; RESP 16; TEMP 36.4; O2SAT 93
--- NOTE | 2022-11-06 18:52 | PC.NURSE ---
PT changed reposition zeng care done, skin care done. PT/CM PLANNED FOR REHAB PLACEMENT ON MONDAY
[2022-11-06 19:16] VITALS: PULSE 70; RESP 18; O2SAT 97
[2022-11-06] MEDS: Mirtazapine 15 MG TABLET PO (22:17)
[2022-11-06] MEDS: Atorvastatin Calcium 20 MG TABLET PO (22:18)
[2022-11-07 00:21] VITALS: BP 131/64; PULSE 78; RESP 18; TEMP 36.9; O2SAT 99
[2022-11-07] MEDS: Omeprazole 20 MG CAPSULE.DR PO (05:49)
[2022-11-07] MEDS: diphenhydrAMINE HCL 25 MG CAPSULE PO ×4 (07:52→20:37)
[2022-11-07] MEDS: Apixaban 5 MG TABLET PO ×2 (07:52→20:37)
[2022-11-07] MEDS: carvediloL 12.5 MG TABLET PO ×2 (07:52→20:36)
[2022-11-07] MEDS: hydrALAZINE HCl 50 MG TABLET PO ×3 (07:52→20:37)
[2022-11-07 08:21] VITALS: BP 180/90; PULSE 69; RESP 18; TEMP 36.1; O2SAT 97
[2022-11-07 09:13] LABS: Anion Gap 15 (12-20); Blood Urea Nitrogen 67 mg/dL (9-16); Calcium 8.6 mg/dL (8.4-10.2); Carbon Dioxide 24 mmol/L (22-29); Chloride 100 mmol/L (96-108); Creatinine Clr Calc Pharmacy 8.3; Estimated Glomerular Filt Rate 5; Glucose Random 203 mg/dL (60-115); Potassium 4.3 mmol/L (3.3-5.1); Sodium 135 mmol/L (135-145)
--- NOTE | 2022-11-07 10:30 | PC.NURSE ---
obtained report from hannah, this nurse resumed patient care at 930, patient a&o, lungs clear/diminished, pt currently offering no complaints of pain/discomfort, PT to do eval, pt watching tv at this time, call costa within reach, will continue to monitor
[2022-11-07 10:41] VITALS: BP 180/90; PULSE 69; O2SAT 97
--- NOTE | 2022-11-07 13:08 | MHC.CM.ED ---
Patient remains in ER overflow. Physical therapy eval completed. Short term rehab is recommended. Clinical updates sent to [facility]. Waiting to hear if they will be able to offer a bed. Patient receives HD on , and Monday in [place]. Patient is due for HD on Monday. Debora LOVE aware. Nephrology aware. Continue to monitor for d/c needs.
[2022-11-07 14:25] VITALS: BP 120/69; PULSE 65; RESP 20; TEMP 36.3; O2SAT 97
--- NOTE | 2022-11-07 14:30 | PC.NURSE ---
pt sleeping, woke to verbal stimulus, denied pain/discomfort, pts vss, medicated per order, call costa within reach, will continue to monitor
--- NOTE | 2022-11-07 15:14 | PC.NURSE ---
report received from AVELINO Crowell Pt is sleeping at this time, respirations even and unlabored, skin pwd, no apparent distress.
--- NOTE | 2022-11-07 16:49 | PC.NURSE ---
pt up in bed eating dinner at this time, medications administered with no difficulty
--- NOTE | 2022-11-07 18:41 | PC.NURSE ---
pt up in bed on his phone, offers no complaints to this RN. No apparent distress
[2022-11-07 20:26] VITALS: BP 150/80; PULSE 74; RESP 17; O2SAT 96
[2022-11-07] MEDS: Atorvastatin Calcium 20 MG TABLET PO (20:37)
[2022-11-07] MEDS: Mirtazapine 15 MG TABLET PO (20:37)
[2022-11-07] MEDS: Fluticasone Propionate 250 MCG BLST.W.DEV 1 PUFF INHALE (20:40)
[2022-11-07 21:12] VITALS: TEMP 36.7
--- NOTE | 2022-11-07 22:31 | PC.NURSE ---
[id number]; Patient alert and oriented, denies pain or discomfort at this time. L/s clear, abd soft, vitals stable, bedtime medications administered without issue, snack provided. Call costa within reach.
--- NOTE | 2022-11-08 00:34 | MHC.EDTECH ---
THIS PCT ASSUMED CARE OF PT AT 2300 ,FRESH ICE WATER GIVEN ,PT IS SLEEPING .
--- NOTE | 2022-11-08 02:33 | MHC.EDTECH ---
0200 ROUNDING DONE ,PT SLEEPING .
--- NOTE | 2022-11-08 03:30 | PC.NURSE ---
Assumed care of pt at 23:00. Pt A&O, denies any pain or discomfort at this time, zeng intact & draining. Pt resting quietly in bed with call costa within reach.
--- NOTE | 2022-11-08 04:00 | MHC.EDTECH ---
0400 ROUNDING DONE ,PT SLEEPING .
[2022-11-08] MEDS: Omeprazole 20 MG CAPSULE.DR PO (05:35)
[2022-11-08 06:00] VITALS: BP 180/90; PULSE 70; RESP 16; TEMP 36.7; O2SAT 98
--- NOTE | 2022-11-08 06:19 | PC.NURSE ---
pt refusing lab work this morning. ED charge nurse made aware of the situation.
--- NOTE | 2022-11-08 06:23 | MHC.EDTECH ---
0600 ROUNDING DONE ,VITALS SIGN TAKEN ,PT REFUSED 0600 LABS AVELINO RODRIGUEZ AWARE ,PT WAS REPOSITION AND BOOSTED UP IN BED ,650 ML EMPTY FROM [employer] ,FRESH PITCHER WATER EMPTY .
[2022-11-08] MEDS: Apixaban 5 MG TABLET PO (07:52)
[2022-11-08] MEDS: carvediloL 12.5 MG TABLET PO (07:52)
[2022-11-08] MEDS: hydrALAZINE HCl 50 MG TABLET PO ×2 (07:52→14:58)
[2022-11-08] MEDS: diphenhydrAMINE HCL 25 MG CAPSULE PO ×2 (07:52→14:58)
[2022-11-08] MEDS: Fluticasone Propionate 250 MCG BLST.W.DEV 1 PUFF INHALE (08:09)
[2022-11-08 08:11] VITALS: PULSE 67; RESP 16; O2SAT 98
--- NOTE | 2022-11-08 09:40 | PC.NURSE ---
obtained report assumed care of patient at 915 am- pt is currently off the floor at dialysis, per nurse that gave this nurse report- pts called and wishes to speak with case management which was unavailable at the time she called. will attempt to get ahold of case management director again. will assess patient when he returns from dialysis.
--- NOTE | 2022-11-08 11:18 | MHC.CM.ED ---
Addendum entered by Yanni Sanchez 11/08/22 15:03: Pt has been accepted to [facility] for 4pm today via [facility]. Pt and spouse Kaylah updated and in agreement. ED care team aware of plan. Kaylah to arrive with w/c, clothes and prosthesis. Original Note: Pt recently d/c'd from [facility] however, they do not have any available beds: Broad referrals made: no offers at this time. ED CM to follow
--- NOTE | 2022-11-08 13:50 | PC.NURSE ---
patient a&ox3, pt is very demanding, needy and refuses to do anything for herself, this nurse has encouraged the patient to be more independent in obtaining items off her side table, changing the channel on her tv, eating her meals as well as pulling her covers up- pt continues to ring asking for assistance with all of this. pt also asking to get oob to ambulate with her walker and sit in a chair, yet when this nurse obtained a recliner chair for the patient to get oob to the patient became defensive stating she is unable to sit and needs to lay in bed, this nurse will continue to encourage the patient to become more independent with ADLs and continue to monitor.
--- NOTE | 2022-11-08 14:03 | PC.NURSE ---
obtained report from dialysis nurse, transport returned patient to overflow
--- NOTE | 2022-11-08 14:16 | PC.NURSE ---
dialysis- pt had 1.2 kilo taken off per dialysis nurse.
[2022-11-08 14:52] VITALS: BP 123/62; PULSE 69; RESP 18; TEMP 36.8; O2SAT 98
--- NOTE | 2022-11-08 15:03 | PC.NURSE ---
patient a&ox3, denies pain/discomfort at this time, lungs clear, lt av fistula + bruit/thrill, pt also has rt chest cath, zeng cath patient/draining, vss, pt medicated per order, case management over to see patient and told him he has a bed at [facility] 4pm.
--- NOTE | 2022-11-08 15:16 | PC.NURSE ---
[facility] was called report given to vicki
== END 2022-11-08 17:02 | disposition skilled nursing facility (03) ==
PROVIDERS: Physician Assistant; Emergency Provider Internal Medicine; PCP Internal Medicine
DX: R53.1 Weakness (principal); T83.028A Displacement of other urinary catheter, initial encounter; Y73.8 Miscellaneous gastroenterology and urology devices associated with adverse incidents, not elsewhere classified; Y92.9 Unspecified place or not applicable; Z20.822 Contact with and (suspected) exposure to COVID-19; I12.0 Hypertensive chronic kidney disease with stage 5 chronic kidney disease or end stage renal disease; N18.6 End stage renal disease; Z99.2 Dependence on renal dialysis; Z86.711 Personal history of pulmonary embolism; Z79.01 Long term (current) use of anticoagulants; Z79.899 Other long term (current) drug therapy; Z87.891 Personal history of nicotine dependence
CPT/HCPCS: 36415; 51702; 51798; 80048; 80053; 81001; 85025; 87635; 90999; 97163; 99284; 99285

== ENCOUNTER 2023-01-04 16:11 | Inpatient (IN) | payer OTHER, SELFPAY ==
--- NOTE | ~2023-01-04 | CT_ITS ---
EXAMINATION: CT HEAD WITHOUT CONTRAST CLINICAL INFORMATION: Altered mental status. COMPARISON: CT brain dated 02/19/2022. TECHNIQUE: Contiguous axial imaging was performed from the skull base to vertex without intravenous administration of contrast. Multiplanar reformatted images are submitted. This CT examination was performed using dose optimization techniques as appropriate, variously including the following: *Automated exposure control *Adjustment of mA and/or kV according to patient size (this includes techniques or standardized protocols for targeted exams where dose is matched to indication/reason for exam; i.e. extremities or head) *Use of iterative reconstruction technique DLP: 797 mGy-cm FINDINGS: There is no acute intracranial hemorrhage or evidence of territorial infarction. No abnormal mass effect or midline shift is seen. Steel to white matter differentiation is well preserved. There is mild patchy low attenuation change in the periventricular white matter spaces. The ventricles are normal in size. No extra-axial fluid collections are identified. The calvarium and scalp soft tissues are normal. The middle ear cavities are clear. There is mild mucosal thickening and/or fluid seen posteriorly within the right sphenoid sinus chamber. There is fluid opacification of several of the bilateral mastoid air cells. There is no bone erosion noted. CT/CT head/brain wo IV con IMPRESSION: 1. No acute intracranial finding. 2. There is mild patchy low attenuation change in the periventricular white matter spaces, commonly associated with chronic microangiopathy. 3. There is mild sphenoid sinusitis. 4. There is opacification of several the bilateral mastoid air cells.
--- NOTE | ~2023-01-04 | US_ITS ---
EXAMINATION: US VENOUS ULTRASOUND WITH DOPPLER LOWER EXTREMITY, RIGHT CLINICAL INFORMATION: 1 right leg History of DVT and PEs evaluate for DVT COMPARISON: Ultrasound venous Doppler lower extremity bilateral from 01/29/2022 TECHNIQUE: Ultrasound of the deep veins is performed from the hip to the calf with compression sonography and color and pulse Doppler assessment. Spectral analysis with color-flow imaging is performed. FINDINGS: There is normal venous compression and respiratory variation and augmented flow. The visualized common femoral vein, superficial femoral vein, profunda femoral vein, popliteal vein, and the trifurcation region shows no evidence of deep venous thrombosis. There is no significant popliteal fossa cyst. If the patient's symptoms persist, followup ultrasound in 5 days 7 days might be of value to exclude proximal propagation from a non-visualized calf vein. Mildly prominent right groin lymph node measuring up to 2.5 cm and 6 mm in short axis. US/US venous duplex LE RT IMPRESSION: 1. No DVT demonstrated in the right lower extremity. 2. Mildly prominent right groin lymph node measuring up to 2.5 cm and 6 mm in short axis.
--- NOTE | ~2023-01-04 | US_ITS ---
ULTRASOUND UPPER EXTREMITY, HISTORY: Reason for Exam Swollen left arm with Necrotic fingers, H/O DVT PE r/o DVTs. COMPARISON: None. TECHNIQUE: Grayscale, color, and spectral Doppler imaging were performed. FINDINGS: The left internal jugular, subclavian, axillary, and brachial veins are patent on color Doppler and demonstrate normal waveforms on spectral Doppler. No occlusive thrombus is identified. Normal compressibility is demonstrated distal to the clavicle. The left cephalic, basilic, ulnar, radial veins are patent without evidence of thrombus. Cephalic fistula noted. US/US venous duplex UE LT IMPRESSION: No evidence of deep venous thrombosis in the left upper extremity.
--- NOTE | ~2023-01-04 | XR_ITS ---
EXAMINATION: XR FOOT, RIGHT CLINICAL INFORMATION: Evaluate for osteomyelitis. COMPARISON: None available. TECHNIQUE: AP, lateral, and oblique views of the right foot. FINDINGS: Background of heterogeneous bone marrow and advanced osteoarthritis, limiting evaluation of osseous details. However, accounting for these limitations, there is suggestion of more focal increased bony lucency as well as some cortical irregularity along the distal first phalanx in which osteomyelitis cannot be excluded. Diffuse soft tissue thickening. Extensive vascular calcifications. XR/XR foot RT 2V IMPRESSION: 1. Increased bony lucency and cortical irregularity along the distal first in which osteomyelitis cannot be excluded. If indicated, consider further evaluation with an MR of the right foot. 2. Advanced osteoarthritis with nonspecific heterogeneity of the bone marrow.
--- NOTE | ~2023-01-04 | CT_ITS ---
EXAMINATION: CT HEAD WITHOUT CONTRAST CLINICAL INFORMATION: Altered mental status. COMPARISON: CT head 01/07/2023. TECHNIQUE: Contiguous axial imaging was performed from the skull base to vertex without intravenous administration of contrast. This CT examination was performed using dose optimization techniques as appropriate, variously including the following: *Automated exposure control *Adjustment of mA and/or kV according to patient size (this includes techniques or standardized protocols for targeted exams where dose is matched to indication/reason for exam; i.e. extremities or head) *Use of iterative reconstruction technique DLP: 912 mGy-cm FINDINGS: There is no evidence of acute intracranial hemorrhage or edematous territorial infarction. Scattered hypoattenuation in the periventricular and deep white matter are consistent with moderate microangiopathy. Steel-white matter differentiation is preserved. Proportional prominence of the ventricles and sulcal spaces. No evidence for obstructive hydrocephalus. No abnormal mass effect or midline shift. No extra-axial fluid collections. Extensive diffuse vascular calcifications. No acute soft tissue or osseous abnormalities. Small air-fluid level in the sphenoidal sinuses. Remaining of the paranasal sinuses are clear. Trace amount of bilateral mastoid fluid. CT/CT head/brain wo IV con IMPRESSION: No acute intracranial abnormality. In view of the background of diffuse white matter changes as well as extensive vascular calcifications, if an acute cerebrovascular accident is suspected, correlation with an MRI of the brain is recommended.
--- NOTE | ~2023-01-04 | CT_ITS ---
EXAMINATION: CT head/brain wo IV con CLINICAL INFORMATION: Reason for Exam obtunded COMPARISON: CT head without contrast 01/04/2023. TECHNIQUE: Contiguous axial imaging was performed from the skull base to vertex without intravenous contrast. Sagittal and coronal reformatted images were obtained. This CT examination was performed using dose optimization techniques as appropriate, variously including the following: * Automated exposure control * Adjustment of mA and/or kV according to patient size (this includes techniques or standardized protocols for targeted exams where dose is matched to indication/reason for exam; i.e. extremities or head) Use of iterative reconstruction technique DLP: 796.21 mGy-cm FINDINGS: No acute osseous or soft tissue abnormality. Trace bilateral mastoid fluid. Small layering fluid in the right sphenoid sinus. Extensive calcification of the extracranial vasculature which may reflect sequela of diabetes or chronic renal disease. There is no evidence of acute intracranial hemorrhage or territorial infarction. No abnormal mass effect or midline shift is seen. Steel to white matter differentiation is well preserved. No extra-axial fluid collections are identified. No hydrocephalus. Proportional prominence of the ventricles and sulcal spaces is consistent with mild volume loss. Patchy periventricular and deep white matter hypoattenuation is consistent with moderate small vessel ischemic changes. CT/CT head/brain wo IV con IMPRESSION: No acute intracranial abnormality including hemorrhage, mass effect, hydrocephalus, or acute territorial edematous infarction.
--- NOTE | ~2023-01-04 | US_ITS ---
EXAMINATION: Noninvasive assessment of the bilateral lower extremities with ARTERIAL DUPLEX. CLINICAL INFORMATION: Peripheral vascular disease with nonhealing ulcer. History of left above-knee amputation TECHNIQUE: Duplex Doppler techniques with waveform analysis and measurement of velocities in the bilateral common femoral, profunda femoris, superficial femoral, popliteal and tibial arteries were performed. COMPARISON: None FINDINGS: DIRECT DUPLEX DOPPLER FINDINGS: RIGHT LEG: Diffuse arterial calcinosis seen throughout the right lower extremity arterial vessels. Common femoral artery: 87.6 cm/s, phasicity: Triphasic Profunda femoris artery: 52.9 cm/s, phasicity: Triphasic Superficial femoral artery (proximal): 86.9 cm/s, phasicity: Triphasic Superficial femoral artery (mid): 65.9 cm/s, phasicity: Triphasic Superficial femoral artery (distal): 96.0 cm/s, phasicity: Biphasic Popliteal artery: 60.4 cm/s, phasicity: Basic Posterior tibial artery: 91.3 cm/s, phasicity: Triphasic Peroneal artery: Not visualized LEFT LEG: Common femoral artery: 64.4 cm/s, phasicity: Biphasic Profunda femoris artery: 84.0 cm/s, phasicity: Biphasic Superficial femoral artery (proximal): 84.0 cm/s, phasicity: Biphasic Superficial femoral artery (mid): 41.3 cm/s, phasicity: Biphasic Superficial femoral artery (distal): 10.4 cm/s, phasicity: Monophasic US/US arterial duplex LE BI IMPRESSION: Right leg: Diffuse arterial calcinosis. Patent arterial flow seen in the femoral, popliteal and posterior tibial artery. Peroneal artery is not visualized. Left leg: Status post left above knee amputation. Patent arterial flow within the visualized arterial vessels
--- NOTE | ~2023-01-04 | XR_ITS ---
EXAMINATION: XR HAND, LEFT CLINICAL INFORMATION: Suspicious for osteomyelitis in the fourth and fifth digits. COMPARISON: None available. TECHNIQUE: PA, lateral, and oblique views of the left hand. FINDINGS: Unfortunately, the evaluation of the digits is limited due to flexion of the interphalangeal joints. No discrete cortical irregularity or erosive changes are noted in the remaining of the well seen bony structures to suspect osteomyelitis. No displaced fracture or subluxation. Background of multifocal mild to moderate multifocal degenerative osteoarthritis. Extensive vascular calcifications. XR/XR hand LT 2V IMPRESSION: Limited evaluation of the digits due to flexion. No definite erosive changes or cortical irregularity in the remainder of the well seen bony structures to suspect osteomyelitis. Recommend repeat imaging or correlation with an MRI as clinically indicated.
--- NOTE | ~2023-01-04 | XR_ITS ---
EXAMINATION: XR CHEST CLINICAL INFORMATION: Altered mental status, fever. COMPARISON: CTA chest 02/08/2022. TECHNIQUE: Frontal view of the chest was obtained. FINDINGS: Stable prominence of the cardiomediastinal silhouette. Increased diffuse interstitial thickening with some questionable more focal opacities in the retrocardiac region and right lower lobe. No pleural effusion or pneumothorax. Subcentimeter pulmonary nodules are best seen on prior CTA from 02/08/2022. No acute osseous findings. XR/XR chest 1V IMPRESSION: Increased interstitial thickening with questionable more focal opacities in the retrocardiac region and right lower lobe. Findings are indeterminate and could be related with an atypical/viral pneumonia in the appropriate clinical content. Recommend a follow-up examination after treatment to ensure adequate resolution.
--- NOTE | ~2023-01-04 | MR_ITS ---
EXAMINATION: MR FOOT WITHOUT AND WITH CONTRAST, RIGHT CLINICAL INFORMATION: Osteo COMPARISON: Radiograph dated 01/04/2023. TECHNIQUE: Multiplanar MR imaging was obtained through the right foot on a 1.5 Elma magnet before and after intravenous administration of 10 mL Gadavist. FINDINGS: A wound at the distal margin of the great toe measures 1.6 x 1.8 cm in area with extension to the depth of the underlying distal phalangeal tuft. There is erosion of the distal phalangeal tuft with diffuse marrow edema signal, enhancement, and diminished T1 signal intensity, consistent with osteomyelitis. No abscess. The IP joint of the great toe appears normal. No synovitis or effusion. There is edema signal in the great toe proximal phalanx along its distal third. Given the presence of a small wound along the dorsal margin of the great toe at the level of the IP joint, the edema signal is favored to correspond to osteomyelitis. There is focally diminished signal intensity in this region on T1-weighted images at the dorsomedial aspect of the proximal phalangeal head. Focal edema signal and enhancement are evident in the distal margin of the 2nd toe distal phalanx without a clear overlying wound. There is normal marrow signal in this region on T1-weighted images. Minimal overlying soft tissue edema signal and enhancement. No subcutaneous gas. No additional areas of osteomyelitis are suspected. There is edema signal and enhancement at the 5th metatarsal head with a transverse band of low signal intensity through this region on T1-weighted images, potentially corresponding to a small stress fracture. Edema signal at the 5th toe proximal phalangeal base may correspond to stress reaction. Osseous contusions are also possible. No appreciable wound in this region to indicate infection. Diffuse fatty atrophy is evident at the intrinsic foot musculature. Tendons are intact. MR/MR foot RT wo/w con IMPRESSION: 1. Osteomyelitis at the great toe distal phalanx diffusely. No abscess. 2. Osteomyelitis at the great toe proximal phalangeal head. 3. High probability of osteomyelitis of the 2nd toe distal phalangeal tuft. Recommend correlation for the presence of a wound in this region. 4. Edema signal and enhancement at the 5th metatarsal head and 5th toe proximal phalangeal base, potentially due to stress reaction or osseous contusions. 5. Diffuse fatty atrophy of the intrinsic foot musculature.
[2023-01-04 16:26] VITALS: BP 141/82; PULSE 72; O2SAT 95
--- NOTE | 2023-01-04 16:27 | ECG_ITS ---
Test Reason : ALTERED MENTAL Blood Pressure : / mmHG Vent. Rate : 061 BPM Atrial Rate : 061 BPM P-R Int : 326 ms QRS Dur : 148 ms QT Int : 496 ms P-R-T Axes : 012 -06 034 degrees QTc Int : 499 ms Sinus rhythm with 1st degree A-V block Right bundle branch block Abnormal ECG When compared with ECG of 08-FEB-2022 15:15, No significant change was found Referred By: Seda Gomes Electronically Signed By:GINA HALE MD
[2023-01-04] MEDS: 0.9 % Sodium Chloride 1,000 ML 999 ML IVCONT (16:43)
[2023-01-04 16:52] VITALS: BP 154/73; PULSE 72; RESP 16; TEMP 36.8; O2SAT 97; BMI 27.3
--- NOTE | 2023-01-04 17:35 | ED_ITS ---
HPI - Altered Mental Status General Chief Complaint: Altered Mental Status Stated Complaint: AMS,lethargic,necrotic big toe Time Seen by Provider: 01/04/23 16:16 Source: EMS Mode of arrival: EMS Limitations: altered mental status History of Present Illness HPI narrative: Patient [facility] EMS reports that the staff noted that the patient is altered. Usually, patient is able to recognize people and have normal conversations at baseline. However, today he does not seem to recognize known people, is lethargic. Seems that over the last week patient has not been allowing staff to come in to his room. Today was noted that the patient has a necrotic great toe on the right foot, and to necrotic fingers in the left hand. Patient reports no pain. Patient is altered but is able to answer yes/no questions, states that he is not in pain, has no chest pain, no difficulty breathing, no abdominal pain. Patient coming from [facility], the staff reports that the last time that the patient was seen alert and oriented x3 was yesterday at noon, 27 hours ago. Related Data Home Medications Medication Instructions Recorded Confirmed atorvastatin 20 mg tablet 20 mg PO BEDTIME 02/08/22 01/04/23 fluticasone propionate 220 1 puff inhalation BID 02/08/22 01/04/23 mcg/actuation HFA aerosol inhaler carvedilol 12.5 mg tablet 12.5 mg PO BID 11/05/22 01/04/23 Probiotic 1 cap PO BID 01/04/23 01/04/23 baclofen 5 mg tablet 5 mg PO BID 01/04/23 01/04/23 gabapentin 100 mg capsule 100 mg PO BID 01/04/23 01/04/23 glipizide 5 mg tablet 5 mg PO DAILY 01/04/23 01/04/23 hydralazine 25 mg tablet 25 mg PO TID 01/04/23 01/04/23 lidocaine HCl 3 % topical cream 1 appl topical Q4H PRN URETHRAL 01/04/23 01/04/23 TEAR linagliptin 5 mg tablet 5 mg PO DAILY 01/04/23 01/04/23 loratadine 10 mg tablet 10 mg PO Q48H 01/04/23 01/04/23 midodrine 5 mg tablet 5 mg PO Q8H PRN ORTHOSTATIC BP 01/04/23 01/04/23 ondansetron HCl 4 mg tablet 4 mg PO Q4H PRN Nausea 01/04/23 01/04/23 sennosides 8.6 mg tablet (senna) 17.2 mg PO DAILY 01/04/23 01/04/23 sevelamer carbonate 800 mg tablet 800 mg PO TIDAC 01/04/23 01/04/23 Previous Rx's Medication Instructions Recorded apixaban 5 mg tablet (Eliquis) 5 mg PO BID #60 tabs 02/21/22 mirtazapine 15 mg tablet 15 mg PO BEDTIME #30 tabs 02/21/22 omeprazole 20 mg capsule,delayed 20 mg PO DAILY #30 caps 02/22/22 release Allergies Allergy/AdvReac Type Severity Reaction Status Date / Time No Known Allergies Allergy Verified 02/08/22 15:03 Review of Systems Review of Systems: Yes Unobtainable due to mental condition PMFSH Past Medical History Medical History Acute respiratory failure with hypoxia Acute UTI Bacteremia due to Pseudomonas BPH (benign prostatic hyperplasia) ESRD (end stage renal disease) on dialysis Hypertension Metabolic encephalopathy Pulmonary embolism Family History Family History Mother No problems noted. Father No problems noted. Social History Social History Household Members: None Housing: [facility] Alcohol intake: former Patient Tobacco Use Status: Former Tobacco user Smoked in Last 30 Days: No Use of substances other than those prescribed or required for medical reasons: No Substance Use Type: Marijuana Advance Directives: Yes Advance Directives on File: Yes Advance Directives Date on File: 02/24/22 service: No Current occupational status: disabled Physical Exam ED Vital Signs: Vital Signs - 24 hr 01/04/23 16:52 01/04/23 18:59 01/04/23 20:57 Temperature 98.3 F 97.9 F 98.2 F Pulse Rate 72 71 83 Respiratory Rate 16 16 16 Blood Pressure 154/73 H 153/55 H 164/65 H Pulse Oximetry 97 98 97 Oxygen Delivery Method Room Air Room Air Room Air BMI result Body Mass Index 27.3 Const Other: Appearance: Alert. Oriented X1. No acute distress, altered, confused answering yes/no questions. Eyes: Pupils equal, round and reactive to light. ENT: Pharynx normal. Neck: Normal inspection. Neck supple. No lymph nodes noted. No crepitus CVS: Normal heart rate and rhythm. Pulses normal. Normal S1 and S2 Respiratory: No respiratory distress. Breath sounds normal. No Wheezing. No rales Abdomen: Soft and nontender. No rigidity. No distention. : Sheldon catheter in place, strong UTI like-odor Skin: Skin warm and dry. Patient has necrotic left greater toe and necrotic 4th and 5th digits in the left hand Extremities: No lower extremity edema. See skin above Neuro: Oriented X 1. No motor deficit. No sensory deficit. Moving all extremities. No slurred speech. CN 2 through 12 grossly intact Psych: calm, cooperative, confused Medications Administered Discontinued Medications Generic Name Dose Route Start Last Admin Trade Name Freq PRN Reason Stop Dose Admin Sodium Chloride 1,000 mls @ 999 mls/hr 01/04/23 16:27 01/04/23 18:43 Ns IVCONT 01/04/23 17:27 Infused .Q1H1M ONE Infusion Piperacillin Sod/Tazobactam 50 mls @ 100 mls/hr 01/04/23 16:27 01/04/23 18:43 Sod 3.375 gm/ Sodium Chloride IV 01/04/23 16:56 100 mls/hr ONCE ONE Administration Vancomycin HCl 1,500 mg/ 250 mls @ 166.667 mls/hr 01/04/23 17:00 01/04/23 19:40 Sodium Chloride IV 01/04/23 18:29 166.67 mls/hr ONCE ONE Administration Medical Decision Making Medical Decision Making MDM Narrative: -patient is altered, has strong UTI like odor. Also patient noted to have necrotic fingers and toes. -patient was empirically started on fluids and antibiotics, vanco and Zosyn. Patient does not have a fever, blood pressure stable, 154/73, heart rate 72, at this time sepsis not suspected -concerning that the patient has necrotic fingers and toes, concerning for an emboli, patient has history of pulmonary embolisms, ultrasound extremities pending -Sheldon catheter has been changed -all labs and imaging results pending -patient has a L of fluids running at this time, patient seems to be more awake, responsive -reviewing patient's previous in patient notes, patient had in February of 2022 sepsis secondary to Pseudomonas UTI which was initially treated with Zosyn and subsequently with Levaquin. On the previous admission, patient had a PE. Patient developed toxic metabolic encephalopathy, likely related to sepsis -interpretation of the patient's x-rays, patient may have possible pneumonia? No overt fluid overload, the x-ray of the 1st toe of the right foot may have osteomyelitis? -my interpretation of ultrasounds of the arm and leg: No obvious obstruction/DVT -patient's encephalopathy likely secondary to UTI. As mentioned above, patient has already been covered with IV fluids and 2 antibiotics. -head CT my interpretation: No intracranial bleed Differential Diagnosis Differential Diagnoses: The differential diagnosis associated with the presentation includes (UTI, encephalopathy, CVA) Admission/Observation Consideration of admission/observation: Escalation of care including admission/observation considered Consult Healthcare Provider Management of the patient was discussed with: Hospitalist Lab Data MDM Lab Attestation statement: I reviewed the patient's lab results. (Patient's creatinine is elevated, at baseline, patient needs dialysis tomorrow, skipped dialysis today) 01/04/23 18:44 01/04/23 18:44 Labs: Lab Results 01/04/23 01/04/23 01/04/23 Range/Units 18:44 18:44 18:44 WBC 8.6 (4.8-10.8) X10*3/uL RBC 2.95 L D (4.60-5.80) X10*6/uL Hgb 8.8 L D (14.0-18.0) g/dl Hct 26.7 L D (42.0-52.0) % MCV 90.5 (80.0-98.0) fL MCH 29.8 (27.0-33.0) pg MCHC 33.0 (31.0-36.0) g/dl RDW 14.1 (11.0-16.0) % Plt Count 322 D (160-400) X10*3/uL MPV 9.5 (9.4-12.4) fL Immature Gran % (Auto) 0.5 H (0.0-0.4) % Neut % (Auto) 70.4 (45-73) % Lymph % (Auto) 18.3 L (20-40) % [place] % (Auto) 7.5 (2-11) % Eos % (Auto) 2.5 (0-4) % Baso % (Auto) 0.8 (0-2) % Lymph # (Auto) 1.6 (1.2-4.9) X10*3/uL [place] # (Auto) 0.6 (0.1-1.2) X10*3/uL Eos # (Auto) 0.2 (0.0-0.4) X10*3/uL Baso # (Auto) 0.1 (0.0-0.2) X10*3/uL Abs Immat Gran (auto) 0.04 H (0.00-0.03) X10*3/uL Absolute Neuts (auto) 6.0 (2.0-8.3) x10*3/uL Absolute Nucleated RBC 0.000 (0.0-0.012) X10*3/uL Nucleated RBC % (auto) 0.0 (0.0-0.2) /100WBC PT 20.3 H (11.1-13.3) SEC INR 1.7 H (0.9-1.1) APTT (26.0-36.4) SEC VBG pH (7.32-7.43) VBG pCO2 mmHg VBG pO2 mmHg VBG HCO3 (22-26) mmol/L VBG O2 Saturation % VBG Base Excess mmol/L Sodium 137 (135-145) mmol/L Potassium 4.5 (3.3-5.1) mmol/L Chloride 104 (96-108) mmol/L Carbon Dioxide 18 L (22-29) mmol/L Anion Gap 20 (12-20) BUN 55 H (9-16) mg/dL Creatinine 9.52 H* (0.5-1.4) mg/dL Estim Creat Clear Calc 9.6 Estimated GFR 6 Random Glucose 96 (60-115) mg/dL Lactic Acid (0.5-2.0) mmol/L Calcium 8.7 (8.4-10.2) mg/dL Magnesium 1.8 (1.6-2.6) mg/dL Total Bilirubin 0.5 (0.0-1.0) mg/dL Direct Bilirubin 0.2 (0.0-0.5) mg/dL AST 11 (5-37) U/L ALT 12 (0-40) U/L Alkaline Phosphatase 130 H (39-117) U/L Ammonia (13-55) umol/L Total Creatine Kinase (38-174) U/L Troponin I High Sens (<3.5-35.0) ng/L Total Protein 7.0 (6.5-8.0) g/dL Albumin 2.8 L (3.5-5.0) g/dL Lipase 20 (8-78) U/L TSH (0.32-4.0) uIU/mL Urine Color Urine Appearance Urine pH (5.0-9.0) Ur Specific [place] (1.005-1.025) Urine Protein (Neg-Trace) mg/dL Urine Glucose (UA) (Negative) mg/dL Urine Ketones (Negative) mg/dL Urine Blood (Negative) Urine Nitrite (Negative) Ur Leukocyte Esterase (Negative) Urine RBC (0-2) /HPF Urine WBC (0-5) /HPF Urine WBC Clumps Ur Squamous Epith Cells (0-2) /HPF Urine Bacteria (None Seen) Hyaline Casts (0-2) /LPF Urine Opiates Screen (Not Detect) Urine Fentanyl Screen (Not Detect) Ur Barbiturates Screen (Not Detect) Ur Phencyclidine Scrn (Not Detect) Ur Amphetamines Screen (Not Detect) U Benzodiazepines Scrn (Not Detect) Urine Cocaine Screen (Not Detect) U Marijuana (THC) Screen (Not Detect) COVID-19 (AGUSTIN) (Negative) COVID-19 Clin Com Influenza Type A (SIMRAN) (Negative) Influenza Type B (SIMRAN) (Negative) Influenza A & B Note 01/04/23 01/04/23 01/04/23 Range/Units 18:44 18:44 18:45 WBC (4.8-10.8) X10*3/uL RBC (4.60-5.80) X10*6/uL Hgb (14.0-18.0) g/dl Hct (42.0-52.0) % MCV (80.0-98.0) fL MCH (27.0-33.0) pg MCHC (31.0-36.0) g/dl RDW (11.0-16.0) % Plt Count (160-400) X10*3/uL MPV (9.4-12.4) fL Immature Gran % (Auto) (0.0-0.4) % Neut % (Auto) (45-73) % Lymph % (Auto) (20-40) % [place] % (Auto) (2-11) % Eos % (Auto) (0-4) % Baso % (Auto) (0-2) % Lymph # (Auto) (1.2-4.9) X10*3/uL [place] # (Auto) (0.1-1.2) X10*3/uL Eos # (Auto) (0.0-0.4) X10*3/uL Baso # (Auto) (0.0-0.2) X10*3/uL Abs Immat Gran (auto) (0.00-0.03) X10*3/uL Absolute Neuts (auto) (2.0-8.3) x10*3/uL Absolute Nucleated RBC (0.0-0.012) X10*3/uL Nucleated RBC % (auto) (0.0-0.2) /100WBC PT 20.1 H (11.1-13.3) SEC INR 1.7 H (0.9-1.1) APTT 40.4 H (26.0-36.4) SEC VBG pH (7.32-7.43) VBG pCO2 mmHg VBG pO2 mmHg VBG HCO3 (22-26) mmol/L VBG O2 Saturation % VBG Base Excess mmol/L Sodium (135-145) mmol/L Potassium (3.3-5.1) mmol/L Chloride (96-108) mmol/L Carbon Dioxide (22-29) mmol/L Anion Gap (12-20) BUN (9-16) mg/dL Creatinine (0.5-1.4) mg/dL Estim Creat Clear Calc Estimated GFR Random Glucose (60-115) mg/dL Lactic Acid 1.2 (0.5-2.0) mmol/L Calcium (8.4-10.2) mg/dL Magnesium (1.6-2.6) mg/dL Total Bilirubin (0.0-1.0) mg/dL Direct Bilirubin (0.0-0.5) mg/dL AST (5-37) U/L ALT (0-40) U/L Alkaline Phosphatase (39-117) U/L Ammonia (13-55) umol/L Total Creatine Kinase 61 (38-174) U/L Troponin I High Sens (<3.5-35.0) ng/L Total Protein (6.5-8.0) g/dL Albumin (3.5-5.0) g/dL Lipase (8-78) U/L TSH 1.25 (0.32-4.0) uIU/mL Urine Color Urine Appearance Urine pH (5.0-9.0) Ur Specific [place] (1.005-1.025) Urine Protein (Neg-Trace) mg/dL Urine Glucose (UA) (Negative) mg/dL Urine Ketones (Negative) mg/dL Urine Blood (Negative) Urine Nitrite (Negative) Ur Leukocyte Esterase (Negative) Urine RBC (0-2) /HPF Urine WBC (0-5) /HPF Urine WBC Clumps Ur Squamous Epith Cells (0-2) /HPF Urine Bacteria (None Seen) Hyaline Casts (0-2) /LPF Urine Opiates Screen (Not Detect) Urine Fentanyl Screen (Not Detect) Ur Barbiturates Screen (Not Detect) Ur Phencyclidine Scrn (Not Detect) Ur Amphetamines Screen (Not Detect) U Benzodiazepines Scrn (Not Detect) Urine Cocaine Screen (Not Detect) U Marijuana (THC) Screen (Not Detect) COVID-19 (AGUSTIN) (Negative) COVID-19 Clin Com Influenza Type A (SIMRAN) (Negative) Influenza Type B (SIMRAN) (Negative) Influenza A & B Note 01/04/23 01/04/23 01/04/23 Range/Units 18:45 18:45 18:45 WBC (4.8-10.8) X10*3/uL RBC (4.60-5.80) X10*6/uL Hgb (14.0-18.0) g/dl Hct (42.0-52.0) % MCV (80.0-98.0) fL MCH (27.0-33.0) pg MCHC (31.0-36.0) g/dl RDW (11.0-16.0) % Plt Count (160-400) X10*3/uL MPV (9.4-12.4) fL Immature Gran % (Auto) (0.0-0.4) % Neut % (Auto) (45-73) % Lymph % (Auto) (20-40) % [place] % (Auto) (2-11) % Eos % (Auto) (0-4) % Baso % (Auto) (0-2) % Lymph # (Auto) (1.2-4.9) X10*3/uL [place] # (Auto) (0.1-1.2) X10*3/uL Eos # (Auto) (0.0-0.4) X10*3/uL Baso # (Auto) (0.0-0.2) X10*3/uL Abs Immat Gran (auto) (0.00-0.03) X10*3/uL Absolute Neuts (auto) (2.0-8.3) x10*3/uL Absolute Nucleated RBC (0.0-0.012) X10*3/uL Nucleated RBC % (auto) (0.0-0.2) /100WBC PT (11.1-13.3) SEC INR (0.9-1.1) APTT (26.0-36.4) SEC VBG pH (7.32-7.43) VBG pCO2 mmHg VBG pO2 mmHg VBG HCO3 (22-26) mmol/L VBG O2 Saturation % VBG Base Excess mmol/L Sodium (135-145) mmol/L Potassium (3.3-5.1) mmol/L Chloride (96-108) mmol/L Carbon Dioxide (22-29) mmol/L Anion Gap (12-20) BUN (9-16) mg/dL Creatinine (0.5-1.4) mg/dL Estim Creat Clear Calc Estimated GFR Random Glucose (60-115) mg/dL Lactic Acid (0.5-2.0) mmol/L Calcium (8.4-10.2) mg/dL Magnesium (1.6-2.6) mg/dL Total Bilirubin (0.0-1.0) mg/dL Direct Bilirubin (0.0-0.5) mg/dL AST (5-37) U/L ALT (0-40) U/L Alkaline Phosphatase (39-117) U/L Ammonia 18 (13-55) umol/L Total Creatine Kinase (38-174) U/L Troponin I High Sens 10.8 (<3.5-35.0) ng/L Total Protein (6.5-8.0) g/dL Albumin (3.5-5.0) g/dL Lipase (8-78) U/L TSH (0.32-4.0) uIU/mL Urine Color Urine Appearance Urine pH (5.0-9.0) Ur Specific [place] (1.005-1.025) Urine Protein (Neg-Trace) mg/dL Urine Glucose (UA) (Negative) mg/dL Urine Ketones (Negative) mg/dL Urine Blood (Negative) Urine Nitrite (Negative) Ur Leukocyte Esterase (Negative) Urine RBC (0-2) /HPF Urine WBC (0-5) /HPF Urine WBC Clumps Ur Squamous Epith Cells (0-2) /HPF Urine Bacteria (None Seen) Hyaline Casts (0-2) /LPF Urine Opiates Screen (Not Detect) Urine Fentanyl Screen (Not Detect) Ur Barbiturates Screen (Not Detect) Ur Phencyclidine Scrn (Not Detect) Ur Amphetamines Screen (Not Detect) U Benzodiazepines Scrn (Not Detect) Urine Cocaine Screen (Not Detect) U Marijuana (THC) Screen (Not Detect) COVID-19 (AGUSTIN) Negative (Negative) COVID-19 Clin Com See Note Influenza Type A (SIMRAN) (Negative) Influenza Type B (SIMRAN) (Negative) Influenza A & B Note 01/04/23 01/04/23 01/04/23 Range/Units 18:45 18:45 18:45 WBC (4.8-10.8) X10*3/uL RBC (4.60-5.80) X10*6/uL Hgb (14.0-18.0) g/dl Hct (42.0-52.0) % MCV (80.0-98.0) fL MCH (27.0-33.0) pg MCHC (31.0-36.0) g/dl RDW (11.0-16.0) % Plt Count (160-400) X10*3/uL MPV (9.4-12.4) fL Immature Gran % (Auto) (0.0-0.4) % Neut % (Auto) (45-73) % Lymph % (Auto) (20-40) % [place] % (Auto) (2-11) % Eos % (Auto) (0-4) % Baso % (Auto) (0-2) % Lymph # (Auto) (1.2-4.9) X10*3/uL [place] # (Auto) (0.1-1.2) X10*3/uL Eos # (Auto) (0.0-0.4) X10*3/uL Baso # (Auto) (0.0-0.2) X10*3/uL Abs Immat Gran (auto) (0.00-0.03) X10*3/uL Absolute Neuts (auto) (2.0-8.3) x10*3/uL Absolute Nucleated RBC (0.0-0.012) X10*3/uL Nucleated RBC % (auto) (0.0-0.2) /100WBC PT (11.1-13.3) SEC INR (0.9-1.1) APTT (26.0-36.4) SEC VBG pH (7.32-7.43) VBG pCO2 mmHg VBG pO2 mmHg VBG HCO3 (22-26) mmol/L VBG O2 Saturation % VBG Base Excess mmol/L Sodium (135-145) mmol/L Potassium (3.3-5.1) mmol/L Chloride (96-108) mmol/L Carbon Dioxide (22-29) mmol/L Anion Gap (12-20) BUN (9-16) mg/dL Creatinine (0.5-1.4) mg/dL Estim Creat Clear Calc Estimated GFR Random Glucose (60-115) mg/dL Lactic Acid (0.5-2.0) mmol/L Calcium (8.4-10.2) mg/dL Magnesium (1.6-2.6) mg/dL Total Bilirubin (0.0-1.0) mg/dL Direct Bilirubin (0.0-0.5) mg/dL AST (5-37) U/L ALT (0-40) U/L Alkaline Phosphatase (39-117) U/L Ammonia (13-55) umol/L Total Creatine Kinase (38-174) U/L Troponin I High Sens (<3.5-35.0) ng/L Total Protein (6.5-8.0) g/dL Albumin (3.5-5.0) g/dL Lipase (8-78) U/L TSH (0.32-4.0) uIU/mL Urine Color Yellow Urine Appearance Hazy Urine pH 8.0 (5.0-9.0) Ur Specific [place] 1.010 (1.005-1.025) Urine Protein 100 (2+) H (Neg-Trace) mg/dL Urine Glucose (UA) Negative (Negative) mg/dL Urine Ketones Negative (Negative) mg/dL Urine Blood Large (3+) H (Negative) Urine Nitrite Negative (Negative) Ur Leukocyte Esterase Moderate (2+) H (Negative) Urine RBC >20 H (0-2) /HPF Urine WBC >50 H (0-5) /HPF Urine WBC Clumps Present Ur Squamous Epith Cells 3-5 (0-2) /HPF Urine Bacteria 4+ (None Seen) Hyaline Casts 3-5 (0-2) /LPF Urine Opiates Screen Not Detected (Not Detect) Urine Fentanyl Screen Not Detected (Not Detect) Ur Barbiturates Screen Not Detected (Not Detect) Ur Phencyclidine Scrn Not Detected (Not Detect) Ur Amphetamines Screen Not Detected (Not Detect) U Benzodiazepines Scrn Not Detected (Not Detect) Urine Cocaine Screen Not Detected (Not Detect) U Marijuana (THC) Screen Not Detected (Not Detect) COVID-19 (AGUSTIN) (Negative) COVID-19 Clin Com Influenza Type A (SIMRAN) Negative (Negative) Influenza Type B (SIMRAN) Negative (Negative) Influenza A & B Note See Note 01/04/23 Range/Units 18:53 WBC (4.8-10.8) X10*3/uL RBC (4.60-5.80) X10*6/uL Hgb (14.0-18.0) g/dl Hct (42.0-52.0) % MCV (80.0-98.0) fL MCH (27.0-33.0) pg MCHC (31.0-36.0) g/dl RDW (11.0-16.0) % Plt Count (160-400) X10*3/uL MPV (9.4-12.4) fL Immature Gran % (Auto) (0.0-0.4) % Neut % (Auto) (45-73) % Lymph % (Auto) (20-40) % [place] % (Auto) (2-11) % Eos % (Auto) (0-4) % Baso % (Auto) (0-2) % Lymph # (Auto) (1.2-4.9) X10*3/uL [place] # (Auto) (0.1-1.2) X10*3/uL Eos # (Auto) (0.0-0.4) X10*3/uL Baso # (Auto) (0.0-0.2) X10*3/uL Abs Immat Gran (auto) (0.00-0.03) X10*3/uL Absolute Neuts (auto) (2.0-8.3) x10*3/uL Absolute Nucleated RBC (0.0-0.012) X10*3/uL Nucleated RBC % (auto) (0.0-0.2) /100WBC PT (11.1-13.3) SEC INR (0.9-1.1) APTT (26.0-36.4) SEC VBG pH 7.41 (7.32-7.43) VBG pCO2 44 mmHg VBG pO2 199 mmHg VBG HCO3 28 H (22-26) mmol/L VBG O2 Saturation 100.0 % VBG Base Excess 3.8 mmol/L Sodium (135-145) mmol/L Potassium (3.3-5.1) mmol/L Chloride (96-108) mmol/L Carbon Dioxide (22-29) mmol/L Anion Gap (12-20) BUN (9-16) mg/dL Creatinine (0.5-1.4) mg/dL Estim Creat Clear Calc Estimated GFR Random Glucose (60-115) mg/dL Lactic Acid (0.5-2.0) mmol/L Calcium (8.4-10.2) mg/dL Magnesium (1.6-2.6) mg/dL Total Bilirubin (0.0-1.0) mg/dL Direct Bilirubin (0.0-0.5) mg/dL AST (5-37) U/L ALT (0-40) U/L Alkaline Phosphatase (39-117) U/L Ammonia (13-55) umol/L Total Creatine Kinase (38-174) U/L Troponin I High Sens (<3.5-35.0) ng/L Total Protein (6.5-8.0) g/dL Albumin (3.5-5.0) g/dL Lipase (8-78) U/L TSH (0.32-4.0) uIU/mL Urine Color Urine Appearance Urine pH (5.0-9.0) Ur Specific [place] (1.005-1.025) Urine Protein (Neg-Trace) mg/dL Urine Glucose (UA) (Negative) mg/dL Urine Ketones (Negative) mg/dL Urine Blood (Negative) Urine Nitrite (Negative) Ur Leukocyte Esterase (Negative) Urine RBC (0-2) /HPF Urine WBC (0-5) /HPF Urine WBC Clumps Ur Squamous Epith Cells (0-2) /HPF Urine Bacteria (None Seen) Hyaline Casts (0-2) /LPF Urine Opiates Screen (Not Detect) Urine Fentanyl Screen (Not Detect) Ur Barbiturates Screen (Not Detect) Ur Phencyclidine Scrn (Not Detect) Ur Amphetamines Screen (Not Detect) U Benzodiazepines Scrn (Not Detect) Urine Cocaine Screen (Not Detect) U Marijuana (THC) Screen (Not Detect) COVID-19 (AGUSTIN) (Negative) COVID-19 Clin Com Influenza Type A (SIMRAN) (Negative) Influenza Type B (SIMRAN) (Negative) Influenza A & B Note Independent Interpretation I performed an independent interpretation of an: Plain X-Ray and CT Scan Radiology Impression Discussion of test interpretation with radiology: I have reviewed the radiologist's reading. Radiologist Impression: Head CT: IMPRESSION: ? 1. No acute intracranial finding. ? 2. There is mild patchy low attenuation change in the periventricular white matter spaces, commonly associated with chronic microangiopathy. ? 3. There is mild sphenoid sinusitis. ? 4. There is opacification of several the bilateral mastoid air cells. ? Hand x-ray: IMPRESSION: Limited evaluation of the digits due to flexion. No definite erosive changes or cortical irregularity in the remainder of the well seen bony structures to suspect osteomyelitis. Recommend repeat imaging or correlation with an MRI as clinically indicated. Foot x-ray: IMPRESSION: 1.? Increased bony lucency and cortical irregularity along the distal first in which osteomyelitis cannot be excluded. If indicated, consider further evaluation with an MR of the right foot. 2.? Advanced osteoarthritis with nonspecific heterogeneity of the bone marrow. Chest x-ray: IMPRESSION: Increased interstitial thickening with questionable more focal opacities in the retrocardiac region and right lower lobe. Findings are indeterminate and could be related with an atypical/viral pneumonia in the appropriate clinical content. Recommend a follow-up examination after treatment to ensure adequate resolution. Left arm ultrasound: IMPRESSION: ? No evidence of deep venous thrombosis in the left upper extremity. Right leg ultrasound: IMPRESSION: 1.? No DVT demonstrated in the right lower extremity. 2.? Mildly prominent right groin lymph node measuring up to 2.5 cm and 6 mm in short axis Critical Care Time Critical Care Time Critical Care Time: Yes Total Critical Care Time: 90 Attestation: I have personally provided critical care time. Time includes review of lab data, radiology results, discussion with consultants, and monitoring for potential decompensation. Intervention performed as documented. Discharge Plan Discharge Clinical Impression: Encephalopathy, Acute UTI, Osteomyelitis, Chronic kidney disease, Pneumonia Patient Disposition: Home, Self-Care Prescriptions: No Action atorvastatin 20 mg Tablet 20 mg PO BEDTIME fluticasone propionate 220 mcg/actuation Hfa Aerosol Inhaler 1 puff INHALATION BID mirtazapine 15 mg Tablet 15 mg PO BEDTIME Qty: 30 0RF Eliquis 5 mg Tablet 5 mg PO BID Qty: 60 0RF omeprazole 20 mg capsule,delayed release(DR/EC) 20 mg PO DAILY Qty: 30 0RF carvedilol 12.5 mg Tablet 12.5 mg PO BID Rx Instructions: must administer with a meal/food sennosides [senna] 8.6 mg Tablet 17.2 mg PO DAILY ondansetron HCl 4 mg Tablet 4 mg PO Q4H PRN (Reason: Nausea) midodrine 5 mg Tablet 5 mg PO Q8H PRN (Reason: ORTHOSTATIC BP) Rx Instructions: do not give last dose of day after 6PM or within 4 hrs of bedtime hydralazine 25 mg tablet 25 mg PO TID lidocaine HCl 3 % Cream 1 appl TOPICAL Q4H PRN (Reason: URETHRAL TEAR) gabapentin 100 mg capsule 100 mg PO BID loratadine 10 mg Tablet 10 mg PO Q48H glipizide 5 mg tablet 5 mg PO DAILY sevelamer carbonate 800 mg tablet 800 mg PO TIDAC linagliptin 5 mg Tablet 5 mg PO DAILY baclofen 5 mg tablet 5 mg PO BID Probiotic 1 cap PO BID
--- NOTE | 2023-01-04 17:35 | PC.NURSE ---
Labs/meds delayed due to patient currently getting ultrasound
--- NOTE | 2023-01-04 17:37 | PHA.MEDREC ---
Pharmacy Consult ? Medication Reconciliation Pharmacy has completed the medication reconciliation. Patient came from [facility] with med list. Raegan Clay, KennethD
--- NOTE | 2023-01-04 17:47 | PC.NURSE ---
spoke with nursing at [facility] last known baseline was at noon 01/04/2023
--- NOTE | 2023-01-04 18:39 | PC.NURSE ---
labs obtained will hang antibiotics
[2023-01-04] MEDS: Piperacillin Sodium/Tazobactam 3.375 GM in 0.9 % Sodium Chloride 50 ML IV (18:43)
[2023-01-04 18:57] LABS: MANUAL DIFF FLAG NO
--- NOTE | 2023-01-04 18:58 | PC.NURSE ---
Pt repositoned, call [facility]a with in reach. Antibiotic running.
[2023-01-04 18:59] VITALS: BP 153/55; PULSE 71; RESP 16; TEMP 36.6; O2SAT 98
[2023-01-04 19:00] LABS: Basophils Absolute Auto 0.1 X10*3/uL (0.0-0.2); Basophils Percent Auto 0.8 % (0-2); Eosinophils Absolute Auto 0.2 X10*3/uL (0.0-0.4); Eosinophils Percent Auto 2.5 % (0-4); Hematocrit 26.7 % (42.0-52.0); Hemoglobin 8.8 g/dl (14.0-18.0); Imm Gran Abs Auto 0.04 X10*3/uL (0.00-0.03); Imm Gran Pct Auto 0.5 % (0.0-0.4); Lymphocytes Absolute Auto 1.6 X10*3/uL (1.2-4.9); Lymphocytes Percent Auto 18.3 % (20-40); Mean Corpuscular Hemoglobin 29.8 pg (27.0-33.0); Mean Corpuscular Volume 90.5 fL (80.0-98.0); Mean Platelet Volume 9.5 fL (9.4-12.4); Monocytes Absolute Auto 0.6 X10*3/uL (0.1-1.2); Monocytes Percent Auto 7.5 % (2-11); Neutrophils Percent Auto 70.4 % (45-73); Platelet Count 322 X10*3/uL (160-400); Red Blood Count 2.95 X10*6/uL (4.60-5.80); Red Cell Distribution Width 14.1 % (11.0-16.0); White Blood Count 8.6 X10*3/uL (4.8-10.8)
--- NOTE | 2023-01-04 19:00 | MHC.EDTECH ---
PATIENT EKG TAKEN AND WAS READ BY PROVIDER ,BLOOD DRAWN INCLUDING ,BLOOD CULTURE 1 SET AND 2ND SET DRAWN ,LACTIC ACID ,FLU AND COVID COLLECTED ,URINE SAMPLE COLLECTED ALL SENT TO LAB ,PATIENT WAS CHANGE AND REPOSITION IN BED .
[2023-01-04 19:01] LABS: VBG Base Excess 3.8 mmol/L; VBG HCO3 28 mmol/L (22-26); VBG pCO2 44 mmHg; VBG pH 7.41 (7.32-7.43); VBG pO2 199 mmHg
[2023-01-04 19:02] LABS: Ammonia 18 umol/L (13-55)
[2023-01-04 19:05] LABS: Appearance Urine Hazy; Color Urine Yellow; Glucose Urine UA Negative (Negative); Lactic Acid 1.2 mmol/L (0.5-2.0); Leukocyte Esterase Urine Moderate (2+) (Negative); Nitrite Urine Negative (Negative); UMIC TRIGGER UACC YES; Urine Blood Large (3+) (Negative); Urine Ketones Negative (Negative); Urine Protein 100 (2+) mg/dL (Neg-Trace)
[2023-01-04 19:09] LABS: Venous Blood Gas Refer to POC result
[2023-01-04 19:18] LABS: INTERNATIONAL NORM RATIO 1.7 (0.9-1.1); Prothrombin Time 20.3 SEC (11.1-13.3)
[2023-01-04 19:19] LABS: INTERNATIONAL NORM RATIO 1.7 (0.9-1.1); Prothrombin Time 20.1 SEC (11.1-13.3)
[2023-01-04 19:21] LABS: Amphetamine Screen Urine Not Detected (Not Detect); Barbiturates, Urine Not Detected (Not Detect); Benzodiazepines Screen Urine Not Detected (Not Detect); Cannabinoid Screen Urine Not Detected (Not Detect); Cocaine Screen Urine Not Detected (Not Detect); Fentanyl, urine Not Detected (Not Detect); IDNOW Serial# BCCEAD1C; Influenza A Negative (Negative); Influenza B2 Negative (Negative); Opiate Screen Urine Not Detected (Not Detect); Phencyclidine Screen Urine Not Detected (Not Detect)
[2023-01-04 19:21] LABS: Partial Thromboplastin Time 40.4 SEC (26.0-36.4)
[2023-01-04 19:22] LABS: COVID-19 Test Negative (Negative); IDNOW Serial# 08D9AD1C
[2023-01-04 19:26] LABS: Bacteria Urine 4+ (None Seen); RBC Urine >20 /HPF (0-2); UACC Culture Trigger YES; WBC Clumps Urine Present; WBC Urine >50 /HPF (0-5)
[2023-01-04 19:27] LABS: Troponin-I High Sensitivity 10.8 ng/L (<3.5-35.0)
[2023-01-04 19:36] LABS: TSH reflex Free T4 1.25 uIU/mL (0.32-4.0)
[2023-01-04 19:43] LABS: Alanine Aminotransferase 12 U/L (0-40); Albumin Level 2.8 g/dL (3.5-5.0); Alkaline Phosphatase 130 U/L (39-117); Anion Gap 20 (12-20); Aspartate Amino Transferase 11 U/L (5-37); Bilirubin Direct 0.2 mg/dL (0.0-0.5); Bilirubin Total 0.5 mg/dL (0.0-1.0); Blood Urea Nitrogen 55 mg/dL (9-16); Calcium 8.7 mg/dL (8.4-10.2); Carbon Dioxide 18 mmol/L (22-29); Chloride 104 mmol/L (96-108); Creatinine Clr Calc Pharmacy 9.6; Estimated Glomerular Filt Rate 6; Glucose Random 96 mg/dL (60-115); Lipase 20 U/L (8-78); Magnesium 1.8 mg/dL (1.6-2.6); Potassium 4.5 mmol/L (3.3-5.1); Sodium 137 mmol/L (135-145)
[2023-01-04 20:57] VITALS: BP 164/65; PULSE 83; RESP 16; TEMP 36.8; O2SAT 97
--- NOTE | 2023-01-04 21:47 | P.HPHOSP_ITS ---
History of Present Illness Date of Service: 01/04/23 Chief Complaint: ALTERED 67-year-old male with past medical history of ESRD on dialysis, HTN, pulmonary embolism, recurrent UTI, resident of retirement comes into the hospital with increased confusion as well as concerning necrotic great toe of the right foot as well as necrotic fingers of the left hand. History is obtained mostly from ED physician, who got it from the retirement. It appears patient has been increasingly confused, he has also missed dialysis the day prior to presentation due to left upper extremity swelling. Patient is awake, alert, but very confused, he kept calling me Sabrina, unable to give much history. Baseline apparently a recognizes people unable to carry a basic conversation. Unable to review systems as patient is confused. On arrival to the ED patient is hemodynamically stable with no significant abnormal vitals. Lab significant for WBC count of 8.6, hemoglobin of 8.8, hematocrit 26.7, creatinine of 9.52, BUN of 55, UA positive for leukocyte Estrace WBC and bacteria, chest x-ray shows increased interstitial thickening with questionable focal opacity in the right lower lobe, foot x-ray shows increased bony lucency and cortical irregularity concerning for osteomyelitis Review of Systems Review of Systems: Yes Unobtainable due to mental condition and Unobtainable due to mental status PMFSH Medical History Acute respiratory failure with hypoxia Acute UTI Bacteremia due to Pseudomonas BPH (benign prostatic hyperplasia) ESRD (end stage renal disease) on dialysis Hypertension Metabolic encephalopathy Pulmonary embolism Family History Mother No problems noted. Father No problems noted. Social History Household Members: None Housing: Care Home Alcohol intake: former Patient Tobacco Use Status: Former Tobacco user Smoked in Last 30 Days: No Use of substances other than those prescribed or required for medical reasons: No Substance Use Type: Marijuana Advance Directives: Yes Advance Directives on File: Yes Advance Directives Date on File: 02/24/22 service: No Current occupational status: disabled Meds Allergies Allergy/AdvReac Type Severity Reaction Status Date / Time No Known Allergies Allergy Verified 02/08/22 15:03 Active Medications: Current Medications Acetaminophen (Acetaminophen 325 Mg Tablet) 650 mg PO Q6H PRN PRN Reason: Pain, Mild (Pain Scale 1-3) Vancomycin HCl 1,500 mg/ (Sodium Chloride) 500 mls @ 333.333 mls/hr IV Q12H PANKAJ Cefepime HCl 2 gm/ Sodium (Chloride) 50 mls @ 100 mls/hr IV Q8H PANKAJ Ondansetron HCl (Ondansetron Hcl 4 Mg/2 Ml Vial) 4 mg IVPUSH Q8H PRN PRN Reason: Nausea and Vomiting Pharmacy Consult (Consult Rx Vancomycin Dosing) 1 each MISCELLANE DAILY PRN PRN Reason: Consult order Sodium Chloride (0.9 % Sodium Chloride Flush 3 Ml Syringe) 3 ml IVFLUSH [facility] Home Medications Medication Instructions Recorded Confirmed Last Taken Type atorvastatin 20 mg tablet 20 mg PO BEDTIME 02/08/22 01/04/23 Unknown History fluticasone propionate 220 1 puff inhalation BID 02/08/22 01/04/23 11/05/22 History mcg/actuation HFA aerosol inhaler carvedilol 12.5 mg tablet 12.5 mg PO BID 11/05/22 01/04/23 11/05/22 History Probiotic 1 cap PO BID 01/04/23 01/04/23 Unknown History baclofen 5 mg tablet 5 mg PO BID 01/04/23 01/04/23 Unknown History gabapentin 100 mg capsule 100 mg PO BID 01/04/23 01/04/23 Unknown History glipizide 5 mg tablet 5 mg PO DAILY 01/04/23 01/04/23 Unknown History hydralazine 25 mg tablet 25 mg PO TID 01/04/23 01/04/23 Unknown History lidocaine HCl 3 % topical cream 1 appl topical Q4H PRN URETHRAL 01/04/23 01/04/23 Unknown History TEAR linagliptin 5 mg tablet 5 mg PO DAILY 01/04/23 01/04/23 Unknown History loratadine 10 mg tablet 10 mg PO Q48H 01/04/23 01/04/23 Unknown History midodrine 5 mg tablet 5 mg PO Q8H PRN ORTHOSTATIC BP 01/04/23 01/04/23 Unknown History ondansetron HCl 4 mg tablet 4 mg PO Q4H PRN Nausea 01/04/23 01/04/23 Unknown History sennosides 8.6 mg tablet (senna) 17.2 mg PO DAILY 01/04/23 01/04/23 Unknown History sevelamer carbonate 800 mg tablet 800 mg PO TIDAC 01/04/23 01/04/23 Unknown History Physical Exam Vital Signs and Narrative: Vital Signs: Last Vital Signs Temp 98.2 F 01/04/23 20:57 Pulse 83 01/04/23 20:57 Resp 16 01/04/23 20:57 BP 164/65 H 01/04/23 20:57 Pulse Ox 97 01/04/23 20:57 O2 Del Method Room Air 01/04/23 20:57 BMI result Body Mass Index 27.3 Const: General: cooperative and no acute distress Eyes: General: appearance normal, both eyes and all related structures Resp: Effort & Inspection: normal respiratory effort Auscultation: clear to auscultation bilaterally Cardio: Rate: regular rate Rhythm: regular rhythm GI: Palpation (GI): Soft to palpation Auscultation: normal bowel sounds Skin: Other: CT images in extremity exam Extrem: Other: See image Results Labs 01/04/23 18:44 01/04/23 18:44 Labs: Laboratory Results - last 24 hr 01/04/23 01/04/23 01/04/23 18:44 18:44 18:44 MCV 90.5 MCH 29.8 MCHC 33.0 RDW 14.1 Plt Count 322 D MPV 9.5 Immature Gran % (Auto) 0.5 H Neut % (Auto) 70.4 Lymph % (Auto) 18.3 L [place] % (Auto) 7.5 Eos % (Auto) 2.5 Baso % (Auto) 0.8 Lymph # (Auto) 1.6 [place] # (Auto) 0.6 Eos # (Auto) 0.2 Baso # (Auto) 0.1 Abs Immat Gran (auto) 0.04 H Absolute Neuts (auto) 6.0 Absolute Nucleated RBC 0.000 Nucleated RBC % (auto) 0.0 PT 20.3 H INR 1.7 H APTT VBG pH VBG pCO2 VBG pO2 VBG HCO3 VBG O2 Saturation VBG Base Excess Anion Gap 20 Estim Creat Clear Calc 9.6 Estimated GFR 6 Random Glucose 96 Lactic Acid Calcium 8.7 Magnesium 1.8 Total Bilirubin 0.5 Direct Bilirubin 0.2 AST 11 ALT 12 Alkaline Phosphatase 130 H Ammonia Total Creatine Kinase Total Protein 7.0 Albumin 2.8 L Lipase 20 TSH Urine Color Urine Appearance Urine pH Ur Specific [place] Urine Protein Urine Glucose (UA) Urine Ketones Urine Blood Urine Nitrite Ur Leukocyte Esterase Urine RBC Urine WBC Urine WBC Clumps Ur Squamous Epith Cells Urine Bacteria Hyaline Casts Urine Opiates Screen Urine Fentanyl Screen Ur Barbiturates Screen Ur Phencyclidine Scrn Ur Amphetamines Screen U Benzodiazepines Scrn Urine Cocaine Screen U Marijuana (THC) Screen COVID-19 (AGUSTIN) COVID-19 Clin Com Influenza Type A (SIMRAN) Influenza Type B (SIMRAN) Influenza A & B Note 01/04/23 01/04/23 01/04/23 18:44 18:44 18:45 MCV MCH MCHC RDW Plt Count MPV Immature Gran % (Auto) Neut % (Auto) Lymph % (Auto) [place] % (Auto) Eos % (Auto) Baso % (Auto) Lymph # (Auto) [place] # (Auto) Eos # (Auto) Baso # (Auto) Abs Immat Gran (auto) Absolute Neuts (auto) Absolute Nucleated RBC Nucleated RBC % (auto) PT 20.1 H INR 1.7 H APTT 40.4 H VBG pH VBG pCO2 VBG pO2 VBG HCO3 VBG O2 Saturation VBG Base Excess Anion Gap Estim Creat Clear Calc Estimated GFR Random Glucose Lactic Acid 1.2 Calcium Magnesium Total Bilirubin Direct Bilirubin AST ALT Alkaline Phosphatase Ammonia Total Creatine Kinase 61 Total Protein Albumin Lipase TSH 1.25 Urine Color Urine Appearance Urine pH Ur Specific [place] Urine Protein Urine Glucose (UA) Urine Ketones Urine Blood Urine Nitrite Ur Leukocyte Esterase Urine RBC Urine WBC Urine WBC Clumps Ur Squamous Epith Cells Urine Bacteria Hyaline Casts Urine Opiates Screen Urine Fentanyl Screen Ur Barbiturates Screen Ur Phencyclidine Scrn Ur Amphetamines Screen U Benzodiazepines Scrn Urine Cocaine Screen U Marijuana (THC) Screen COVID-19 (AGUSTIN) COVID-19 Clin Com Influenza Type A (SIMRAN) Influenza Type B (SIMRAN) Influenza A & B Note 01/04/23 01/04/23 01/04/23 18:45 18:45 18:45 MCV MCH MCHC RDW Plt Count MPV Immature Gran % (Auto) Neut % (Auto) Lymph % (Auto) [place] % (Auto) Eos % (Auto) Baso % (Auto) Lymph # (Auto) [place] # (Auto) Eos # (Auto) Baso # (Auto) Abs Immat Gran (auto) Absolute Neuts (auto) Absolute Nucleated RBC Nucleated RBC % (auto) PT INR APTT VBG pH VBG pCO2 VBG pO2 VBG HCO3 VBG O2 Saturation VBG Base Excess Anion Gap Estim Creat Clear Calc Estimated GFR Random Glucose Lactic Acid Calcium Magnesium Total Bilirubin Direct Bilirubin AST ALT Alkaline Phosphatase Ammonia 18 Total Creatine Kinase Total Protein Albumin Lipase TSH Urine Color Urine Appearance Urine pH Ur Specific [place] Urine Protein Urine Glucose (UA) Urine Ketones Urine Blood Urine Nitrite Ur Leukocyte Esterase Urine RBC Urine WBC Urine WBC Clumps Ur Squamous Epith Cells Urine Bacteria Hyaline Casts Urine Opiates Screen Urine Fentanyl Screen Ur Barbiturates Screen Ur Phencyclidine Scrn Ur Amphetamines Screen U Benzodiazepines Scrn Urine Cocaine Screen U Marijuana (THC) Screen COVID-19 (AGUSTIN) Negative COVID-19 Clin Com See Note Influenza Type A (SIMRAN) Negative Influenza Type B (SIMRAN) Negative Influenza A & B Note See Note 01/04/23 01/04/23 01/04/23 18:45 18:45 18:53 MCV MCH MCHC RDW Plt Count MPV Immature Gran % (Auto) Neut % (Auto) Lymph % (Auto) [place] % (Auto) Eos % (Auto) Baso % (Auto) Lymph # (Auto) [place] # (Auto) Eos # (Auto) Baso # (Auto) Abs Immat Gran (auto) Absolute Neuts (auto) Absolute Nucleated RBC Nucleated RBC % (auto) PT INR APTT VBG pH 7.41 VBG pCO2 44 VBG pO2 199 VBG HCO3 28 H VBG O2 Saturation 100.0 VBG Base Excess 3.8 Anion Gap Estim Creat Clear Calc Estimated GFR Random Glucose Lactic Acid Calcium Magnesium Total Bilirubin Direct Bilirubin AST ALT Alkaline Phosphatase Ammonia Total Creatine Kinase Total Protein Albumin Lipase TSH Urine Color Yellow Urine Appearance Hazy Urine pH 8.0 Ur Specific [place] 1.010 Urine Protein 100 (2+) H Urine Glucose (UA) Negative Urine Ketones Negative Urine Blood Large (3+) H Urine Nitrite Negative Ur Leukocyte Esterase Moderate (2+) H Urine RBC >20 H Urine WBC >50 H Urine WBC Clumps Present Ur Squamous Epith Cells 3-5 Urine Bacteria 4+ Hyaline Casts 3-5 Urine Opiates Screen Not Detected Urine Fentanyl Screen Not Detected Ur Barbiturates Screen Not Detected Ur Phencyclidine Scrn Not Detected Ur Amphetamines Screen Not Detected U Benzodiazepines Scrn Not Detected Urine Cocaine Screen Not Detected U Marijuana (THC) Screen Not Detected COVID-19 (AGUSTIN) COVID-19 Clin Com Influenza Type A (SIMRAN) Influenza Type B (SIMRAN) Influenza A & B Note Imaging Radiologist's Impressions: Impressions Venous Duplex 01/04/23 17:25 IMPRESSION: 1. No DVT demonstrated in the right lower extremity. 2. Mildly prominent right groin lymph node measuring up to 2.5 cm and 6 mm in short axis. Venous Duplex 01/04/23 17:41 IMPRESSION: No evidence of deep venous thrombosis in the left upper extremity. Chest X-Ray 01/04/23 18:21 IMPRESSION: Increased interstitial thickening with questionable more focal opacities in the retrocardiac region and right lower lobe. Findings are indeterminate and could be related with an atypical/viral pneumonia in the appropriate clinical content. Recommend a follow-up examination after treatment to ensure adequate resolution. Foot X-Ray 01/04/23 18:21 IMPRESSION: 1. Increased bony lucency and cortical irregularity along the distal first in which osteomyelitis cannot be excluded. If indicated, consider further evaluation with an MR of the right foot. 2. Advanced osteoarthritis with nonspecific heterogeneity of the bone marrow. Hand X-Ray 01/04/23 18:21 IMPRESSION: Limited evaluation of the digits due to flexion. No definite erosive changes or cortical irregularity in the remainder of the well seen bony structures to suspect osteomyelitis. Recommend repeat imaging or correlation with an MRI as clinically indicated. Head CT 01/04/23 19:27 IMPRESSION: 1. No acute intracranial finding. 2. There is mild patchy low attenuation change in the periventricular white matter spaces, commonly associated with chronic microangiopathy. 3. There is mild sphenoid sinusitis. 4. There is opacification of several the bilateral mastoid air cells. Assessment and Plan (1) Encephalopathy: Status: Acute (2) Acute UTI: Status: Acute (3) Osteomyelitis: Qualifiers: Osteomyelitis type: other Osteomyelitis location: foot Laterality: right Qualified Code(s): M86.8X7 - Other osteomyelitis, ankle and foot Status: Acute (4) ESRD (end stage renal disease): Status: Acute (5) Pneumonia: Status: Acute Plan 67-year-old male with past medical history of hypertension, ESRD on dialysis, history of recurrent UTI comes into the hospital with increased confusion found to have multiple abnormalities # acute encephalopathy - likely toxic metabolic encephalopathy secondary to ESRD, missed dialysis as well as acute infection - will treat with dialysis, and IV antibiotics - monitor mentation, baseline can not hold basic conversations # Acute UTI - hx of pseudomonal UTI mitchell-sensitive - will treat with abx - follow cultures # Osteomyelitis - of the great right toe - will obtain ESR and CRP - will tx with abx - follow cultures # ESRD missed dialysis - nephorlogy consulted # HTN - stable - resume home antihypertensives # DM - hold oral antihyperglyceimics - will add low dose sliding scake # Hx of DVT - continue epixaben DVT ppx: Epixaben Patient's acute UTI with pseudomonal cultures in the past, as well as encephalopathy requiring IV antibiotics, as well as management of osteomyelitis patient require minimum 2 nights inpatient hospital stay for further management and monitoring, Time Spent With Patient Time: Total time managing care of this patient today ____ minutes. Quality Stroke Does the patient have a stroke diagnosis?: No VTE Prior VTE?: No VTE Risk Level:: Medical - moderate - high VTE Device Contraindication: Treatment Not Indicated VTE Drug Contraindication: N/A - Med Ordered
--- NOTE | 2023-01-04 21:56 | PHA.PROG ---
Admission Date/Time: January 04, 2023 21:44 Indication: Osteomylitis Weight in k.3 kg Adjusted body weight in K.18 kg [place] body weight in K.1 kg Obesity Dosing Indication % IBW: 117% Serum Creatinine - Last 168 Hours 01/04/23 18:44 Creatinine 9.52 H* Estimated CrCl and GFR - Last 168 Hours 01/04/23 18:44 Estim Creat Clear Calc 9.6 Estimated GFR 6 Vancomycin Loading Dose: 1500 mg Current Vancomycin Dosing Regimen: dose base on random Date and Time for next Vancomycin Level to be drawn: 01/06 @ 1800 (if dialysis tomorrow) Pharmacist Comments on Vancomycin Plan: Patient did not receive dialysis today. Patient most likely to receive dialysis tomorrow. Pharmacy will follow daily Vancomycin dosing will take advantage of [employer] as a clinical decision support tool that uses Bayesian modeling to calculate individual patient's pharmacokinetic parameters and forecast the patient's drug concentration time course with the target goal AUC 24 range of 400 - 600 mg/L/hr.
[2023-01-04 22:09] VITALS: BP 173/77; PULSE 83; RESP 16; TEMP 36.8; O2SAT 97
--- NOTE | 2023-01-04 22:18 | PC.NURSE ---
Report to [facility] on S3.
[2023-01-04 22:34] LABS: C Reactive Protein 4.95 mg/dL (< or = 0.50)
[2023-01-04 23:03] VITALS: BP 171/76; PULSE 82; RESP 20; TEMP 36.9; O2SAT 98
[2023-01-04 23:09] LABS: Erythrocyte Sedimentation Rate 102 MM/HR (0-15)
[2023-01-04] MEDS: cefEPime HCl 1 GM in 0.9 % Sodium Chloride 50 ML IV (23:18)
[2023-01-04] MEDS: 0.9 % Sodium Chloride Flush 3 ML SYRINGE IVFLUSH (23:18)
[2023-01-05 05:48] LABS: MANUAL DIFF FLAG NO
[2023-01-05 05:52] LABS: Basophils Percent Auto 0.4 % (0-2); Eosinophils Absolute Auto 0.3 X10*3/uL (0.0-0.4); Eosinophils Percent Auto 3.1 % (0-4); Hematocrit 29.3 % (42.0-52.0); Hemoglobin 9.5 g/dl (14.0-18.0); Imm Gran Abs Auto 0.04 X10*3/uL (0.00-0.03); Imm Gran Pct Auto 0.4 % (0.0-0.4); Lymphocytes Absolute Auto 0.8 X10*3/uL (1.2-4.9); Lymphocytes Percent Auto 8.5 % (20-40); Mean Corpuscular HGB Conc 32.4 g/dl (31.0-36.0); Mean Corpuscular Volume 89.3 fL (80.0-98.0); Mean Platelet Volume 9.3 fL (9.4-12.4); Monocytes Absolute Auto 0.5 X10*3/uL (0.1-1.2); Monocytes Percent Auto 5.1 % (2-11); Neutrophils Percent Auto 82.5 % (45-73); Platelet Count 338 X10*3/uL (160-400); Red Blood Count 3.28 X10*6/uL (4.60-5.80); Red Cell Distribution Width 13.8 % (11.0-16.0); White Blood Count 9.7 X10*3/uL (4.8-10.8)
[2023-01-05 06:05] LABS: Anion Gap 20 (12-20); Blood Urea Nitrogen 56 mg/dL (9-16); Calcium 9.2 mg/dL (8.4-10.2); Carbon Dioxide 17 mmol/L (22-29); Chloride 105 mmol/L (96-108); Creatinine Clr Calc Pharmacy 9.4; Estimated Glomerular Filt Rate 5; Glucose Random 83 mg/dL (60-115); Potassium 4.6 mmol/L (3.3-5.1); Sodium 137 mmol/L (135-145)
[2023-01-05 06:17] VITALS: BMI 27.2
[2023-01-05 07:46] LABS: Glucose, Whole Blood 87 mg/dL (60-115)
[2023-01-05 07:50] VITALS: BP 160/77; PULSE 89; RESP 18; TEMP 36.7; O2SAT 98
[2023-01-05] MEDS: Fluticasone Propionate 250 MCG BLST.W.DEV 1 PUFF INHALE ×2 (08:49→19:41)
[2023-01-05 08:55] VITALS: PULSE 82; RESP 16; O2SAT 97
--- NOTE | 2023-01-05 09:24 | PM.CNNEP ---
History of Present Illness Reason for Consult Consult date: 01/05/23 Chief Complaint Chief complaint: AMS, UTI, Osteo History of Present Illness Narrative: 67-year-old male with history of ESRD on dialysis admitted with altered mental status. He [place] a [place] and presented to the hospital with increased confusion as well as concerning necrotic great toe of the right foot as well as necrotic fingers of the left hand.? He has also missed dialysis the day prior to presentation due to left upper extremity swelling. Chest x-ray showed increased interstitial thickening with questionable focal opacity in the right lower lobe, foot x-ray shows increased bony lucency and cortical irregularity concerning for osteomyelitis. Review of Systems Review of Systems unobtainable [facility] Past Medical History Medical History Acute respiratory failure with hypoxia Acute UTI Bacteremia due to Pseudomonas BPH (benign prostatic hyperplasia) ESRD (end stage renal disease) on dialysis Hypertension Metabolic encephalopathy Pulmonary embolism Family History Family History Mother No problems noted. Father No problems noted. Social History Social History Household Members: None Housing: Half-Way Unable to assess alcohol history related to: Unable to respond Alcohol intake: former Patient Tobacco Use Status: Former Tobacco user Substance Use Type: Marijuana Advance Directives Date on File: 02/24/22 service: No Current occupational status: disabled Meds Allergies Allergy/AdvReac Type Severity Reaction Status Date / Time No Known Allergies Allergy Verified 02/08/22 15:03 Active Medications: Current Medications Acetaminophen (Acetaminophen 325 Mg Tablet) 650 mg PO Q6H PRN PRN Reason: Pain, Mild (Pain Scale 1-3) Atorvastatin Calcium (Atorvastatin Calcium 20 Mg Tablet) 20 mg PO BEDTIME PANKAJ Baclofen (Baclofen 10 Mg Tablet) 5 mg PO BID PANKAJ Carvedilol (Carvedilol 12.5 Mg Tablet) 12.5 mg PO BID PANKAJ; Protocol Dextrose (Dextrose 50 % 25 Gm/50 Ml Syringe) 25 gm IVPUSH Q15M PRN; Protocol PRN Reason: per Hypoglycemia Standing Ord. Fluticasone Propionate (Fluticasone Propionate 250 Mcg Blst.W.Dev) 1 puff INHALE RBID PANKAJ Last Admin: 01/05/23 08:49 Dose: 1 puff Gabapentin (Gabapentin 100 Mg Capsule) 100 mg PO BID [facility] Glucose (Glucose Gel 15 Gm Gel..Gram.) 15 gm PO Q15M PRN; Protocol PRN Reason: per Hypoglycemia Standing Ord. Heparin Sodium (Porcine) (Heparin Sodium,Porcine 5,000 Unit/Ml Vial) 5,000 unit SUBCUT Q12H [facility] Hydralazine HCl (Hydralazine Hcl 25 Mg Tablet) 25 mg PO TID [facility]; Protocol Cefepime HCl 1 gm/ Sodium (Chloride) 50 mls @ 100 mls/hr IV Q24H [facility] Last Infusion: 01/05/23 00:06 Dose: Infused Vancomycin HCl 500 mg/ Sodium (Chloride) 110 mls @ 110 mls/hr IV ONCE ONE Stop: 01/05/23 20:59 Insulin Human Lispro (Insulin Lispro 100 Unit/Ml 3 Ml Vial) 0 unit SUBCUT QIDACHS [facility]; Protocol Last Admin: 01/05/23 07:49 Dose: Not Given Midodrine (Midodrine Hcl 5 Mg Tablet) 5 mg PO Q8H PRN PRN Reason: ORTHOSTATIC BP Mirtazapine (Mirtazapine 15 Mg Tablet) 15 mg PO BEDTIME [facility] Omeprazole (Omeprazole 20 Mg Capsule.Dr) 20 mg PO DAILY@0630 [facility] Last Admin: 01/05/23 06:06 Dose: Not Given Ondansetron HCl (Ondansetron Hcl 4 Mg/2 Ml Vial) 4 mg IVPUSH Q8H PRN PRN Reason: Nausea and Vomiting Pharmacy Consult (Consult Rx Vancomycin Dosing) 1 each MISCELLANE DAILY PRN PRN Reason: Consult order Senna (Sennosides 8.6 Mg Tablet) 17.2 mg PO DAILY [facility] Sevelamer Carbonate (Sevelamer Carbonate Tablet 800 Mg Tablet) 800 mg PO TIDAC [facility] Sodium Chloride (0.9 % Sodium Chloride Flush 3 Ml Syringe) 3 ml IVFLUSH QSHIFT [facility] Last Admin: 01/04/23 23:18 Dose: 3 ml Home Medications Medication Instructions Recorded Confirmed Last Taken Type atorvastatin 20 mg tablet 20 mg PO BEDTIME 02/08/22 01/04/23 Unknown History fluticasone propionate 220 1 puff inhalation BID 02/08/22 01/04/23 11/05/22 History mcg/actuation HFA aerosol inhaler carvedilol 12.5 mg tablet 12.5 mg PO BID 11/05/22 01/04/23 11/05/22 History Probiotic 1 cap PO BID 01/04/23 01/04/23 Unknown History baclofen 5 mg tablet 5 mg PO BID 01/04/23 01/04/23 Unknown History gabapentin 100 mg capsule 100 mg PO BID 01/04/23 01/04/23 Unknown History glipizide 5 mg tablet 5 mg PO DAILY 01/04/23 01/04/23 Unknown History hydralazine 25 mg tablet 25 mg PO TID 01/04/23 01/04/23 Unknown History lidocaine HCl 3 % topical cream 1 appl topical Q4H PRN URETHRAL 01/04/23 01/04/23 Unknown History TEAR linagliptin 5 mg tablet 5 mg PO DAILY 01/04/23 01/04/23 Unknown History loratadine 10 mg tablet 10 mg PO Q48H 01/04/23 01/04/23 Unknown History midodrine 5 mg tablet 5 mg PO Q8H PRN ORTHOSTATIC BP 01/04/23 01/04/23 Unknown History ondansetron HCl 4 mg tablet 4 mg PO Q4H PRN Nausea 01/04/23 01/04/23 Unknown History sennosides 8.6 mg tablet (senna) 17.2 mg PO DAILY 01/04/23 01/04/23 Unknown History sevelamer carbonate 800 mg tablet 800 mg PO TIDAC 01/04/23 01/04/23 Unknown History Physical Exam Vital Signs: Last Vital Signs Temp 98.1 F 01/05/23 07:50 Pulse 82 01/05/23 08:55 Resp 16 01/05/23 08:55 BP 160/77 H 01/05/23 07:50 Pulse Ox 98 01/05/23 07:50 O2 Del Method Room Air 01/05/23 07:50 BMI result Body Mass Index 27.2 Const General: no acute distress HEENT Head: Yes normocephalic and Yes atraumatic Neck Neck: Yes supple Resp Auscultation: diminished lung sounds Cardio Heart sounds: S1 normal heart sound present and S2 normal heart sound present GI Palpation (GI): Soft to palpation and nontender Extrem General: Yes edema Results Lab Results 01/05/23 05:31 01/05/23 05:31 Lab results: Chemistry 01/04/23 01/05/23 18:44 05:31 Sodium 137 137 Potassium 4.5 4.6 Carbon Dioxide 18 L 17 L BUN 55 H 56 H Creatinine 9.52 H* 9.72 H* Calcium 8.7 9.2 Hematology 01/04/23 01/05/23 18:44 05:31 WBC 8.6 9.7 Hgb 8.8 L D 9.5 L Plt Count 322 D 338 Urinalysis 01/04/23 18:45 Urine Color Yellow Urine Appearance Hazy Urine pH 8.0 Ur Specific Maxie 1.010 Urine Protein 100 (2+) H Urine Glucose (UA) Negative Urine Ketones Negative Urine Blood Large (3+) H Urine Nitrite Negative Ur Leukocyte Esterase Moderate (2+) H Urine RBC >20 H Urine WBC >50 H Ur Squamous Epith Cells 3-5 Hyaline Casts 3-5 Assessment and Plan (1) ESRD (end stage renal disease): Status: Acute (2) Anemia: Status: Acute Plan usually has HD t-t-s first shift at [facility] dialysis unit followed by Dr Hoang presented with altered mental status in the setting of acute infection found to have UTI and osteomyelitis of the great right toe REC HD today UF as tolerated renal diet phosphate binders KATERINE Abx follow cultures Time Spent With Patient Time: Total time managing care of this patient today ____ minutes. Procedures Date of Service Date of Service: 01/05/23
--- NOTE | 2023-01-05 13:25 | HO.PM.IMPN ---
Subjective Subjective Date of Service: 01/05/23 Interval History: remains confused but compared to admission note slightly clearer Review of Systems unable to obtain Physical Exam Vital Signs: Vital Signs: Last Vital Signs Temp 98.1 F 01/05/23 07:50 Pulse 82 01/05/23 08:55 Resp 16 01/05/23 08:55 BP 160/77 H 01/05/23 07:50 Pulse Ox 98 01/05/23 07:50 O2 Del Method Room Air 01/05/23 07:50 BMI result Body Mass Index 27.2 Const: Other: awake; intermittent confusion Resp: Other: clear to auscultation bilaterally no rales rhonchi or wheezes Cardio: Other: no S4; positive S1-S2; no S3 murmurs rubs or gallops GI: Other: soft nontender nondistended normoactive bowel sounds Extrem: Other: see admitting pictures; Objective Data Active Medications Acetaminophen (Acetaminophen 325 Mg Tablet) 650 mg PO Q6H PRN PRN Reason: Pain, Mild (Pain Scale 1-3) Atorvastatin Calcium (Atorvastatin Calcium 20 Mg Tablet) 20 mg PO BEDTIME [facility] Baclofen (Baclofen 10 Mg Tablet) 5 mg PO BID [facility] Last Admin: 01/05/23 09:39 Dose: Not Given Documented By: RENETTA Non-Admin Reason: NPO Carvedilol (Carvedilol 12.5 Mg Tablet) 12.5 mg PO BID [facility]; Protocol Last Admin: 01/05/23 09:40 Dose: Not Given Documented By: RENETTA Non-Admin Reason: Nausea Dextrose (Dextrose 50 % 25 Gm/50 Ml Syringe) 25 gm IVPUSH Q15M PRN; Protocol PRN Reason: per Hypoglycemia Standing Ord. Fluticasone Propionate (Fluticasone Propionate 250 Mcg Blst.W.Dev) 1 puff INHALE RBID [facility] Last Admin: 01/05/23 08:49 Dose: 1 puff Documented By: DEANNA Gabapentin (Gabapentin 100 Mg Capsule) 100 mg PO BID [facility] Last Admin: 01/05/23 09:40 Dose: Not Given Documented By: RENETTA Non-Admin Reason: NPO Glucose (Glucose Gel 15 Gm Gel..Gram.) 15 gm PO Q15M PRN; Protocol PRN Reason: per Hypoglycemia Standing Ord. Heparin Sodium (Porcine) (Heparin Sodium,Porcine 5,000 Unit/Ml Vial) 5,000 unit SUBCUT Q12H [facility] Last Admin: 01/05/23 12:24 Dose: Not Given Documented By: RENETTA Non-Admin Reason: Off unit: Dialysis Hydralazine HCl (Hydralazine Hcl 25 Mg Tablet) 25 mg PO TID [facility]; Protocol Last Admin: 01/05/23 09:40 Dose: Not Given Documented By: RENETTA Non-Admin Reason: NPO Cefepime HCl 1 gm/ Sodium (Chloride) 50 mls @ 100 mls/hr IV Q24H [facility] Last Infusion: 01/05/23 00:06 Dose: 0 mls/hr Documented By: EVERETT Vancomycin HCl 500 mg/ Sodium (Chloride) 110 mls @ 110 mls/hr IV ONCE ONE Stop: 01/05/23 20:59 Insulin Human Lispro (Insulin Lispro 100 Unit/Ml 3 Ml Vial) 0 unit SUBCUT QIDACHS [facility]; Protocol Last Admin: 01/05/23 12:23 Dose: Not Given Documented By: RENETTA Non-Admin Reason: Off unit: Dialysis Midodrine (Midodrine Hcl 5 Mg Tablet) 5 mg PO Q8H PRN PRN Reason: ORTHOSTATIC BP Mirtazapine (Mirtazapine 15 Mg Tablet) 15 mg PO BEDTIME [facility] Omeprazole (Omeprazole 20 Mg Capsule.Dr) 20 mg PO DAILY@0630 [facility] Last Admin: 01/05/23 06:06 Dose: Not Given Documented By: EVERETT Non-Admin Reason: unable to swallow Ondansetron HCl (Ondansetron Hcl 4 Mg/2 Ml Vial) 4 mg IVPUSH Q8H PRN PRN Reason: Nausea and Vomiting Pharmacy Consult (Consult Rx Vancomycin Dosing) 1 each MISCELLANE DAILY PRN PRN Reason: Consult order Senna (Sennosides 8.6 Mg Tablet) 17.2 mg PO DAILY [facility] Last Admin: 01/05/23 09:40 Dose: Not Given Documented By: RENETTA Non-Admin Reason: NPO Sevelamer Carbonate (Sevelamer Carbonate Tablet 800 Mg Tablet) 800 mg PO TIDAC [facility] Last Admin: 01/05/23 12:24 Dose: Not Given Documented By: RENETTA Non-Admin Reason: Off unit: Dialysis Sodium Chloride (0.9 % Sodium Chloride Flush 3 Ml Syringe) 3 ml IVFLUSH QSHIFT [facility] Last Admin: 01/05/23 09:39 Dose: Not Given Documented By: RENETTA Non-Admin Reason: Previously Administered Labs 01/05/23 05:31 01/05/23 05:31 Labs: Laboratory Results - last 24 hr 01/04/23 01/04/23 01/04/23 18:44 18:44 18:44 MCV 90.5 MCH 29.8 MCHC 33.0 RDW 14.1 Plt Count 322 D MPV 9.5 Immature Gran % (Auto) 0.5 H Neut % (Auto) 70.4 Lymph % (Auto) 18.3 L [place] % (Auto) 7.5 Eos % (Auto) 2.5 Baso % (Auto) 0.8 Lymph # (Auto) 1.6 [place] # (Auto) 0.6 Eos # (Auto) 0.2 Baso # (Auto) 0.1 Abs Immat Gran (auto) 0.04 H Absolute Neuts (auto) 6.0 Absolute Nucleated RBC 0.000 Nucleated RBC % (auto) 0.0 ESR PT 20.3 H INR 1.7 H APTT VBG pH VBG pCO2 VBG pO2 VBG HCO3 VBG O2 Saturation VBG Base Excess Anion Gap 20 Estim Creat Clear Calc 9.6 Estimated GFR 6 POC Glucose Random Glucose 96 Lactic Acid Calcium 8.7 Magnesium 1.8 Total Bilirubin 0.5 Direct Bilirubin 0.2 AST 11 ALT 12 Alkaline Phosphatase 130 H Ammonia Total Creatine Kinase C-Reactive Protein Total Protein 7.0 Albumin 2.8 L Lipase 20 TSH Urine Color Urine Appearance Urine pH Ur Specific [place] Urine Protein Urine Glucose (UA) Urine Ketones Urine Blood Urine Nitrite Ur Leukocyte Esterase Urine RBC Urine WBC Urine WBC Clumps Ur Squamous Epith Cells Urine Bacteria Hyaline Casts Urine Opiates Screen Urine Fentanyl Screen Ur Barbiturates Screen Ur Phencyclidine Scrn Ur Amphetamines Screen U Benzodiazepines Scrn Urine Cocaine Screen U Marijuana (THC) Screen COVID-19 (AGUSTIN) COVID-19 Clin Com Influenza Type A (SIMRAN) Influenza Type B (SIMRAN) Influenza A & B Note 01/04/23 01/04/23 01/04/23 18:44 18:44 18:45 MCV MCH MCHC RDW Plt Count MPV Immature Gran % (Auto) Neut % (Auto) Lymph % (Auto) [place] % (Auto) Eos % (Auto) Baso % (Auto) Lymph # (Auto) [place] # (Auto) Eos # (Auto) Baso # (Auto) Abs Immat Gran (auto) Absolute Neuts (auto) Absolute Nucleated RBC Nucleated RBC % (auto) ESR PT 20.1 H INR 1.7 H APTT 40.4 H VBG pH VBG pCO2 VBG pO2 VBG HCO3 VBG O2 Saturation VBG Base Excess Anion Gap Estim Creat Clear Calc Estimated GFR POC Glucose Random Glucose Lactic Acid 1.2 Calcium Magnesium Total Bilirubin Direct Bilirubin AST ALT Alkaline Phosphatase Ammonia Total Creatine Kinase 61 C-Reactive Protein Total Protein Albumin Lipase TSH 1.25 Urine Color Urine Appearance Urine pH Ur Specific [place] Urine Protein Urine Glucose (UA) Urine Ketones Urine Blood Urine Nitrite Ur Leukocyte Esterase Urine RBC Urine WBC Urine WBC Clumps Ur Squamous Epith Cells Urine Bacteria Hyaline Casts Urine Opiates Screen Urine Fentanyl Screen Ur Barbiturates Screen Ur Phencyclidine Scrn Ur Amphetamines Screen U Benzodiazepines Scrn Urine Cocaine Screen U Marijuana (THC) Screen COVID-19 (AGUSTIN) COVID-19 Clin Com Influenza Type A (SIMRAN) Influenza Type B (SIMRAN) Influenza A & B Note 01/04/23 01/04/23 01/04/23 18:45 18:45 18:45 MCV MCH MCHC RDW Plt Count MPV Immature Gran % (Auto) Neut % (Auto) Lymph % (Auto) [place] % (Auto) Eos % (Auto) Baso % (Auto) Lymph # (Auto) [place] # (Auto) Eos # (Auto) Baso # (Auto) Abs Immat Gran (auto) Absolute Neuts (auto) Absolute Nucleated RBC Nucleated RBC % (auto) ESR PT INR APTT VBG pH VBG pCO2 VBG pO2 VBG HCO3 VBG O2 Saturation VBG Base Excess Anion Gap Estim Creat Clear Calc Estimated GFR POC Glucose Random Glucose Lactic Acid Calcium Magnesium Total Bilirubin Direct Bilirubin AST ALT Alkaline Phosphatase Ammonia 18 Total Creatine Kinase C-Reactive Protein Total Protein Albumin Lipase TSH Urine Color Urine Appearance Urine pH Ur Specific [place] Urine Protein Urine Glucose (UA) Urine Ketones Urine Blood Urine Nitrite Ur Leukocyte Esterase Urine RBC Urine WBC Urine WBC Clumps Ur Squamous Epith Cells Urine Bacteria Hyaline Casts Urine Opiates Screen Urine Fentanyl Screen Ur Barbiturates Screen Ur Phencyclidine Scrn Ur Amphetamines Screen U Benzodiazepines Scrn Urine Cocaine Screen U Marijuana (THC) Screen COVID-19 (AGUSTIN) Negative COVID-19 Clin Com See Note Influenza Type A (SIMRAN) Negative Influenza Type B (SIMRAN) Negative Influenza A & B Note See Note 01/04/23 01/04/23 01/04/23 18:45 18:45 18:53 MCV MCH MCHC RDW Plt Count MPV Immature Gran % (Auto) Neut % (Auto) Lymph % (Auto) [place] % (Auto) Eos % (Auto) Baso % (Auto) Lymph # (Auto) [place] # (Auto) Eos # (Auto) Baso # (Auto) Abs Immat Gran (auto) Absolute Neuts (auto) Absolute Nucleated RBC Nucleated RBC % (auto) ESR PT INR APTT VBG pH 7.41 VBG pCO2 44 VBG pO2 199 VBG HCO3 28 H VBG O2 Saturation 100.0 VBG Base Excess 3.8 Anion Gap Estim Creat Clear Calc Estimated GFR POC Glucose Random Glucose Lactic Acid Calcium Magnesium Total Bilirubin Direct Bilirubin AST ALT Alkaline Phosphatase Ammonia Total Creatine Kinase C-Reactive Protein Total Protein Albumin Lipase TSH Urine Color Yellow Urine Appearance Hazy Urine pH 8.0 Ur Specific [place] 1.010 Urine Protein 100 (2+) H Urine Glucose (UA) Negative Urine Ketones Negative Urine Blood Large (3+) H Urine Nitrite Negative Ur Leukocyte Esterase Moderate (2+) H Urine RBC >20 H Urine WBC >50 H Urine WBC Clumps Present Ur Squamous Epith Cells 3-5 Urine Bacteria 4+ Hyaline Casts 3-5 Urine Opiates Screen Not Detected Urine Fentanyl Screen Not Detected Ur Barbiturates Screen Not Detected Ur Phencyclidine Scrn Not Detected Ur Amphetamines Screen Not Detected U Benzodiazepines Scrn Not Detected Urine Cocaine Screen Not Detected U Marijuana (THC) Screen Not Detected COVID-19 (AGUSTIN) COVID-19 Clin Com Influenza Type A (SIMRAN) Influenza Type B (SIMRAN) Influenza A & B Note 01/04/23 01/04/23 01/05/23 22:05 22:05 05:31 MCV MCH MCHC RDW Plt Count MPV Immature Gran % (Auto) Neut % (Auto) Lymph % (Auto) [place] % (Auto) Eos % (Auto) Baso % (Auto) Lymph # (Auto) [place] # (Auto) Eos # (Auto) Baso # (Auto) Abs Immat Gran (auto) Absolute Neuts (auto) Absolute Nucleated RBC Nucleated RBC % (auto) ESR 102 H PT INR APTT VBG pH VBG pCO2 VBG pO2 VBG HCO3 VBG O2 Saturation VBG Base Excess Anion Gap 20 Estim Creat Clear Calc 9.4 Estimated GFR 5 POC Glucose Random Glucose 83 Lactic Acid Calcium 9.2 Magnesium Total Bilirubin Direct Bilirubin AST ALT Alkaline Phosphatase Ammonia Total Creatine Kinase C-Reactive Protein 4.95 H Total Protein Albumin Lipase TSH Urine Color Urine Appearance Urine pH Ur Specific [place] Urine Protein Urine Glucose (UA) Urine Ketones Urine Blood Urine Nitrite Ur Leukocyte Esterase Urine RBC Urine WBC Urine WBC Clumps Ur Squamous Epith Cells Urine Bacteria Hyaline Casts Urine Opiates Screen Urine Fentanyl Screen Ur Barbiturates Screen Ur Phencyclidine Scrn Ur Amphetamines Screen U Benzodiazepines Scrn Urine Cocaine Screen U Marijuana (THC) Screen COVID-19 (AGUSTIN) COVID-19 Clin Com Influenza Type A (SIMRAN) Influenza Type B (SIMRAN) Influenza A & B Note 01/05/23 01/05/23 05:31 07:42 MCV 89.3 MCH 29.0 MCHC 32.4 RDW 13.8 Plt Count 338 MPV 9.3 L Immature Gran % (Auto) 0.4 Neut % (Auto) 82.5 H Lymph % (Auto) 8.5 L [place] % (Auto) 5.1 Eos % (Auto) 3.1 Baso % (Auto) 0.4 Lymph # (Auto) 0.8 L [place] # (Auto) 0.5 Eos # (Auto) 0.3 Baso # (Auto) 0.0 Abs Immat Gran (auto) 0.04 H Absolute Neuts (auto) 8.0 Absolute Nucleated RBC 0.000 Nucleated RBC % (auto) 0.0 ESR PT INR APTT VBG pH VBG pCO2 VBG pO2 VBG HCO3 VBG O2 Saturation VBG Base Excess Anion Gap Estim Creat Clear Calc Estimated GFR POC Glucose 87 Random Glucose Lactic Acid Calcium Magnesium Total Bilirubin Direct Bilirubin AST ALT Alkaline Phosphatase Ammonia Total Creatine Kinase C-Reactive Protein Total Protein Albumin Lipase TSH Urine Color Urine Appearance Urine pH Ur Specific [place] Urine Protein Urine Glucose (UA) Urine Ketones Urine Blood Urine Nitrite Ur Leukocyte Esterase Urine RBC Urine WBC Urine WBC Clumps Ur Squamous Epith Cells Urine Bacteria Hyaline Casts Urine Opiates Screen Urine Fentanyl Screen Ur Barbiturates Screen Ur Phencyclidine Scrn Ur Amphetamines Screen U Benzodiazepines Scrn Urine Cocaine Screen U Marijuana (THC) Screen COVID-19 (AGUSTIN) COVID-19 Clin Com Influenza Type A (SIMRAN) Influenza Type B (SIMRAN) Influenza A & B Note Microbiology Microbiology Results: Microbiology 01/04/23 Unknown Urine Culture - Preliminary Urine Catheterized - Sheldon Catheter Culture in progress. Assessment and Plan (1) Encephalopathy: Status: Acute (2) Acute UTI: Status: Acute (3) Osteomyelitis: Status: Acute (4) ESRD (end stage renal disease) on dialysis: Status: Acute (5) Pneumonia: Status: Acute Plan 67-year-old male with past medical history of hypertension, ESRD on dialysis, history of recurrent UTI comes into the hospital with increased confusion found to have multiple abnormalities 1.Acute encephalopathy - multifactorial; treat underlying pathologies - follow clinically 2.Acute UTI - hx of pseudomonal UTI mitchell-sensitive - vancomycin/cefepime - follow cultures; adjust as indicated 3.Osteomyelitis ( right great toe) -ESR/CRP elevated.... 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 Quality Stroke Does the patient have a stroke diagnosis?: No VTE Prior VTE?: No VTE Risk Level:: Medical - moderate - high VTE Device Contraindication: Treatment Not Indicated VTE Drug Contraindication: N/A - Med Ordered
--- NOTE | 2023-01-05 14:10 | MHC.CM.PN ---
IMM 01/05/23 Patient BIBA from [facility]. He is there for STR. HD is provided @ the SNF. He lives at [facility]. A HCP is on file. T/W spoke with pts HCP/DTR Kristi. DP return to [facility] via BLS. Patients dtr reports that if he is able , he will return to [facility].
[2023-01-05 15:33] VITALS: BP 138/68; PULSE 79; RESP 20; TEMP 36.8; O2SAT 98
[2023-01-05] MEDS: 0.9 % Sodium Chloride Flush 3 ML SYRINGE IVFLUSH ×2 (15:43→21:03)
[2023-01-05 16:06] LABS: Glucose, Whole Blood 97 mg/dL (60-115)
[2023-01-05] MEDS: hydrALAZINE HCl 25 MG TABLET PO ×2 (17:07→21:08)
[2023-01-05 19:32] LABS: Vancomycin Random 14.6 mcg/mL (15-20)
--- NOTE | 2023-01-05 19:37 | HE.PHANOTE ---
RE VANCO TROUGH WAS 14.6, WE WILL HOLD THE DOSE AND FOLLOW BASED ON LEVEL AFTER NEXT DIALYSIS SESSION ARMANDO
[2023-01-05 19:42] VITALS: PULSE 86; RESP 20; O2SAT 98
[2023-01-05 19:46] VITALS: BP 116/66; PULSE 78; RESP 20; TEMP 37; O2SAT 97
[2023-01-05 20:51] LABS: Glucose, Whole Blood 104 mg/dL (60-115)
[2023-01-05] MEDS: Heparin Sodium,Porcine 5,000 UNIT/ML VIAL 5000 UNIT SUBCUT (21:05)
[2023-01-05] MEDS: Mirtazapine 15 MG TABLET PO (21:08)
[2023-01-05] MEDS: Gabapentin 100 MG CAPSULE PO (21:08)
[2023-01-05] MEDS: Baclofen 10 MG TABLET 5 MG PO (21:09)
[2023-01-05] MEDS: Atorvastatin Calcium 20 MG TABLET PO (21:09)
[2023-01-05] MEDS: carvediloL 12.5 MG TABLET PO (21:09)
[2023-01-05] MEDS: cefEPime HCl 1 GM in 0.9 % Sodium Chloride 50 ML IV (23:11)
[2023-01-05 23:56] VITALS: BP 139/65; PULSE 75; RESP 20; TEMP 36.6; O2SAT 96
--- NOTE | 2023-01-06 04:54 | PC.NURSE ---
During bedtime med pass, this RN attempted to medicate pt by crushing medications and putting it in pudding. The pt has difficulty swallowing and following commands. The pt took two bites of pudding but refused to eat the rest. The pt only took half of his [facility] PO medications from this RN. The pt did received his [facility] IV antibiotic per AUG. Will continue to monitor.
[2023-01-06 07:01] VITALS: BP 119/73; PULSE 68; RESP 18; TEMP 36.5; O2SAT 92
[2023-01-06 07:08] LABS: Glucose, Whole Blood 88 mg/dL (60-115)
[2023-01-06 07:27] LABS: Creatinine Clr Calc Pharmacy 13.3; Estimated Glomerular Filt Rate 8
[2023-01-06] MEDS: Gabapentin 100 MG CAPSULE PO (09:26)
[2023-01-06] MEDS: Baclofen 10 MG TABLET 5 MG PO (09:26)
[2023-01-06] MEDS: Sennosides 8.6 MG TABLET 17.2 MG PO (09:26)
[2023-01-06] MEDS: Sevelamer Carbonate Tablet 800 MG TABLET PO ×2 (09:26→13:00)
[2023-01-06] MEDS: 0.9 % Sodium Chloride Flush 3 ML SYRINGE IVFLUSH ×3 (09:26→23:20)
[2023-01-06] MEDS: Heparin Sodium,Porcine 5,000 UNIT/ML VIAL 5000 UNIT SUBCUT ×2 (09:27→20:40)
[2023-01-06] MEDS: carvediloL 12.5 MG TABLET PO (09:27)
[2023-01-06] MEDS: hydrALAZINE HCl 25 MG TABLET PO (09:27)
[2023-01-06 11:04] LABS: Glucose, Whole Blood 112 mg/dL (60-115)
--- NOTE | 2023-01-06 11:24 | P.CONGS_ITS ---
History of Present Illness Consult details Consult date: 01/06/23 Reason for consult: wound care Narrative: Very pleasant 67-year-old gentleman with a prior history end-stage renal disease, hypertension, PE and recurrent UTIs who is a resident of a nursing facility comes in with increasing confusion in concern his right great toe necrosis along with ulcers of the 4th and 5th digit of the left upper extremity. He of note is on a Monday regimen. At the time of my exam he was very coherent and comfortable. He is extremely concerned about his right lower extremity great toe as he does have a prior left-sided amputation. Prior amputation was done at [facility] secondary to infection and sepsis. He now presents to us for vascular evaluation. Daughter was at bedside at time of exam. Review of Systems Review of Systems: Yes all other systems are reviewed and are negative Constitutional: Constitutional: Reports no additional constitutional complaints ENT: Reports Normal hearing present Cardiovascular: Cardiovascular: Denies chest pain, Denies chest pain at rest, Denies chest pain with activity and Denies pedal edema Respiratory: Respiratory: Denies cough Gastrointestinal: Gastrointestinal: Denies abdominal pain Musculoskeletal: Musculoskeletal: Denies abnormal gait, Denies muscle cramps and Denies radiating pain into limb Integumentary/Breasts: Skin/Breast: Denies skin ulcer and Denies wounds Neurologic: Reports Normal hearing present and Denies abnormal gait Psychiatric: Psychiatric: Reports no additional psychiatric complaints COUNTS INCLUDE 234 BEDS AT THE [facility] Past Medical History Medical History (Updated 01/06/23 @ 11:29 by Andrew Prince MD) Acute respiratory failure with hypoxia Acute UTI Bacteremia due to Pseudomonas BPH (benign prostatic hyperplasia) ESRD (end stage renal disease) on dialysis Hypertension Metabolic encephalopathy Pulmonary embolism Family History Family History Mother No problems noted. Father No problems noted. Social History Social History Household Members: None Housing: Residential Unable to assess alcohol history related to: Unable to respond Alcohol intake: former Patient Tobacco Use Status: Former Tobacco user Substance Use Type: Marijuana Advance Directives Date on File: 02/24/22 service: No Current occupational status: disabled Meds Allergies Allergy/AdvReac Type Severity Reaction Status Date / Time No Known Allergies Allergy Verified 02/08/22 15:03 Active Medications: Current Medications Acetaminophen (Acetaminophen 325 Mg Tablet) 650 mg PO Q6H PRN PRN Reason: Pain, Mild (Pain Scale 1-3) Atorvastatin Calcium (Atorvastatin Calcium 20 Mg Tablet) 20 mg PO BEDTIME [facility] Last Admin: 01/05/23 21:09 Dose: 20 mg Baclofen (Baclofen 10 Mg Tablet) 5 mg PO BID [facility] Last Admin: 01/06/23 09:26 Dose: 5 mg Carvedilol (Carvedilol 12.5 Mg Tablet) 12.5 mg PO BID [facility]; Protocol Last Admin: 01/06/23 09:27 Dose: 12.5 mg Dextrose (Dextrose 50 % 25 Gm/50 Ml Syringe) 25 gm IVPUSH Q15M PRN; Protocol PRN Reason: per Hypoglycemia Standing Ord. Gabapentin (Gabapentin 100 Mg Capsule) 100 mg PO BID [facility] Last Admin: 01/06/23 09:26 Dose: 100 mg Glucose (Glucose Gel 15 Gm Gel..Gram.) 15 gm PO Q15M PRN; Protocol PRN Reason: per Hypoglycemia Standing Ord. Heparin Sodium (Porcine) (Heparin Sodium,Porcine 5,000 Unit/Ml Vial) 5,000 unit SUBCUT Q12H [facility] Last Admin: 01/06/23 09:27 Dose: 5,000 unit Hydralazine HCl (Hydralazine Hcl 25 Mg Tablet) 25 mg PO TID [facility]; Protocol Last Admin: 01/06/23 09:27 Dose: 25 mg Cefepime HCl 1 gm/ Sodium (Chloride) 50 mls @ 100 mls/hr IV Q24H [facility] Last Infusion: 01/05/23 23:42 Dose: Infused Vancomycin HCl 500 mg/ Sodium (Chloride) 110 mls @ 110 mls/hr IV ONCE ONE Stop: 01/05/23 20:59 Insulin Human Lispro (Insulin Lispro 100 Unit/Ml 3 Ml Vial) 0 unit SUBCUT QIDACHS [facility]; Protocol Last Admin: 01/06/23 07:33 Dose: Not Given Midodrine (Midodrine Hcl 5 Mg Tablet) 5 mg PO Q8H PRN PRN Reason: ORTHOSTATIC BP Mirtazapine (Mirtazapine 15 Mg Tablet) 15 mg PO BEDTIME [facility] Last Admin: 01/05/23 21:08 Dose: 15 mg Omeprazole (Omeprazole 20 Mg Capsule.) 20 mg PO DAILY@0630 [facility] Last Admin: 01/06/23 08:17 Dose: Not Given Ondansetron HCl (Ondansetron Hcl 4 Mg/2 Ml Vial) 4 mg IVPUSH Q8H PRN PRN Reason: Nausea and Vomiting Pharmacy Consult (Consult Rx Vancomycin Dosing) 1 each MISCELLANE DAILY PRN PRN Reason: Consult order Senna (Sennosides 8.6 Mg Tablet) 17.2 mg PO DAILY [facility] Last Admin: 01/06/23 09:26 Dose: 17.2 mg Sevelamer Carbonate (Sevelamer Carbonate Tablet 800 Mg Tablet) 800 mg PO TIDAC [facility] Last Admin: 01/06/23 09:26 Dose: 800 mg Sodium Chloride (0.9 % Sodium Chloride Flush 3 Ml Syringe) 3 ml IVFLUSH QSHIFT [facility] Last Admin: 01/06/23 09:26 Dose: 3 ml Home Medications Medication Instructions Recorded Confirmed Last Taken Type atorvastatin 20 mg tablet 20 mg PO BEDTIME 02/08/22 01/04/23 Unknown History fluticasone propionate 220 1 puff inhalation BID 02/08/22 01/04/23 11/05/22 History mcg/actuation HFA aerosol inhaler carvedilol 12.5 mg tablet 12.5 mg PO BID 11/05/22 01/04/23 11/05/22 History Probiotic 1 cap PO BID 01/04/23 01/04/23 Unknown History baclofen 5 mg tablet 5 mg PO BID 01/04/23 01/04/23 Unknown History gabapentin 100 mg capsule 100 mg PO BID 01/04/23 01/04/23 Unknown History glipizide 5 mg tablet 5 mg PO DAILY 01/04/23 01/04/23 Unknown History hydralazine 25 mg tablet 25 mg PO TID 01/04/23 01/04/23 Unknown History lidocaine HCl 3 % topical cream 1 appl topical Q4H PRN URETHRAL 01/04/23 01/04/23 Unknown History TEAR linagliptin 5 mg tablet 5 mg PO DAILY 01/04/23 01/04/23 Unknown History loratadine 10 mg tablet 10 mg PO Q48H 01/04/23 01/04/23 Unknown History midodrine 5 mg tablet 5 mg PO Q8H PRN ORTHOSTATIC BP 01/04/23 01/04/23 Unknown History ondansetron HCl 4 mg tablet 4 mg PO Q4H PRN Nausea 01/04/23 01/04/23 Unknown History sennosides 8.6 mg tablet (senna) 17.2 mg PO DAILY 01/04/23 01/04/23 Unknown History sevelamer carbonate 800 mg tablet 800 mg PO TIDAC 01/04/23 01/04/23 Unknown History Physical Exam Vital Signs: Vital Signs: Last Vital Signs Temp 97.7 F 01/06/23 07:01 Pulse 68 01/06/23 07:01 Resp 18 01/06/23 07:01 BP 119/73 01/06/23 07:01 Pulse Ox 92 01/06/23 07:01 O2 Del Method Room Air 01/06/23 07:01 BMI result Body Mass Index 27.2 Const: General: cooperative, healthy appearing and comfortable Orientation/consciousness: oriented to person, oriented to place and oriented to time HEENT: Head: Yes normal to inspection Neck: Neck: Yes normal visual inspection Carotids: no bruits Chest: Chest palpation & inspection: normal inspection of the chest Resp: Effort & Inspection: normal respiratory effort and able to speak in complete sentences Auscultation: clear to auscultation bilaterally, no crackles, no rales, no rhonchi and no wheezes Cardio: Rate: regular rate Rhythm: regular rhythm Heart sounds: S1 normal heart sound present and S2 normal heart sound present Bruits: no carotid bruits Peripheral pulses: Peripheral pulses 2+ throughout GI: Inspection: Yes normal to inspection Skin: Other: Right great toe ulcer, darkened eschar with tenuous nail bed. Left upper extremity 4th and 5th digit dry ulcers in the mid aspect of the digits. Wounds: no wounds Hair: normal Neuro: General: oriented to person, oriented to place and oriented to time Cranial nerves: Yes CN's II-XII intact bilaterally and Yes Normal hearing present Cognition (Neuro): normal cognition Motor exam (neuro): 5/5 motor strength present throughout Extrem: Other: venous exam: No significant superficial varicosities or spider telangiectasias, minimal edema General: No clubbing, No cyanosis and No edema Psych: Appearance: grossly normal Mental Status: mental status grossly normal Speech and movement: Normal speech and movement present Results Labs 01/05/23 05:31 01/06/23 05:40 Labs: Abnormal lab results 01/05/23 01/06/23 Range/Units 18:11 05:40 Creatinine 6.87 H* (0.5-1.4) mg/dL Random Vancomycin 14.6 L (15-20) mcg/mL BMP 01/06/23 05:40 Creatinine 6.87 H* Urine 01/04/23 Range/Units 18:45 Urine Color Yellow Urine Appearance Hazy Urine pH 8.0 (5.0-9.0) Ur Specific Boykin 1.010 (1.005-1.025) Urine Protein 100 (2+) H (Neg-Trace) mg/dL Urine Glucose (UA) Negative (Negative) mg/dL All other labs normal. Imaging Additional studies: Noninvasive arterial ultrasound preliminary review by me demonstrates no significant stenosis. He did not tolerated NEERU. On direct ultrasound I do appreciate triphasic flow with no high velocities. Images only were reviewed. There is no written report by Radiology as of yet. Assessment and Plan (1) Nonhealing ulcer of right lower extremity: Status: Acute In short patient has a nonhealing right lower extremity ulcer of the great toe. The concern here is that he already has an amputation. Would like to be as conservative as possible to salvage the leg as it is a point of pivot and transf er for him. Would continue with IV antibiotics. Local wound care was ordered. In addition discussed case with hospitalist team and may benefit from an MRI of that leg. We will continue to follow with you. (2) Steal syndrome as complication of dialysis access: Status: Acute Plan I do believe that the left upper extremity 4th and 5th digit is secondary to steal syndrome. He does have dialysis access of the left upper extremity which does have a good thrill and bruit. At the current time it does not look infected. Would manage this as again as conservatively as possible to salvage the dialysis access. We will continue to follow this patient for his lower extremity with you. Thank you for allowing us to assist in his care. Time Spent With Patient Time: Total time managing care of this patient today ____ minutes. Procedures Date of Service Date of Service: 01/06/23
--- NOTE | 2023-01-06 12:01 | MHC.SL.SWA ---
Speech Pathologist Impression: Risk of aspiration, oropharyngeal dysphagia Dysphasia Diet Status: Downgrade from REGULAR textures to NDD2/thin Liquid Consistency and Strategies for Safe Swallow: Liquid Intake Recommendation: Thin Liquid Intake Strategies: Small Sips No Straws Solid Food Consistency: Dietary Recommendations: Grnd/Mech Altered (NDD2) Additional Modifications to Solid Foods: Recommend START on GROUND/MECH ALTERED (NDD2) solids moistened with sauces/gravies and THIN liquids, pills CRUSHED in PUREE. Pt requires total 1:1 assistance feeding and would benefit from cues to promote oral clearance: take small bites, allow enough time to adequately chew each bite, alternate bites of food with sips of liquid, 1-2 dry swallows between each bite, ensure oral cavity is cleared before giving more bites. Avoid hard, tough to chew solids; dry solids; sticky textures. Other aspiration precautions apply. Diet order updated by ELECTRICIAN RESEARCH. Notified team (, RN, RD) of recommendations via [place] Message. ELECTRICIAN RESEARCH will continue to follow. Oral Medication Intake: Crushed with Puree Please contact the pharmacy regarding appropriate crushable or liquid drug formulations that are available whenever modified delivery is recommended. Compensatory Strategies and Precautions to be Taken for Safe Swallow: Sitting Upright (90 deg) Double Swallow No Straw Small Bites and Sips Alternate Liquids/Solids Rate of Ingestion Change Oral Check Avoid Specific Foods Supervision While Eating and Drinking for Safe Swallow: Total Assistance (1:1) Foods to Avoid: Avoid hard, tough to chew solids; dry solids; sticky textures. Swallowing Recommended Treatments: Compens. Strategy Educat. Recommendation for Speech: Inpatient Speech Therapy Hatch Supervisor Clinican/Clinical Fellow: No Supervisory Statement: I have reviewed and agree with the student/clinical fellow's documentation: N/A Speech Language Pathologist: Osiris Sheehan M.A., CCC-ELECTRICIAN RESEARCH
--- NOTE | 2023-01-06 13:23 | PC.NURSE ---
Both pt and state zeng has been in for past 11mos.
--- NOTE | 2023-01-06 14:25 | P.PNIM_ITS ---
Subjective Subjective Date of Service: 01/06/23 Interval History: More alert this a.m.. No fevers overnight Review of Systems Denies chest pain Denies shortness of breath Denies nausea vomiting diarrhea Denies fever chills Physical Exam Vital Signs: Vital Signs: Last Vital Signs Temp 97.7 F 01/06/23 07:01 Pulse 68 01/06/23 07:01 Resp 18 01/06/23 07:01 BP 119/73 01/06/23 07:01 Pulse Ox 92 01/06/23 07:01 O2 Del Method Room Air 01/06/23 07:01 BMI result Body Mass Index 27.2 Const: Other: awake; intermittent confusion Resp: Other: clear to auscultation bilaterally no rales rhonchi or wheezes Cardio: Other: no S4; positive S1-S2; no S3 murmurs rubs or gallops GI: Other: soft nontender nondistended normoactive bowel sounds Extrem: Other: see admitting pictures; Objective Data Active Medications Acetaminophen (Acetaminophen 325 Mg Tablet) 650 mg PO Q6H PRN PRN Reason: Pain, Mild (Pain Scale 1-3) Atorvastatin Calcium (Atorvastatin Calcium 20 Mg Tablet) 20 mg PO BEDTIME [facility] Last Admin: 01/05/23 21:09 Dose: 20 mg Documented By: NORIS Baclofen (Baclofen 10 Mg Tablet) 5 mg PO BID [facility] Last Admin: 01/06/23 09:26 Dose: 5 mg Documented By: TONY Carvedilol (Carvedilol 12.5 Mg Tablet) 12.5 mg PO BID [facility]; Protocol Last Admin: 01/06/23 09:27 Dose: 12.5 mg Documented By: TONY Dextrose (Dextrose 50 % 25 Gm/50 Ml Syringe) 25 gm IVPUSH Q15M PRN; Protocol PRN Reason: per Hypoglycemia Standing Ord. Gabapentin (Gabapentin 100 Mg Capsule) 100 mg PO BID [facility] Last Admin: 01/06/23 09:26 Dose: 100 mg Documented By: TONY Glucose (Glucose Gel 15 Gm Gel..Gram.) 15 gm PO Q15M PRN; Protocol PRN Reason: per Hypoglycemia Standing Ord. Heparin Sodium (Porcine) (Heparin Sodium,Porcine 5,000 Unit/Ml Vial) 5,000 unit SUBCUT Q12H [facility] Last Admin: 01/06/23 09:27 Dose: 5,000 unit Documented By: TONY Hydralazine HCl (Hydralazine Hcl 25 Mg Tablet) 25 mg PO TID [facility]; Protocol Last Admin: 01/06/23 09:27 Dose: 25 mg Documented By: TONY Cefepime HCl 1 gm/ Sodium (Chloride) 50 mls @ 100 mls/hr IV Q24H [facility] Last Infusion: 01/05/23 23:42 Dose: 0 mls/hr Documented By: NORIS Vancomycin HCl 500 mg/ Sodium (Chloride) 110 mls @ 110 mls/hr IV ONCE ONE Stop: 01/05/23 20:59 Insulin Human Lispro (Insulin Lispro 100 Unit/Ml 3 Ml Vial) 0 unit SUBCUT QIDACHS [facility]; Protocol Last Admin: 01/06/23 12:13 Dose: Not Given Documented By: TONY Non-Admin Reason: No Insulin Coverage Midodrine (Midodrine Hcl 5 Mg Tablet) 5 mg PO Q8H PRN PRN Reason: ORTHOSTATIC BP Mirtazapine (Mirtazapine 15 Mg Tablet) 15 mg PO BEDTIME [facility] Last Admin: 01/05/23 21:08 Dose: 15 mg Documented By: NORIS Omeprazole (Omeprazole 20 Mg Capsule.Dr) 20 mg PO DAILY@0630 [facility] Last Admin: 01/06/23 08:17 Dose: Not Given Documented By: TONY Non-Admin Reason: unable to swallow Ondansetron HCl (Ondansetron Hcl 4 Mg/2 Ml Vial) 4 mg IVPUSH Q8H PRN PRN Reason: Nausea and Vomiting Pharmacy Consult (Consult Rx Vancomycin Dosing) 1 each MISCELLANE DAILY PRN PRN Reason: Consult order Senna (Sennosides 8.6 Mg Tablet) 17.2 mg PO DAILY [facility] Last Admin: 01/06/23 09:26 Dose: 17.2 mg Documented By: TONY Sevelamer Carbonate (Sevelamer Carbonate Tablet 800 Mg Tablet) 800 mg PO TIDAC [facility] Last Admin: 01/06/23 13:00 Dose: 800 mg Documented By: TONY Sodium Chloride (0.9 % Sodium Chloride Flush 3 Ml Syringe) 3 ml IVFLUSH QSHIFT [facility] Last Admin: 01/06/23 09:26 Dose: 3 ml Documented By: TONY Labs 01/05/23 05:31 01/06/23 05:40 Labs: Laboratory Results - last 24 hr 01/05/23 01/05/23 01/05/23 15:57 18:11 20:35 Estim Creat Clear Calc Estimated GFR POC Glucose 97 104 Random Vancomycin 14.6 L 01/06/23 01/06/23 01/06/23 05:40 07:05 11:00 Estim Creat Clear Calc 13.3 Estimated GFR 8 POC Glucose 88 112 Random Vancomycin Microbiology Microbiology Results: Microbiology 01/04/23 Unknown Urine Culture - Final Urine Catheterized - Sheldon Catheter 01/04/23 18:49 Blood Culture - Preliminary Blood - Venous No growth after 24 hours. 01/04/23 18:44 Blood Culture - Preliminary Blood - Venous No growth after 24 hours. Assessment and Plan (1) Encephalopathy: Status: Acute (2) Acute UTI: Status: Acute (3) Osteomyelitis: Status: Acute Plan 67-year-old male with past medical history of hypertension, ESRD on dialysis, history of recurrent UTI comes into the hospital with increased confusion found to have multiple abnormalities 1.Acute encephalopathy - improved - follow clinically 2.Acute UTI - hx of pseudomonal UTI mitchell-sensitive - vancomycin/cefepime - follow cultures; adjust as indicated 3.Osteomyelitis ( right great toe) -ESR/CRP elevated.... Vascular requesting MRI -vancomycin/ cefepime (2) 4.ESRD on HD -HD as per Renal -follow renals/divalents 5.HTN -acceptable control on current therapies -adjust as indicated 6.DM II -lispro correctional scale -add back orals as appropriate 7.Hx of DVT (recent duplex is negative both upper and lower extremity ) - DC epixaben questioned surgery in future - renally dosed heparin Heparin DNR/DNI Requires ongoing hospitalization for IV antibiotics to treat osteomyelitis and urinary tract infection causing encephalopathy Time Spent With Patient Time: Total time managing care of this patient today ____ minutes. Quality Stroke Does the patient have a stroke diagnosis?: No VTE Prior VTE?: No VTE Risk Level:: Medical - moderate - high VTE Device Contraindication: Treatment Not Indicated VTE Drug Contraindication: N/A - Med Ordered
[2023-01-06 14:55] LABS: Glucose, Whole Blood 128 mg/dL (60-115)
[2023-01-06] MEDS: Naloxone HCl 0.4 MG/ML VIAL IVPUSH (15:01)
[2023-01-06 15:12] VITALS: BP 95/53; PULSE 67; RESP 18; TEMP 36.2; O2SAT 94
--- NOTE | 2023-01-06 15:30 | MHC.CM.PN ---
DP return to [facility] via BLS for HD. Per MD rounds patient is not ready for discharge. Patient is being followed by Vascular surgery.
--- NOTE | 2023-01-06 15:41 | PC.NURSE ---
At 1445 pt was found to be unresponsive. bp was 143/65 p68 resp period of apnea which broke with sternal rub. Blood sugar was 128. Dr Wong in to eval pt. still difficult to arouses 1500 bp 95/53 p 67 resp 18. o2 sat 94% room air. Narcan 0.4mg iv given [id number]. by 1512 pt began to arouse and answer questions. Dr Bliss in to see pt. Pt's updated.
[2023-01-06 16:28] LABS: Glucose, Whole Blood 127 mg/dL (60-115)
--- NOTE | 2023-01-06 18:04 | PM.PNNEP ---
Subjective Subjective Date of Service: 01/06/23 Interval history: Seen and examkined, events noted Physical Exam Vital Signs: Vital Signs: Last Vital Signs Temp 97.2 F 01/06/23 15:12 Pulse 67 01/06/23 15:12 Resp 18 01/06/23 15:12 BP 95/53 L 01/06/23 15:12 Pulse Ox 94 01/06/23 15:12 O2 Del Method Room Air 01/06/23 15:12 BMI result Body Mass Index 27.2 Const: General: no acute distress HEENT: Head: Yes normocephalic and Yes atraumatic Neck: Neck: Yes supple Resp: Auscultation: diminished lung sounds Cardio: Heart sounds: S1 normal heart sound present and S2 normal heart sound present GI: Palpation (GI): Soft to palpation and nontender Extrem: General: Yes edema Objective Data Labs 01/05/23 05:31 01/06/23 05:40 Labs: Laboratory Results - last 24 hr 01/05/23 01/05/23 01/06/23 18:11 20:35 05:40 Creatinine 6.87 H* Estim Creat Clear Calc 13.3 Estimated GFR 8 POC Glucose 104 Random Vancomycin 14.6 L 01/06/23 01/06/23 01/06/23 07:05 11:00 14:51 Creatinine Estim Creat Clear Calc Estimated GFR POC Glucose 88 112 128 H Random Vancomycin 01/06/23 16:01 Creatinine Estim Creat Clear Calc Estimated GFR POC Glucose 127 H Random Vancomycin Microbiology Microbiology Results: Microbiology 01/04/23 Unknown Urine Catheterized - Sheldon Catheter Urine Culture - Final 01/04/23 18:49 Blood - Venous Blood Culture - Preliminary No growth after 24 hours. 01/04/23 18:44 Blood - Venous Blood Culture - Preliminary No growth after 24 hours. Procedures Date of Service Date of Service: 01/06/23 Assessment & Plan Assessment and plan (1) ESRD (end stage renal disease): Status: Acute (2) Anemia: Status: Acute Plan ESRD: TTS AMS: improving per RN/staff ID: UTI and osteomyelitis of the great right toe REC cont HD TTS renal diet phosphate binders KATERINE Abx follow cultures Time Spent With Patient Time: Total time managing care of this patient today ____ minutes. Progress Note: Quality Stroke Does the patient have a stroke diagnosis?: No
[2023-01-06 19:00] LABS: Vancomycin Random 12.9 mcg/mL (15-20)
[2023-01-06 20:00] VITALS: BP 147/75; PULSE 61; RESP 18; TEMP 36.2; O2SAT 98
[2023-01-06 20:49] LABS: Glucose, Whole Blood 86 mg/dL (60-115)
--- NOTE | 2023-01-06 22:06 | PC.NURSE ---
Addendum entered by Yanni Dominguez RN 01/07/23 02:28: Dr. Fajardo ordered head CT at 10:19pm. Radiology was available at 01:00, on transport pt woke up was verbal. Head CT was done Original Note: Pt seen on bed still unresponsive, slightly grimached when touched, vitals WNL POC 87, no gag reflex when mouth care done, Dr. Fajardo was updated. PO meds were held.
[2023-01-06] MEDS: cefEPime HCl 1 GM in 0.9 % Sodium Chloride 50 ML IV (23:19)
--- NOTE | 2023-01-06 23:51 | PC.NURSE ---
Pt was in the MRI radiology during shift change at 1900, pt was transported back to room on bed at 2029 , pt still in deep sleep, unresponsiveness, slightly grimaced with stimulation, no gag when oral care was done, extremities are flaccid when reposition, Vitals WNL, Dr. Fajardo was aware.
[2023-01-07 03:21] VITALS: BP 166/72; PULSE 67; RESP 18; TEMP 36; O2SAT 96
[2023-01-07] MEDS: Acetaminophen 325 MG TABLET 650 MG PO ×3 (04:21→17:25)
[2023-01-07 07:17] LABS: MANUAL DIFF FLAG NO
[2023-01-07 07:21] LABS: Basophils Absolute Auto 0.1 X10*3/uL (0.0-0.2); Basophils Percent Auto 1.1 % (0-2); Eosinophils Absolute Auto 0.5 X10*3/uL (0.0-0.4); Eosinophils Percent Auto 8.5 % (0-4); Hematocrit 28.7 % (42.0-52.0); Hemoglobin 9.3 g/dl (14.0-18.0); Imm Gran Abs Auto 0.01 X10*3/uL (0.00-0.03); Imm Gran Pct Auto 0.2 % (0.0-0.4); Lymphocytes Absolute Auto 1.3 X10*3/uL (1.2-4.9); Lymphocytes Percent Auto 23.1 % (20-40); Mean Corpuscular HGB Conc 32.4 g/dl (31.0-36.0); Mean Corpuscular Hemoglobin 29.4 pg (27.0-33.0); Mean Corpuscular Volume 90.8 fL (80.0-98.0); Mean Platelet Volume 9.7 fL (9.4-12.4); Monocytes Absolute Auto 0.5 X10*3/uL (0.1-1.2); Monocytes Percent Auto 9.4 % (2-11); Neutrophils Absolute Auto 3.2 x10*3/uL (2.0-8.3); Neutrophils Percent Auto 57.7 % (45-73); Platelet Count 287 X10*3/uL (160-400); Red Blood Count 3.16 X10*6/uL (4.60-5.80); Red Cell Distribution Width 13.8 % (11.0-16.0); White Blood Count 5.5 X10*3/uL (4.8-10.8)
[2023-01-07 07:46] LABS: Alanine Aminotransferase 13 U/L (0-40); Albumin Level 3.2 g/dL (3.5-5.0); Alkaline Phosphatase 121 U/L (39-117); Anion Gap 16 (12-20); Aspartate Amino Transferase 18 U/L (5-37); Bilirubin Total 0.5 mg/dL (0.0-1.0); Blood Urea Nitrogen 28 mg/dL (9-16); Calcium 8.7 mg/dL (8.4-10.2); Carbon Dioxide 22 mmol/L (22-29); Chloride 99 mmol/L (96-108); Estimated Glomerular Filt Rate 11; Glucose Fasting 87 mg/dL (60-99); Potassium 3.4 mmol/L (3.3-5.1); Sodium 134 mmol/L (135-145); Total Protein 7.1 g/dL (6.5-8.0)
[2023-01-07 07:47] LABS: Glucose, Whole Blood 91 mg/dL (60-115)
[2023-01-07 10:43] VITALS: BP 122/73; PULSE 66; RESP 18; TEMP 36.9; O2SAT 98
[2023-01-07] MEDS: Sennosides 8.6 MG TABLET 17.2 MG PO (10:52)
[2023-01-07] MEDS: carvediloL 12.5 MG TABLET PO ×2 (10:52→19:41)
[2023-01-07] MEDS: Sevelamer Carbonate Tablet 800 MG TABLET PO ×2 (10:52→15:16)
[2023-01-07] MEDS: hydrALAZINE HCl 25 MG TABLET PO ×3 (10:52→19:41)
[2023-01-07 11:15] LABS: Glucose, Whole Blood 89 mg/dL (60-115)
--- NOTE | 2023-01-07 11:36 | HO.PM.IMPN ---
Subjective Subjective Date of Service: 01/07/23 Interval History: Awake alert belligerent this a.m. episode of unresponsiveness overnight that was self-limiting Review of Systems Denies chest pain Denies shortness of breath Denies nausea vomiting diarrhea Denies fever chills Physical Exam Vital Signs: Vital Signs: Last Vital Signs Temp 98.5 F 01/07/23 10:43 Pulse 66 01/07/23 10:43 Resp 18 01/07/23 10:43 BP 122/73 01/07/23 10:43 Pulse Ox 98 01/07/23 10:43 O2 Del Method Room Air 01/07/23 10:43 BMI result Body Mass Index 27.2 Const: Other: awake; intermittent confusion Resp: Other: clear to auscultation bilaterally no rales rhonchi or wheezes Cardio: Other: no S4; positive S1-S2; no S3 murmurs rubs or gallops GI: Other: soft nontender nondistended normoactive bowel sounds Extrem: Other: see admitting pictures; Objective Data Active Medications Acetaminophen (Acetaminophen 325 Mg Tablet) 650 mg PO Q6H PRN PRN Reason: Pain, Mild (Pain Scale 1-3) Last Admin: 01/07/23 10:52 Dose: 650 mg Documented By: ASHWIN Atorvastatin Calcium (Atorvastatin Calcium 20 Mg Tablet) 20 mg PO BEDTIME [facility] [place] Last Admin: 01/06/23 22:03 Dose: Not Given Documented By: CHEO Non-Admin Reason: Physician Approved Baclofen (Baclofen 10 Mg Tablet) 5 mg PO BID [facility] [place] Last Admin: 01/07/23 09:45 Dose: Not Given Documented By: COTDAVID Non-Admin Reason: Physician Held Med Carvedilol (Carvedilol 12.5 Mg Tablet) 12.5 mg PO BID [facility] [place]; Protocol Last Admin: 01/07/23 10:52 Dose: 12.5 mg Documented By: ASHWIN Dextrose (Dextrose 50 % 25 Gm/50 Ml Syringe) 25 gm IVPUSH Q15M PRN; Protocol PRN Reason: per Hypoglycemia Standing Ord. Gabapentin (Gabapentin 100 Mg Capsule) 100 mg PO BID [facility] [place] Last Admin: 01/07/23 09:45 Dose: Not Given Documented By: COTEMA Non-Admin Reason: Physician Held Med Glucose (Glucose Gel 15 Gm Gel..Gram.) 15 gm PO Q15M PRN; Protocol PRN Reason: per Hypoglycemia Standing Ord. Heparin Sodium (Porcine) (Heparin Sodium,Porcine 5,000 Unit/Ml Vial) 5,000 unit SUBCUT Q12H [facility] [place] Last Admin: 01/07/23 07:36 Dose: Not Given Documented By: ASHWIN Non-Admin Reason: Off unit: Dialysis Hydralazine HCl (Hydralazine Hcl 25 Mg Tablet) 25 mg PO TID [facility] [place]; Protocol Last Admin: 01/07/23 10:52 Dose: 25 mg Documented By: ASHWIN Cefepime HCl 1 gm/ Sodium (Chloride) 50 mls @ 100 mls/hr IV Q24H [facility] [place] Last Infusion: 01/07/23 00:08 Dose: 0 mls/hr Documented By: CASTILM Vancomycin HCl 500 mg/ Sodium (Chloride) 110 mls @ 110 mls/hr IV ONCE ONE Stop: 01/05/23 20:59 Insulin Human Lispro (Insulin Lispro 100 Unit/Ml 3 Ml Vial) 0 unit SUBCUT QIDACHS [facility] [place]; Protocol Last Admin: 01/07/23 11:22 Dose: Not Given Documented By: ASHWIN Non-Admin Reason: No Insulin Coverage Midodrine (Midodrine Hcl 5 Mg Tablet) 5 mg PO Q8H PRN PRN Reason: ORTHOSTATIC BP Mirtazapine (Mirtazapine 15 Mg Tablet) 15 mg PO BEDTIME [facility] [place] Last Admin: 01/06/23 22:05 Dose: Not Given Documented By: CHEO Non-Admin Reason: Physician Approved Omeprazole (Omeprazole 20 Mg Gerald.) 20 mg PO DAILY@0630 [facility] [place] Last Admin: 01/07/23 06:12 Dose: Not Given Documented By: CHEO Non-Admin Reason: difficult to arouse Ondansetron HCl (Ondansetron Hcl 4 Mg/2 Ml Vial) 4 mg IVPUSH Q8H PRN PRN Reason: Nausea and Vomiting Oxycodone HCl (Oxycodone Hcl Immed Release 5 Mg Tablet) 5 mg PO Q4H PRN PRN Reason: Pain, Moderate(Pain Scale 4-6) Pharmacy Consult (Consult Rx Vancomycin Dosing) 1 each MISCELLANE DAILY PRN PRN Reason: Consult order Senna (Sennosides 8.6 Mg Tablet) 17.2 mg PO DAILY [facility] [place] Last Admin: 01/07/23 10:52 Dose: 17.2 mg Documented By: ASHWIN Sevelamer Carbonate (Sevelamer Carbonate Tablet 800 Mg Tablet) 800 mg PO TIDAC [facility] [place] Last Admin: 01/07/23 10:52 Dose: 800 mg Documented By: ASHWIN Sodium Chloride (0.9 % Sodium Chloride Flush 3 Ml Syringe) 3 ml IVFLUSH QSHIFT [facility] [place] Last Admin: 01/07/23 07:33 Dose: Not Given Documented By: ASHWIN Non-Admin Reason: Off unit: Dialysis Labs 01/07/23 07:08 01/07/23 07:08 Labs: Laboratory Results - last 24 hr 01/06/23 01/06/23 01/06/23 14:51 16:01 18:09 MCV MCH MCHC RDW Plt Count MPV Immature Gran % (Auto) Neut % (Auto) Lymph % (Auto) [place] % (Auto) Eos % (Auto) Baso % (Auto) Lymph # (Auto) [place] # (Auto) Eos # (Auto) Baso # (Auto) Abs Immat Gran (auto) Absolute Neuts (auto) Absolute Nucleated RBC Nucleated RBC % (auto) Anion Gap Estim Creat Clear Calc Estimated GFR POC Glucose 128 H 127 H Fasting Glucose Calcium Total Bilirubin AST ALT Alkaline Phosphatase Total Protein Albumin Random Vancomycin 12.9 L 01/06/23 01/07/23 01/07/23 20:45 07:08 07:08 MCV 90.8 MCH 29.4 MCHC 32.4 RDW 13.8 Plt Count 287 MPV 9.7 Immature Gran % (Auto) 0.2 Neut % (Auto) 57.7 Lymph % (Auto) 23.1 [place] % (Auto) 9.4 Eos % (Auto) 8.5 H Baso % (Auto) 1.1 Lymph # (Auto) 1.3 [place] # (Auto) 0.5 Eos # (Auto) 0.5 H Baso # (Auto) 0.1 Abs Immat Gran (auto) 0.01 Absolute Neuts (auto) 3.2 Absolute Nucleated RBC 0.000 Nucleated RBC % (auto) 0.0 Anion Gap 16 Estim Creat Clear Calc 17.0 Estimated GFR 11 POC Glucose 86 Fasting Glucose 87 Calcium 8.7 Total Bilirubin 0.5 AST 18 ALT 13 Alkaline Phosphatase 121 H Total Protein 7.1 Albumin 3.2 L Random Vancomycin 01/07/23 01/07/23 07:43 11:07 MCV MCH MCHC RDW Plt Count MPV Immature Gran % (Auto) Neut % (Auto) Lymph % (Auto) [place] % (Auto) Eos % (Auto) Baso % (Auto) Lymph # (Auto) [place] # (Auto) Eos # (Auto) Baso # (Auto) Abs Immat Gran (auto) Absolute Neuts (auto) Absolute Nucleated RBC Nucleated RBC % (auto) Anion Gap Estim Creat Clear Calc Estimated GFR POC Glucose 91 89 Fasting Glucose Calcium Total Bilirubin AST ALT Alkaline Phosphatase Total Protein Albumin Random Vancomycin Microbiology Microbiology Results: Microbiology 01/04/23 18:49 Blood Culture - Preliminary Blood - Venous No growth after 48 hours. 01/04/23 18:44 Blood Culture - Preliminary Blood - Venous No growth after 48 hours. 01/04/23 Unknown Urine Culture - Final Urine Catheterized - Sheldon Catheter Assessment and Plan (1) Encephalopathy: Status: Acute (2) Osteomyelitis: Status: Acute (3) Acute UTI: Status: Acute Plan 67-year-old male with past medical history of hypertension, ESRD on dialysis, history of recurrent UTI comes into the hospital with increased confusion found to have multiple abnormalities 1.Acute encephalopathy - improved - follow clinically 2.Acute UTI - hx of pseudomonal UTI mitchell-sensitive - vancomycin/cefepime - urine culture with 100,000 mixed luciana 3.Osteomyelitis ( right great toe) -MRI reading pending -vancomycin/ cefepime (3) -further plans based on forthcoming data 4.ESRD on HD -HD as per Renal -follow renals/divalents 5.HTN -acceptable control on current therapies -adjust as indicated 6.DM II -lispro correctional scale -add back orals as appropriate 7.Hx of DVT (recent duplex is negative both upper and lower extremity ) - DC epixaben questioned surgery in future - renally dosed heparin Heparin DNR/DNI Requires ongoing hospitalization for IV antibiotics to treat osteomyelitis and urinary tract infection causing encephalopathy Time Spent With Patient Time: Total time managing care of this patient today ____ minutes. Quality Stroke Does the patient have a stroke diagnosis?: No VTE Prior VTE?: No VTE Risk Level:: Medical - moderate - high VTE Device Contraindication: Treatment Not Indicated VTE Drug Contraindication: N/A - Med Ordered
[2023-01-07] MEDS: oxyCODONE HCl Immed Release 5 MG TABLET PO ×2 (11:51→17:24)
[2023-01-07 14:58] VITALS: BP 99/56; PULSE 64; RESP 18; TEMP 36.6; O2SAT 97
[2023-01-07] MEDS: Baclofen 10 MG TABLET 5 MG PO ×2 (15:16→22:27)
[2023-01-07] MEDS: Gabapentin 100 MG CAPSULE PO ×2 (15:16→22:26)
[2023-01-07] MEDS: 0.9 % Sodium Chloride Flush 3 ML SYRINGE IVFLUSH ×2 (15:17→23:39)
[2023-01-07 16:27] LABS: Glucose, Whole Blood 120 mg/dL (60-115)
--- NOTE | 2023-01-07 17:08 | PM.PNNEP ---
Subjective Subjective Date of Service: 01/07/23 Interval history: Seen and examined, events noted Physical Exam Vital Signs: Vital Signs: Last Vital Signs Temp 97.8 F 01/07/23 14:58 Pulse 64 01/07/23 14:58 Resp 18 01/07/23 14:58 BP 99/56 L 01/07/23 14:58 Pulse Ox 97 01/07/23 14:58 O2 Del Method Room Air 01/07/23 14:58 BMI result Body Mass Index 27.2 Const: General: no acute distress HEENT: Head: Yes normocephalic and Yes atraumatic Neck: Neck: Yes supple Resp: Auscultation: diminished lung sounds Cardio: Heart sounds: S1 normal heart sound present and S2 normal heart sound present GI: Palpation (GI): Soft to palpation and nontender Extrem: General: Yes edema Objective Data Labs 01/07/23 07:08 01/07/23 07:08 Labs: Laboratory Results - last 24 hr 01/06/23 01/06/23 01/07/23 18:09 20:45 07:08 WBC RBC Hgb Hct MCV MCH MCHC RDW Plt Count MPV Immature Gran % (Auto) Neut % (Auto) Lymph % (Auto) [place] % (Auto) Eos % (Auto) Baso % (Auto) Lymph # (Auto) [place] # (Auto) Eos # (Auto) Baso # (Auto) Abs Immat Gran (auto) Absolute Neuts (auto) Absolute Nucleated RBC Nucleated RBC % (auto) Sodium 134 L Potassium 3.4 D Chloride 99 Carbon Dioxide 22 Anion Gap 16 BUN 28 H Creatinine 5.38 H* Estim Creat Clear Calc 17.0 Estimated GFR 11 POC Glucose 86 Fasting Glucose 87 Calcium 8.7 Total Bilirubin 0.5 AST 18 ALT 13 Alkaline Phosphatase 121 H Total Protein 7.1 Albumin 3.2 L Random Vancomycin 12.9 L 01/07/23 01/07/23 01/07/23 07:08 07:43 11:07 WBC 5.5 RBC 3.16 L Hgb 9.3 L Hct 28.7 L MCV 90.8 MCH 29.4 MCHC 32.4 RDW 13.8 Plt Count 287 MPV 9.7 Immature Gran % (Auto) 0.2 Neut % (Auto) 57.7 Lymph % (Auto) 23.1 [place] % (Auto) 9.4 Eos % (Auto) 8.5 H Baso % (Auto) 1.1 Lymph # (Auto) 1.3 [place] # (Auto) 0.5 Eos # (Auto) 0.5 H Baso # (Auto) 0.1 Abs Immat Gran (auto) 0.01 Absolute Neuts (auto) 3.2 Absolute Nucleated RBC 0.000 Nucleated RBC % (auto) 0.0 Sodium Potassium Chloride Carbon Dioxide Anion Gap BUN Creatinine Estim Creat Clear Calc Estimated GFR POC Glucose 91 89 Fasting Glucose Calcium Total Bilirubin AST ALT Alkaline Phosphatase Total Protein Albumin Random Vancomycin 01/07/23 16:15 WBC RBC Hgb Hct MCV MCH MCHC RDW Plt Count MPV Immature Gran % (Auto) Neut % (Auto) Lymph % (Auto) [place] % (Auto) Eos % (Auto) Baso % (Auto) Lymph # (Auto) [place] # (Auto) Eos # (Auto) Baso # (Auto) Abs Immat Gran (auto) Absolute Neuts (auto) Absolute Nucleated RBC Nucleated RBC % (auto) Sodium Potassium Chloride Carbon Dioxide Anion Gap BUN Creatinine Estim Creat Clear Calc Estimated GFR POC Glucose 120 H Fasting Glucose Calcium Total Bilirubin AST ALT Alkaline Phosphatase Total Protein Albumin Random Vancomycin Microbiology Microbiology Results: Microbiology 01/04/23 18:49 Blood - Venous Blood Culture - Preliminary No growth after 48 hours. 01/04/23 18:44 Blood - Venous Blood Culture - Preliminary No growth after 48 hours. 01/04/23 Unknown Urine Catheterized - Sheldon Catheter Urine Culture - Final Procedures Date of Service Date of Service: 01/07/23 Assessment & Plan Assessment and plan (1) ESRD (end stage renal disease): Status: Acute (2) Anemia: Status: Acute Plan ESRD: TTS AMS: improving per RN/staff ID: UTI and osteomyelitis of the great right toe REC no new recs cont HD TTS renal diet phosphate binders KATERINE Abx follow cultures Time Spent With Patient Time: Total time managing care of this patient today ____ minutes. Progress Note: Quality Stroke Does the patient have a stroke diagnosis?: No
[2023-01-07 18:56] LABS: Vancomycin Random 9.6 mcg/mL (15-20)
[2023-01-07 19:24] VITALS: BP 139/77; PULSE 68; RESP 18; TEMP 36.1; O2SAT 95
[2023-01-07] MEDS: vancomycin HCL 500 MG in 0.9 % Sodium Chloride 100 ML 110 MG IV (19:40)
[2023-01-07] MEDS: Atorvastatin Calcium 20 MG TABLET PO (19:41)
[2023-01-07 19:54] LABS: Glucose, Whole Blood 118 mg/dL (60-115)
[2023-01-07] MEDS: Heparin Sodium,Porcine 5,000 UNIT/ML VIAL 5000 UNIT SUBCUT (20:07)
[2023-01-07] MEDS: Mirtazapine 15 MG TABLET PO (21:54)
--- NOTE | 2023-01-07 23:07 | PC.NURSE ---
Addendum entered by Yanni Dominguez RN 01/07/23 23:21: Kristina Ware rm#[id number] here with pyelo with sepsis, had a tempt 101.2, she was given PRN tylenol, Dr. Duncan was notified. Original Note: Trevor Avila rm# [id number] was given scheduled 0900 gabapentin and baclofen meds at 3:[address] Duncan was notified. We asked Dr Duncan can we hold the scheduled 2100 gabapentin and baclofen or do we give it at midnight and she replied, we can give it now if pt isn't already sleeping. We gave the two meds to Pt @ 1030 pm.
--- NOTE | 2023-01-07 23:18 | MHC.AU.CP9 ---
(Central) Auditory Processing Evaluation Date of Visit: Reason for Evaluation: Previous Evaluations: Previous Audiological Evaluation: / History: History: History (Other): /Delivery History: /Delivery History (Other): Hearing Screening: Patient History: Health History: Health History (Other): Medications: Developmental History: Family History of Childhood-Onset Hearing Loss: Academic History: School: Current Grade: Educational Services: Auditory Continuous Performance Test (ACPT): is an attention screening that evaluates the ability to listen over a prolonged period of time. Normative data for Trevor?s age at the time of testing indicates possible attention difficulties if 19 or more errors are made. Results showed inattention errors and impulsivity errors for a total of errors on this test, which is within normal limits and suggests Trevor is capable of sustained auditory attention. Results showed inattention errors and impulsivity errors for a total of errors on this test, which it outside normal limits and suggests possible difficulty sustaining attention. EVALUATION: Frequency Patterns Test is a test of temporal processing skills, specifically frequency discrimination, linguistic labeling, and temporal pattern perception. Three tones are presented to the listener, which alternate in pitch from low to high. The listener has to verbally label the pitch patterns. Trevor?s score was correct when the pattern was labeled verbally. Normative values for this age group are 65% correct or better. The result of the Frequency Patterns test is within normal limits, suggesting normal temporal processing ability. The result of the Frequency Patterns test is below normal limits, suggesting a temporal processing deficit. When asked to sing/hum back the pattern of pitches, which does not require language, Trevor?s score was for both ears. This suggests that temporal processing ability is normal, since Trevor is able to discriminate the difference between pitches. The difficulty attaching the language label to the sequence suggests an auditory integration/interhemispheric transfer deficit. Dichotic Digits Test is a test of binaural integration. During this test, a different pair of numbers is presented simultaneously to each ear, and the patient must repeat all four numbers presented. Trevor?s scores were correct in the right ear and correct in the left ear. Normative values for this age group are 80% correct or better in the right ear and 75% or better in the left ear. The results of the Dichotic Digits test are within normal limits, and suggest normal binaural integration ability. The result of the Dichotic Digits test are within normal limits for the right ear and below normal limits for the left ear, suggesting a binaural integration deficit. The result of the Dichotic Digits test are below normal limits bilaterally, suggesting a binaural integration deficit. Competing Sentences Test is a test of binaural separation. Different sentences are presented to each ear simultaneously, with the target sentence 15 dBHL softer. The patient is asked to repeat only what was heard in the target ear. Trevor?s scores were correct in the right ear and correct in the left ear. Normative values for this age group are 90% or better in the right ear and 75% or better in the left ear. The results of the Competing Sentences test are within normal limits, and suggest normal binaural separation ability. The results of the Competing Sentences test are within normal limits for the right ear and below normal limits for the left ear, suggesting a binaural separation deficit. The results of the Competing Sentences test are below normal limits bilaterally, suggesting a binaural separation deficit. Mnokbf-uh-Hctvus is a test of auditory closure. The patient is asked to repeat single-syllable words in the presence of babble/noise. Trevor?s scores were correct in the right ear and correct in the left ear. Normative values for this age group are 70% or better for each ear. % The results of the Zxblyy-fj-Yiceld test are within normal limits, and suggest normal auditory closure ability. The results of the Tfmzka-iw-Rpfisu test are within normal limits for the right ear and below normal limits for the left ear, suggesting an auditory closure deficit. The results of the Nwtrsg-ml-Ltcbxn test are within normal limits for the left ear and below normal limits for the right ear, suggesting an auditory closure deficit. The results of the Urjrqp-vw-Kheyjs test are below normal limits bilaterally, suggesting an auditory closure deficit. Masking Level Difference is a test of binaural interaction. The listener repeats words in increasing levels of noise, first with the words out of phase, then with the words in phase, until they can no longer understand the words. The difference in threshold between words presented out of phase and in phase is calculated to measure the listener?s release from masking. Trevor?s score revealed a threshold release from masking. Normative values for this age group are 6 dB or greater. The result of the Masking Level Difference test is within normal limits, and suggests normal binaural interaction ability. The result of the Masking Level Difference test is below normal limits, which suggests a binaural interaction deficit. INTERPRETATION OF RESULTS: Trevor was able to sustain sufficient attention and effort throughout testing today. It is felt that today's results are a reliable representation of their auditory processing abilities. Trevor exhibited signs of inattention throughout the evaluation today, such as excessive fidgeting and needing frequent re-direction to stay on task. Children who have difficulty maintaining focus/attention often appear to not understand or follow auditory information; therefore, today's results should be interpreted with caution. Normative data for the tests performed was based on performance of individuals with IQs of 80 and above. When children have an IQ below 80, it is difficult to determine if the deficits noted on the auditory processing evaluation are truly due to an auditory processing disorder, or if they are due to a more global cognitive deficit; therefore, today's results should be interpreted with caution. A (Central) Auditory Processing Disorder is typically diagnosed if a child falls below normal limits on two or more subtests, or significantly poor performance (more than 3 standard deviations from the mean) on one subtest. -The results of today's (Central) Auditory Processing evaluation are consistent with a (Central) Auditory Processing Disorder. -The results of today?s (Central) Auditory Processing evaluation suggest normal (Central) auditory processing ability and are not consistent with a (Central) Auditory Processing Disorder. -Today, Trevor scored below normal limits on all five tests. According to the Salvador/Dulce model of (Central) Auditory Processing, an individual who performs poorly on all tests administered suggests that there may be involvement of a higher-order cognitive, attention, or global deficit that is not specific to the auditory system; therefore, it cannot be concluded if today's results are due to an auditory processing disorder. IMPRESSIONS: Trevor exhibits difficulties in the areas of auditory closure, binaural separation, binaural integration, binaural interaction, temporal processing, and auditory integration (interhemsipheric transfer). The auditory system is usually matured around the age of 12 years. Younger children typically show left-ear deficits on dichotic listening tasks and weaker temporal sequencing skills. It is important for children who perform below normative values for their age to have frequent exposure to specific listening activities that will help strengthen the weaker skills. Auditory closure refers to the ability to fill in missing or distorted portions of the auditory signal and interpret the entire message. Difficulties with auditory closure may result in difficulty filling in the missing components when a portion of the auditory signal is inaudible. Often, the individual has difficulties with auditory discrimination and decoding. Listeners tend to have weak top-down processing, which may be influenced by attention or language-related problems. Binaural separation refers to the ability to process an auditory message coming into one ear while ignoring a message presented to the opposite ear at the same time. Deficits in binaural separation ability may cause difficulty hearing in background noise, or when more than one person is speaking at the same time. For example, a student who is trying to listen in a classroom may experience difficulty hearing and understanding the teacher if a classmate was talking nearby. Binaural integration refers to the ability of a listener to process different information being presented to both ears simultaneously. People with binaural separation or integration difficulties often show problems hearing in background noise or when more than one person is talking at the same time. Binaural interaction is the degree to which the auditory system can make use of subtle differences in frequency (pitch), intensity, or phase to enhance listening ability. Deficits in binaural interaction have been shown to lead to difficulties processing speech information in noisy environments. Temporal processing refers to time-related aspects of the acoustic signal, and reflects the listener's ability to recognize acoustic contours. This ability contributes to a listener's ability to extract and utilize prosodic aspects of speech, such as rhythm, stress, and intonation. Individuals who have difficulties with temporal processing may show deficits in sequencing, phonological processing, auditory discrimination, using prosodic features of speech, and understanding verbal social cues. Auditory Integration (Interhemispheric Transfer) refers to the ability to transfer auditory information between the two hemispheres of the brain. On the Frequency Patterns test, Trevor could recognize the difference between the high and low pitches, but had difficulty putting the language label to the sequence. Being able to say the language label requires transferring information to the left side of the brain efficiently. An auditory integration deficit may cause difficulty with background noise, sound-symbol association, and simultaneous use of multiple types of information (audio, visual, tactile, etc). RECOMMENDATIONS: -A comprehensive Neuropsychological Evaluation to better assess Trevor?s attention, memory, learning, cognition, and executive function. -Continued speech/language services. -Future suggested speech/language evaluations include: TAPS- Entire test CELF- Clinical Evaluation of Language Fundamentals (ages 5-21 receptive and expressive language) CASL- Comprehensive Assessment of Spoken Language (ages 3-21 Abstract language) CTOPP- Comprehensive Test of Phonological Processing (ages 4-25) Listening Comprehension Test - (2 versions, 6-11 year olds and Adolescents 12-17 years) -Listening activities, both at home and with a speech/language pathologist, are recommended. Research shows processing skills improve the more frequently the child is exposed to these listening activities. -Consideration of computer programs such as [employer], [employer], and [employer] to enhance listening skills, phonemic awareness, working memory, etc. -Trevor may benefit from formal musical training. Research has strongly suggested that learning to play a musical instrument enhances auditory processing ability, improves evrnyy-vb-uxbku understanding, and facilitates speech-language skills that play an important role in academic performance. The instructor should be educated regarding the nature of Trevor?s disorder so that lessons aren't initially made too challenging. -In order to determine if today's noted weaknesses are related to delayed maturation of the auditory system or due to a fixed deficit, a repeat auditory processing assessment is recommended at the age of 12. -The environmental modifications and teaching strategies listed below are very important for Trevor. Students with auditory processing disorders already have to exert significant energy into listening, and therefore need better access to critical auditory information. Noise, reverberation, and distance can interfere with the ability to receive auditory information. Environmental Modifications -Reduce excessive background noise. -Identify consistent sources of noise, such as heating/cooling systems, fans, overhead projectors, fish tanks, etc. Ensure that the student is seated away from these sources of noise. -Check classroom acoustics. Reduce reflective surfaces, such as hard floors, bare windows, and hard wall surfaces. Ideas for covering reflective surfaces include carpet squares, cork boards/soft bulletin boards, window treatments, and adding felt pads to the bottom of chairs. -Reduce visual distractions. Complex visual stimulation may interfere with the ability to pay attention to auditory information. Teaching Strategies -Preferential seating near the teacher or other target sound source (ex. guest speaker, television, computer, etc). -Seat student away from open windows or hallway noise. -Ensure that the teacher or speaker's face is visible (less than a 45? angle) from the student. -Ensure that you have gained the student's attention prior to presenting important information. -Check frequently for understanding. -Multimodality cues (visual, tactile, audio, etc.), if used, should be introduced one modality at a time. Children with integration difficulties may not respond well when these cues are presented simultaneously, as it may cause more confusion. These cues are effective only if concrete examples and repeated modeling of the desired outcome are provided. -Rephrase or restate, rather than repeating exactly what has been said. -Use Clear Speech -Speak clearly and deliberately -Slow down your rate of speech -Take short pauses in between thoughts -Do not yell -Use multimodal teaching strategies (visual aids, props, hands-on examples, etc). -Provide written notes or an outline of information that will be presented verbally before class so the student can concentrate on the material presented and not on the writing of notes -Assign a peer financial recording clerk to supplement the student's own notes -Pre-teach complicated information/topics -Have the student read ahead prior to starting a new topic -Describe upcoming vocabulary and concepts -Be cautious of the use of slang terms; check for understanding if you do -Encourage participation and questions. Provide positive reinforcement -Plan for breaks from listening Direct Remediation Ideas: Binaural Separation Suggested for School: -Speech in noise drills- Give verbal directions in both quiet and noisy/potentially distracting situations. The directions can be informal and in guise of another activity. Begin the directions as simple and straightforward for the student, and increase the difficulty by introducing multi-step directions. Suggested for Home: Localization training- Play games such as ?appMobio? where the child is blindfolded, then locates the direction from which sounds or voices are coming. Suggested for Home and/or School: -Separation activities can be performed using two audio devices. Device 1 can be a portable audio device with headphones, such as an iPod or smartphone, that plays audio recordings the student will repeat. Device 2 will be a speaker ( ?boom box, computer speaker, etc.) that will play competing sound into the room. The setup is: -One earphone from Device 1 is placed on the target ear. -Device 2 is placed approximately two feet from the opposite ear. -At first, the volume level for Device 1 should be louder and heard easily compared to the volume level of Device 2. -Ask the child to repeat what is heard from Device 1. Begin with simple material and progress to more complex material. Use a variety of lists to the target ear to prevent the child from memorizing material. -When the child can correctly repeat 70-80% of the material presented from Device 1, progressively decrease the volume of Device 1 until it eventually is the same volume as Device 2. -The volume of Device 2 should remain the same during the entire training session. -Each training session should last 20-30 minutes. -When increasing the complexity of the stimuli (for example, passages of a book), comprehension is not important at first; however, as training progresses, the child should demonstrate understanding of the passages. The ultimate goal is to have passages from books presented to both ears at the different intensity levels and have the child answer comprehension questions about the target ear. Examples of stimuli include: Target Ear Opposite Ear Consonant-Vowel Combinations White Noise Single Words Sentences Sentences Digits Passage from a favorite book Babble/crowd noise Auditory Closure Suggested for School: -Auditory training with emphasis on phoneme decoding can assist in developing accurate phonemic representation. The focus should begin on consonant discrimination, involving the use of minimal contrast phoneme pairs (i.e. /p/ vs. /t/). Phonemes are presented in isolation and the child should be able to master one phoneme pair before moving on to another. Vowel discrimination activities can also be included in the training. After the child has mastered phonemes in isolation, training can focus on consonant-vowel or vowel-consonant complexes and then move onto words. Activities should work progress to work on identifying differences between: -High frequency consonants (/s/ /f/) vs. long vowels -High frequency consonants vs. short vowels -High frequency consonants vs. low frequency consonants (/v/ /l/) -Long vowels vs. voices stop consonant (/b/ /d/) -Long vowels vs. voiceless stop consonants (/t/ /k/) -Voiced stop consonants vs. voiceless stop consonants -Long vowels vs. consonant clusters (/pr/ /fr/) -Short vowels vs. consonant clusters -Consonant clusters vs. consonant clusters with widely variant acoustic cues (/st/ vs. /br/) -Consonant clusters vs. consonant clusters with similar acoustic cues (/sh/ vs. /st/) Discrimination of Sounds: -Dissimilar sounds - (Ex. bear/tear) -Similar sounds - (Ex. bear/pear) Student must recognize the unique qualities of a sound stimulus and differentiate one stimulus from another. -Remediation activities to target auditory closure should assist the child in learning to fill in the missing parts in order to perceive the entire message. Context plays an important role in auditory closure. Missing word exercises can include the use of familiar songs or rhymes to help the child predict rhyming words ( e.g. David and Sharmila went up a ), Progress to unfamiliar messages in which context is used to fill in the missing word. Missing syllable exercises can include sentences in which the target syllable is missing and the child must fill in the missing syllable (e.g. He hit a home run in ____ball game or (colors are pur___, yel___) ). Missing phoneme exercises include sentences where the target phoneme is missing (e.g. She (w)atches the (m)ovie). These types of drill help the child to rely less on hearing and decoding and become more reliant on contextual derivation to interpret the entire message. -Build vocabulary using context cues. Auditory and visual input of the new vocabulary word is essential as a first step in this process. The child must be able to say the new word and visually recognize it. At this point in the activity, no definition of the new word is given to the child. The next step is to have the child figure out the meaning of the new word from contextual cues. The context of the sentence must include familiar words which provide clues as to what the new word means. Example: pilfered The thief pilfered the todd ring from the [employer]. You can provide multiple sentences to the child if necessary to deduce the meaning of the word. To solidify the meaning of the new word, have the child read a story that incorporates the target word several times. The story can be read aloud to the child if necessary. This is another opportunity for the child to decode the meaning if they were not able to from the previous sentence provided. At this point if the child still is not able to deduce the meaning, provide a succinct definition of the word. Review the word to facilitate retention and memory. Ask the child to provide a definition in their own vocabulary and to use the word in a sentence. Suggested for Home: -Practice identifying where a sound is in a word (ex. t is at the end of cat, o is in the middle of coat). List words by designated sound (ex. fun, feet, fish). -Last Sound Game- Each person takes a turn and says a word that begins with the same sound as the last sound in the previous word (ex. mou-gvaz-gevij). -Games such as Wheel Warp 9 and Ring. -Selective listening activities- The child is first given words they need to listen for while the adult reads a story out loud (ex. the child could raise their hand every time an animal word is used). Over time the child should listen to the entire story, not only the individual words, so the child is encouraged to listen for meaning and answer comprehension questions. Interhemispheric Training Suggested for School: -The following activity to target auditory memory and the transfer of interhemispheric information is recommended. Provide a short written story which is broken down into segments. Each segment should have one main idea. The student should read each segment and sketch the main idea of each segment in 45 seconds. The time concept is critical; only allow 45 seconds to sketch after reading a segment. After the sketches are completed, take them away, and ask the student to summarize the story by looking at his sketches. Suggested for Home: -Music activities that involve both linguistic-output (a left-hemisphere function) and a melodic output (a right-hemisphere function). These activities can include listening to songs to decipher the lyrics and music lessons that involve the use of both hands. -Bipedal activities (Ex. dancing, jumping, basketball, tossing a ball) -Commercial games such as Sponge[employer]ht, [employer], Brain Warp Suggested for Home and School: -Other interhemispheric training exercises include the following: -Instruct the child to find a particular object with their left hand from a bag where they cannot see the object. -Ask the child to find an object with their left hand and label it verbally in regards to shape, texture, and identifying details. -Have the child verbally describe a picture while they are drawing it. Temporal Processing Suggested for School: -Have the student imitate rhythm and beats. -Read aloud with exaggerated prosodic features (emphasis on intonation, stress, and rhythm). -Train the student on rhythm, stress, and intonation. Begin the training with word pairs in which the stress pattern changes the meaning of the word (convict vs. convict, record vs. record). Following training with words, sentence material can be introduced with different stress patterns (ex. I fell into a snowdrift vs I watched the snow drift by ). Suggested for Home and School: -Utilize the Trey Game in therapy -Initially the child and the individual who is facilitating the rehabilitation program should each play the Trey game on their own for 2 weeks according to the quill stripper?s directions. -Next, the child must be turned away from the Trey game or blindfolded, so that no visual input can be received. The child should be instructed to listen to the patterns and report what is heard. In order to do this, a communication must be established as to how to report what is heard. This can be done in several ways. Examples include: tones can be labeled by color as specified by the quill stripper, tones can be numbered 1 through 4, or tones can be assigned a ?pitch label?, such as low, mid-low, mid-high, and high. This step targets the process of temporal sequencing and ordering. -For the next step, targets should be selected from the patterns of the Trey game. Again, the child should not have visual input from the game. A target is a specific tone. When the child hears the target tone, they should keep track of it, and at the end of the entire sequence played report how many times it was heard, or if it was not heard at all. To progress after this skill is mastered, more than one target can be chosen in a sequence. The child can also be instructed to indicate where the target occurred; at the beginning, middle, or end of the sequence. This step targets the temporal analytic process. -Instruct the child to recognize a particular pattern within the sequences played without visual input. For example, red followed by yellow, or low followed by high. To begin, two successive tones should be identified from the sequence. To progress, three successive tones should be identified, but no more than three. The child should verbally indicate when they have heard the sequence to the learning strategist. This gives the child practice at transferring a temporal sequence to an auditory imprint. -Lastly, the learning strategist should play the Trey game while the child has no visual input. Trey should be set to the setting of game choices where the player plays a sequence, and the instrument plays it back plus a new tone. Then the child plays that sequence back, plus a new tone. The game will alternate in this fashion, and a new tone is added at the end of every sequence. The goal of the child is to repeat back the new tone at the end of each sequence, and to compare it to the last tone in the sequence. The child should indicate if the new tone is higher, lower, or the same as the tone before it. This is a temporal discrimination comparison task. Central Resource Training Given the normal results on today's assessment, no recommendations for direct services to address auditory processing skills will be recommended; however, given Trevor?s academic difficulties and speech/language deficits, Central Resource Training may be beneficial. Central Resource Training involves the areas of general cognition, metacognition, and metalinguistic skills, which are highly dependent on attention, executive control, memory and decision making. It can help develop compensatory strategies to improve listening comprehension, as well help to determine and retain the content/meaning of a verbal message. Please refer to a speech-language pathologist for guidance in this area: The following are examples that may be incorporated as needed: -Use of active listening strategies to help accept responsibility for listening comprehension and strengthen existing processing skills. These include: Whole-body listening techniques where the child places their body in an alert position, inclining head toward the speaker, keeping his eyes firmly on the speaker, and avoiding activities that can take attention away from the speaker such as excess movement or fidgeting. Help the child to analyze their listening environments. The goal is to have the child independently identify sources of competing noise that interfere with speech intelligibility and determine how best to change the environment (for example, request to be moved to a quieter place in the classroom) The child should be encouraged to indicate when they do not understand what has been said. -Use of meta-memory strategies Chunking- Breaking down long messages or lists into smaller components and grouping similar concepts together. Elaboration- Use of analogies and acronyms to improve auditory memory. Verbal Rehearsal - repeating the auditory message over and over again. Self-instruction and re-auditorization- Begin with modeling a chosen task by having the clinician/teacher demonstrate the task while ?talking out? the steps involved. Then the adult verbalizes the steps while the student performs the task. Next, the student is taught to self-instruct or ?talk out? the steps as they perform the task. The self-instruction is first done aloud and progresses gradually to a whisper until it is finally silently performed by the student. -Use of linguistic strategies: Training in the use and meaning of tag words (first, last, next, before, but, however, although) that imply relationships among parts of a message. This helps the child with auditory processing difficulties to organize information and make predictions based on expectations. Using ?scripts? to rehearse particular situations. This helps the student to better interpret and understand a situation by using contextual cues and their experiences to ?fill in? missing pieces that may not have been understood. Diagnosis Codes: Primary Diagnosis: Secondary Diagnosis: Services Performed: Signature: Please feel free to contact us with any questions or concerns at . Student/Clinical Fellow: No I have reviewed/agreed with student/fellow documentation: N/A Provider:
[2023-01-07] MEDS: cefEPime HCl 1 GM in 0.9 % Sodium Chloride 50 ML IV (23:38)
--- NOTE | 2023-01-08 00:50 | PC.NURSE ---
Trevor Michealmulugeta room 362 was given his scheduled 0900 meds gabapentin and baclofen at 3:30 pm, Dr. Duncan was notified. We asked Dr. Duncan if we could hold the 2100 scheduled gabapentin and baclofen or if it was okay to give to pt at midnight. She replied to give pt both meds if he is still awake. We gave pt both meds at 10:30 pm.
[2023-01-08 03:53] VITALS: BP 96/46; PULSE 58; RESP 14; TEMP 36; O2SAT 97
[2023-01-08 06:24] LABS: Creatinine Clr Calc Pharmacy 14.3; Estimated Glomerular Filt Rate 9
[2023-01-08 07:02] VITALS: BP 144/70; PULSE 64; RESP 16; TEMP 36.8; O2SAT 97
[2023-01-08 07:25] LABS: Glucose, Whole Blood 98 mg/dL (60-115)
[2023-01-08] MEDS: 0.9 % Sodium Chloride Flush 3 ML SYRINGE IVFLUSH ×3 (07:57→19:31)
[2023-01-08] MEDS: Sennosides 8.6 MG TABLET 17.2 MG PO (07:58)
[2023-01-08] MEDS: hydrALAZINE HCl 25 MG TABLET PO ×3 (07:58→20:26)
[2023-01-08] MEDS: Sevelamer Carbonate Tablet 800 MG TABLET PO ×3 (07:58→16:47)
[2023-01-08] MEDS: Heparin Sodium,Porcine 5,000 UNIT/ML VIAL 5000 UNIT SUBCUT ×2 (07:58→20:25)
[2023-01-08] MEDS: Baclofen 10 MG TABLET 5 MG PO ×2 (07:59→20:26)
[2023-01-08] MEDS: carvediloL 12.5 MG TABLET PO ×2 (07:59→20:26)
[2023-01-08] MEDS: Gabapentin 100 MG CAPSULE PO ×2 (08:00→20:26)
[2023-01-08 11:25] LABS: Glucose, Whole Blood 112 mg/dL (60-115)
--- NOTE | 2023-01-08 12:51 | PM.PNNEP ---
Subjective Subjective Date of Service: 01/08/23 Interval history: Seen and examined, events noted Physical Exam Vital Signs: Vital Signs: Last Vital Signs Temp 98.3 F 01/08/23 07:02 Pulse 64 01/08/23 07:02 Resp 16 01/08/23 07:02 BP 144/70 H 01/08/23 07:02 Pulse Ox 97 01/08/23 07:02 O2 Del Method Room Air 01/08/23 07:02 BMI result Body Mass Index 27.2 Const: General: no acute distress HEENT: Head: Yes normocephalic and Yes atraumatic Neck: Neck: Yes supple Resp: Auscultation: diminished lung sounds Cardio: Heart sounds: S1 normal heart sound present and S2 normal heart sound present GI: Palpation (GI): Soft to palpation and nontender Extrem: General: Yes edema Objective Data Labs 01/07/23 07:08 01/08/23 05:32 Labs: Laboratory Results - last 24 hr 01/07/23 01/07/23 01/07/23 16:15 18:20 19:49 Creatinine Estim Creat Clear Calc Estimated GFR POC Glucose 120 H 118 H Random Vancomycin 9.6 L 01/08/23 01/08/23 01/08/23 05:32 07:08 11:10 Creatinine 6.38 H* Estim Creat Clear Calc 14.3 Estimated GFR 9 POC Glucose 98 112 Random Vancomycin Microbiology Microbiology Results: Microbiology 01/04/23 18:49 Blood - Venous Blood Culture - Preliminary No growth after 48 hours. 01/04/23 18:44 Blood - Venous Blood Culture - Preliminary No growth after 48 hours. 01/04/23 Unknown Urine Catheterized - Sheldon Catheter Urine Culture - Final Procedures Date of Service Date of Service: 01/08/23 Assessment & Plan Assessment and plan (1) ESRD (end stage renal disease): Status: Acute (2) Anemia: Status: Acute Plan ESRD: TTS AMS: improving per RN/staff ID: UTI and osteomyelitis of the great right toe REC no new recs cont HD TTS renal diet phosphate binders KATERINE Abx follow cultures Time Spent With Patient Time: Total time managing care of this patient today ____ minutes. Progress Note: Quality Stroke Does the patient have a stroke diagnosis?: No
--- NOTE | 2023-01-08 13:49 | P.PNIM_ITS ---
Subjective Subjective Date of Service: 01/08/23 Interval History: MRI complete. Patient aware of findings. No acute issues overall Review of Systems Denies chest pain Denies shortness of breath Denies nausea vomiting diarrhea Denies fever chills Physical Exam Vital Signs: Vital Signs: Last Vital Signs Temp 98.3 F 01/08/23 07:02 Pulse 64 01/08/23 07:02 Resp 16 01/08/23 07:02 BP 144/70 H 01/08/23 07:02 Pulse Ox 97 01/08/23 07:02 O2 Del Method Room Air 01/08/23 07:02 BMI result Body Mass Index 27.2 Const: Other: awake; intermittent confusion Resp: Other: clear to auscultation bilaterally no rales rhonchi or wheezes Cardio: Other: no S4; positive S1-S2; no S3 murmurs rubs or gallops GI: Other: soft nontender nondistended normoactive bowel sounds Extrem: Other: see admitting pictures; Objective Data Active Medications Acetaminophen (Acetaminophen 325 Mg Tablet) 650 mg PO Q6H PRN PRN Reason: Pain, Mild (Pain Scale 1-3) Last Admin: 01/07/23 17:25 Dose: 650 mg Documented By: KIET Atorvastatin Calcium (Atorvastatin Calcium 20 Mg Tablet) 20 mg PO BEDTIME [facility] Last Admin: 01/07/23 19:41 Dose: 20 mg Documented By: CHEO Baclofen (Baclofen 10 Mg Tablet) 5 mg PO BID [facility] Last Admin: 01/08/23 07:59 Dose: 5 mg Documented By: PEGGY Carvedilol (Carvedilol 12.5 Mg Tablet) 12.5 mg PO BID [facility]; Protocol Last Admin: 01/08/23 07:59 Dose: 12.5 mg Documented By: PEGGY Dextrose (Dextrose 50 % 25 Gm/50 Ml Syringe) 25 gm IVPUSH Q15M PRN; Protocol PRN Reason: per Hypoglycemia Standing Ord. Gabapentin (Gabapentin 100 Mg Capsule) 100 mg PO BID [facility] Last Admin: 01/08/23 08:00 Dose: 100 mg Documented By: PEGGY Glucose (Glucose Gel 15 Gm Gel..Gram.) 15 gm PO Q15M PRN; Protocol PRN Reason: per Hypoglycemia Standing Ord. Heparin Sodium (Porcine) (Heparin Sodium,Porcine 5,000 Unit/Ml Vial) 5,000 unit SUBCUT Q12H [facility] Last Admin: 01/08/23 07:58 Dose: 5,000 unit Documented By: PEGGY Hydralazine HCl (Hydralazine Hcl 25 Mg Tablet) 25 mg PO TID [facility]; Protocol Last Admin: 01/08/23 07:58 Dose: 25 mg Documented By: PEGGY Cefepime HCl 1 gm/ Sodium (Chloride) 50 mls @ 100 mls/hr IV Q24H [facility] Last Infusion: 01/08/23 00:25 Dose: 0 mls/hr Documented By: CHEO Vancomycin HCl 500 mg/ Sodium (Chloride) 110 mls @ 110 mls/hr IV ONCE ONE Stop: 01/05/23 20:59 Insulin Human Lispro (Insulin Lispro 100 Unit/Ml 3 Ml Vial) 0 unit SUBCUT QIDACHS [facility]; Protocol Last Admin: 01/08/23 11:27 Dose: Not Given Documented By: PEGGY Non-Admin Reason: No Insulin Coverage Midodrine (Midodrine Hcl 5 Mg Tablet) 5 mg PO Q8H PRN PRN Reason: ORTHOSTATIC BP Mirtazapine (Mirtazapine 15 Mg Tablet) 15 mg PO BEDTIME [facility] Last Admin: 01/07/23 21:54 Dose: 15 mg Documented By: CHOE Omeprazole (Omeprazole 20 Mg Capsule.Dr) 20 mg PO DAILY@0630 [facility] Last Admin: 01/08/23 06:06 Dose: Not Given Documented By: CHEO Non-Admin Reason: patient refused Ondansetron HCl (Ondansetron Hcl 4 Mg/2 Ml Vial) 4 mg IVPUSH Q8H PRN PRN Reason: Nausea and Vomiting Oxycodone HCl (Oxycodone Hcl Immed Release 5 Mg Tablet) 5 mg PO Q4H PRN PRN Reason: Pain, Moderate(Pain Scale 4-6) Last Admin: 01/07/23 17:24 Dose: 5 mg Documented By: KIET Pharmacy Consult (Consult Rx Vancomycin Dosing) 1 each MISCELLANE DAILY PRN PRN Reason: Consult order Senna (Sennosides 8.6 Mg Tablet) 17.2 mg PO DAILY [facility] Last Admin: 01/08/23 07:58 Dose: 17.2 mg Documented By: PEGGY Sevelamer Carbonate (Sevelamer Carbonate Tablet 800 Mg Tablet) 800 mg PO TIDAC [facility] Last Admin: 01/08/23 11:57 Dose: 800 mg Documented By: PEGGY Sodium Chloride (0.9 % Sodium Chloride Flush 3 Ml Syringe) 3 ml IVFLUSH QSHIFT [facility] Last Admin: 01/08/23 07:57 Dose: 3 ml Documented By: PEGGY Labs 01/07/23 07:08 01/08/23 05:32 Labs: Laboratory Results - last 24 hr 01/07/23 01/07/23 01/07/23 16:15 18:20 19:49 Estim Creat Clear Calc Estimated GFR POC Glucose 120 H 118 H Random Vancomycin 9.6 L 01/08/23 01/08/23 01/08/23 05:32 07:08 11:10 Estim Creat Clear Calc 14.3 Estimated GFR 9 POC Glucose 98 112 Random Vancomycin Assessment and Plan (1) Osteomyelitis: Status: Acute (2) Acute UTI: Status: Acute (3) ESRD (end stage renal disease): Status: Acute Plan 67-year-old male with past medical history of hypertension, ESRD on dialysis, history of recurrent UTI comes into the hospital with increased confusion found to have multiple abnormalities; recent MRI consistent with right great toe cellulitis 1.Osteomyelitis ( right great toe) -MRI consistent with same -vancomycin/ cefepime () -daughter/[id number] both in agreement ... Likely amputation -await vascular input in a.m. 2.Acute UTI - hx of pseudomonal UTI mitchell-sensitive - vancomycin/cefepime - urine culture with 100,000 mixed luciana 4.ESRD on HD -HD as per Renal -follow renals/divalents 5.HTN -acceptable control on current therapies -adjust as indicated 6.DM II -lispro correctional scale -add back orals as appropriate 7.Hx of DVT (recent duplex is negative both upper and lower extremity ) - DC epixaben likely surgery in future - renally dosed heparin Heparin DNR/DNI Requires ongoing hospitalization for IV antibiotics to treat osteomyelitis and urinary tract infection causing encephalopathy Time Spent With Patient Time: Total time managing care of this patient today ____ minutes. Quality Stroke Does the patient have a stroke diagnosis?: No VTE Prior VTE?: No VTE Risk Level:: Medical - moderate - high VTE Device Contraindication: Treatment Not Indicated VTE Drug Contraindication: N/A - Med Ordered
[2023-01-08 15:26] VITALS: BP 110/53; PULSE 65; RESP 17; TEMP 36.3; O2SAT 94
[2023-01-08 16:34] LABS: Glucose, Whole Blood 145 mg/dL (60-115)
[2023-01-08 19:41] VITALS: BP 116/51; PULSE 64; RESP 17; TEMP 36.9; O2SAT 95
[2023-01-08] MEDS: Mirtazapine 15 MG TABLET PO (20:26)
[2023-01-08] MEDS: Atorvastatin Calcium 20 MG TABLET PO (20:26)
[2023-01-08 20:40] LABS: Glucose, Whole Blood 169 mg/dL (60-115)
[2023-01-08] MEDS: Insulin Lispro 100 UNIT/ML 3 ML VIAL SUBCUT (21:14)
[2023-01-08] MEDS: cefEPime HCl 1 GM in 0.9 % Sodium Chloride 50 ML IV (22:56)
[2023-01-09 02:29] VITALS: BP 110/62; PULSE 65; RESP 17; TEMP 36.4; O2SAT 95
[2023-01-09 05:32] LABS: Basophils Absolute Auto 0.1 X10*3/uL (0.0-0.2); Eosinophils Absolute Auto 0.5 X10*3/uL (0.0-0.4); Eosinophils Percent Auto 6.5 % (0-4); Hematocrit 28.4 % (42.0-52.0); Hemoglobin 9.3 g/dl (14.0-18.0); Imm Gran Abs Auto 0.03 X10*3/uL (0.00-0.03); Imm Gran Pct Auto 0.4 % (0.0-0.4); Lymphocytes Absolute Auto 2.7 X10*3/uL (1.2-4.9); Lymphocytes Percent Auto 32.6 % (20-40); MANUAL DIFF FLAG NO; Mean Corpuscular HGB Conc 32.7 g/dl (31.0-36.0); Mean Corpuscular Hemoglobin 29.2 pg (27.0-33.0); Mean Platelet Volume 10.3 fL (9.4-12.4); Monocytes Absolute Auto 0.9 X10*3/uL (0.1-1.2); Monocytes Percent Auto 11.1 % (2-11); Neutrophils Absolute Auto 3.9 x10*3/uL (2.0-8.3); Neutrophils Percent Auto 48.4 % (45-73); Platelet Count 288 X10*3/uL (160-400); Red Blood Count 3.19 X10*6/uL (4.60-5.80); Red Cell Distribution Width 13.3 % (11.0-16.0); White Blood Count 8.1 X10*3/uL (4.8-10.8)
[2023-01-09 05:55] LABS: Alanine Aminotransferase 11 U/L (0-40); Albumin Level 3.2 g/dL (3.5-5.0); Alkaline Phosphatase 107 U/L (39-117); Anion Gap 21 (12-20); Aspartate Amino Transferase 16 U/L (5-37); Bilirubin Total 0.4 mg/dL (0.0-1.0); Blood Urea Nitrogen 43 mg/dL (9-16); Calcium 9.2 mg/dL (8.4-10.2); Carbon Dioxide 21 mmol/L (22-29); Chloride 95 mmol/L (96-108); Estimated Glomerular Filt Rate 7; Glucose Fasting 86 mg/dL (60-99); Potassium 4.2 mmol/L (3.3-5.1); Sodium 133 mmol/L (135-145); Total Protein 7.5 g/dL (6.5-8.0)
[2023-01-09] MEDS: Omeprazole 20 MG CAPSULE.DR PO (05:57)
[2023-01-09 07:03] VITALS: BP 171/80; PULSE 69; RESP 16; TEMP 36.8; O2SAT 96
[2023-01-09 07:22] LABS: Glucose, Whole Blood 108 mg/dL (60-115)
[2023-01-09] MEDS: hydrALAZINE HCl 25 MG TABLET PO ×3 (08:16→23:16)
[2023-01-09] MEDS: Sevelamer Carbonate Tablet 800 MG TABLET PO ×3 (08:16→15:47)
[2023-01-09] MEDS: carvediloL 12.5 MG TABLET PO ×2 (08:16→23:16)
[2023-01-09] MEDS: Sennosides 8.6 MG TABLET 17.2 MG PO (08:16)
[2023-01-09] MEDS: Gabapentin 100 MG CAPSULE PO ×2 (08:16→23:16)
[2023-01-09] MEDS: Baclofen 10 MG TABLET 5 MG PO ×2 (08:17→23:15)
[2023-01-09] MEDS: Heparin Sodium,Porcine 5,000 UNIT/ML VIAL 5000 UNIT SUBCUT ×2 (08:21→20:50)
--- NOTE | 2023-01-09 09:10 | P.PNIM_ITS ---
Subjective Subjective Date of Service: 01/09/23 Interval History: f/u on UTI, osteomylitis no new complaint Physical Exam Vital Signs: Vital Signs: Last Vital Signs Temp 98.2 F 01/09/23 07:03 Pulse 69 01/09/23 07:03 Resp 16 01/09/23 07:03 BP 171/80 H 01/09/23 07:03 Pulse Ox 96 01/09/23 07:03 O2 Del Method Room Air 01/09/23 07:03 BMI result Body Mass Index 27.2 Const: Other: awake; intermittent confusion Resp: Other: clear to auscultation bilaterally no rales rhonchi or wheezes Cardio: Other: no S4; positive S1-S2; no S3 murmurs rubs or gallops GI: Other: soft nontender nondistended normoactive bowel sounds Extrem: Other: see admitting pictures; Objective Data Active Medications Acetaminophen (Acetaminophen 325 Mg Tablet) 650 mg PO Q6H PRN PRN Reason: Pain, Mild (Pain Scale 1-3) Last Admin: 01/07/23 17:25 Dose: 650 mg Documented By: KIET Atorvastatin Calcium (Atorvastatin Calcium 20 Mg Tablet) 20 mg PO BEDTIME [facility] Last Admin: 01/08/23 20:26 Dose: 20 mg Documented By: AUGUST Baclofen (Baclofen 10 Mg Tablet) 5 mg PO BID [facility] Last Admin: 01/09/23 08:17 Dose: 5 mg Documented By: RENETTA Carvedilol (Carvedilol 12.5 Mg Tablet) 12.5 mg PO BID [facility]; Protocol Last Admin: 01/09/23 08:16 Dose: 12.5 mg Documented By: RENETTA Dextrose (Dextrose 50 % 25 Gm/50 Ml Syringe) 25 gm IVPUSH Q15M PRN; Protocol PRN Reason: per Hypoglycemia Standing Ord. Gabapentin (Gabapentin 100 Mg Capsule) 100 mg PO BID [facility] Last Admin: 01/09/23 08:16 Dose: 100 mg Documented By: RENETTA Glucose (Glucose Gel 15 Gm Gel..Gram.) 15 gm PO Q15M PRN; Protocol PRN Reason: per Hypoglycemia Standing Ord. Heparin Sodium (Porcine) (Heparin Sodium,Porcine 5,000 Unit/Ml Vial) 5,000 unit SUBCUT Q12H [facility] Last Admin: 01/09/23 08:21 Dose: 5,000 unit Documented By: RENETTA Hydralazine HCl (Hydralazine Hcl 25 Mg Tablet) 25 mg PO TID [facility]; Protocol Last Admin: 01/09/23 08:16 Dose: 25 mg Documented By: RENETTA Cefepime HCl 1 gm/ Sodium (Chloride) 50 mls @ 100 mls/hr IV Q24H [facility] Last Infusion: 01/08/23 23:31 Dose: 0 mls/hr Documented By: AUGUST Vancomycin HCl 500 mg/ Sodium (Chloride) 110 mls @ 110 mls/hr IV ONCE ONE Stop: 01/05/23 20:59 Insulin Human Lispro (Insulin Lispro 100 Unit/Ml 3 Ml Vial) 0 unit SUBCUT QIDACHS [facility]; Protocol Last Admin: 01/09/23 07:23 Dose: Not Given Documented By: RENETTA Non-Admin Reason: No Insulin Coverage Midodrine (Midodrine Hcl 5 Mg Tablet) 5 mg PO Q8H PRN PRN Reason: ORTHOSTATIC BP Mirtazapine (Mirtazapine 15 Mg Tablet) 15 mg PO BEDTIME [facility] Last Admin: 01/08/23 20:26 Dose: 15 mg Documented By: AUGUST Omeprazole (Omeprazole 20 Mg Capsule.) 20 mg PO DAILY@0630 [facility] Last Admin: 01/09/23 05:57 Dose: 20 mg Documented By: AUGUST Ondansetron HCl (Ondansetron Hcl 4 Mg/2 Ml Vial) 4 mg IVPUSH Q8H PRN PRN Reason: Nausea and Vomiting Oxycodone HCl (Oxycodone Hcl Immed Release 5 Mg Tablet) 5 mg PO Q4H PRN PRN Reason: Pain, Moderate(Pain Scale 4-6) Last Admin: 01/07/23 17:24 Dose: 5 mg Documented By: KIET Pharmacy Consult (Consult Rx Vancomycin Dosing) 1 each MISCELLANE DAILY PRN PRN Reason: Consult order Senna (Sennosides 8.6 Mg Tablet) 17.2 mg PO DAILY [facility] Last Admin: 01/09/23 08:16 Dose: 17.2 mg Documented By: RENETTA Sevelamer Carbonate (Sevelamer Carbonate Tablet 800 Mg Tablet) 800 mg PO TIDAC [facility] Last Admin: 01/09/23 08:16 Dose: 800 mg Documented By: RENETTA Sodium Chloride (0.9 % Sodium Chloride Flush 3 Ml Syringe) 3 ml IVFLUSH QSHIFT [facility] Last Admin: 01/08/23 19:31 Dose: 3 ml Documented By: AUGUST Labs 01/09/23 05:00 01/09/23 05:00 Labs: Laboratory Results - last 24 hr 01/08/23 01/08/23 01/08/23 11:10 16:30 20:22 MCV MCH MCHC RDW Plt Count MPV Immature Gran % (Auto) Neut % (Auto) Lymph % (Auto) [place] % (Auto) Eos % (Auto) Baso % (Auto) Lymph # (Auto) [place] # (Auto) Eos # (Auto) Baso # (Auto) Abs Immat Gran (auto) Absolute Neuts (auto) Absolute Nucleated RBC Nucleated RBC % (auto) Anion Gap Estim Creat Clear Calc Estimated GFR POC Glucose 112 145 H 169 H Fasting Glucose Calcium Total Bilirubin AST ALT Alkaline Phosphatase Total Protein Albumin 01/09/23 01/09/23 01/09/23 05:00 05:00 07:07 MCV 89.0 MCH 29.2 MCHC 32.7 RDW 13.3 Plt Count 288 MPV 10.3 Immature Gran % (Auto) 0.4 Neut % (Auto) 48.4 Lymph % (Auto) 32.6 [place] % (Auto) 11.1 H Eos % (Auto) 6.5 H Baso % (Auto) 1.0 Lymph # (Auto) 2.7 [place] # (Auto) 0.9 Eos # (Auto) 0.5 H Baso # (Auto) 0.1 Abs Immat Gran (auto) 0.03 Absolute Neuts (auto) 3.9 Absolute Nucleated RBC 0.000 Nucleated RBC % (auto) 0.0 Anion Gap 21 H Estim Creat Clear Calc 11.0 Estimated GFR 7 POC Glucose 108 Fasting Glucose 86 Calcium 9.2 Total Bilirubin 0.4 AST 16 ALT 11 Alkaline Phosphatase 107 Total Protein 7.5 Albumin 3.2 L Assessment and Plan (1) Osteomyelitis: Status: Acute (2) Acute UTI: Status: Acute (3) ESRD (end stage renal disease): Status: Acute Plan 67-year-old male with past medical history of hypertension, ESRD on dialysis, history of recurrent UTI comes into the hospital with increased confusion found to have multiple abnormalities; recent MRI consistent with right great toe cellulitis 1.Osteomyelitis ( right great toe) confirmed on MRI -vancomycin/ cefepime () -daughter/[id number] both in agreement for ampuation if indicated -await vascular input in a.m. 2.Acute UTI culture negative, Cefepime as above 4.ESRD on HD -HD as per Renal 5.HTN -acceptable control on current therapies -adjust as indicated 6.DM II -lispro correctional scale -add back orals as appropriate 7.Hx of DVT (recent duplex is negative both upper and lower extremity ) - DC apixaben likely surgery in future - renally dosed heparin Heparin DNR/DNI Requires ongoing hospitalization for IV antibiotics to treat osteomyelitis and urinary tract infection causing encephalopathy Time Spent With Patient Time: Total time managing care of this patient today ____ minutes. Quality Stroke Does the patient have a stroke diagnosis?: No VTE Prior VTE?: No VTE Risk Level:: Medical - moderate - high VTE Device Contraindication: Treatment Not Indicated VTE Drug Contraindication: N/A - Med Ordered
[2023-01-09] MEDS: 0.9 % Sodium Chloride Flush 3 ML SYRINGE IVFLUSH ×3 (10:39→20:51)
[2023-01-09 11:31] LABS: Glucose, Whole Blood 96 mg/dL (60-115)
--- NOTE | 2023-01-09 11:37 | MHC.SLORD ---
Speech Language Pathology Order Status: MOBILITY MANAGER attempted to see pt for dysphagia tx this morning. Pt was asleep. Per review of EMR, pt was unresponsive 01/06, has been in a deep sleep over the weekend. Pt is currently on a ground/uc [facility] altered (NDD2) diet with thin liquids per MOBILITY MANAGER recommendation 01/06. Pt must be awake, alert, and attending to meal, otherwise tray to be held. MOBILITY MANAGER will continue to follow.
--- NOTE | 2023-01-09 11:56 | P.PNNP_ITS ---
Subjective Subjective Date of Service: 01/09/23 Interval history: seen and examined sleeping Physical Exam Vital Signs: Vital Signs: Last Vital Signs Temp 98.2 F 01/09/23 07:03 Pulse 69 01/09/23 07:03 Resp 16 01/09/23 07:03 BP 171/80 H 01/09/23 07:03 Pulse Ox 96 01/09/23 07:03 O2 Del Method Room Air 01/09/23 07:03 BMI result Body Mass Index 27.2 Const: General: no acute distress HEENT: Head: Yes normocephalic and Yes atraumatic Neck: Neck: Yes supple Resp: Auscultation: diminished lung sounds Cardio: Heart sounds: S1 normal heart sound present and S2 normal heart sound present GI: Palpation (GI): Soft to palpation and nontender Extrem: General: Yes edema Objective Data Labs 01/09/23 05:00 01/09/23 05:00 Labs: Laboratory Results - last 24 hr 01/08/23 01/08/23 01/09/23 16:30 20:22 05:00 WBC RBC Hgb Hct MCV MCH MCHC RDW Plt Count MPV Immature Gran % (Auto) Neut % (Auto) Lymph % (Auto) [place] % (Auto) Eos % (Auto) Baso % (Auto) Lymph # (Auto) [place] # (Auto) Eos # (Auto) Baso # (Auto) Abs Immat Gran (auto) Absolute Neuts (auto) Absolute Nucleated RBC Nucleated RBC % (auto) Sodium 133 L Potassium 4.2 D Chloride 95 L Carbon Dioxide 21 L Anion Gap 21 H BUN 43 H Creatinine 8.28 H* Estim Creat Clear Calc 11.0 Estimated GFR 7 POC Glucose 145 H 169 H Fasting Glucose 86 Calcium 9.2 Total Bilirubin 0.4 AST 16 ALT 11 Alkaline Phosphatase 107 Total Protein 7.5 Albumin 3.2 L 01/09/23 01/09/23 01/09/23 05:00 07:07 11:22 WBC 8.1 RBC 3.19 L Hgb 9.3 L Hct 28.4 L MCV 89.0 MCH 29.2 MCHC 32.7 RDW 13.3 Plt Count 288 MPV 10.3 Immature Gran % (Auto) 0.4 Neut % (Auto) 48.4 Lymph % (Auto) 32.6 [place] % (Auto) 11.1 H Eos % (Auto) 6.5 H Baso % (Auto) 1.0 Lymph # (Auto) 2.7 [place] # (Auto) 0.9 Eos # (Auto) 0.5 H Baso # (Auto) 0.1 Abs Immat Gran (auto) 0.03 Absolute Neuts (auto) 3.9 Absolute Nucleated RBC 0.000 Nucleated RBC % (auto) 0.0 Sodium Potassium Chloride Carbon Dioxide Anion Gap BUN Creatinine Estim Creat Clear Calc Estimated GFR POC Glucose 108 96 Fasting Glucose Calcium Total Bilirubin AST ALT Alkaline Phosphatase Total Protein Albumin Microbiology Microbiology Results: Microbiology 01/04/23 18:49 Blood - Venous Blood Culture - Preliminary No growth after 48 hours. 01/04/23 18:44 Blood - Venous Blood Culture - Preliminary No growth after 48 hours. 01/04/23 Unknown Urine Catheterized - Sheldon Catheter Urine Culture - Final Procedures Date of Service Date of Service: 01/09/23 Assessment & Plan Assessment and plan (1) ESRD (end stage renal disease): Status: Acute (2) Anemia: Status: Acute Plan usually has HD t-t-s first shift at [facility] dialysis unit followed by Dr Hoang presented with altered mental status in the setting of acute infection found to have UTI and osteomyelitis of the great right toe REC HD tomorrow renal diet phosphate binders KATERINE Abx follow cultures Time Spent With Patient Time: Total time managing care of this patient today ____ minutes. Progress Note: Quality Stroke Does the patient have a stroke diagnosis?: No
--- NOTE | 2023-01-09 14:56 | HO.VASCPN ---
Subjective Subjective Date of Service: 01/09/23 Patient reports: no new complaints and feels better Interval history: Pleasant 67-year-old gentleman presents for follow-up regarding nonhealing right lower extremity great toe ulcer. Appears to be doing relatively well this weekend. No events. He is a little more coherent today. Now for follow-up regarding nonhealing right great toe ulcer. Physical Exam Vital Signs: Vital Signs: Last Vital Signs Temp 98.2 F 01/09/23 07:03 Pulse 69 01/09/23 07:03 Resp 16 01/09/23 07:03 BP 171/80 H 01/09/23 07:03 Pulse Ox 96 01/09/23 07:03 O2 Del Method Room Air 01/09/23 07:03 BMI result Body Mass Index 27.2 Const: General: cooperative, healthy appearing and no acute distress Orientation/consciousness: oriented to person, oriented to place and oriented to time HEENT: Head: Yes normal to inspection Neck: Carotids: no bruits Chest: Chest palpation & inspection: normal inspection of the chest Resp: Effort & Inspection: normal respiratory effort and able to speak in complete sentences Auscultation: clear to auscultation bilaterally Cardio: Rate: regular rate Heart sounds: S1 normal heart sound present and S2 normal heart sound present GI: Inspection: Yes normal to inspection Skin: Other: General skin exam: no rashes or lesions noted Wounds: no wounds Neuro: General: oriented to person, oriented to place, oriented to time and CN's II-XI intact bilaterally Extrem: General: Yes normal to inspection, Yes full ROM and Yes no clubbing, cyanosis or edema Psych: Appearance: grossly normal and well kempt Speech and movement: Normal speech and movement present Affect: normal affect Progress Note: A&P Assessment and plan (1) Nonhealing ulcer of right lower extremity: Status: Acute Assessment and Plan: In short patient has nonhealing right great toe ulcer. There is underlying osteomyelitis which is of concern. But the tissue bed is excellent granulation. Overall appears to be doing extremely well. I do think we do have an opportunity to salvage the foot here. Would recommend long-term IV antibiotics. He may be able to receive this while on dialysis. Continue with local wound care. I did discuss these findings with the patient and the patient's . I did leave a message for the daughter. Stable from my perspective for discharge once antibiotics are sorted out. Can see me as an outpatient. Thank you for allowing us to assist in his care. Time Spent With Patient Time: Total time managing care of this patient today ____ minutes. Procedures Date of Service Date of Service: 01/09/23 Quality Stroke Does the patient have a stroke diagnosis?: No VTE Prior VTE?: No VTE Risk Level:: Medical - moderate - high VTE Device Contraindication: Treatment Not Indicated VTE Drug Contraindication: N/A - Med Ordered
--- NOTE | 2023-01-09 14:57 | MHC.CM.PN ---
Per MD rounds Vascular surgery to see the patient today. A Clinical update has been sent to the facility. DP return to [facility] via BLS.
[2023-01-09 15:40] VITALS: BP 158/80; PULSE 61; RESP 20; TEMP 36.6; O2SAT 97
[2023-01-09 16:07] LABS: Glucose, Whole Blood 104 mg/dL (60-115)
[2023-01-09] MEDS: Acetaminophen 325 MG TABLET 650 MG PO (16:40)
[2023-01-09 19:57] VITALS: BP 129/56; PULSE 63; RESP 17; TEMP 36.5; O2SAT 96
[2023-01-09 21:00] VITALS: BP 151/72; PULSE 60; RESP 16; O2SAT 95
[2023-01-09 21:07] LABS: Glucose, Whole Blood 102 mg/dL (60-115)
--- NOTE | 2023-01-09 21:11 | PM.EVENT ---
Event Note Date of Service: 01/09/23 Event Note: Was called by the nurse as patient with decreased responsiveness. The nurse said that similar episode happened 2 days ago which self-resolved. Vitals stable and patient maintaining normal oxygen saturation on room air. Upon examination, patient only withdrawing and eye opening to painful stimulus. Pupils are pinpoint. Will obtain ABG and CT head without contrast. Monitor mentation Time Spent With Patient Time: Total time managing care of this patient today ____ minutes.
[2023-01-09 21:25] VITALS: O2SAT 95
[2023-01-09 21:33] LABS: ABG Base Excess 1.1 mmol/L; ABG HCO3 25 mmol/L (22-26); ABG pCO2 39 mmHg (32-45); ABG pH 7.41 (7.35-7.45); ABG pO2 89 mmHg (83-108)
[2023-01-09] MEDS: cefEPime HCl 1 GM in 0.9 % Sodium Chloride 50 ML IV (23:15)
[2023-01-09] MEDS: Atorvastatin Calcium 20 MG TABLET PO (23:16)
[2023-01-09] MEDS: Mirtazapine 15 MG TABLET PO (23:16)
--- NOTE | 2023-01-10 00:13 | PC.NURSE ---
2100 entered pt room to give pm medications pt unresponsive. tried sternal rub ,repositoning pt and back rub pt still not responding.BP-151/72 p-60 resp-16 95% on RA.pupils [place]. notified and came to see pt ordered ABG's and stat CT of head all results came back normal.2250 entered pts room pt was awake and talking able to give pm meds crushed in applesauce.Pt remains sleepy but will open eyes an respond to questions.
[2023-01-10 04:00] VITALS: BP 130/62; PULSE 72; RESP 16; TEMP 36.5; O2SAT 95
[2023-01-10 06:19] LABS: MANUAL DIFF FLAG NO
[2023-01-10] MEDS: Omeprazole 20 MG CAPSULE.DR PO (06:29)
[2023-01-10 06:31] LABS: Basophils Absolute Auto 0.1 X10*3/uL (0.0-0.2); Basophils Percent Auto 1.5 % (0-2); Eosinophils Absolute Auto 0.4 X10*3/uL (0.0-0.4); Eosinophils Percent Auto 5.8 % (0-4); Hemoglobin 9.4 g/dl (14.0-18.0); Imm Gran Abs Auto 0.02 X10*3/uL (0.00-0.03); Imm Gran Pct Auto 0.3 % (0.0-0.4); Lymphocytes Absolute Auto 2.4 X10*3/uL (1.2-4.9); Lymphocytes Percent Auto 32.6 % (20-40); Mean Corpuscular HGB Conc 32.4 g/dl (31.0-36.0); Mean Corpuscular Hemoglobin 28.7 pg (27.0-33.0); Mean Corpuscular Volume 88.7 fL (80.0-98.0); Mean Platelet Volume 10.7 fL (9.4-12.4); Monocytes Absolute Auto 0.7 X10*3/uL (0.1-1.2); Monocytes Percent Auto 9.9 % (2-11); Neutrophils Absolute Auto 3.7 x10*3/uL (2.0-8.3); Neutrophils Percent Auto 49.9 % (45-73); Platelet Count 298 X10*3/uL (160-400); Red Blood Count 3.27 X10*6/uL (4.60-5.80); Red Cell Distribution Width 13.2 % (11.0-16.0); White Blood Count 7.5 X10*3/uL (4.8-10.8)
[2023-01-10 06:38] LABS: Alanine Aminotransferase 13 U/L (0-40); Albumin Level 3.3 g/dL (3.5-5.0); Alkaline Phosphatase 111 U/L (39-117); Anion Gap 22 (12-20); Aspartate Amino Transferase 16 U/L (5-37); Bilirubin Total 0.4 mg/dL (0.0-1.0); Blood Urea Nitrogen 54 mg/dL (9-16); Calcium 9.8 mg/dL (8.4-10.2); Carbon Dioxide 21 mmol/L (22-29); Chloride 95 mmol/L (96-108); Creatinine Clr Calc Pharmacy 9.1; Estimated Glomerular Filt Rate 5; Glucose Fasting 98 mg/dL (60-99); Potassium 4.8 mmol/L (3.3-5.1); Sodium 133 mmol/L (135-145); Total Protein 7.7 g/dL (6.5-8.0)
[2023-01-10 07:13] VITALS: BP 148/88; PULSE 71; RESP 20; TEMP 36.4; O2SAT 97
[2023-01-10 07:25] LABS: Glucose, Whole Blood 90 mg/dL (60-115)
--- NOTE | 2023-01-10 09:05 | P.PNIM_ITS ---
Subjective Subjective Date of Service: 01/10/23 Interval History: seen in HD, no new issues Physical Exam Vital Signs: Vital Signs: Last Vital Signs Temp 97.5 F 01/10/23 07:13 Pulse 71 01/10/23 07:13 Resp 20 01/10/23 07:13 BP 148/88 H 01/10/23 07:13 Pulse Ox 97 01/10/23 07:13 O2 Del Method Room Air 01/10/23 07:13 BMI result Body Mass Index 27.2 Const: Other: awake; intermittent confusion Resp: Other: clear to auscultation bilaterally no rales rhonchi or wheezes Cardio: Other: no S4; positive S1-S2; no S3 murmurs rubs or gallops GI: Other: soft nontender nondistended normoactive bowel sounds Extrem: Other: see admitting pictures; Objective Data Active Medications Acetaminophen (Acetaminophen 325 Mg Tablet) 650 mg PO Q6H PRN PRN Reason: Pain, Mild (Pain Scale 1-3) Last Admin: 01/09/23 16:40 Dose: 650 mg Documented By: RENETTA Atorvastatin Calcium (Atorvastatin Calcium 20 Mg Tablet) 20 mg PO BEDTIME [facility] Last Admin: 01/09/23 23:16 Dose: 20 mg Documented By: CHERIE Baclofen (Baclofen 10 Mg Tablet) 5 mg PO BID [facility] Last Admin: 01/09/23 23:15 Dose: 5 mg Documented By: CHERIE Carvedilol (Carvedilol 12.5 Mg Tablet) 12.5 mg PO BID [facility]; Protocol Last Admin: 01/09/23 23:16 Dose: 12.5 mg Documented By: CHERIE Dextrose (Dextrose 50 % 25 Gm/50 Ml Syringe) 25 gm IVPUSH Q15M PRN; Protocol PRN Reason: per Hypoglycemia Standing Ord. Fluticasone Propionate (Fluticasone Propionate 250 Mcg Blst.W.Dev) 1 puff INHALE RBID [facility] Last Admin: 01/10/23 08:30 Dose: Not Given Documented By: JESSICA Non-Admin Reason: Off unit: Dialysis Gabapentin (Gabapentin 100 Mg Capsule) 100 mg PO BID [facility] Last Admin: 01/09/23 23:16 Dose: 100 mg Documented By: CHERIE Glucose (Glucose Gel 15 Gm Gel..Gram.) 15 gm PO Q15M PRN; Protocol PRN Reason: per Hypoglycemia Standing Ord. Heparin Sodium (Porcine) (Heparin Sodium,Porcine 5,000 Unit/Ml Vial) 5,000 unit SUBCUT Q12H [facility] Last Admin: 01/10/23 08:29 Dose: Not Given Documented By: JESSICA Non-Admin Reason: Off unit: Dialysis Hydralazine HCl (Hydralazine Hcl 25 Mg Tablet) 25 mg PO TID [facility]; Protocol Last Admin: 01/09/23 23:16 Dose: 25 mg Documented By: CHERIE Cefepime HCl 1 gm/ Sodium (Chloride) 50 mls @ 100 mls/hr IV Q24H [facility] Last Infusion: 01/09/23 23:54 Dose: 0 mls/hr Documented By: CHERIE Vancomycin HCl 500 mg/ Sodium (Chloride) 110 mls @ 110 mls/hr IV ONCE ONE Stop: 01/05/23 20:59 Insulin Human Lispro (Insulin Lispro 100 Unit/Ml 3 Ml Vial) 0 unit SUBCUT QIDACHS [facility]; Protocol Last Admin: 01/10/23 07:26 Dose: Not Given Documented By: JESSICA Non-Admin Reason: No Insulin Coverage Midodrine (Midodrine Hcl 5 Mg Tablet) 5 mg PO Q8H PRN PRN Reason: ORTHOSTATIC BP Mirtazapine (Mirtazapine 15 Mg Tablet) 15 mg PO BEDTIME [facility] Last Admin: 01/09/23 23:16 Dose: 15 mg Documented By: CHERIE Omeprazole (Omeprazole 20 Mg Capsule.Dr) 20 mg PO DAILY@0630 [facility] Last Admin: 01/10/23 06:29 Dose: 20 mg Documented By: CHERIE Ondansetron HCl (Ondansetron Hcl 4 Mg/2 Ml Vial) 4 mg IVPUSH Q8H PRN PRN Reason: Nausea and Vomiting Oxycodone HCl (Oxycodone Hcl Immed Release 5 Mg Tablet) 5 mg PO Q4H PRN PRN Reason: Pain, Moderate(Pain Scale 4-6) Last Admin: 01/07/23 17:24 Dose: 5 mg Documented By: KIET Pharmacy Consult (Consult Rx Vancomycin Dosing) 1 each MISCELLANE DAILY PRN PRN Reason: Consult order Senna (Sennosides 8.6 Mg Tablet) 17.2 mg PO DAILY [facility] Last Admin: 01/09/23 08:16 Dose: 17.2 mg Documented By: RENETTA Sevelamer Carbonate (Sevelamer Carbonate Tablet 800 Mg Tablet) 800 mg PO TIDAC [facility] Last Admin: 01/10/23 08:29 Dose: Not Given Documented By: JESSICA Non-Admin Reason: Off unit: Dialysis Silver Sulfadiazine (Silver Sulfadiazine 1 % Cream 20 Gm Tube) 1 appl TOPICAL DAILY [place]ANKAJ Sodium Chloride (0.9 % Sodium Chloride Flush 3 Ml Syringe) 3 ml IVFLUSH QSHIFT [facility] Last Admin: 01/10/23 08:30 Dose: Not Given Documented By: JESSICA Non-Admin Reason: Off unit: Dialysis Labs 01/10/23 05:33 01/10/23 05:33 Labs: Laboratory Results - last 24 hr 01/09/23 01/09/23 01/09/23 11:22 16:02 20:57 MCV MCH MCHC RDW Plt Count MPV Immature Gran % (Auto) Neut % (Auto) Lymph % (Auto) [place] % (Auto) Eos % (Auto) Baso % (Auto) Lymph # (Auto) [place] # (Auto) Eos # (Auto) Baso # (Auto) Abs Immat Gran (auto) Absolute Neuts (auto) Absolute Nucleated RBC Nucleated RBC % (auto) O2 Saturation ABG pH at Pt Temp ABG pCO2 at Pt Temp ABG pO2 at Pt Temp ABG HCO3 ABG Base Excess (Actual) Anion Gap Estim Creat Clear Calc Estimated GFR POC Glucose 96 104 102 Fasting Glucose Calcium Total Bilirubin AST ALT Alkaline Phosphatase Total Protein Albumin 01/09/23 01/10/23 01/10/23 21:22 05:33 05:33 MCV 88.7 MCH 28.7 MCHC 32.4 RDW 13.2 Plt Count 298 MPV 10.7 Immature Gran % (Auto) 0.3 Neut % (Auto) 49.9 Lymph % (Auto) 32.6 [place] % (Auto) 9.9 Eos % (Auto) 5.8 H Baso % (Auto) 1.5 Lymph # (Auto) 2.4 [place] # (Auto) 0.7 Eos # (Auto) 0.4 Baso # (Auto) 0.1 Abs Immat Gran (auto) 0.02 Absolute Neuts (auto) 3.7 Absolute Nucleated RBC 0.000 Nucleated RBC % (auto) 0.0 O2 Saturation 97.0 ABG pH at Pt Temp 7.41 ABG pCO2 at Pt Temp 39 ABG pO2 at Pt Temp 89 ABG HCO3 25 ABG Base Excess (Actual) 1.1 Anion Gap 22 H Estim Creat Clear Calc 9.1 Estimated GFR 5 POC Glucose Fasting Glucose 98 Calcium 9.8 D Total Bilirubin 0.4 AST 16 ALT 13 Alkaline Phosphatase 111 Total Protein 7.7 Albumin 3.3 L 01/10/23 07:17 MCV MCH MCHC RDW Plt Count MPV Immature Gran % (Auto) Neut % (Auto) Lymph % (Auto) [place] % (Auto) Eos % (Auto) Baso % (Auto) Lymph # (Auto) [place] # (Auto) Eos # (Auto) Baso # (Auto) Abs Immat Gran (auto) Absolute Neuts (auto) Absolute Nucleated RBC Nucleated RBC % (auto) O2 Saturation ABG pH at Pt Temp ABG pCO2 at Pt Temp ABG pO2 at Pt Temp ABG HCO3 ABG Base Excess (Actual) Anion Gap Estim Creat Clear Calc Estimated GFR POC Glucose 90 Fasting Glucose Calcium Total Bilirubin AST ALT Alkaline Phosphatase Total Protein Albumin Microbiology Microbiology Results: Microbiology 01/04/23 18:49 Blood Culture - Final Blood - Venous No growth after 5 days. 01/04/23 18:44 Blood Culture - Final Blood - Venous No growth after 5 days. Assessment and Plan (1) Osteomyelitis: Status: Acute (2) Acute UTI: Status: Acute (3) ESRD (end stage renal disease): Status: Acute Plan 67-year-old male with past medical history of hypertension, ESRD on dialysis, history of recurrent UTI comes into the hospital with increased confusion found to have multiple abnormalities; recent MRI consistent with right great toe cellulitis 1.Osteomyelitis ( right great toe) confirmed on MRI -vancomycin/ cefepime () - vascular proposes IV Abx for now and if doesn't heal then ampuation . 2.Acute UTI culture negative, Cefepime as above 4.ESRD on HD -HD as per Renal 5.HTN -acceptable control on current therapies 6.DM II -lispro correctional scale -restart oral meds at dc 7.Hx of DVT (recent duplex is negative both upper and lower extremity ) apixaban to be resumed - renally dosed heparin DNR/DNI Requires ongoing hospitalization for IV antibiotics to treat osteomyelitis and urinary tract infection causing encephalopathy Time Spent With Patient Time: Total time managing care of this patient today ____ minutes. Quality Stroke Does the patient have a stroke diagnosis?: No VTE Prior VTE?: No VTE Risk Level:: Medical - moderate - high VTE Device Contraindication: Treatment Not Indicated VTE Drug Contraindication: N/A - Med Ordered
--- NOTE | 2023-01-10 09:11 | PM.DS ---
DS: Providers Provider Date of Service: 01/13/23 Date of admission: 01/04/23 21:44 Primary care physician: Danny Acevedo MD Consults: 01/04/23 21:46 Consult to Nephrology Routine Consulting Provider: [facility] Reason for consultation: Dialysis Has provider been notified: No 01/05/23 13:00 Consult to Vascular Surgery Stat Consulting Provider: [facility] [place] [place] Vascular Services Reason for consultation: necrotic toe Has provider been notified: Yes DS: Diagnosis Discharge Diagnosis (1) Osteomyelitis: Status: Acute (2) Acute UTI: Status: Acute (3) ESRD (end stage renal disease): Status: Acute DS: Summary Hospital Course Hospital Course: Chief Complaint: ALTERED 67-year-old male with past medical history of ESRD on dialysis, HTN, pulmonary embolism, recurrent UTI, resident of jail comes into the hospital with increased confusion as well as concerning necrotic great toe of the right foot as well as necrotic fingers of the left hand.? History is obtained mostly from ED physician, who got it [place] the jail.? It appears patient has been increasingly confused, he has also missed dialysis the day prior to presentation due to left upper extremity swelling. Patient is awake, alert, but very confused, he kept calling me Sabrina, unable to give much history.? Baseline apparently a recognizes people unable to carry a basic conversation.? Unable to review systems as patient is confused.? On arrival to the ED patient is hemodynamically stable with no significant abnormal vitals. Lab significant for WBC count of 8.6, hemoglobin of 8.8, hematocrit 26.7, creatinine of 9.52, BUN of 55, UA positive for leukocyte Estrace WBC and bacteria, chest x-ray shows increased interstitial thickening with questionable focal opacity in the right lower lobe, foot x-ray shows increased bony lucency and cortical irregularity concerning for osteomyelitis Hospital course: 1.Osteomyelitis ( right great toe) confirmed on MRI, vascular surgery has assessed and think there is a chance the wound will and therefore defereing ampuation and given Abx a chance, he has been on Cefepime and Vanco, cultures no growth. Will discharge with Vancomycin post dialysis for 6 weeks. Local wound dressing with silverdene . 2. Positive UA, culture negative, treated with cefepime as above. 4.ESRD on HD to continue usual dialysis schedule 5.HTN --continue home meds 6.DM II--resume home meds 7. Encephalopathy--He was very confused, etiology narrowed to gabapentin and once stopped, his mental status has cleared 7.Hx of DVT (recent duplex is negative both upper and lower extremity )-continue Apixiban as before Time Spent with Patient Time attestation: Total time managing care of this patient today ____ minutes. Discharge coordination time: Greater than 30 minutes Quality: Safe Use of Opioids Does Pt have an Active Cancer Diagnosis on the Problem List?: No Quality: Stroke Does the patient have a stroke diagnosis?: No Physical Exam Vital Signs: Vital Signs: Selected Entries 01/13/23 07:13 Temperature 98.1 F Pulse Rate 68 Respiratory Rate 18 Blood Pressure 150/72 H Pulse Oximetry 96 Oxygen Delivery Me thod Room Air DS: Data Data Completed and Pending Completed studies during hospitalization [Text1]: Procedures Performance of Urinary Filtration, Intermittent, Less than 6 Hours Per Day (02/08/22) Labs on day of discharge: Laboratory Results - last 24 hr 01/09/23 01/09/23 01/09/23 11:22 16:02 20:57 WBC RBC Hgb Hct MCV MCH MCHC RDW Plt Count MPV Immature Gran % (Auto) Neut % (Auto) Lymph % (Auto) [place] % (Auto) Eos % (Auto) Baso % (Auto) Lymph # (Auto) [place] # (Auto) Eos # (Auto) Baso # (Auto) Abs Immat Gran (auto) Absolute Neuts (auto) Absolute Nucleated RBC Nucleated RBC % (auto) O2 Saturation ABG pH at Pt Temp ABG pCO2 at Pt Temp ABG pO2 at Pt Temp ABG HCO3 ABG Base Excess (Actual) Sodium Potassium Chloride Carbon Dioxide Anion Gap BUN Creatinine Estim Creat Clear Calc Estimated GFR POC Glucose 96 104 102 Fasting Glucose Calcium Total Bilirubin AST ALT Alkaline Phosphatase Total Protein Albumin 01/09/23 01/10/23 01/10/23 21:22 05:33 05:33 WBC 7.5 RBC 3.27 L Hgb 9.4 L Hct 29.0 L MCV 88.7 MCH 28.7 MCHC 32.4 RDW 13.2 Plt Count 298 MPV 10.7 Immature Gran % (Auto) 0.3 Neut % (Auto) 49.9 Lymph % (Auto) 32.6 [place] % (Auto) 9.9 Eos % (Auto) 5.8 H Baso % (Auto) 1.5 Lymph # (Auto) 2.4 [place] # (Auto) 0.7 Eos # (Auto) 0.4 Baso # (Auto) 0.1 Abs Immat Gran (auto) 0.02 Absolute Neuts (auto) 3.7 Absolute Nucleated RBC 0.000 Nucleated RBC % (auto) 0.0 O2 Saturation 97.0 ABG pH at Pt Temp 7.41 ABG pCO2 at Pt Temp 39 ABG pO2 at Pt Temp 89 ABG HCO3 25 ABG Base Excess (Actual) 1.1 Sodium 133 L Potassium 4.8 Chloride 95 L Carbon Dioxide 21 L Anion Gap 22 H BUN 54 H Creatinine 9.97 H* Estim Creat Clear Calc 9.1 Estimated GFR 5 POC Glucose Fasting Glucose 98 Calcium 9.8 D Total Bilirubin 0.4 AST 16 ALT 13 Alkaline Phosphatase 111 Total Protein 7.7 Albumin 3.3 L 01/10/23 07:17 WBC RBC Hgb Hct MCV MCH MCHC RDW Plt Count MPV Immature Gran % (Auto) Neut % (Auto) Lymph % (Auto) [place] % (Auto) Eos % (Auto) Baso % (Auto) Lymph # (Auto) [place] # (Auto) Eos # (Auto) Baso # (Auto) Abs Immat Gran (auto) Absolute Neuts (auto) Absolute Nucleated RBC Nucleated RBC % (auto) O2 Saturation ABG pH at Pt Temp ABG pCO2 at Pt Temp ABG pO2 at Pt Temp ABG HCO3 ABG Base Excess (Actual) Sodium Potassium Chloride Carbon Dioxide Anion Gap BUN Creatinine Estim Creat Clear Calc Estimated GFR POC Glucose 90 Fasting Glucose Calcium Total Bilirubin AST ALT Alkaline Phosphatase Total Protein Albumin Discharge Plan Discharge Anticipated Discharge Date/Time: 01/13/23 13:43 Patient Disposition: Xfer SNF Discharge Diagnosis: Osteomyltis of the foot Referrals: [facility] [Outside] - 1 Week (TRANSFER FOR SHORT TERM REHAB) Danny Acevedo MD [Primary Care Provider] - 1 Week Discharge Medications: New vancomycin in 0.9 % sodium chl 500 mg/100 mL piggyback 500 mg IV MOWEFR Qty: 1200 0RF Rx Instructions: after dialysis Continued atorvastatin 20 mg Tablet 20 mg PO BEDTIME fluticasone propionate 220 mcg/actuation Hfa Aerosol Inhaler 1 puff INHALATION BID mirtazapine 15 mg Tablet 15 mg PO BEDTIME Qty: 30 0RF Eliquis 5 mg Tablet 5 mg PO BID Qty: 60 0RF omeprazole 20 mg capsule,delayed release(DR/EC) 20 mg PO DAILY Qty: 30 0RF carvedilol 12.5 mg Tablet 12.5 mg PO BID Rx Instructions: must administer with a meal/food sennosides [senna] 8.6 mg Tablet 17.2 mg PO DAILY ondansetron HCl 4 mg Tablet 4 mg PO Q4H PRN (Reason: Nausea) midodrine 5 mg Tablet 5 mg PO Q8H PRN (Reason: ORTHOSTATIC BP) Rx Instructions: do not give last dose of day after 6PM or within 4 hrs of bedtime hydralazine 25 mg tablet 25 mg PO TID lidocaine HCl 3 % Cream 1 appl TOPICAL Q4H PRN (Reason: URETHRAL TEAR) loratadine 10 mg Tablet 10 mg PO Q48H glipizide 5 mg tablet 5 mg PO DAILY sevelamer carbonate 800 mg tablet 800 mg PO TIDAC linagliptin 5 mg Tablet 5 mg PO DAILY baclofen 5 mg tablet 5 mg PO BID Probiotic 1 cap PO BID Discontinued gabapentin 100 mg capsule 100 mg PO BID Discharge Orders: Discharge Order (Routine); Ordered 01/13/23 Ordered By: Bridger Haro Diet: Diabetic diet Activity on Discharge: As tolerated Stand Alone Forms: Patient Portal Discharge page Activity Restrictions/Additional Instructions: Wound care upon discharge: Cleanse with normal saline, Silvadene cream, 2 x 2, and wrapped with a Kerlix wrap. Please call Dr. Prince at [phone] for 2 week follow up for wound check Care Plan Goals: Resolution of osteomylitis Health Concerns: osteomylitis Plan of Treatment: IV Vancomycin 500 on dialysis days for 6 weeks form now Assessment: as above
--- NOTE | 2023-01-10 10:09 | P.PNNPD_ITS ---
Subjective Subjective This patient was seen during dialysis. Interval history: seen in HD, no new issues Physical Exam Vital Signs: Vital Signs: Last Vital Signs Temp 97.5 F 01/10/23 07:13 Pulse 71 01/10/23 07:13 Resp 20 01/10/23 07:13 BP 148/88 H 01/10/23 07:13 Pulse Ox 97 01/10/23 07:13 O2 Del Method Room Air 01/10/23 07:13 BMI result Body Mass Index 27.2 Comfortable Neck is supple Lung: Air entry equal Heart: S1,S2, normal. No rub Abd: Soft. BS + NS : Alert.No asterexis Const: General: no acute distress HEENT: Head: Yes normocephalic and Yes atraumatic Neck: Neck: Yes supple Resp: Auscultation: diminished lung sounds Cardio: Heart sounds: S1 normal heart sound present and S2 normal heart sound present GI: Palpation (GI): Soft to palpation and nontender Extrem: General: Yes edema Assessment & Plan Assessment and plan (1) ESRD (end stage renal disease): Status: Acute (2) Anemia: Status: Acute Plan ESRD usually has HD t-t-s first shift at [facility] dialysis unit followed by Dr Hoang presented with altered mental status in the setting of acute infection found to have UTI and osteomyelitis of the great right toe REC HD TTS renal diet phosphate binders KATERINE Abx follow cultures Time Spent With Patient Time: Total time managing care of this patient today ____ minutes. Procedures Date of Service Date of Service: 01/10/23
--- NOTE | 2023-01-10 10:36 | MHC.SPEECHCO ---
Per RN, Pt off floor for Dialysis. Pt breakfast is in the room and accurate to his diet order. SENIOR ENERGY ANALYST will re-attempt in the afternoon, as available.
--- NOTE | 2023-01-10 11:18 | HO.VASCPN ---
Subjective Subjective Date of Service: 01/10/23 Patient reports: no new complaints and feels better Interval history: Patient seen and examined. No significant events over the last day. Doing relatively well. Pain and discomfort well controlled. Physical Exam Vital Signs: Vital Signs: Last Vital Signs Temp 97.5 F 01/10/23 07:13 Pulse 71 01/10/23 07:13 Resp 20 01/10/23 07:13 BP 148/88 H 01/10/23 07:13 Pulse Ox 97 01/10/23 07:13 O2 Del Method Room Air 01/10/23 07:13 BMI result Body Mass Index 27.2 Const: General: cooperative, healthy appearing and no acute distress Orientation/consciousness: oriented to person, oriented to place and oriented to time HEENT: Head: Yes normal to inspection Neck: Carotids: no bruits Chest: Chest palpation & inspection: normal inspection of the chest Resp: Effort & Inspection: normal respiratory effort and able to speak in complete sentences Auscultation: clear to auscultation bilaterally Cardio: Rate: regular rate Heart sounds: S1 normal heart sound present and S2 normal heart sound present GI: Inspection: Yes normal to inspection Skin: Other: Right great toe nonhealing ulcer. Good granulation bed. Bleeding well. General skin exam: no rashes or lesions noted Wounds: wounds noted Neuro: General: oriented to person, oriented to place, oriented to time and CN's II-XI intact bilaterally Extrem: General: Yes normal to inspection, Yes full ROM and Yes no clubbing, cyanosis or edema Psych: Appearance: grossly normal and well kempt Speech and movement: Normal speech and movement present Affect: normal affect Progress Note: A&P Assessment and plan (1) Nonhealing ulcer of right lower extremity: Status: Acute Assessment and Plan: In short patient has a nonhealing ulcer of the right great toe. At the current time would manage this as conservatively as possible. Would continue with Silvadene dressings daily changes. Would recommend long-term IV antibiotics and evaluation in follow-up with Infectious Disease. Patient can see us as an outpatient. Case was discussed with the patient's and daughter. Thank you for allowing us to assist in his care. Time Spent With Patient Time: Total time managing care of this patient today ____ minutes. Procedures Date of Service Date of Service: 01/10/23 Quality Stroke Does the patient have a stroke diagnosis?: No VTE Prior VTE?: No VTE Risk Level:: Medical - moderate - high VTE Device Contraindication: Treatment Not Indicated VTE Drug Contraindication: N/A - Med Ordered
--- NOTE | 2023-01-10 12:17 | P.CDIM_ITS ---
PROVIDER RESPONSE TEXT: To clarify, the appropriate diagnosis supported by the clinical indicators: Pressure (decubitus) ulcer right heel unstageable QUERY TEXT: PHYSICIAN'S DOCUMENTATION REQUEST Date of Query: 01/09/2023 12:21 PM EDT Patient Name: Trevor Avila Admit Date: 01/05/2023 Dear Bridger Haro, A review of the medical record indicates additional documentation may be needed. Please review below and update the documentation accordingly. Clinical Indicators: Wound care assessment nursing - Pressure injury right heel unstageable foam dressing applied to right heel. Based on the above, could you please provide further information regarding the ulcer/wound: Pressure (decubitus) ulcer right heel unstageable Other please specify Other (explain)Clinically unable to determine (explain)Thank you, Sabrina Lugo, CCS, CDIS Use of terms such as suspected, likely, concern for, or probable (associated with a specific diagnosi s that is being evaluated, monitored, or treated as if it exists) are acceptable and can be coded in the inpatient se tting, when documented at the time of discharge. Please use your independent medical judgment in providing your response. THIS QUERY IS PART OF THE PERMANENT MEDICAL RECORD
[2023-01-10 13:32] LABS: Glucose, Whole Blood 96 mg/dL (60-115)
[2023-01-10 13:35] VITALS: BP 91/58; PULSE 63; O2SAT 98
[2023-01-10] MEDS: Silver Sulfadiazine 1 % Cream 20 GM TUBE 1 APPL TOPICAL (14:25)
[2023-01-10 14:55] LABS: Ammonia 21 umol/L (13-55)
[2023-01-10 15:08] VITALS: BP 105/58; PULSE 68; RESP 20; TEMP 36.2; O2SAT 98
[2023-01-10] MEDS: vancomycin HCL 500 MG in 0.9 % Sodium Chloride 100 ML 110 MG IV (15:46)
[2023-01-10] MEDS: 0.9 % Sodium Chloride Flush 3 ML SYRINGE IVFLUSH ×2 (15:46→23:11)
[2023-01-10] MEDS: Sevelamer Carbonate Tablet 800 MG TABLET PO (15:46)
[2023-01-10 16:09] LABS: Glucose, Whole Blood 129 mg/dL (60-115)
[2023-01-10 16:28] LABS: Glucose, Whole Blood 123 mg/dL (60-115)
[2023-01-10 19:15] VITALS: BP 107/63; PULSE 65; RESP 16; TEMP 36.4; O2SAT 98
[2023-01-10] MEDS: Fluticasone Propionate 250 MCG BLST.W.DEV 1 PUFF INHALE (20:07)
[2023-01-10 20:15] LABS: Glucose, Whole Blood 95 mg/dL (60-115)
[2023-01-10] MEDS: hydrALAZINE HCl 25 MG TABLET PO (20:37)
[2023-01-10] MEDS: Apixaban 5 MG TABLET PO (20:37)
[2023-01-10] MEDS: carvediloL 12.5 MG TABLET PO (20:39)
[2023-01-10] MEDS: Baclofen 10 MG TABLET 5 MG PO (20:39)
[2023-01-10] MEDS: Heparin Sodium,Porcine 5,000 UNIT/ML VIAL 5000 UNIT SUBCUT (20:39)
[2023-01-10] MEDS: Mirtazapine 15 MG TABLET PO (20:39)
[2023-01-10] MEDS: Atorvastatin Calcium 20 MG TABLET PO (20:39)
[2023-01-10] MEDS: cefEPime HCl 1 GM in 0.9 % Sodium Chloride 50 ML IV (23:09)
[2023-01-11] VITALS (8 sets, daily range): BP systolic 98–143; BP diastolic 44–78; PULSE 62–65; RESP 16–20; TEMP 36.4; O2SAT 93–97; BMI 27.2
[2023-01-11] MEDS: Omeprazole 20 MG CAPSULE.DR PO (05:37)
[2023-01-11 06:15] LABS: MANUAL DIFF FLAG NO
[2023-01-11 06:38] LABS: Basophils Absolute Auto 0.1 X10*3/uL (0.0-0.2); Basophils Percent Auto 1.2 % (0-2); Eosinophils Absolute Auto 0.4 X10*3/uL (0.0-0.4); Eosinophils Percent Auto 4.3 % (0-4); Hematocrit 28.3 % (42.0-52.0); Hemoglobin 9.3 g/dl (14.0-18.0); Imm Gran Abs Auto 0.04 X10*3/uL (0.00-0.03); Imm Gran Pct Auto 0.4 % (0.0-0.4); Lymphocytes Absolute Auto 2.5 X10*3/uL (1.2-4.9); Lymphocytes Percent Auto 28.2 % (20-40); Mean Corpuscular HGB Conc 32.9 g/dl (31.0-36.0); Mean Corpuscular Hemoglobin 29.2 pg (27.0-33.0); Mean Corpuscular Volume 88.7 fL (80.0-98.0); Mean Platelet Volume 10.7 fL (9.4-12.4); Monocytes Absolute Auto 0.9 X10*3/uL (0.1-1.2); Monocytes Percent Auto 10.1 % (2-11); Neutrophils Percent Auto 55.8 % (45-73); Platelet Count 276 X10*3/uL (160-400); Red Blood Count 3.19 X10*6/uL (4.60-5.80); Red Cell Distribution Width 13.7 % (11.0-16.0); White Blood Count 8.9 X10*3/uL (4.8-10.8)
[2023-01-11 06:39] LABS: Alanine Aminotransferase 15 U/L (0-40); Albumin Level 3.3 g/dL (3.5-5.0); Alkaline Phosphatase 115 U/L (39-117); Anion Gap 18 (12-20); Aspartate Amino Transferase 17 U/L (5-37); Bilirubin Total 0.5 mg/dL (0.0-1.0); Blood Urea Nitrogen 28 mg/dL (9-16); Calcium 9.4 mg/dL (8.4-10.2); Carbon Dioxide 19 mmol/L (22-29); Chloride 97 mmol/L (96-108); Estimated Glomerular Filt Rate 9; Glucose Fasting 94 mg/dL (60-99); Potassium 4.3 mmol/L (3.3-5.1); Sodium 130 mmol/L (135-145); Total Protein 7.7 g/dL (6.5-8.0)
[2023-01-11 07:34] LABS: Glucose, Whole Blood 100 mg/dL (60-115)
[2023-01-11] MEDS: Heparin Sodium,Porcine 5,000 UNIT/ML VIAL 5000 UNIT SUBCUT ×2 (08:10→21:23)
[2023-01-11] MEDS: 0.9 % Sodium Chloride Flush 3 ML SYRINGE IVFLUSH (08:17)
[2023-01-11] MEDS: Fluticasone Propionate 250 MCG BLST.W.DEV 1 PUFF INHALE ×3 (08:31→20:21)
--- NOTE | 2023-01-11 08:38 | HO.PM.IMPN ---
Subjective Subjective Date of Service: 01/11/23 Interval History: Confused this morning, refussing meds Physical Exam Vital Signs: Vital Signs: Last Vital Signs Temp 97.6 F 01/11/23 08:00 Pulse 62 01/11/23 08:33 Resp 20 01/11/23 08:33 BP 142/78 H 01/11/23 08:00 Pulse Ox 93 01/11/23 08:00 O2 Del Method Room Air 01/11/23 08:00 BMI result Body Mass Index 27.2 Objective Data Active Medications Acetaminophen (Acetaminophen 325 Mg Tablet) 650 mg PO Q6H PRN PRN Reason: Pain, Mild (Pain Scale 1-3) Last Admin: 01/09/23 16:40 Dose: 650 mg Documented By: RENETTA Apixaban (Apixaban 5 Mg Tablet) 5 mg PO BID [facility] Last Admin: 01/11/23 08:17 Dose: Not Given Documented By: QUEENIE Non-Admin Reason: Patient Refused Atorvastatin Calcium (Atorvastatin Calcium 20 Mg Tablet) 20 mg PO BEDTIME [facility] Last Admin: 01/10/23 20:39 Dose: 20 mg Documented By: TISH Baclofen (Baclofen 10 Mg Tablet) 5 mg PO BID [facility] Last Admin: 01/11/23 08:17 Dose: Not Given Documented By: QUEENIE Non-Admin Reason: Patient Refused Carvedilol (Carvedilol 12.5 Mg Tablet) 12.5 mg PO BID [facility]; Protocol Last Admin: 01/11/23 08:17 Dose: Not Given Documented By: QUEENIE Non-Admin Reason: Patient Refused Dextrose (Dextrose 50 % 25 Gm/50 Ml Syringe) 25 gm IVPUSH Q15M PRN; Protocol PRN Reason: per Hypoglycemia Standing Ord. Fluticasone Propionate (Fluticasone Propionate 250 Mcg Blst.W.Dev) 1 puff INHALE RBID [facility] Last Admin: 01/10/23 20:07 Dose: 1 puff Documented By: NATHALIE Glucose (Glucose Gel 15 Gm Gel..Gram.) 15 gm PO Q15M PRN; Protocol PRN Reason: per Hypoglycemia Standing Ord. Heparin Sodium (Porcine) (Heparin Sodium,Porcine 5,000 Unit/Ml Vial) 5,000 unit SUBCUT Q12H [facility] Last Admin: 01/11/23 08:10 Dose: 5,000 unit Documented By: QUEENIE Hydralazine HCl (Hydralazine Hcl 25 Mg Tablet) 25 mg PO TID [facility]; Protocol Last Admin: 01/11/23 08:18 Dose: Not Given Documented By: QUEENIE Non-Admin Reason: Patient Refused Cefepime HCl 1 gm/ Sodium (Chloride) 50 mls @ 100 mls/hr IV Q24H [facility] Last Infusion: 01/10/23 23:39 Dose: 0 mls/hr Documented By: TISH Vancomycin HCl 500 mg/ Sodium (Chloride) 110 mls @ 110 mls/hr IV ONCE ONE Stop: 01/05/23 20:59 Insulin Human Lispro (Insulin Lispro 100 Unit/Ml 3 Ml Vial) 0 unit SUBCUT QIDACHS [facility]; Protocol Last Admin: 01/11/23 08:16 Dose: Not Given Documented By: QUEENIE Non-Admin Reason: No Insulin Coverage Midodrine (Midodrine Hcl 5 Mg Tablet) 5 mg PO Q8H PRN PRN Reason: ORTHOSTATIC BP Mirtazapine (Mirtazapine 15 Mg Tablet) 15 mg PO BEDTIME [facility] Last Admin: 01/10/23 20:39 Dose: 15 mg Documented By: TISH Omeprazole (Omeprazole 20 Mg Capsule.) 20 mg PO DAILY@0630 [facility] Last Admin: 01/11/23 05:37 Dose: 20 mg Documented By: TISH Ondansetron HCl (Ondansetron Hcl 4 Mg/2 Ml Vial) 4 mg IVPUSH Q8H PRN PRN Reason: Nausea and Vomiting Oxycodone HCl (Oxycodone Hcl Immed Release 5 Mg Tablet) 5 mg PO Q4H PRN PRN Reason: Pain, Moderate(Pain Scale 4-6) Last Admin: 01/07/23 17:24 Dose: 5 mg Documented By: KIET Pharmacy Consult (Consult Rx Vancomycin Dosing) 1 each MISCELLANE DAILY PRN PRN Reason: Consult order Senna (Sennosides 8.6 Mg Tablet) 17.2 mg PO DAILY [facility] Last Admin: 01/11/23 08:18 Dose: Not Given Documented By: QUEENIE Non-Admin Reason: Patient Refused Sevelamer Carbonate (Sevelamer Carbonate Tablet 800 Mg Tablet) 800 mg PO TIDAC [facility] Last Admin: 01/11/23 08:17 Dose: Not Given Documented By: QUEENIE Non-Admin Reason: Patient Refused Silver Sulfadiazine (Silver Sulfadiazine 1 % Cream 20 Gm Tube) 1 appl TOPICAL DAILY [facility] Last Admin: 01/10/23 14:25 Dose: 1 appl Documented By: JESSICA Sodium Chloride (0.9 % Sodium Chloride Flush 3 Ml Syringe) 3 ml IVFLUSH QSHIFT [facility] Last Admin: 01/11/23 08:17 Dose: 3 ml Documented By: QUEENIE Labs 01/11/23 05:24 01/11/23 05:24 Labs: Laboratory Results - last 24 hr 01/10/23 01/10/23 01/10/23 13:19 14:40 14:40 MCV MCH MCHC RDW Plt Count MPV Immature Gran % (Auto) Neut % (Auto) Lymph % (Auto) Union % (Auto) Eos % (Auto) Baso % (Auto) Lymph # (Auto) Union # (Auto) Eos # (Auto) Baso # (Auto) Abs Immat Gran (auto) Absolute Neuts (auto) Absolute Nucleated RBC Nucleated RBC % (auto) Anion Gap Estim Creat Clear Calc Estimated GFR POC Glucose 96 Fasting Glucose Calcium Total Bilirubin AST ALT Alkaline Phosphatase Ammonia 21 Total Protein Albumin Vancomycin Trough 9.0 L 01/10/23 01/10/23 01/10/23 16:00 16:12 19:57 MCV MCH MCHC RDW Plt Count MPV Immature Gran % (Auto) Neut % (Auto) Lymph % (Auto) Union % (Auto) Eos % (Auto) Baso % (Auto) Lymph # (Auto) Union # (Auto) Eos # (Auto) Baso # (Auto) Abs Immat Gran (auto) Absolute Neuts (auto) Absolute Nucleated RBC Nucleated RBC % (auto) Anion Gap Estim Creat Clear Calc Estimated GFR POC Glucose 129 H 123 H 95 Fasting Glucose Calcium Total Bilirubin AST ALT Alkaline Phosphatase Ammonia Total Protein Albumin Vancomycin Trough 01/11/23 01/11/23 01/11/23 05:24 05:24 07:25 MCV 88.7 MCH 29.2 MCHC 32.9 RDW 13.7 Plt Count 276 MPV 10.7 Immature Gran % (Auto) 0.4 Neut % (Auto) 55.8 Lymph % (Auto) 28.2 Union % (Auto) 10.1 Eos % (Auto) 4.3 H Baso % (Auto) 1.2 Lymph # (Auto) 2.5 Union # (Auto) 0.9 Eos # (Auto) 0.4 Baso # (Auto) 0.1 Abs Immat Gran (auto) 0.04 H Absolute Neuts (auto) 5.0 Absolute Nucleated RBC 0.000 Nucleated RBC % (auto) 0.0 Anion Gap 18 Estim Creat Clear Calc 14.0 Estimated GFR 9 POC Glucose 100 Fasting Glucose 94 Calcium 9.4 Total Bilirubin 0.5 AST 17 ALT 15 Alkaline Phosphatase 115 Ammonia Total Protein 7.7 Albumin 3.3 L Vancomycin Trough Assessment and Plan (1) Osteomyelitis: Status: Acute (2) Acute UTI: Status: Acute (3) ESRD (end stage renal disease): Status: Acute Plan 67-year-old male with past medical history of hypertension, ESRD on dialysis, history of recurrent UTI comes into the hospital with increased confusion found to have multiple abnormalities; recent MRI consistent with right great toe cellulitis Osteomyelitis ( right great toe) confirmed on MRI -vancomycin/ cefepime - vascular proposes IV Abx for now and if doesn't heal then ampuation, family agree Encephalopathy--no clear source, ammonia, normbal, gabapentin Acute UTI culture negative, Cefepime as above ESRD on HD -HD as per Renal HTN -acceptable control on current therapies DM II -lispro correctional scale -restart oral meds at dc Hx of DVT (recent duplex is negative both upper and lower extremity ) continue apixaban - renally dosed heparin DNR/DNI Requires ongoing hospitalization for IV antibiotics to treat osteomyelitis and urinary tract infection causing encephalopathy Time Spent With Patient Time: Total time managing care of this patient today ____ minutes. Quality Stroke Does the patient have a stroke diagnosis?: No VTE Prior VTE?: No VTE Risk Level:: Medical - moderate - high VTE Device Contraindication: Treatment Not Indicated VTE Drug Contraindication: N/A - Med Ordered
[2023-01-11] MEDS: Silver Sulfadiazine 1 % Cream 20 GM TUBE 1 APPL TOPICAL (10:46)
[2023-01-11 10:53] LABS: Glucose, Whole Blood 91 mg/dL (60-115)
[2023-01-11 11:06] LABS: ABG HCO3 22 mmol/L (22-26); ABG pCO2 35 mmHg (32-45); ABG pH 7.39 (7.35-7.45); ABG pO2 100 mmHg (83-108)
--- NOTE | 2023-01-11 11:30 | PC.NURSE ---
Addendum entered by Rupali Santillan RN 01/11/23 16:40: At 1522 Pt awake alert and oriented x2-3 and screaming for pain medication, PRN oxy given with good effect. Original Note: MD Haro notified via tiger text at 0828 pt refusing PO medication and meals. At this time Pt drowsy but awake to voice, A&Ox3 per, place, time, education provided on importance of medication pt states he does not want to take anything despite education. At 1039 notified pt is drowsy and lethargic opens eyes to sternal run then falls back to sleep, blood sugar is 91 at this time, VSS 128/68, 60 H, 97% on room air. ABGs ordered and RT at bedside to collect specimen. RT reports patient awake and verbally responding to questions when ABG collected. All safety measures in place.
[2023-01-11 12:15] LABS: ABG Refer to POC result
--- NOTE | 2023-01-11 13:56 | MHC.SL.SWA ---
Speech Pathologist Impression: Risk of aspiration, oropharyngeal dysphagia Dysphasia Diet Status: continue w/ ground solids (NDD2) and thin liquids w/ soft chopped fruits okay (strawberry, peaches) Liquid Consistency and Strategies for Safe Swallow: Liquid Intake Recommendation: Thin Liquid Intake Strategies: Double Swallow Solid Food Consistency: Dietary Recommendations: Grnd/Mech Altered (NDD2) Additional Modifications to Solid Foods: Moisten w/ sauce/gravy Oral Medication Intake: Crushed with Puree Please contact the pharmacy regarding appropriate crushable or liquid drug formulations that are available whenever modified delivery is recommended. Compensatory Strategies and Precautions to be Taken for Safe Swallow: Sitting Upright (90 deg) Small Bites and Sips Alternate Liquids/Solids Oral Check Avoid Specific Foods Supervision While Eating and Drinking for Safe Swallow: Total Supervision (1:1) Foods to Avoid: Avoid hard, tough to chew solids; dry solids; sticky textures (i.e. chicken salad). Swallowing Recommended Treatments: Compens. Strategy Educat. Recommendation for Speech: Inpatient Speech Therapy Comment: ROTARY DRILL OPERATOR HELPER recommendation is to continue w/ ground solids (NDD2) and thin liquids w/ soft chopped fruits (strawberry, peaches) okay. Avoid sticky foods (i.e. chicken salad). Full supervision is recommended to ensure pt awake & alert to eat, monitor for s/s aspiration, and encourage safe eating. Recommend pills crushed in puree; if pt refuses recommend pills whole in puree. Recommend head of the bed to remain at 45 degrees following PO. Pt would benefit from cues to promote oral clearance: take small bites, allow enough time to adequately chew each bite, alternate bites of food with sips of liquid, 1-2 dry swallows between each bite, ensure oral cavity is cleared before giving more bites. Aspiration precautions apply. Based on patient's vocal dissatisfaction w/ diet recommendation and pt reports that he will continue to refuse meals, a conversation about eating more advanced solids w/ risk of aspiration may be warranted. Fruit Shipper Clinican/Clinical Fellow: No Supervisory Statement: I have reviewed and agree with the student/clinical fellow's documentation: N/A Speech Language Pathologist: Ana Maria Waters M.A., CCC-ROTARY DRILL OPERATOR HELPER
--- NOTE | 2023-01-11 14:55 | MHC.CM.PN ---
Per MD rounds no discharge today. MD plans to have a hospice conversation with patients dtr. DP return to [facility]. Resume HD. Patient will transport via BLS.
[2023-01-11] MEDS: oxyCODONE HCl Immed Release 5 MG TABLET PO (15:27)
[2023-01-11 16:28] LABS: Glucose, Whole Blood 102 mg/dL (60-115)
[2023-01-11 20:32] LABS: Glucose, Whole Blood 125 mg/dL (60-115)
[2023-01-11] MEDS: Apixaban 5 MG TABLET PO (21:22)
[2023-01-11] MEDS: Atorvastatin Calcium 20 MG TABLET PO (21:22)
[2023-01-11] MEDS: Baclofen 10 MG TABLET 5 MG PO (21:23)
[2023-01-11] MEDS: Mirtazapine 15 MG TABLET PO (21:23)
[2023-01-11] MEDS: hydrALAZINE HCl 25 MG TABLET PO (21:23)
[2023-01-11] MEDS: carvediloL 12.5 MG TABLET PO (21:23)
[2023-01-11] MEDS: cefEPime HCl 1 GM in 0.9 % Sodium Chloride 50 ML IV (22:33)
[2023-01-11] MEDS: Hydrocortisone 1 % Cream 28.35 GM TUBE 1 APPL TOPICAL (22:33)
[2023-01-12 03:10] VITALS: BP 118/67; PULSE 64; RESP 18; TEMP 36; O2SAT 97
[2023-01-12] MEDS: Omeprazole 20 MG CAPSULE.DR PO (05:39)
[2023-01-12 07:18] VITALS: BP 185/81; PULSE 66; RESP 18; TEMP 36.2; O2SAT 95
[2023-01-12 07:25] LABS: Glucose, Whole Blood 109 mg/dL (60-115)
--- NOTE | 2023-01-12 10:20 | P.PNIM_ITS ---
Subjective Subjective Date of Service: 01/12/23 Interval History: less confused today Physical Exam Vital Signs: Vital Signs: Last Vital Signs Temp 97.2 F 01/12/23 07:18 Pulse 66 01/12/23 07:18 Resp 18 01/12/23 07:18 BP 185/81 H 01/12/23 07:18 Pulse Ox 95 01/12/23 07:18 O2 Del Method Room Air 01/12/23 07:18 BMI result Body Mass Index 27.2 Const: Other: General: oriented to self, no agiation Resp: CTA bilateral CVS: S1,S2,RRR GI: +BS, NT, no distention Skin: No rash Neuro: motor grossly intact Psych: appropriate affect Objective Data Active Medications Acetaminophen (Acetaminophen 325 Mg Tablet) 650 mg PO Q6H PRN PRN Reason: Pain, Mild (Pain Scale 1-3) Last Admin: 01/09/23 16:40 Dose: 650 mg Documented By: RENETTA Apixaban (Apixaban 5 Mg Tablet) 5 mg PO BID [facility] Last Admin: 01/11/23 21:22 Dose: 5 mg Documented By: TISH Atorvastatin Calcium (Atorvastatin Calcium 20 Mg Tablet) 20 mg PO BEDTIME [facility] Last Admin: 01/11/23 21:22 Dose: 20 mg Documented By: TISH Baclofen (Baclofen 10 Mg Tablet) 5 mg PO BID [facility] Last Admin: 01/11/23 21:23 Dose: 5 mg Documented By: TISH Carvedilol (Carvedilol 12.5 Mg Tablet) 12.5 mg PO BID [facility]; Protocol Last Admin: 01/11/23 21:23 Dose: 12.5 mg Documented By: TISH Dextrose (Dextrose 50 % 25 Gm/50 Ml Syringe) 25 gm IVPUSH Q15M PRN; Protocol PRN Reason: per Hypoglycemia Standing Ord. Fluticasone Propionate (Fluticasone Propionate 250 Mcg Blst.W.Dev) 1 puff INHALE RBID [facility] Last Admin: 01/12/23 08:49 Dose: Not Given Documented By: DEANNA Non-Admin Reason: Off unit: Dialysis Glucose (Glucose Gel 15 Gm Gel..Gram.) 15 gm PO Q15M PRN; Protocol PRN Reason: per Hypoglycemia Standing Ord. Heparin Sodium (Porcine) (Heparin Sodium,Porcine 5,000 Unit/Ml Vial) 5,000 unit SUBCUT Q12H [facility] Last Admin: 01/11/23 21:23 Dose: 5,000 unit Documented By: TISH Hydralazine HCl (Hydralazine Hcl 25 Mg Tablet) 25 mg PO TID [facility]; Protocol Last Admin: 01/11/23 21:23 Dose: 25 mg Documented By: TISH Cefepime HCl 1 gm/ Sodium (Chloride) 50 mls @ 100 mls/hr IV Q24H [facility] Last Infusion: 01/11/23 23:11 Dose: 0 mls/hr Documented By: TISH Vancomycin HCl 500 mg/ Sodium (Chloride) 110 mls @ 110 mls/hr IV ONCE ONE Stop: 01/05/23 20:59 Insulin Human Lispro (Insulin Lispro 100 Unit/Ml 3 Ml Vial) 0 unit SUBCUT QIDACHS [facility]; Protocol Last Admin: 01/12/23 07:27 Dose: Not Given Documented By: TONY Non-Admin Reason: No Insulin Coverage Midodrine (Midodrine Hcl 5 Mg Tablet) 5 mg PO Q8H PRN PRN Reason: ORTHOSTATIC BP Mirtazapine (Mirtazapine 15 Mg Tablet) 15 mg PO BEDTIME [facility] Last Admin: 01/11/23 21:23 Dose: 15 mg Documented By: TISH Omeprazole (Omeprazole 20 Mg Capsule.Dr) 20 mg PO DAILY@0630 [facility] Last Admin: 01/12/23 05:39 Dose: 20 mg Documented By: TISH Ondansetron HCl (Ondansetron Hcl 4 Mg/2 Ml Vial) 4 mg IVPUSH Q8H PRN PRN Reason: Nausea and Vomiting Oxycodone HCl (Oxycodone Hcl Immed Release 5 Mg Tablet) 5 mg PO Q4H PRN PRN Reason: Pain, Moderate(Pain Scale 4-6) Last Admin: 01/11/23 15:27 Dose: 5 mg Documented By: QUEENIE Pharmacy Consult (Consult Rx Vancomycin Dosing) 1 each MISCELLANE DAILY PRN PRN Reason: Consult order Senna (Sennosides 8.6 Mg Tablet) 17.2 mg PO DAILY [facility] Last Admin: 01/11/23 08:18 Dose: Not Given Documented By: QUEENIE Non-Admin Reason: Patient Refused Sevelamer Carbonate (Sevelamer Carbonate Tablet 800 Mg Tablet) 800 mg PO TIDAC [facility] Last Admin: 01/12/23 09:30 Dose: Not Given Documented By: TONY Non-Admin Reason: Off unit: Dialysis Silver Sulfadiazine (Silver Sulfadiazine 1 % Cream 20 Gm Tube) 1 appl TOPICAL DAILY [facility] Last Admin: 01/11/23 10:46 Dose: 1 appl Documented By: QUEENIE Sodium Chloride (0.9 % Sodium Chloride Flush 3 Ml Syringe) 3 ml IVFLUSH QSHIFT [facility] Last Admin: 01/12/23 09:30 Dose: Not Given Documented By: TONY Non-Admin Reason: Off unit: Dialysis Labs 01/11/23 05:24 01/11/23 05:24 Labs: Laboratory Results - last 24 hr 01/11/23 01/11/23 01/11/23 10:48 10:56 16:19 O2 Saturation 98.0 ABG pH at Pt Temp 7.39 ABG pCO2 at Pt Temp 35 ABG pO2 at Pt Temp 100 ABG HCO3 22 ABG Base Excess (Actual) -2.0 POC Glucose 91 102 01/11/23 01/12/23 20:24 07:21 O2 Saturation ABG pH at Pt Temp ABG pCO2 at Pt Temp ABG pO2 at Pt Temp ABG HCO3 ABG Base Excess (Actual) POC Glucose 125 H 109 Assessment and Plan (1) Osteomyelitis: Status: Acute (2) Acute UTI: Status: Acute (3) ESRD (end stage renal disease): Status: Acute Plan 67-year-old male with past medical history of hypertension, ESRD on dialysis, history of recurrent UTI comes into the hospital with increased confusion found to have multiple abnormalities; recent MRI consistent with right great toe cellulitis Osteomyelitis ( right great toe) confirmed on MRI -vancomycin/ cefepime - vascular proposes IV Abx for now and if doesn't heal then ampuation, family agree Encephalopathy--no clear source, ammonia, normbal, gabapentin stopped Acute UTI culture negative, Cefepime as above ESRD on HD -HD as per Renal HTN -acceptable control on current therapies DM II -lispro correctional scale -restart oral meds at dc Hx of DVT (recent duplex is negative both upper and lower extremity ) continue apixaban - renally dosed heparin DNR/DNI Requires ongoing hospitalization for IV antibiotics to treat osteomyelitis and urinary tract infection causing encephalopathy will discuss with family if ok, will discharge Time Spent With Patient Time: Total time managing care of this patient today ____ minutes. Quality Stroke Does the patient have a stroke diagnosis?: No VTE Prior VTE?: No VTE Risk Level:: Medical - moderate - high VTE Device Contraindication: Treatment Not Indicated VTE Drug Contraindication: N/A - Med Ordered
--- NOTE | 2023-01-12 10:24 | P.PNNPD_ITS ---
Subjective Subjective This patient was seen during dialysis. Interval history: less confused today Physical Exam Vital Signs: Vital Signs: Last Vital Signs Temp 97.2 F 01/12/23 07:18 Pulse 66 01/12/23 07:18 Resp 18 01/12/23 07:18 BP 185/81 H 01/12/23 07:18 Pulse Ox 95 01/12/23 07:18 O2 Del Method Room Air 01/12/23 07:18 BMI result Body Mass Index 27.2 Const: General: no acute distress HEENT: Head: Yes normocephalic and Yes atraumatic Neck: Neck: Yes supple Resp: Auscultation: diminished lung sounds Cardio: Heart sounds: S1 normal heart sound present and S2 normal heart sound present GI: Palpation (GI): Soft to palpation and nontender Extrem: General: Yes edema Assessment & Plan Assessment and plan (1) ESRD (end stage renal disease): Status: Acute (2) Anemia: Status: Acute Plan ESRD usually has HD t-t-s first shift at [facility] dialysis unit followed by Dr Hoang presented with altered mental status in the setting of acute infection found to have UTI and osteomyelitis of the great right toe REC HD TTS renal diet phosphate binders KATERINE Abx follow cultures Time Spent With Patient Time: Total time managing care of this patient today ____ minutes. Procedures Date of Service Date of Service: 01/12/23
[2023-01-12 13:13] LABS: Glucose, Whole Blood 90 mg/dL (60-115)
[2023-01-12] MEDS: Sennosides 8.6 MG TABLET 17.2 MG PO (13:16)
[2023-01-12] MEDS: carvediloL 12.5 MG TABLET PO ×2 (13:16→20:12)
[2023-01-12] MEDS: Silver Sulfadiazine 1 % Cream 20 GM TUBE 1 APPL TOPICAL (13:17)
--- NOTE | 2023-01-12 14:17 | PC.NURSE ---
Pt returned from dialysis at 1300. refused all med and lunch. foot dsg changed.
[2023-01-12 15:48] VITALS: BP 142/75; PULSE 66; RESP 17; TEMP 36.5; O2SAT 98
[2023-01-12 16:34] LABS: Glucose, Whole Blood 89 mg/dL (60-115)
[2023-01-12] MEDS: 0.9 % Sodium Chloride Flush 3 ML SYRINGE IVFLUSH (18:09)
[2023-01-12] MEDS: Fluticasone Propionate 250 MCG BLST.W.DEV 1 PUFF INHALE (19:29)
[2023-01-12 19:40] VITALS: PULSE 62; RESP 17; O2SAT 94
[2023-01-12 20:00] VITALS: BP 136/62; PULSE 67; RESP 17; TEMP 36.1; O2SAT 98
[2023-01-12] MEDS: Heparin Sodium,Porcine 5,000 UNIT/ML VIAL 5000 UNIT SUBCUT (20:12)
[2023-01-12] MEDS: Baclofen 10 MG TABLET 5 MG PO (20:13)
[2023-01-12] MEDS: Mirtazapine 15 MG TABLET PO (20:13)
[2023-01-12] MEDS: Atorvastatin Calcium 20 MG TABLET PO (20:13)
[2023-01-12] MEDS: Apixaban 5 MG TABLET PO (20:13)
[2023-01-12] MEDS: hydrALAZINE HCl 25 MG TABLET PO (20:14)
[2023-01-12 20:20] LABS: Glucose, Whole Blood 142 mg/dL (60-115)
[2023-01-12] MEDS: cefEPime HCl 1 GM in 0.9 % Sodium Chloride 50 ML IV (21:58)
[2023-01-13 03:01] VITALS: BP 152/73; PULSE 64; RESP 16; TEMP 36.1; O2SAT 97
[2023-01-13] MEDS: Omeprazole 20 MG CAPSULE.DR PO (06:08)
[2023-01-13 07:13] VITALS: BP 150/72; PULSE 68; RESP 18; TEMP 36.7; O2SAT 96
[2023-01-13 07:36] LABS: Glucose, Whole Blood 86 mg/dL (60-115)
[2023-01-13] MEDS: Fluticasone Propionate 250 MCG BLST.W.DEV 1 PUFF INHALE (07:50)
[2023-01-13 07:53] VITALS: PULSE 65; RESP 16; O2SAT 95
[2023-01-13 08:27] LABS: Vancomycin Random 10.6 mcg/mL (15-20)
[2023-01-13] MEDS: vancomycin HCL 500 MG in 0.9 % Sodium Chloride 100 ML 110 MG IV (09:04)
[2023-01-13] MEDS: Heparin Sodium,Porcine 5,000 UNIT/ML VIAL 5000 UNIT SUBCUT (09:04)
[2023-01-13] MEDS: carvediloL 12.5 MG TABLET PO (09:05)
[2023-01-13] MEDS: Sevelamer Carbonate Tablet 800 MG TABLET PO ×2 (09:05→12:14)
[2023-01-13] MEDS: Baclofen 10 MG TABLET 5 MG PO (09:05)
[2023-01-13] MEDS: Apixaban 5 MG TABLET PO (09:05)
[2023-01-13] MEDS: Sennosides 8.6 MG TABLET 17.2 MG PO (09:05)
[2023-01-13] MEDS: hydrALAZINE HCl 25 MG TABLET PO (09:05)
--- NOTE | 2023-01-13 09:34 | P.PNIM_ITS ---
Subjective Subjective Date of Service: 01/13/23 Interval History: He is more lucid and appears to be at his baseline now Physical Exam Vital Signs: Vital Signs: Last Vital Signs Temp 98.1 F 01/13/23 07:13 Pulse 65 01/13/23 07:53 Resp 16 01/13/23 07:53 BP 150/72 H 01/13/23 07:13 Pulse Ox 96 01/13/23 07:13 O2 Del Method Room Air 01/13/23 07:13 BMI result Body Mass Index 27.2 Const: Other: General: oriented to self, no agiation Resp: CTA bilateral CVS: S1,S2,RRR GI: +BS, NT, no distention Skin: No rash, wound dressing in place Neuro: motor grossly intact Psych: appropriate affect Objective Data Active Medications Acetaminophen (Acetaminophen 325 Mg Tablet) 650 mg PO Q6H PRN PRN Reason: Pain, Mild (Pain Scale 1-3) Last Admin: 01/09/23 16:40 Dose: 650 mg Documented By: RENETTA Apixaban (Apixaban 5 Mg Tablet) 5 mg PO BID [facility] Last Admin: 01/12/23 20:13 Dose: 5 mg Documented By: ERNIE Atorvastatin Calcium (Atorvastatin Calcium 20 Mg Tablet) 20 mg PO BEDTIME [facility] Last Admin: 01/12/23 20:13 Dose: 20 mg Documented By: ERNIE Baclofen (Baclofen 10 Mg Tablet) 5 mg PO BID [facility] Last Admin: 01/12/23 20:13 Dose: 5 mg Documented By: ERNIE Carvedilol (Carvedilol 12.5 Mg Tablet) 12.5 mg PO BID [facility]; Protocol Last Admin: 01/12/23 20:12 Dose: 12.5 mg Documented By: ERNIE Dextrose (Dextrose 50 % 25 Gm/50 Ml Syringe) 25 gm IVPUSH Q15M PRN; Protocol PRN Reason: per Hypoglycemia Standing Ord. Fluticasone Propionate (Fluticasone Propionate 250 Mcg Blst.W.Dev) 1 puff INHALE RBID [facility] Last Admin: 01/13/23 07:50 Dose: 1 puff Documented By: DEANNA Glucose (Glucose Gel 15 Gm Gel..Gram.) 15 gm PO Q15M PRN; Protocol PRN Reason: per Hypoglycemia Standing Ord. Heparin Sodium (Porcine) (Heparin Sodium,Porcine 5,000 Unit/Ml Vial) 5,000 unit SUBCUT Q12H [facility] Last Admin: 01/12/23 20:12 Dose: 5,000 unit Documented By: ERNIE Hydralazine HCl (Hydralazine Hcl 25 Mg Tablet) 25 mg PO TID [facility]; Protocol Last Admin: 01/12/23 20:14 Dose: 25 mg Documented By: ERNIE Cefepime HCl 1 gm/ Sodium (Chloride) 50 mls @ 100 mls/hr IV Q24H [facility] Last Infusion: 01/12/23 22:43 Dose: 0 mls/hr Documented By: ERNIE Vancomycin HCl 500 mg/ Sodium (Chloride) 110 mls @ 110 mls/hr IV ONCE ONE Stop: 01/05/23 20:59 Vancomycin HCl 500 mg/ Sodium (Chloride) 110 mls @ 110 mls/hr IV ONCE ONE Stop: 01/13/23 10:59 Insulin Human Lispro (Insulin Lispro 100 Unit/Ml 3 Ml Vial) 0 unit SUBCUT QIDACHS [facility]; Protocol Last Admin: 01/13/23 07:40 Dose: Not Given Documented By: CHERYL Non-Admin Reason: No Insulin Coverage Midodrine (Midodrine Hcl 5 Mg Tablet) 5 mg PO Q8H PRN PRN Reason: ORTHOSTATIC BP Mirtazapine (Mirtazapine 15 Mg Tablet) 15 mg PO BEDTIME [facility] Last Admin: 01/12/23 20:13 Dose: 15 mg Documented By: ERNIE Omeprazole (Omeprazole 20 Mg Capsule.) 20 mg PO DAILY@0630 [facility] Last Admin: 01/13/23 06:08 Dose: 20 mg Documented By: BHARAT Ondansetron HCl (Ondansetron Hcl 4 Mg/2 Ml Vial) 4 mg IVPUSH Q8H PRN PRN Reason: Nausea and Vomiting Pharmacy Consult (Consult Rx Vancomycin Dosing) 1 each MISCELLANE DAILY PRN PRN Reason: Consult order Senna (Sennosides 8.6 Mg Tablet) 17.2 mg PO DAILY [facility] Last Admin: 01/12/23 13:16 Dose: 17.2 mg Documented By: TONY Sevelamer Carbonate (Sevelamer Carbonate Tablet 800 Mg Tablet) 800 mg PO TIDAC [facility] Last Admin: 01/12/23 17:54 Dose: Not Given Documented By: ERNIE Non-Admin Reason: Patient Refused Silver Sulfadiazine (Silver Sulfadiazine 1 % Cream 20 Gm Tube) 1 appl TOPICAL DAILY [facility] Last Admin: 01/12/23 13:17 Dose: 1 appl Documented By: TONY Sodium Chloride (0.9 % Sodium Chloride Flush 3 Ml Syringe) 3 ml IVFLUSH QSHIFT [facility] Last Admin: 01/13/23 01:03 Dose: Not Given Documented By: BHARAT Non-Admin Reason: Previously Administered Labs 01/11/23 05:24 01/11/23 05:24 Labs: Laboratory Results - last 24 hr 01/12/23 01/12/23 01/12/23 13:07 16:26 20:16 POC Glucose 90 89 142 H Random Vancomycin 01/13/23 01/13/23 05:44 07:20 POC Glucose 86 Random Vancomycin 10.6 L Assessment and Plan (1) Osteomyelitis: Status: Acute (2) Acute UTI: Status: Acute (3) ESRD (end stage renal disease): Status: Acute Plan 67-year-old male with past medical history of hypertension, ESRD on dialysis, history of recurrent UTI comes into the hospital with increased confusion found to have multiple abnormalities; recent MRI consistent with right great toe cellulitis Osteomyelitis ( right great toe) confirmed on MRI -vancomycin/ cefepime - vascular proposes IV Abx for now and if doesn't heal then ampuation, family agree Encephalopathy--no clear source, ammonia, normbal, gabapentin stopped Acute UTI culture negative, Cefepime as above ESRD on HD -HD as per Renal HTN -acceptable control on current therapies DM II -lispro correctional scale -restart oral meds at dc Hx of DVT (recent duplex is negative both upper and lower extremity ) continue apixaban - renally dosed heparin DNR/DNI Requires ongoing hospitalization for IV antibiotics to treat osteomyelitis and urinary tract infection causing encephalopathy need rehab bed Time Spent With Patient Time: Total time managing care of this patient today ____ minutes. Quality Stroke Does the patient have a stroke diagnosis?: No VTE Prior VTE?: No VTE Risk Level:: Medical - moderate - high VTE Device Contraindication: Treatment Not Indicated VTE Drug Contraindication: N/A - Med Ordered
[2023-01-13] MEDS: 0.9 % Sodium Chloride Flush 3 ML SYRINGE IVFLUSH (09:52)
--- NOTE | 2023-01-13 10:08 | MHC.CLN ---
Addendum entered by Deana Quinones RD 01/13/23 11:40: SEEN BY CLINICAL LABORATORY AIDES TEACHER TODAY. DIET CONSISTENCY UPGRADED TO NDD3. Original Note: NUTRITION DIET=DIABETIC 1800 KCAL, 2 GRAM SODIUM, NDD2 CONSISTENCY. SEE CLINICAL LABORATORY AIDES TEACHER NOTES REGARDING DIET CONSISTENCY. INTAKE AT MOST MEALS 0-25%. ENCOURAGE INTAKE ABLE. PER MD NOTE 01/09, PI OF RIGHT HEEL, UNSTAGEABLE. PATIENT CONTINUES WITH HEMODIALYSIS. FOLLOW FOR INTAKE AND WOUND HEALING.
--- NOTE | 2023-01-13 10:40 | MHC.SL.SWA ---
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 Avoid sticky foods (i.e. chicken salad) and tough, difficult to chew solids (i.e. steak). Full supervision is recommended to ensure pt awake & alert to eat, monitor for s/s aspiration, and provide cues as needed for safe eating strategies. Recommend pills whole or crushed in puree per pt's tolerance. Liquid Consistency and Strategies for Safe Swallow: Liquid Intake Recommendation: Thin Liquid Intake Strategies: Small Sips Solid Food Consistency: Dietary Recommendations: Chopped/Advanced (NDD3) Oral Medication Intake: Crushed with Puree Please contact the pharmacy regarding appropriate crushable or liquid drug formulations that are available whenever modified delivery is recommended. Compensatory Strategies and Precautions to be Taken for Safe Swallow: Sitting Upright (90 deg) Double Swallow Small Bites and Sips Alternate Liquids/Solids Rate of Ingestion Change Oral Check Avoid Specific Foods Supervision While Eating and Drinking for Safe Swallow: Total Supervision (1:1) Foods to Avoid: Avoid hard, tough to chew solids; dry solids; sticky textures (i.e. chicken salad). Swallowing Recommended Treatments: Compens. Strategy Educat. Recommendation for Speech: Inpatient Speech Therapy Wildlife Conservation Professor Clinican/Clinical Fellow: No Supervisory Statement: I have reviewed and agree with the student/clinical fellow's documentation: N/A Speech Language Pathologist: Osiris Sheehan M.A., CCC-SECURITY INFRASTRUCTURE ENGINEER
[2023-01-13 11:15] LABS: Glucose, Whole Blood 108 mg/dL (60-115)
[2023-01-13 11:49] VITALS: PULSE 81; PULSE 82; O2SAT 96; O2SAT 98
[2023-01-13 13:47] VITALS: PULSE 65
--- NOTE | 2023-01-13 14:38 | MHC.CM.PN ---
Addendum entered by Tasha Shaikh 01/13/23 15:24: IMM DELIVERED Original Note: DP: PT HAS BEEN MEDICALLY CLEARED FOR DC TO STR AT [facility]. SPOUSE WILLIE NOTIFIED. [facility] IS AWARE THAT THEY SHOULD HOLD A DINNER TRAY FOR HIM. RN AWARE. BLS TRANSPORT BOOKED VIA [facility] FOR 4: 30 PM.
--- NOTE | 2023-01-25 16:57 | P.CDIM_ITS ---
PROVIDER RESPONSE TEXT: To clarify, the appropriate diagnosis supported by the clinical indicators: Clinically unable to determine (explain): not able tell the nature of ulcer QUERY TEXT: PHYSICIAN'S DOCUMENTATION REQUEST Date of Query: 01/12/2023 07:49 AM EDT Patient Name: Trevor Avila Admit Date: 01/05/2023 Dear Bridger Villalpando, A review of the medical record indicates additional documentation may be needed. Please review below and update the documentation accordingly. Clinical Indicators: General surgery note 01/10 - Nonhealing ulcer of right extremity Has a nonhealing ulcer of the right great toe, manage conservatively as possible. Continue Silvadene dressings daily. IV antibiotics and follow up with ID. PN: vascular surgery has assessed and thinks there is a chance the wound will and therefore deferring amputation. Based on the above, could you please provide further information regarding the ulcer/wound: Venous stasis ulcer Please specify the location and laterality of the ulcer/wound Arterial (ischemic) ulcer Please specify the location and laterality of the ulcer/wound Pressure (decubitus) ulcer Please include the stage of the ulcer and specify the location and laterality of the ulcer/wound Non-healing surgical wound Please specify the location and laterality of the ulcer/wound Other (explain)Clinically unable to determine (explain)Thank you, Sabrina Lugo, CCS, CDIS Use of terms such as suspected, likely, concern for, or probable (associated with a specific diagnosi s that is being evaluated, monitored, or treated as if it exists) are acceptable and can be coded in the inpatient se tting, when documented at the time of discharge. Please use your independent medical judgment in providing your response. THIS QUERY IS PART OF THE PERMANENT MEDICAL RECORD
--- NOTE | 2023-01-25 16:57 | P.CDIM_ITS ---
PROVIDER RESPONSE TEXT: To clarify, the appropriate diagnosis supported by the clinical indicators: Acute QUERY TEXT: PHYSICIAN'S DOCUMENTATION REQUEST Date of Query: 01/12/2023 12:06 PM EDT Patient Name: Trevor Avila Admit Date: 01/05/2023 Dear Bridger Haro, A review of the medical record indicates additional documentation may be needed. Please review below and update the documentation accordingly. Clinical Indicators: PN: osteomyelitis (right great toe) confirmed on MRI vancomycin/cefepime Clarify which of the following accurately represents the acuity of the osteomyelitis into the plan: Possible options might include: Acute Acute on chronic Chronic stable condition Other (explain)Clinically unable to determine (explain)Thank you, Sabrina Lugo, CCS, CDIS Use of terms such as suspected, likely, concern for, or probable (associated with a specific diagnosi s that is being evaluated, monitored, or treated as if it exists) are acceptable and can be coded in the inpatient se tting, when documented at the time of discharge. Please use your independent medical judgment in providing your response. THIS QUERY IS PART OF THE PERMANENT MEDICAL RECORD
== END 2023-01-13 17:08 | disposition skilled nursing facility (03) | DRG 689 ==
LOC: HO.ED 21:28 → HO.EDOVER 21:50 → HO.S3 22:02
PROVIDERS: Hospitalist; Admitting Provider Internal Medicine; Emergency Provider Emergency Medicine; PCP Internal Medicine; Visit Provider Internal Medicine
DX: N39.0 Urinary tract infection, site not specified (principal); G92.8 Other toxic encephalopathy; I12.0 Hypertensive chronic kidney disease with stage 5 chronic kidney disease or end stage renal disease; E11.52 Type 2 diabetes mellitus with diabetic peripheral angiopathy with gangrene; T82.898A Other specified complication of vascular prosthetic devices, implants and grafts, initial encounter; M86.171 Other acute osteomyelitis, right ankle and foot; N40.0 Benign prostatic hyperplasia without lower urinary tract symptoms; D63.1 Anemia in chronic kidney disease; E11.69 Type 2 diabetes mellitus with other specified complication; E11.621 Type 2 diabetes mellitus with foot ulcer; L97.519 Non-pressure chronic ulcer of other part of right foot with unspecified severity; E11.22 Type 2 diabetes mellitus with diabetic chronic kidney disease; Z66 Do not resuscitate; Z20.822 Contact with and (suspected) exposure to COVID-19; Z99.2 Dependence on renal dialysis; Z86.711 Personal history of pulmonary embolism; Z87.440 Personal history of urinary (tract) infections; L89.610 Pressure ulcer of right heel, unstageable; Y82.8 Other medical devices associated with adverse incidents; Z86.718 Personal history of other venous thrombosis and embolism; Z91.158 Patient's noncompliance with renal dialysis for other reason; Z87.891 Personal history of nicotine dependence; Z79.01 Long term (current) use of anticoagulants; Z79.51 Long term (current) use of inhaled steroids; Z79.84 Long term (current) use of oral hypoglycemic drugs; Z79.899 Other long term (current) drug therapy
CPT/HCPCS: 36415; 36600; 70450; 71045; 73120; 73620; 73720; 80048; 80053; 80076; 80202; 80307; 81001; 81003; 82140; 82550; 82565; 82803; 82947; 83605; 83690; 83735; 84443; 84484; 85025; 85610; 85652; 85730; 86140; 87040; 87086; 87502; 87635; 90999; 92526; 92610; 92950; 93005; 93925; 93971; 94640; 97162; 99285; A9585; C1758; J0692; J1643; J2543; J3370; J3371

== ENCOUNTER → 2023-01-04 16:27 | Outpatient (BNV) | payer OTHER, SELFPAY | PROVIDERS: Admitting Provider Internal Medicine; Emergency Provider Emergency Medicine; PCP Internal Medicine; Visit Provider Internal Medicine Cardiovascular Disease | DX: R41.82 Altered mental status, unspecified (principal) | CPT/HCPCS: 93010 ==

== ENCOUNTER → 2023-01-04 21:44 | Outpatient (BNV) | payer OTHER, SELFPAY | PROVIDERS: Admitting Provider Internal Medicine; Emergency Provider Emergency Medicine; PCP Internal Medicine; Visit Provider Surgery Vascular Surgery | DX: L97.919 Non-pressure chronic ulcer of unspecified part of right lower leg with unspecified severity (principal) | CPT/HCPCS: 99222; 99232 ==

== ENCOUNTER → 2023-01-04 21:44 | Outpatient (BNV) | payer OTHER, SELFPAY | PROVIDERS: Admitting Provider Internal Medicine; Emergency Provider Emergency Medicine; PCP Internal Medicine; Visit Provider Internal Medicine | DX: M86.8X7 Other osteomyelitis, ankle and foot (principal); N39.0 Urinary tract infection, site not specified; N18.6 End stage renal disease | CPT/HCPCS: 99223; 99232; 99233; 99239 ==